=== PATIENT | female | born 1950 | race Caucasian/White ===

== ENCOUNTER 2017-03-17 14:04 | Observation (INO) ==
[2017-03-17] MEDS ORDERED: PANTOPRAZOLE 40 MG VIAL IV ONE (14:55)
[2017-03-17] MEDS ORDERED: 0.9 % SODIUM CHLORIDE 250 ML IV SCH ×2 (15:00→18:30)
[2017-03-17 15:02] LABS: Basophils # (Auto) 0 K/mcL (0.0-0.3); Basophils % (Auto) 0.5 % (0.0-2.0); Eosinophils # (Auto) 0.2 K/mcL (0.0-0.7); Eosinophils % (Auto) 5.3 % (0.0-7.0); Granulocytes % (Auto) 63.9 % (38.0-78.0); Lymphocytes # (Auto) 0.9 K/mcL (1.5-4.8); Lymphocytes % (Auto) 20.8 % (15.5-49.0); Mean Cell Volume 97.6 fL (80.0-100.0); Mean Corpuscular HGB Conc 34.5 g/dL (31.0-36.0); Mean Corpuscular Hemoglobin 33.7 pg (26.0-34.0); Monocytes # (Auto) 0.4 K/mcL (0.1-0.9); Monocytes % (Auto) 9.5 % (1.0-12.0); Platelet Count 154 K/mcL (140-440); RBC 2.48 M/mcL (4.00-5.20); Red Cell Distribution Width 17.9 % (11.5-14.5)
[2017-03-17] MEDS: 0.9 % SODIUM CHLORIDE 1,000 ML IV SCH ×3 (15:04→22:32)
--- NOTE | 2017-03-17 15:15 | Emergency Department Note ---
GI Bleed HPI - General Chief complaint: Rectal Bleed Stated complaint: Rectal bleeding Time Seen by Provider: 03/17/17 14:23 Source: patient Mode of arrival: wheelchair Limitations: no limitations - History of Present Illness HPI Narrative: 36-year-old female who was seen 2 days ago for blood transfusion was given 3 units of blood has been evaluated by the GI doctor Dr. Ruiz also has had an EGD by Dr. Amor in the past 6 months ago had a EGD in which she was diagnosed with peptic ulcer disease at that time. 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 Requiring transfusions she states she noted 2 large bowel movements this morning with blood in it. She is feeling more tired and weak. Her hematocrit is 23 and she was given 3 units of packed RBCs after his hemoglobin was 6.5 on 03/15/17 she is having some midepigastric pain at this time. n stools are guaic positive - Related Data Home Medications Medication Instructions Recorded Confirmed spironolactone 25 mg tablet 25 mg PO QAM 05/19/16 03/17/17 Blood Sugar Diagnostic [Contour] 0 order .ROUTE .MEDSUPPLY 05/31/16 03/17/17 amlodipine 5 mg tablet 5 mg PO QDAY 07/26/16 03/17/17 losartan 50 mg tablet 25 mg PO DAILY tab 10/05/16 03/17/17 zinc 50 mg tablet 50 mg PO QDAY 10/05/16 03/17/17 ferrous sulfate ER 325 mg (65 mg 325 mg PO BID cap 10/19/16 03/17/17 iron) capsule,extended release torsemide 20 mg tablet 20 mg PO QAM tab 10/19/16 03/17/17 cholecalciferol (vitamin D3) 10,000 unit PO QDAY cap 01/28/17 03/17/17 10,000 unit capsule hydrocodone 10 mg-acetaminophen See Label Instructions .ROUTE 02/16/17 03/17/17 325 mg tablet .COMPLEX PRN tab Previous Rx's Medication Instructions Recorded atorvastatin 20 mg tablet 20 mg PO QDAY #60 tab 08/31/16 glipizide ER 5 mg tablet, extended 5 mg PO BID #180 tab 09/17/16 release 24 hr lactulose 10 gram/15 mL oral 20 g PO BID #946 ml 12/03/16 solution escitalopram 20 mg tablet 20 mg PO QDAY #90 tab 12/13/16 allopurinol 100 mg tablet 100 mg PO QDAY #60 tab 02/02/17 pantoprazole 40 mg tablet,delayed 40 mg PO BID #120 tab 02/28/17 release Allergies Allergy/AdvReac Type Severity Reaction Status Date / Time adhesive Allergy Intermediate edwards Verified 02/23/17 16:32 latex Allergy Mild Itching Verified 03/17/17 21:10 Sulfa (Sulfonamide Allergy Unknown Unknown Verified 02/23/17 16:32 Antibiotics) Oxycodone [From Percocet] AdvReac Mild Confusion Verified 02/23/17 16:32 squash AdvReac Mild Nausea Verified 02/23/17 16:32 MRI (metal implant/ right AdvReac Severe Other Uncoded 02/23/17 16:32 ankle) Review of Systems All systems ED: reviewed and negative except as stated. Gastrointestinal: Reports: as per HPI, abdominal pain, nausea, constipation, other (bight red blood). 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 Absent: wheezes Cardiovascular: Present: regular rate, normal rhythm. Absent: bradycardia, tachycardia, irregular rhythm Abdominal: Present: soft, tenderness, normal bowel sounds. Absent: distention, guarding, rebound, rigidity Abdominal tenderness: Present: epigastrium Rectal: Present: normal inspection, heme (+) stool, bloody stool. Absent: black stool Extremities: Present: normal inspection, full ROM. Absent: tenderness Back: Present: normal inspection, full ROM. Absent: tenderness Neurological: Present: alert, oriented X3, CN II-XII intact Psychiatric: Present: normal affect, normal mood. Absent: depressed, agitated Skin: Present: warm, dry, intact, normal color Course Vital Signs Temperature 98.0 F 03/17/17 14:06 Pulse Rate 90 03/17/17 14:06 Respiratory Rate 18 03/17/17 14:06 Blood Pressure 131/73 03/17/17 14:06 Pulse Oximetry (%) 96 03/17/17 14:06 Temperature 98 F 03/18/17 00:00 Pulse Rate 82 03/18/17 00:00 Respiratory Rate 18 03/18/17 00:00 Blood Pressure 134/75 03/18/17 00:00 Pulse Oximetry (%) 94 03/18/17 00:00 GI Bleed - Lab Data Result diagrams: 03/17/17 14:25 03/17/17 14:25 Lab Results 03/17/17 03/17/17 03/17/17 Range/Units 14:25 14:25 14:25 WBC 4.1 L (4.5-11.0) K/mcL RBC 2.48 L (4.00-5.20) M/mcL Hgb 8.4 L (12.0-15.0) g/dL Hct 24.2 L (36.0-48.0) % POC Hct 23.0 L (36.0-48.0) % MCV 97.6 (80.0-100.0) fL MCH 33.7 (26.0-34.0) pg MCHC 34.5 (31.0-36.0) g/dL RDW 17.9 H (11.5-14.5) % Plt Count 154 (140-440) K/mcL MPV 7.6 (7.4-10.4) fL Gran % 63.9 (38.0-78.0) % Lymph % (Auto) 20.8 (15.5-49.0) % Rosebud % (Auto) 9.5 (1.0-12.0) % Eos % (Auto) 5.3 (0.0-7.0) % Baso % (Auto) 0.5 (0.0-2.0) % Gran # 2.6 (1.8-8.0) K/mcL Lymph # (Auto) 0.9 L (1.5-4.8) K/mcL Rosebud # (Auto) 0.4 (0.1-0.9) K/mcL Eos # (Auto) 0.2 (0.0-0.7) K/mcL Baso # (Auto) 0 (0.0-0.3) K/mcL POC Sodium 139 (133-145) mmol/L Sodium 137 (133-145) mmol/L POC Potassium 4.5 (3.3-5.1) mmol/L Potassium 4.5 (3.3-5.1) mmol/L POC Chloride 101 (96-108) mmol/L Chloride 101 (96-108) mmol/L Carbon Dioxide 27 (22-30) mmol/L POC Total CO2 27 (22-30) mmol/L Anion Gap 9.0 (8-16) POC BUN 11 (8-23) mg/dl BUN 11 (8-23) mg/dl Creatinine 0.8 (0.6-1.1) mg/dl POC Creatinine 0.8 (0.6-1.1) mg/dl GFR Calculation 76 Glucose 316 H (70-105) mg/dL POC Glucose 317 H (70-105) mg/dL Hemoglobin A1c 6.8 H (4.0-6.0) % HGB Estim Average Glucose 148 mg/dL Calcium 8.5 L (8.6-10.4) mg/dl POC WB Ioniz Calcium 1.22 (1.16-1.32) mmol/L Total Bilirubin 0.8 (0.0-1.0) mg/dL AST 31 (0-37) U/l ALT 15 (0-40) U/l Alkaline Phosphatase 139 H (39-117) U/L Total Protein 6.4 (5.9-8.4) gm/dL Albumin 2.7 L (3.2-5.2) gm/dL Globulin 3.7 (2.2-3.7) gm/dL Albumin/Globulin Ratio 0.7 L (1.0-2.3) Lipase 51 (7-60) U/L Disposition Pt seen by CHROMIUM PLATER/PA only: No Clinical Impression: GI Bleed Disposition: Xfer As Inpt ([facility])
[2017-03-17 15:17] LABS: ALT/SGPT 15 U/l (0-40); Albumin 2.7 gm/dL (3.2-5.2); Albumin/Globulin Ratio 0.7 (1.0-2.3); Alkaline Phosphatase 139 U/L (39-117); Blood Urea Nitrogen 11 mg/dl (8-23); Lipase 51 U/L (7-60)
[2017-03-17] MEDS: PANTOPRAZOLE 80 MG in 0.9 % SODIUM CHLORIDE 100 ML IV SCH (15:35)
[2017-03-17] MEDS ORDERED: ONDANSETRON 4 MG/2 ML VIAL IV PRN (15:50)
[2017-03-17] MEDS ORDERED: 0.9 % SODIUM CHLORIDE 1,000 ML IV SCH (16:00)
--- NOTE | 2017-03-17 16:38 | XRay Report ---
CLINICAL INFORMATION: Rectal bleeding COMPARISON: None. FINDINGS: The stool gas pattern is unremarkable. There is no free air, soft tissue mass, organomegaly or pathologic calcification. IMPRESSION: Normal abdomen Interpreted and Authenticated by: Reynaldo Mukherjee 03/17/17
[2017-03-17] MEDS ORDERED: HYDROmorphone 2 MG/ML SYRINGE IV PRN (16:59)
[2017-03-17] MEDS ORDERED: PANTOPRAZOLE 40 MG VIAL IV SCH (17:00)
[2017-03-17] MEDS: INSULIN LISPRO 1 UNIT/0.01 ML UNIT SQ SCH (17:37)
--- NOTE | 2017-03-17 18:12 | General Surg History&Physical ---
History of Present Illness Patient information: Note initiated : 03/17/17 at 6:05 pm Service Date, if different from initiated Date: [] Patient: Francia Souza a 66 y/o F admitted on 03/17/17 for Rectal bleeding. Chief Complaint: [Rectal bleeding and anemia] HPI: Ms. Souza is a 66 year old F with known history of recurrent rectal bleeding. The patient also has pancytopenia with monoclonal gammopathy, iron deficiency anemia, Shepherd with portal hypertension and chronic peptic ulcer disease. She has documented cirrhotic liver disease and endoscopic evidence of early esophageal varices. She has been on iron infusions and has required multiple red blood cell transfusions because of severe anemia she had an EGD in May 2016 which showed severe gastritis. She has been on Protonix twice daily and Carafate 4 times daily. She has also received iron transfusions because of chronic iron deficiency the patient was transfused on 15 March 2017. She received 3 units of blood at that time. On the she had a hard bowel movement and had 2 very large bloody stools. She took a laxative and had very large soft bloody bowel movement. Her last bowel movement was 1300 hrs. today. She has not had a recent colonoscopy the last documented colonoscopy was February 2015 which showed hemorrhoids and 2 small tubular adenomas. patient's present hemoglobin is 8.4 with hematocrit of 24.2. She is admitted for observation, bowel prep, colonoscopy to rule out other sources of colonic bleeding. Review of Systems - Constitutional fatigue, malaise, weakness, weight gain - EENT Nose, mouth and throat: no dysphagia, no epistaxis - Cardiovascular dyspnea on exertion, leg edema, palpatations, rapid heart rate, no chest pain at rest - Respiratory dyspnea on exertion, no cough, no wheezing, no chest congestion - Gastrointestinal abdominal pain, change in bowel habits, constipation, hematochezia - Genitourinary Genitourinary: no dysuria, no urinary hesitancy - Musculoskeletal abnormal gait, back pain, joint swelling, radiating pain into limb, stiffness - Integumentary new lesions (Small blisters right lower extremity near the ankle), no changing lesions, no non-healing lesions - Neurological abnormal gait, vertigo, weakness, no confusion, no convulsions, no memory loss, no syncope - Psychiatric depression, no anxiety - Endocrine fatigue, no polydipsia, no polyphagia - Hematologic/Lymphatic no easy bleeding, no easy bruising, no lymphadenopathy - Allergic/Immunologic no tongue swelling, no throat swelling, no uticaria, no wheezing, no lip swelling Past History Past medical history: Diabetes mellitus type 2 Carotid artery disease Nonalcoholic steatohepatitis with cirrhosis and portal hypertension Depression Essential hypertension Iron deficiency anemia Pancytopenia Monoclonal gammopathy Morbid obesity Pulmonary hypertension Morbid obesity Obstructive sleep apnea Osteoarthritis Past surgical history: Heller myotomy Hysterectomy with oophorectomy Left total knee replacement Right total knee replacement Rodding with fixation left femoral fracture Past family history: Hypertension Diabetes mellitus Lung cancer Liver cancer Kidney cancer Pancreatic cancer Multiple sclerosis Oropharyngeal cancer Past social history: Former smoker Occasional alcohol use Denies drug use Medications and Allergies Home Medications Medication Instructions Recorded Confirmed Type spironolactone 25 mg tablet 25 mg PO QAM 05/19/16 02/23/17 History Blood Sugar Diagnostic [Contour] 0 order .ROUTE .MEDSUPPLY 05/31/16 02/23/17 History amlodipine 5 mg tablet 5 mg PO QDAY 07/26/16 02/23/17 History atorvastatin 20 mg tablet 20 mg PO QDAY #60 tab 08/31/16 02/23/17 Rx glipizide ER 5 mg tablet, extended 5 mg PO BID #180 tab 09/17/16 02/23/17 Rx release 24 hr losartan 50 mg tablet 25 mg PO BID tab 10/05/16 02/23/17 History zinc 50 mg tablet 50 mg PO QDAY 10/05/16 02/23/17 History ferrous sulfate ER 325 mg (65 mg 325 mg PO BID cap 10/19/16 02/23/17 History iron) capsule,extended release torsemide 20 mg tablet 20 mg PO QAM tab 10/19/16 02/23/17 History lactulose 10 gram/15 mL oral 20 g PO BID #946 ml 12/03/16 02/23/17 Rx solution escitalopram 20 mg tablet 20 mg PO QDAY #90 tab 12/13/16 02/23/17 Rx cholecalciferol (vitamin D3) 10,000 unit PO QDAY cap 01/28/17 02/23/17 History 10,000 unit capsule allopurinol 100 mg tablet 100 mg PO QDAY #60 tab 02/02/17 02/23/17 Rx hydrocodone 10 mg-acetaminophen See Label Instructions .ROUTE 02/16/17 02/23/17 History 325 mg tablet .COMPLEX PRN tab pantoprazole 40 mg tablet,delayed 40 mg PO BID #120 tab 02/28/17 Rx release Allergies Allergy/AdvReac Type Severity Reaction Status Date / Time adhesive Allergy Intermediate edwards Verified 02/23/17 16:32 latex Allergy Intermediate Itching Verified 02/23/17 16:32 Sulfa (Sulfonamide Allergy Unknown Unknown Verified 02/23/17 16:32 Antibiotics) Oxycodone [From Percocet] AdvReac Mild Confusion Verified 02/23/17 16:32 squash AdvReac Mild Nausea Verified 02/23/17 16:32 MRI (metal implant/ right AdvReac Severe Other Uncoded 02/23/17 16:32 ankle) Exam Temp Pulse Resp BP Pulse Ox 98.0 F 82 16 130/91 95 03/17/17 17:10 03/17/17 17:10 03/17/17 17:10 03/17/17 17:10 03/17/17 17:10 - General physical appearance well developed, well nourished, no distress, moderate pain, obese - Eyes PERRL, normal ocular movement. negative: icteric - ENT normal pinna, normal nares, normal mucosa, no hearing loss, no congestion, dentures - Head Head exam IM: Present: atraumatic, normal inspection, normocephalic - Neck no masses, no bruits, trachea midline, no lymphadectomy, no venous distension - Cardiovascular Cardiovascular exam IM: Present: normal rate and rhythm, RRR, +S1, +S2, systolic murmur. Absent: gallop, JVD Intensity IM: 2/6 - Respiratory normal expansion, normal respiratory effort, clear to percussion, clear to auscultation - Abdomen Abdomen: Present: soft, tender (Epigastric tenderness), bowel sounds, distended (Obese) Hernia: Present: none - Genitourinary Present: normal external genitalia - Rectum Rectum: Present: normal sphincter tone, no bleeding Hemorrhoids: Present: moderate - Integumentary Present: no rash, no growths, other (Spider angiomata of the chest) - Neurologic Present: normal coordination, normal sensation - Musculoskeletal Present: normal gait, normal posture - Psychiatric Present: oriented to time, oriented to person, oriented to place, speech is normal, memory intact Assessment and Plan (1) Rectal bleeding Bowel prep will be carried out tonight with colonoscopy to be performed in the morning Status: Acute (2) Acute blood loss anemia Patient will be transfused 2 units of packed red cells tonight Serial hemoglobin every 8 hours Status: Acute (3) Erosive gastritis with hemorrhage Continue on pantoprazole IV Status: Acute (4) Polyclonal gammopathy Status: Chronic (5) Acquired pancytopenia Status: Acute (6) DMII (diabetes mellitus, type 2) Q's every 6 hours Accu-Chek Sliding scale insulin coverage Status: Chronic Comment: 1989 Qualifiers: Diabetes mellitus complication status: with unspecified complications Diabetes mellitus alf insulin use: without alf use Qualified Code( s): E11.8 - Type 2 diabetes mellitus with unspecified complications (7) Hypertension, essential Status: Chronic Comment: 2000
[2017-03-17] MEDS ORDERED: PEG 3350/NA SULF,BICARB,CL/KCL 4,000 ML ORAL.SOL PO ONE (18:26)
[2017-03-17 18:52] LABS: Hemoglobin A1C 6.8 % HGB (4.0-6.0)
[2017-03-17] MEDS ORDERED: PEG 3350/NA SULF,BICARB,CL/KCL 4,000 ML ORAL.SOL ONE (19:45)
[2017-03-17] MEDS: LOSARTAN 50 MG TABLET PO SCH (22:32)
[2017-03-18] MEDS: PANTOPRAZOLE 80 MG in 0.9 % SODIUM CHLORIDE 100 ML IV SCH (00:23)
[2017-03-18] MEDS: INSULIN LISPRO 1 UNIT/0.01 ML UNIT SQ SCH ×5 (00:29→21:05)
[2017-03-18] MEDS: 0.9 % SODIUM CHLORIDE 1,000 ML IV SCH (02:27)
[2017-03-18 06:01] LABS: Basophils # (Auto) 0 K/mcL (0.0-0.3); Basophils % (Auto) 0.8 % (0.0-2.0); Eosinophils # (Auto) 0.3 K/mcL (0.0-0.7); Granulocytes % (Auto) 55.4 % (38.0-78.0); Lymphocytes # (Auto) 1.2 K/mcL (1.5-4.8); Mean Cell Volume 91.7 fL (80.0-100.0); Mean Corpuscular HGB Conc 34.4 g/dL (31.0-36.0); Mean Corpuscular Hemoglobin 31.5 pg (26.0-34.0); Monocytes # (Auto) 0.6 K/mcL (0.1-0.9); Monocytes % (Auto) 12.8 % (1.0-12.0); Platelet Count 126 K/mcL (140-440); RBC 3.09 M/mcL (4.00-5.20); Red Cell Distribution Width 16.6 % (11.5-14.5)
[2017-03-18] MEDS ORDERED: PROPOFOL 200 MG/20 ML VIAL IV ONE (08:50)
[2017-03-18] MEDS ORDERED: ONDANSETRON 4 MG/2 ML VIAL IV ONE (08:50)
[2017-03-18] MEDS ORDERED: MIDAZOLAM 5 MG/5 ML VIAL IV ONE (08:50)
[2017-03-18] MEDS ORDERED: amLODIPine 5 MG TABLET PO SCH (09:00)
[2017-03-18] MEDS ORDERED: LACTATED RINGERS 250 ML IV PRN ×2 (09:00→09:53)
[2017-03-18] MEDS ORDERED: TORSEMIDE 10 MG TABLET PO SCH (09:00)
[2017-03-18] MEDS ORDERED: SPIRONOLACTONE 25 MG TABLET PO SCH (09:00)
[2017-03-18] MEDS ORDERED: ESCITALOPRAM 10 MG TABLET PO SCH (09:00)
[2017-03-18] MEDS ORDERED: ONDANSETRON 4 MG/2 ML VIAL IV PRN ×2 (09:00→09:53)
[2017-03-18] MEDS ORDERED: IPRATROPIUM/ALBUTEROL 3 ML AMPUL.NEB NEB PRN (09:00)
[2017-03-18] MEDS ORDERED: PROMETHAZINE 25 MG/ML VIAL IV PRN (09:00)
[2017-03-18] MEDS ORDERED: FLUMAZENIL 0.1 MG/ML ML IV PRN (09:00)
[2017-03-18] MEDS ORDERED: LACTATED RINGERS 1,000 ML IV SCH (09:00)
[2017-03-18] MEDS: LOSARTAN 50 MG TABLET PO SCH (09:29)
--- NOTE | 2017-03-18 09:36 | Brief Operative Note ---
Date of procedure: 03/18/17 Pre-op diagnosis: rectal bleeding Post-op diagnosis: other (sigmoid colon polyps; hemorrhoid,internal and external ) Procedure: colonoscopy with polypectomy Grafts/Implants: No Anesthesia: MAC Findings: large internal and external hemorrhoids, multiple colon polyps Complications: none Surgeon: Asif Thompson Specimens Removed/Pathology: other (colon polyps) Condition: stable Disposition: floor
[2017-03-18] MEDS ORDERED: 0.9 % SODIUM CHLORIDE 1,000 ML IV SCH (09:53)
[2017-03-18] MEDS: HYDROmorphone 2 MG/ML SYRINGE IV PRN ×2 (13:44→18:02)
--- NOTE | 2017-03-18 13:56 | Operative Note ---
DATE OF OPERATION: 03/18/2017 PREOPERATIVE DIAGNOSIS: Rectal bleeding. POSTOPERATIVE DIAGNOSIS: Sigmoid colon polyp and internal and external hemorrhoids. PROCEDURE: Colonoscopy with polypectomy. FINDINGS: Large internal and external hemorrhoids, without active bleeding. Multiple colon polyps and multiple distal rectal mucosal excresences Formation. DESCRIPTION OF PROCEDURE: Under general anesthesia, the patient was turned to the left lateral decubitus position. A timeout procedure was carried out as per protocol. Digital evaluation revealed internal and external hemorrhoids, and a healing tear of one of the lateral hemorrhoidal complex. There was no active bleeding. There was no blood in the rectal vault. The scope was introduced to the cecum. Cecum was identified by the opening of the ileocecal valve and appendi . Cecum was unremarkable. There was some staining from liquid stool but this was irrigated and cleared . Descending colon was unremarkable. Transverse colon showed no abnormality. Is. The descending colon was unremarkable except around 70 cm was a flat based polyp noted. It was removed with multiple cold biopsies. At about 50 cm, there was another polyp that was snared but the snare caused liquefaction of the polyp and there was no tissue for diagnosis. There were two other polyps in the distal sigmoi. The patient tolerated well. There were no diverticular openings noted. There were no vascular lesions noted. Retroflexed view confirmed moderate sized internal hemorrhoids. The procedure was terminated. The patient tolerated the procedure well. IMPRESSION: The patient has large hemorrhoids which are associated with portal hypertension. Treatment is going to be liberal use of stool softeners to prevent constipation and irritation. Topical treatment is not going to be effective . Hemorrhoidectomy should not be performed in these patient unless mandated by uncontrolled bleeding.. LCS:enrico Job ID: [id number] Doc ID: [id number] Asif RENNER
[2017-03-18] MEDS: glipiZIDE 5 MG TAB.XL.24H PO SCH (17:46)
[2017-03-18] MEDS: PANTOPRAZOLE 40 MG TABLET PO SCH (17:46)
[2017-03-18] MEDS: LACTULOSE 20 GM/30 ML ORAL.SOL PO SCH (20:20)
[2017-03-18] MEDS: LOSARTAN 25 MG TABLET PO SCH (20:23)
[2017-03-19] MEDS: INSULIN LISPRO 1 UNIT/0.01 ML UNIT SQ SCH ×2 (07:21→12:19)
[2017-03-19] MEDS: PANTOPRAZOLE 40 MG TABLET PO SCH (07:22)
[2017-03-19] MEDS: glipiZIDE 5 MG TAB.XL.24H PO SCH (07:22)
[2017-03-19] MEDS: HYDROmorphone 2 MG/ML SYRINGE IV PRN (07:22)
[2017-03-19] MEDS: LOSARTAN 25 MG TABLET PO SCH (08:10)
[2017-03-19] MEDS: LACTULOSE 20 GM/30 ML ORAL.SOL PO SCH (08:11)
[2017-03-19] MEDS ORDERED: ESCITALOPRAM 10 MG TABLET PO SCH ×2 (09:00→21:00)
[2017-03-19] MEDS ORDERED: TORSEMIDE 10 MG TABLET PO SCH (09:00)
[2017-03-19] MEDS ORDERED: amLODIPine 5 MG TABLET PO SCH (09:00)
[2017-03-19] MEDS ORDERED: SPIRONOLACTONE 25 MG TABLET PO SCH (09:00)
--- NOTE | 2017-03-19 12:48 | Discharge Summary ---
Providers - Providers Patient information: Note initiated : 03/19/17 at 12:45 pm Service Date, if different from initiated Date: [] Patient: Francia Souza 66 y/o F admitted on 03/17/17 for Rectal bleeding. Chief Complaint: [] Date of admission: 03/17/17 Discharge date: 03/19/17 Attending physician: Asif Thompson Hospitalization Hospital course: 66-year-old female who was admitted with recurrent rectal bleeding. The patient has pancytopenia with monoclonal gammopathy, iron deficiency anemia, mesh with portal hypertension and chronic peptic ulcer disease. She also has documented cirrhotic liver disease with endoscopic evidence of esophageal varices. She had been treated by multiple physicians as an outpatient over the past few years and has chronic anemia. She had an EGD in May 2016 which showed severe gastritis and she has been on Protonix and Carafate. The patient has a 1 day history of large bloody bowel movements. Her hemoglobin which was above 10 with down to 8.4. She was admitted and had a bowel prep. She had colonoscopy which showed few small polyps and large internal and external hemorrhoids but no evidence of bleeding. Patient has not had bleeding since her colonoscopy and her hemoglobin is stable. She is discharged home in stable condition and can have follow-up with her primary care physician. Discharge diagnosis: Acute rectal bleeding Secondary discharge diagnosis: Internal and external hemorrhoids Mass with portal hypertension Pancytopenia Monoclonal gammopathy Iron deficiency anemia Colon polyps Reason for admission: Rectal bleeding Procedures: Colonoscopy with polypectomy Complications: None Exam Temp Pulse Resp BP Pulse Ox 98.9 F 94 H 16 119/82 95 03/19/17 12:00 03/19/17 08:23 03/19/17 12:00 03/19/17 12:00 03/19/17 12:00 - General physical appearance well developed, well nourished, no distress - Eyes PERRL, normal ocular movement - ENT normal pinna, normal nares, normal mucosa, no hearing loss, no congestion - Head Head exam IM: Present: atraumatic, normocephalic - Neck no masses, no bruits, trachea midline, no lymphadectomy, no venous distension - Cardiovascular Cardiovascular exam IM: Present: normal rate and rhythm, RRR, +S1, +S2, systolic murmur, tachycardia. Absent: JVD Intensity IM: 2/6 - Respiratory normal expansion, normal respiratory effort, clear to percussion, clear to auscultation - Abdomen Abdomen: Present: soft, non tender (Abdomen is soft and nondistended she does not have any tenderness; she has good active bowel sounds), bowel sounds Hernia: Present: none - Genitourinary Present: normal external genitalia - Integumentary Present: no rash, no growths, no abnormal pigmentation - Neurologic Present: normal coordination, normal sensation - Musculoskeletal Present: normal gait, normal posture - Psychiatric Present: oriented to time, oriented to person, oriented to place, speech is normal, memory intact Discharge Plan - Patient/Caregiver Discharge Instructions Activity: increase activity as tolerated Diet: Consistent Carbohydrate Additional Instructions: MiraLAX once or twice daily to achieve soft bowel movements Follow-up with primary care physician on an as-needed basis - Follow up Plan Follow up with: Andres Sanchez MD [Primary Care Provider] - (Keep your April appointment , if you have any problems call and scheduled to be seen before then.) Disposition: Home, Self-Care Prognosis: Good Rehab Potential: Good I certify that the patient requires SNF services.: No Overall status at discharge: patient is back to baseline Pending Studies Resuscitation Status Full Code Diet Consistent Carbohydrate Diet Start TueMar 18 1014 Amlodipine Besylate (Norvasc) 5 mg PO QDAY [facility] Last Admin: 03/19/17 08:10 Dose: 5 mg Diagnostic Test (Pha) (Accu-Chek) 1 each FS [facility] Last Admin: 03/19/17 12:18 Dose: 1 each Admin: 03/19/17 07:21 Dose: 1 each Admin: 03/18/17 20:12 Dose: 1 each Glipizide (Glucotrol Xl) 5 mg PO BIDAC [facility] Last Admin: 03/19/17 07:22 Dose: 5 mg Admin: 03/18/17 17:46 Dose: 5 mg Hydromorphone HCl (Dilaudid) 1 mg IV Q4HP PRN PRN Reason: PAIN LEVEL > 6 Last Admin: 03/19/17 07:22 Dose: 1 mg Admin: 03/18/17 18:02 Dose: 0.5 mg Admin: 03/18/17 13:44 Dose: 0.5 mg Insulin Human Lispro (Humalog) 0 unit SQ [facility] PRN Reason: Protocol Last Admin: 03/19/17 12:19 Dose: 8 unit Admin: 03/19/17 07:21 Dose: 4 unit Admin: 03/18/17 21:05 Dose: 6 unit Lactulose (Cephulac) 20 gm PO BID [facility] Last Admin: 03/19/17 08:11 Dose: 20 gm Admin: 03/18/17 20:20 Dose: 20 gm Losartan Potassium (Cozaar) 25 mg PO BID [facility] Last Admin: 03/19/17 08:10 Dose: 25 mg Admin: 03/18/17 20:23 Dose: Not Given Pantoprazole Sodium (Protonix) 40 mg PO BIDAC [facility] Last Admin: 03/19/17 07:22 Dose: 40 mg Admin: 03/18/17 17:46 Dose: 40 mg Spironolactone (Aldactone) 25 mg PO QAM [facility] Last Admin: 03/19/17 08:09 Dose: 25 mg Torsemide (Demadex) 20 mg PO DAILY [facility] Last Admin: 03/19/17 08:10 Dose: Not Given Shift Summary 03/19/17 04:31 Shift Summary by Acosta Sinclair on RA. Ambulates w/FWW to BS. Complained of headache intermittently throughout shift, did not receive any pain meds. Complained of nausea x1 this am after ambulating to BS. Nausea quickly subsided w/no emesis after returning to bed and opening a window. No BM this shift. Pt takes Lexapro @ night and requested to take it last night to resume her normal medication schedule. Med still ordered for am and should be held. Possible d/c today. Initialized on 03/19/17 04:31 - END OF NOTE
--- NOTE | 2017-03-22 16:36 | Surgical Pathology Report ---
HISTOLOGY SPECIMEN MICROSCOPIC DIAGNOSIS SPECIMEN A - COLON, SIGMOID 30 cm, POLYPECTOMY: -- HYPERPLASTIC POLYP. SPECIMEN B - COLON, 50 cm, POLYPECTOMY: -- HYPERPLASTIC POLYPS. SPECIMEN C - COLON, CECUM, POLYPECTOMY: -- POLYPOID PORTION OF COLONIC MUCOSA WITH BLAND STROMAL PROLIFERATION, FAVOR MYXOMA, SEE COMMENT. -- NO DYSPLASIA OR MALIGNANCY IDENTIFIED. SPECIMEN D - COLON, 25 cm, POLYPECTOMIES: -- HYPERPLASTIC POLYPS. (RLF:djf) COMMENT: The cecum polyp (specimen C) shows a polypoid colonic mucosal fragment with mucinous hypocellular stroma. The stromal cells are bland and cytologic atypia is not identified. Immunohistochemistry is negative for neural, smooth muscle and epithelial differentiation within these stromal cells. 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 No dysplasia or malignancy are identified. Clinical and endoscopic correlation are recommended. MICROSCOPIC DESCRIPTION Immunohistochemistry is performed (block C). Cells of interest: Stroma. SM-MHC: Negative. CD34, CD117: Negative. Pancytokeratin plus: Negative. S100: Negative. Interpretation: No leiomyoma, GIST, carcinoma or neural differentiation identified. Some of the tests reported here may not have been cleared or approved by the U.S. Food and Drug Administration (FDA). However, the FDA has determined that such clearance or approval is not necessary. Pursuant to the requirements of CLIA, this laboratory has established and verified the accuracy and precision of all tests, and additional information about these tests is available upon request. All technical controls are adequate. CLINICAL HISTORY Rectal bleeding. PROCEDURAL IMPRESSION Polyps. GROSS DESCRIPTION Specimen A: Received in formalin labeled 30 cm sigmoid polyp, are four fragments of pink-carranza tissue ranging in size from 0.1 to 0.3 cm. Totally submitted - one cassette. Specimen B: Received in formalin labeled 50 cm polyp, is a 0.2 cm fragment of carranza tissue. Totally submitted - one cassette. Specimen C: Received in formalin labeled cecum polyp, is a 0.7 cm fragment of carranza tissue. Totally submitted - one cassette. Specimen D: Received in formalin labeled 25 cm polyps, are four fragments of pink-carranza tissue ranging in size from 0.2 to 0.3 cm. Totally submitted - one cassette. (KGW:john) Electronically Signed by: Shy Duran M.D.
== END 2017-03-19 13:40 | disposition home or self-care (01) ==
LOC: ED 14:04 → MEDSUR 16:31 → INTOOBSV 16:31 → MEDSUR 17:10
PROVIDERS: ADMIT Family Medicine Adult Medicine; ATTEND Family Medicine Adult Medicine

== ENCOUNTER 2019-06-16 19:50 | Inpatient (IN) ==
--- NOTE | 2019-06-16 20:20 | Emergency Department Note ---
Recheck HPI - General Chief Complaint: Recheck/Abnormal Lab/Rx Stated Complaint: weakness Time Seen by Provider: 06/16/19 19:54 Source: EMS Mode of arrival: EMS Limitations: physical limitation - History of Present Illness HPI Narrative: Patient is a 68-year-old female that returns to the emergency department by ambulance today after she was notified by the emergency department to return once her blood cultures had resulted with gram-negative bacilli. Patient was seen yesterday here in the emergency department by Dr. day. Patient has cellulitis to the right lower leg. This is a result of her falling out of her wheelchair a few days ago and had injured the right leg. She has redness on the right leg, swelling, and pain. She has had fevers for the last 2 days. She reports that her fever today was 101.0. She denies any cough, shortness of breath, abdominal pains. She denies any pain or burning with urination. Patient's labs from yesterday evening show normal white count with a lactic acid of 2.3. She did have a temperature yesterday of 102.7 while she was here in the emergency department. She was given a dose of vancomycin and discharged on clindamycin. Patient reports that since she has been home she has felt weaker, and continues to have fevers. - Related Data Home Medications Medication Instructions Recorded Confirmed acetaminophen 500 mg capsule 1,000 mg PO Q4H PRN cap 05/19/18 05/10/19 Lidocaine with 8.4% Sod Bicarb 10 ml PO PRN PRN 03/27/19 05/10/19 [Buffered Lidocaine 1% Syringe] OneTouch Prime blood sugar test 0 dose .ROUTE .MEDSUPPLY 04/05/19 05/10/19 strips Pen Needle, Diabetic [Unifine See Dose Instructions dose .ROUTE 04/05/19 05/10/19 Pentips Plus] .MEDSUPPLY Previous Rx's Medication Instructions Recorded lactulose 10 gram/15 mL oral 20 g PO BID #946 ml 09/02/17 solution bisacodyl 5 mg tablet,delayed 5 mg PO QHS PRN #30 tab 02/22/18 release ondansetron 8 mg disintegrating 8 mg PO BID PRN #30 tab 03/17/18 tablet benzonatate 100 mg capsule 100 mg PO TID PRN #20 cap 07/10/18 insulin glargine 100 unit/mL (3 30 unit SUB-Q BID #15 ml 11/06/18 mL) subcutaneous pen losartan 25 mg tablet 25 mg PO BID #180 tab 12/06/18 famotidine 20 mg tablet 20 mg PO QDAY #90 tab 12/12/18 lancets See Rx Instructions .ROUTE 02/06/19 .MEDSUPPLY #100 each liraglutide 0.6 mg/0.1 mL (18 mg/3 1.8 mg SUB-Q QDAY #6 ml 02/07/19 mL) subcutaneous pen injector hydrocodone 7.5 mg-acetaminophen 1 tab PO Q6-8HP PRN #30 tab 04/10/19 325 mg tablet furosemide 40 mg tablet 40 mg PO DAILY #30 tab 04/23/19 Soumya Lift Chair [phone] ea 04/30/19 incontience pads and supplies #1 ea 04/30/19 fluoxetine 20 mg capsule 20 mg PO QDAY #30 cap 05/01/19 mirabegron 25 mg tablet,extended 25 mg PO Q24H #30 tab 05/22/19 release 24 hr pantoprazole 40 mg tablet,delayed 40 mg PO BID #180 tab 05/22/19 release Power wheel chair #1 ea 06/08/19 Clindamycin HCl [Cleocin] 300 mg PO TID #30 cap 06/16/19 Allergies Allergy/AdvReac Type Severity Reaction Status Date / Time adhesive Allergy Intermediate edwards Verified 05/10/19 10:33 latex Allergy Mild Itching Verified 05/10/19 10:33 Sulfa (Sulfonamide Allergy Unknown Unknown Verified 05/10/19 10:33 Antibiotics) Fish Containing Products AdvReac Intermediate Other Verified 05/10/19 10:33 oxycodone [From Percocet] AdvReac Mild Confusion Verified 05/10/19 10:33 squash AdvReac Mild Nausea Verified 05/10/19 10:33 MRI (metal implant/ right AdvReac Severe Other Uncoded 05/10/19 10:33 ankle) Review of Systems Constitutional: Reports: fever, weakness. Denies: chills Eyes: Denies: vision change ENT ED: Denies: ear pain, throat pain Cardiovascular: Reports: edema. Denies: chest pain, palpitations Respiratory: Denies: cough, shortness of breath Gastrointestinal: Denies: abdominal pain, nausea, vomiting, diarrhea, constipation Genitourinary: Denies: dysuria, frequency Musculoskeletal: Denies: back pain, joint swelling Integumentary: Reports: as per HPI (cellulitis right lower extremity) Neurological: Reports: weakness. 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 Absent: conjunctival injection ENT: Present: normal oropharynx, mucous membranes moist Neck: Present: normal inspection, full ROM. Absent: tenderness, lymphadenopathy Chest: Present: symmetric chest wall rise Respiratory: Present: normal lung sounds bilaterally. Absent: respiratory distress, wheezes, stridor, accessory muscle use, prolonged expiratory phase Cardiovascular: Present: regular rate, normal rhythm. Absent: systolic murmur, diastolic murmur Abdominal: Present: soft. Absent: distention, tenderness, guarding, rebound, rigidity, organomegaly, mass Extremities: Present: full ROM, normal capillary refill, other (3+ edema bilateral lower extremities. 20 cm x 20 cm erythematous area of skin on the ante rior side of right lower leg. This area is warm been tender to touch. There is very scant amount of light yellow discharge. Negative Homans sign. No palpable cord.) Back: Present: normal inspection Neurological: Present: alert, oriented X3 Psychiatric: Present: normal affect, normal mood Skin: Present: other (20 cm x 20 cm erythematous and tender area on the anterior side of right lower leg. Scant amount of yellow discharge.) Course Course Narrative: 2100 - Currently awaiting patient's labs to be resulted. With patient's elevated lactic acid yesterday, and the gram-negative bacilli on the blood cultures, and patient is still having a fever. Ordered patient a dose of Zosyn. Based on her GFR had ordered 2.25 g IV to be given in the emergency department. Ordered 1 L normal saline. Patient also has been given 650 mg of oral acetami nophen for her fever. Patient is currently resting comfortably in no distress in the exam room. 2200 - labs currently pending at this time. Dr. Freeman will assume care at 2200 due to shift change. Vital Signs Temperature 101.4 F H 06/16/19 19:51 Pulse Rate 83 06/16/19 19:51 Respiratory Rate 20 06/16/19 19:51 Blood Pressure 163/62 06/16/19 19:51 Pulse Oximetry (%) 95 06/16/19 19:51 Temperature 101 F H 06/16/19 20:41 Pulse Rate 81 06/16/19 21:32 Respiratory Rate 20 06/16/19 21:55 Blood Pressure 176/70 06/16/19 21:55 Pulse Oximetry (%) 95 06/16/19 21:32 Recheck/Abnormal Lab/Rx - Lab Data Result diagrams: 06/16/19 20:30 06/16/19 20:30 Lab Results 06/16/19 06/16/19 06/16/19 Range/Units 20:30 20:30 21:14 WBC TNP RBC TNP Hgb TNP Hct TNP MCV TNP MCH TNP MCHC TNP RDW TNP Plt Count TNP MPV TNP Band Neutrophils % Not Reportable Sodium 134 (133-145) mmol/L Potassium 3.7 (3.3-5.1) mmol/L Chloride 97 (96-108) mmol/L Carbon Dioxide 26 (22-30) mmol/L Anion Gap 11.0 (8-16) BUN 25 H (8-23) mg/dl Creatinine 1.2 H (0.6-1.1) mg/dl GFR Calculation 46 Glucose 89 (70-105) mg/dL Calcium 8.6 (8.6-10.4) mg/dl Total Bilirubin 2.5 H (0.0-1.0) mg/dL AST 28 (0-37) U/l ALT 10 (0-40) U/l Alkaline Phosphatase 98 (39-117) U/L C-Reactive Protein 21.5 H (0.0-0.8) mg/dl Total Protein 7.0 (5.9-8.4) gm/dL Albumin 2.6 L (3.2-5.2) gm/dL Globulin 4.4 H (2.2-3.7) gm/dL Albumin/Globulin Ratio 0.6 L (1.0-2.3) Disposition Pt seen by C[facility]ROWER/PA only: No (Dr. Freeman) Disposition: Still a Patient Condition: Undetermined Referrals: Serge Jeffries MD, FAAFP [Primary Care Provider] -
[2019-06-16] MEDS ORDERED: 0.9 % SODIUM CHLORIDE 1,000 ML IV ONE (20:24)
[2019-06-16] MEDS ORDERED: ACETAMINOPHEN 325 MG TABLET PO ONE (20:24)
[2019-06-16] MEDS ORDERED: PIPERACILLIN SODIUM/TAZOBACTAM 2.25 GM in DEXTROSE 5% IN WATER 50 ML IV ONE (20:28)
[2019-06-16 21:35] LABS: ALT/SGPT 10 U/l (0-40); AST/SGOT 28 U/l (0-37); Albumin 2.6 gm/dL (3.2-5.2); Albumin/Globulin Ratio 0.6 (1.0-2.3); Alkaline Phosphatase 98 U/L (39-117); Bilirubin,Total 2.5 mg/dL (0.0-1.0); Blood Urea Nitrogen 25 mg/dl (8-23); C-Reactive Protein 21.5 mg/dl (0.0-0.8); Calcium 8.6 mg/dl (8.6-10.4); Carbon Dioxide 26 mmol/L (22-30); Chloride 97 mmol/L (96-108); Globulin 4.4 gm/dL (2.2-3.7); Glomerular Filtration Rate 46; Glucose 89 mg/dL (70-105)
[2019-06-16 22:18] LABS: Hematocrit 28.9 % (34.1-44.9); Hemoglobin 9.4 g/dL (11.2-15.7); Mean Cell Volume 102.1 fL (80.0-100.0); Mean Corpuscular HGB Conc 32.5 g/dL (31.0-36.0); Mean Platelet Volume 11.4 fL (7.4-10.4); Platelet Count 67 K/mcL (140-440); RBC 2.83 M/mcL (3.59-5.38); Red Cell Distribution Width 17.7 % (11.5-14.5); WBC 3.5 K/mcL (4.50-11.00)
[2019-06-16 23:09] LABS: Anisocytosis 1+ (NONE SEEN); Band Neutrophils % 8 % (0-10); Eosinophils % (Manual) 3 % (0-7); Lymphocytes % 11 % (15-49); Macrocytosis 1+ (NONE SEEN); Monocytes % (Manual) 7 % (1-12); Platelet Estimate DECREASED (NORMAL); Polychromasia 1+ (NONE SEEN); RBC Morphology ABNORM (NORMAL); Segmented Neutrophils % 71 % (38-78)
--- NOTE | 2019-06-16 23:10 | Emergency Department Note ---
General Adult HPI - General Chief complaint: Recheck/Abnormal Lab/Rx Stated complaint: weakness Time Seen by Provider: 06/16/19 19:54 Source: EMS Mode of arrival: EMS Limitations: physical limitation (obesity and weakness) - History of Present Illness HPI Narrative: 68-year-old female checked out to me at shift change by MIREYA Hansen. I reviewed his note and assume full care of this patient. It is noted the patient was seen yesterday by Dr. day was sent home with clindamycin for a right lower leg cellulitis. Her blood culture came back today is positive for gram negative bacilli. So we gave her a dose of Zosyn and reordered lab. She is febrile today but is not complaining of shortness of breath or chest pain - Related Data Home Medications Medication Instructions Recorded Confirmed acetaminophen 500 mg capsule 1,000 mg PO Q4H PRN cap 05/19/18 05/10/19 Lidocaine with 8.4% Sod Bicarb 10 ml PO PRN PRN 03/27/19 05/10/19 [Buffered Lidocaine 1% Syringe] OneTouch Prime blood sugar test 0 dose .ROUTE .MEDSUPPLY 04/05/19 05/10/19 strips Pen Needle, Diabetic [Unifine See Dose Instructions dose .ROUTE 04/05/19 05/10/19 Pentips Plus] .MEDSUPPLY Previous Rx's Medication Instructions Recorded lactulose 10 gram/15 mL oral 20 g PO BID #946 ml 09/02/17 solution bisacodyl 5 mg tablet,delayed 5 mg PO QHS PRN #30 tab 02/22/18 release ondansetron 8 mg disintegrating 8 mg PO BID PRN #30 tab 03/17/18 tablet benzonatate 100 mg capsule 100 mg PO TID PRN #20 cap 07/10/18 insulin glargine 100 unit/mL (3 30 unit SUB-Q BID #15 ml 11/06/18 mL) subcutaneous pen losartan 25 mg tablet 25 mg PO BID #180 tab 12/06/18 famotidine 20 mg tablet 20 mg PO QDAY #90 tab 12/12/18 lancets See Rx Instructions .ROUTE 02/06/19 .MEDSUPPLY #100 each liraglutide 0.6 mg/0.1 mL (18 mg/3 1.8 mg SUB-Q QDAY #6 ml 02/07/19 mL) subcutaneous pen injector hydrocodone 7.5 mg-acetaminophen 1 tab PO Q6-8HP PRN #30 tab 04/10/19 325 mg tablet furosemide 40 mg tablet 40 mg PO DAILY #30 tab 04/23/19 Soumya Lift Chair [phone] ea 04/30/19 incontience pads and supplies #1 ea 04/30/19 fluoxetine 20 mg capsule 20 mg PO QDAY #30 cap 05/01/19 mirabegron 25 mg tablet,extended 25 mg PO Q24H #30 tab 05/22/19 release 24 hr pantoprazole 40 mg tablet,delayed 40 mg PO BID #180 tab 05/22/19 release Power wheel chair #1 ea 06/08/19 Clindamycin HCl [Cleocin] 300 mg PO TID #30 cap 06/16/19 Allergies Allergy/AdvReac Type Severity Reaction Status Date / Time adhesive Allergy Intermediate edwards Verified 05/10/19 10:33 latex Allergy Mild Itching Verified 05/10/19 10:33 Sulfa (Sulfonamide Allergy Unknown Unknown Verified 05/10/19 10:33 Antibiotics) Fish Containing Products AdvReac Intermediate Other Verified 05/10/19 10:33 oxycodone [From Percocet] AdvReac Mild Confusion Verified 05/10/19 10:33 squash AdvReac Mild Nausea Verified 05/10/19 10:33 MRI (metal implant/ right AdvReac Severe Other Uncoded 05/10/19 10:33 ankle) Review of Systems Constitutional: Reports: fever, weakness. Denies: chills Eyes: Denies: vision change ENT ED: Denies: ear pain, throat pain Cardiovascular: Reports: edema. Denies: chest pain, palpitations Respiratory: Denies: cough, shortness of breath Gastrointestinal: Denies: abdominal pain, nausea, vomiting, diarrhea, constipation Genitourinary: Denies: dysuria, frequency Musculoskeletal: Denies: back pain, joint swelling Integumentary: Reports: as per HPI (cellulitis right lower extremity) Neurological: Reports: weakness. Denies: headache, numbness, paresthesias, co nfusion Psychiatric: Denies: anxiety, depression Endocrine: Denies: fatigue, heat or cold intolerance Hematological/Lymphatic: Denies: easy bleeding, easy bruising, lymphadenopathy Past Medical History - Past Medical History PMFSH Narrative: Family History (Last Reviewed 05/21/19 @ 15:28 by Serge Jeffries MD, FAA) Mother Arthritis Squamous cell carcinoma Diabetes mellitus Essential hypertension Brother Arthritis Malignant neoplasm of kidney Malignant neoplasm of liver Malignant neoplasm of pharynx Malignant neoplasm of pancreas Sister Arthritis Diabetes mellitus Essential hypertension Father Malignant neoplasm of lung Grandmother-paternal Diabetes mellitus Medical History (Last Updated 05/21/19 @ 15:37 by Serge Jeffries MD, FAAFP) Diabetes type 2, uncontrolled (Chronic) Hyperglycemia due to type 2 diabetes mellitus (Chronic) NSTEMI (non-ST elevated myocardial infarction) (Resolved) Closed avulsion fracture of trochanter of right femur (Acute) DENAE (obstructive sleep apnea) (Chronic) 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) Nonalcoholic steatohepatitis ([place]UN[place]AM) (Chronic) Esophageal varices (Chronic) Morbid obesity (Chronic) Abdominal pain (Chronic) Elevated alkaline phosphatase level (Chronic) History of transfusion of packed red blood cells (Chronic) Hypertension, essential (Chronic) Gastric antral vascular ectasia (Chronic) History of esophageal stricture (Chronic) Dependent edema (Chronic) Lumbosacral pain, chronic (Chronic) Knee pain (Chronic) Copper deficiency (Chronic) Sinusitis, chronic (Chronic) Hypovitaminosis D (Chronic) Zinc deficiency (Chronic) Elevated blood uric acid level (Chronic) Left carotid artery stenosis (Chronic) Chronic pain (Chronic) Erosive gastritis with hemorrhage (Chronic) Esophagitis determined by endoscopy (Chronic) Polyclonal gammopathy (Chronic) Lumbar radiculopathy (Chronic) Arthralgia of multiple joints (Chronic) Back Pain (Chronic) Liver fibrosis (Chronic) Hypercholesterolemia (Chronic) Esophagitis (Chronic) Elevated erythrocyte sedimentation rate (Chronic) Arthralgia (Chronic) Osteopenia (Chronic) Anxiety (Chronic) Kidney stones (Chronic) Gallbladder problem (Chronic) Depression (Chronic) Gout (Chronic) Osteoarthritis (Chronic) Hx of adenomatous colonic polyps (Chronic) Abscess of breast, right (Resolved) Acquired pancytopenia (Resolved) Acute blood loss anemia (Resolved) Adverse reaction to antidiabetic drug (Resolved) Anemia (Resolved) Anemia (Resolved) Anemia (Resolved) Anemia (Resolved) Anemia (Resolved) Anemia (Resolved) Anemia (Resolved) Bloating (Resolved) Bronchitis (Resolved) Cirrhosis (Resolved) Congestive heart failure (Resolved) Contusion of right leg (Resolved) Cough (Resolved) DDD (degenerative disc disease), lumbar (Resolved) DMII (diabetes mellitus, type 2) (Resolved) Elevated serum creatinine (Resolved) Fall (on) (from) other stairs and steps, initial encounter (Resolved) Gastritis (Resolved) Non-healing wound (Resolved) Nondisplaced fracture of surgical neck of left humerus (Resolved) Pancytopenia (Resolved) Portal hypertension (Resolved) Rectal bleeding (Resolved) Upper gastrointestinal bleeding (Resolved) Past Surgical History (Last Reviewed 05/21/19 @ 15:28 by Serge Jeffries MD, FAAFP) History of hysterectomy (Acute) History of oophorectomy (Acute) History of surgery (Acute) History of tonsillectomy (Acute) History of total left knee replacement (Resolved) History of total right knee replacement (Resolved) S/P ORIF (open reduction internal fixation) fracture (Resolved) Source: old records reviewed Medical history: Reports: arthritis, COPD, DM, fibromyalgia, GERD, hyperlipide brina, hypertension, kidney stones, osteoporosis, peripheral artery disease, other Psychiatric history: Reports: no psych history 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 Right lower leg shows area of erythema on her anterior gudino. She is also got some erythema on her posterior right thigh Limitations: physical limitation (obesity and weakness) General appearance: alert, in no apparent distress, obese Course Vital Signs Temperature 101.4 F H 06/16/19 19:51 Pulse Rate 83 06/16/19 19:51 Respiratory Rate 20 06/16/19 19:51 Blood Pressure 163/62 06/16/19 19:51 Pulse Oximetry (%) 95 06/16/19 19:51 Temperature 101 F H 06/16/19 20:41 Pulse Rate 79 06/16/19 22:17 Respiratory Rate 18 06/16/19 22:17 Blood Pressure 150/61 06/16/19 22:17 Pulse Oximetry (%) 94 06/16/19 22:17 Medical Decision Making - Lab Data Lab results reviewed: Yes I reviewed the patient's lab results. Result diagrams: 06/16/19 21:14 06/16/19 20:30 Lab Results 06/16/19 06/16/19 06/16/19 Range/Units 20:30 20:30 21:14 WBC TNP RBC TNP Hgb TNP Hct TNP MCV TNP MCH TNP MCHC TNP RDW TNP Plt Count TNP MPV TNP Total Counted Seg Neutrophils % (38-78) % Band Neutrophils % (0-10) % Lymphocytes % (15-49) % Monocytes % (Manual) (1-12) % Eosinophils % (Manual) (0-7) % Platelet Estimate (NORMAL) RBC Morphology (NORMAL) Polychromasia (NONE SEEN) Anisocytosis (NONE SEEN) Macrocytosis (NONE SEEN) VBG Lactic Acid 1.3 (0.5-2.0) mmol/L Sodium 134 (133-145) mmol/L Potassium 3.7 (3.3-5.1) mmol/L Chloride 97 (96-108) mmol/L Carbon Dioxide 26 (22-30) mmol/L Anion Gap 11.0 (8-16) BUN 25 H (8-23) mg/dl Creatinine 1.2 H (0.6-1.1) mg/dl GFR Calculation 46 Glucose 89 (70-105) mg/dL Calcium 8.6 (8.6-10.4) mg/dl Total Bilirubin 2.5 H (0.0-1.0) mg/dL AST 28 (0-37) U/l ALT 10 (0-40) U/l Alkaline Phosphatase 98 (39-117) U/L C-Reactive Protein 21.5 H (0.0-0.8) mg/dl Total Protein 7.0 (5.9-8.4) gm/dL Albumin 2.6 L (3.2-5.2) gm/dL Globulin 4.4 H (2.2-3.7) gm/dL Albumin/Globulin Ratio 0.6 L (1.0-2.3) 06/16/19 Range/Units 21:14 WBC 3.5 L RBC 2.83 L Hgb 9.4 L Hct 28.9 L MCV 102.1 H MCH 33.2 MCHC 32.5 RDW 17.7 H Plt Count 67 L MPV 11.4 H Total Counted 100 Seg Neutrophils % 71 (38-78) % Band Neutrophils % 8 (0-10) % Lymphocytes % 11 L (15-49) % Monocytes % (Manual) 7 (1-12) % Eosinophils % (Manual) 3 (0-7) % Platelet Estimate Decreased (NORMAL) RBC Morphology Abnorm A (NORMAL) Polychromasia 1+ A (NONE SEEN) Anisocytosis 1+ A (NONE SEEN) Macrocytosis 1+ A (NONE SEEN) VBG Lactic Acid (0.5-2.0) mmol/L Sodium (133-145) mmol/L Potassium (3.3-5.1) mmol/L Chloride (96-108) mmol/L Carbon Dioxide (22-30) mmol/L Anion Gap (8-16) BUN (8-23) mg/dl Creatinine (0.6-1.1) mg/dl GFR Calculation Glucose (70-105) mg/dL Calcium (8.6-10.4) mg/dl Total Bilirubin (0.0-1.0) mg/dL AST (0-37) U/l ALT (0-40) U/l Alkaline Phosphatase (39-117) U/L C-Reactive Protein (0.0-0.8) mg/dl Total Protein (5.9-8.4) gm/dL Albumin (3.2-5.2) gm/dL Globulin (2.2-3.7) gm/dL Albumin/Globulin Ratio (1.0-2.3) Reviewed microbiology from yesterday blood culture which showed gram negative bacillae Disposition Pt seen by CARDIOLOGIST/PA only: No Clinical Impression: SIRS (systemic inflammatory response syndrome), Bacteremia Cellulitis Qualifiers: Site of cellulitis: extremity Site of cellulitis of extremity: lower extremity Laterality: right Qualified Code(s): L03.115 - Cellulitis of right lower limb Summary: Will require IV antibiotics for Sirs with bacteremia secondary to cellulitis. Her other vital parameters are near normal and her mental status is at baseline so do not suspect sepsis at this point. Discussed findings with hospitalist Dr. noble. He agreed to accept the patient. He requested we get an EKG Disposition: Xfer As Inpt ([facility]) Condition: Serious Referrals: Serge Jeffries MD, FAAFP [Primary Care Provider] -
[2019-06-17] MEDS ORDERED: DEXTROSE 50% 50 ML VIAL IV PRN ×2 (00:43→02:07)
[2019-06-17] MEDS ORDERED: PROCHLORPERAZINE 10 MG/2 ML VIAL IV PRN ×2 (00:43→02:07)
[2019-06-17] MEDS ORDERED: DEXTROSE 31 GM ORAL.SUSP PO PRN ×2 (00:43→02:07)
[2019-06-17] MEDS ORDERED: HEPARIN 5,000 UNIT/ML VIAL SQ SCH (00:45)
[2019-06-17] MEDS ORDERED: cefTRIAXone 2 GM in DEXTROSE 5% IN WATER 50 ML IV SCH (00:45)
--- NOTE | 2019-06-17 01:09 | Internal Med History&Physical ---
Medical - H&P: [facility] Patient information: Note initiated : 06/17/19 at 12:58 am Service Date, if different from initiated Date: [] Patient: Francia Souza 68 y/o F admitted on for weakness. Chief Complaint: [Cellulitis] History of present illness: Ms. Souza is a 68 year old F with history of diabetes, CHF, morbid obesity, chronic abdominal pain, high blood pressure, and DUNHAM who was brought to the ER due to cellulitis. Patient states that her right leg has been red and painful over the past 4 days. She is thinking this could be due to falling out of her wheelchair a few days ago and an injury to the right leg. She has had fevers for the last 2 days. Yesterday she went to the ER and was diagnosed with cellulitis. She was discharged home with clindamycin. Blood culture which was drawn yesterday came back with positive for gram-negative bacilli. In the ER, she was given 1 dose of Zosyn. When I saw this patient in the ER, other than symptoms mentioned above, she also complained of mild headache, fever, and chills. She also complain of abdominal pain which is mainly located in the epigastric area. She added the pain is chronic. Otherwise she denied dizziness, chest pain, dysuria, nausea or vomiting. Review of systems: Positive for the symptoms mentioned in HP all other systems were reviewed and are negative. Medical - H&P: PMH Problems Reviewed: Yes Medical history: diabetes, CHF, morbid obesity, chronic abdominal pain, high blood pressure, and DUNHAM Pertinent family history: Mother had stomach cancer; Father had a brain cancer; Sister has diabetes Smoking status: Never smoker Drug use: none Alcohol use: none Medical - H&P: Meds Home Medications Medication Instructions Recorded Confirmed Type lactulose 10 gram/15 mL oral 20 g PO BID #946 ml 09/02/17 05/10/19 Rx solution bisacodyl 5 mg tablet,delayed 5 mg PO QHS PRN #30 tab 02/22/18 05/10/19 Rx release ondansetron 8 mg disintegrating 8 mg PO BID PRN #30 tab 03/17/18 05/10/19 Rx tablet acetaminophen 500 mg capsule 1,000 mg PO Q4H PRN cap 05/19/18 05/10/19 History benzonatate 100 mg capsule 100 mg PO TID PRN #20 cap 07/10/18 05/10/19 Rx insulin glargine 100 unit/mL (3 30 unit SUB-Q BID #15 ml 11/06/18 05/10/19 Rx mL) subcutaneous pen losartan 25 mg tablet 25 mg PO BID #180 tab 12/06/18 05/10/19 Rx famotidine 20 mg tablet 20 mg PO QDAY #90 tab 12/12/18 05/10/19 Rx lancets See Rx Instructions .ROUTE 02/06/19 05/10/19 Rx .MEDSUPPLY #100 each liraglutide 0.6 mg/0.1 mL (18 mg/3 1.8 mg SUB-Q QDAY #6 ml 02/07/19 05/10/19 Rx mL) subcutaneous pen injector Lidocaine with 8.4% Sod Bicarb 10 ml PO PRN PRN 03/27/19 05/10/19 History [Buffered Lidocaine 1% Syringe] OneTouch Prime blood sugar test 0 dose .ROUTE .MEDSUPPLY 04/05/19 05/10/19 History strips Pen Needle, Diabetic [Unifine See Dose Instructions dose .ROUTE 04/05/19 05/10/19 History Pentips Plus] .MEDSUPPLY hydrocodone 7.5 mg-acetaminophen 1 tab PO Q6-8HP PRN #30 tab 04/10/19 05/10/19 Rx 325 mg tablet furosemide 40 mg tablet 40 mg PO DAILY #30 tab 04/23/19 05/10/19 Rx Soumya Lift Chair [phone] ea 04/30/19 05/10/19 Rx incontience pads and supplies #1 ea 04/30/19 05/10/19 Rx fluoxetine 20 mg capsule 20 mg PO QDAY #30 cap 05/01/19 05/10/19 Rx mirabegron 25 mg tablet,extended 25 mg PO Q24H #30 tab 05/22/19 Rx release 24 hr pantoprazole 40 mg tablet,delayed 40 mg PO BID #180 tab 05/22/19 Rx release Power wheel chair #1 ea 06/08/19 Rx Clindamycin HCl [Cleocin] 300 mg PO TID #30 cap 06/16/19 Rx Allergies Allergy/AdvReac Type Severity Reaction Status Date / Time adhesive Allergy Intermediate edwards Verified 05/10/19 10:33 latex Allergy Mild Itching Verified 05/10/19 10:33 Sulfa (Sulfonamide Allergy Unknown Unknown Verified 05/10/19 10:33 Antibiotics) Fish Containing Products AdvReac Intermediate Other Verified 05/10/19 10:33 oxycodone [From Percocet] AdvReac Mild Confusion Verified 05/10/19 10:33 squash AdvReac Mild Nausea Verified 05/10/19 10:33 MRI (metal implant/ right AdvReac Severe Other Uncoded 05/10/19 10:33 ankle) Medical - H&P: Exam - Constitutional Vitals: Temp Pulse Resp BP Pulse Ox 101 F H 80 19 150/61 93 06/16/19 20:41 06/17/19 00:12 06/17/19 00:12 06/16/19 22:17 06/17/19 00:12 - Other Additional findings: General - No acute distress, obesity Eyes - PERRLA, EOM intact ENT no rhinorrhea, no noticeable or palpable swelling, no redness or rash around throat or on face Neck supple, no JVD, no thyromegaly Respiratory: Lungs -clear, no wheezing or crackles. Cardiovascular - RRR no m/r/g, GI - Normal bowel sounds, no distended, soft, mildly diffuse tenderness. Extremeties -Inner aspect of right leg redness until upper thigh and tenderness Hemo/lymphatic/immune no lymphadenopathy Neurological Alert and oriented x 3, no focal neurological deficits. Psychiatry flat affect Medical - H&P: Reslt - Labs CBC & Chem 7: 06/16/19 21:14 06/16/19 20:30 Labs: Short CBC 06/16/19 06/16/19 Range/Units 20:30 21:14 WBC TNP 3.5 L Hgb TNP 9.4 L Hct TNP 28.9 L Plt Count TNP 67 L BMP 06/16/19 20:30 Sodium 134 Potassium 3.7 Chloride 97 Carbon Dioxide 26 BUN 25 H Creatinine 1.2 H Glucose 89 Calcium 8.6 Liver Function 06/16/19 Range/Units 20:30 Total Bilirubin 2.5 H (0.0-1.0) mg/dL AST 28 (0-37) U/l ALT 10 (0-40) U/l Alkaline Phosphatase 98 (39-117) U/L Albumin 2.6 L (3.2-5.2) gm/dL Medical - H&P: A/P - Narrative A/P Narrative: Assessment: 1. Bacteremia, GNB 2. Acute cellulitis, right leg 3. CHF 4. DM type 2 5. Morbid obesity 6. Chronic abdominal pain 7. HTN 8. Nonalcoholic steatohepatitis 9. MARAH, creatinine 0.9 on 05/10/2019 Plan: 1. Blood culture on 03/16 positive for gram-negative bacilli Repeat blood culture today 1 dose of Zosyn was given in the ER Ceftriaxone 2 g IV every 24 hours 2. History of CHF No type BNP Home medications including Lasix 40 mg daily which is on hold intake and output Echocardiogram 3. Diabetic diet Continue Lantus 30 units twice daily Continue victoza Insulin sliding scale Adjust insulin based on glucose levels 4. As per patient he has been having chronic abdominal pain. Pantoprazole troponin EKG no ST elevation Aspirin and Lipitor 5. Continue home medication for blood pressure Hydralazine as needed 6. In the ER, 1 L normal saline was given Repeat renal function in the morning 7. DVT prophylaxis: Heparin 8. CODE STATUS: DNR/DNI
[2019-06-17] MEDS ORDERED: hydrALAZINE 20 MG/ML VIAL IV PRN ×2 (01:29→02:07)
[2019-06-17] MEDS ORDERED: cefTRIAXone 1 GM VIAL ONE (01:33)
[2019-06-17 02:03] LABS: Estimated Average Glucose(eAG) 94 mg/dL; Hemoglobin A1C 4.9 % HGB (4.0-6.0)
[2019-06-17] MEDS ORDERED: BENZONATATE 100 MG CAPSULE PO PRN (02:07)
[2019-06-17] MEDS ORDERED: MIRABEGRON 25 MG PO SCH (02:07)
[2019-06-17] MEDS: 0.9 % SODIUM CHLORIDE 10 ML SYRINGE IV SCH ×4 (02:27→21:45)
[2019-06-17] MEDS ORDERED: ACETAMINOPHEN 325 MG TABLET PO ONE ×3 (03:17→20:56)
[2019-06-17] MEDS ORDERED: 0.9 % SODIUM CHLORIDE 10 ML SYRINGE IV SCH (06:00)
[2019-06-17] MEDS ORDERED: PANTOPRAZOLE 40 MG TABLET PO SCH (07:30)
[2019-06-17] MEDS ORDERED: INSULIN LISPRO 1 UNIT/0.01 ML UNIT SQ SCH (07:30)
[2019-06-17] MEDS: INSULIN LISPRO 1 UNIT/0.01 ML UNIT SQ SCH ×4 (08:07→20:46)
[2019-06-17] MEDS ORDERED: ATORVASTATIN 40 MG TABLET PO SCH (09:00)
[2019-06-17] MEDS ORDERED: DOCUSATE SODIUM 100 MG CAPSULE PO SCH (09:00)
[2019-06-17] MEDS ORDERED: ASPIRIN 325 MG TABLET.DR PO SCH (09:00)
--- NOTE | 2019-06-17 09:27 | Cat Scan Report ---
INDICATION: headache COMPARISON: Previous examination dated 08/18/2018 TECHNIQUE: Axial noncontrast-enhanced images through the brain. Sagittally and coronally reformatted images. FINDINGS: Cerebral hemispheres:No acute intra-axial hemorrhage. There is white matter abnormality and both a periventricular and subcortical distribution. Appearance is unchanged. This is consistent with small vessel ischemic change in this 68-year-old patient, although it is somewhat advanced for age. Clinical correlation for diabetes or hypertension recommended. Brainstem and cerebellum:No intra-axial abnormality Extra-axial:No acute hemorrhage. No subdural or epidural hematoma. No subarachnoid hemorrhage. Basilar cisterns are normal Calvarial:No calvarial fracture. No lytic lesion Temporal bones are negative. No destructive lesions Soft tissue:Orbits and visualized facial soft tissues are grossly normal. IMPRESSION: 1. No acute intracranial abnormality. No interval change since 08/18/2018 2. Prominent white matter abnormality most consistent with small vessel ischemic change The exam was performed using radiation dose optimization techniques including, but not limited to, automated exposure control, adjustment of the mA and/or kV according to patient size and use of iterative reconstruction technique. Interpreted and Authenticated by: Reynaldo Franz 06/17/19
[2019-06-17] MEDS: ASPIRIN 81 MG TAB.CHEW PO SCH (09:36)
[2019-06-17] MEDS: PANTOPRAZOLE 40 MG TABLET PO SCH (09:36)
[2019-06-17] MEDS: FLUoxetine HCL 20 MG CAPSULE PO SCH (09:36)
[2019-06-17] MEDS: DOCUSATE SODIUM 100 MG CAPSULE PO SCH ×2 (09:36→20:33)
[2019-06-17] MEDS: LOSARTAN 25 MG TABLET PO SCH ×2 (09:36→20:33)
[2019-06-17] MEDS: LIRAGLUTIDE 1.8 MG SUB-Q SCH (09:37)
[2019-06-17] MEDS: ATORVASTATIN 40 MG TABLET PO SCH (09:37)
[2019-06-17] MEDS: INSULIN GLARGINE, HUMAN 1 UNIT/0.01 ML SQ SCH ×2 (12:01→20:47)
[2019-06-17] MEDS: HEPARIN 5,000 UNIT/ML VIAL SQ SCH ×3 (12:51→23:53)
[2019-06-17] MEDS: cefTRIAXone 2 GM in DEXTROSE 5% IN WATER 50 ML IV SCH (17:54)
[2019-06-17] MEDS ORDERED: HYDROcodone/APAP 5/325MG TABLET PO PRN (18:11)
[2019-06-17] MEDS ORDERED: ACETAMINOPHEN 325 MG SUPP.RECT PR PRN (18:28)
[2019-06-17] MEDS: SENNOSIDES 1 TABLET PO SCH (20:33)
[2019-06-17] MEDS ORDERED: SENNOSIDES 1 TABLET PO SCH (21:00)
[2019-06-18] MEDS: 0.9 % SODIUM CHLORIDE 10 ML SYRINGE IV SCH ×3 (04:03→20:17)
[2019-06-18 06:24] LABS: Basophils # (Auto) 0.01 K/mcL (0.00-0.30); Basophils % (Auto) 0.3 % (0.0-2.0); Eosinophils % (Auto) 3.1 % (0.0-7.0); Granulocytes % (Auto) 54.8 % (38.0-78.0); Hematocrit 27.6 % (34.1-44.9); Hemoglobin 8.8 g/dL (11.2-15.7); Lymphocytes # (Auto) 0.59 K/mcL (1.50-4.80); Lymphocytes % (Auto) 18.4 % (15.5-49.0); Mean Cell Volume 99.6 fL (80.0-100.0); Mean Corpuscular HGB Conc 31.9 g/dL (31.0-36.0); Mean Platelet Volume 10.8 fL (7.4-10.4); Monocytes # (Auto) 0.75 K/mcL (0.10-0.90); Monocytes % (Auto) 23.4 % (1.0-12.0); Platelet Count 72 K/mcL (140-440); RBC 2.77 M/mcL (3.59-5.38); Red Cell Distribution Width 17.8 % (11.5-14.5); WBC 3.2 K/mcL (4.50-11.00)
[2019-06-18 06:40] LABS: Retic Absolute 3.17 M/mcL (0.02-0.10)
[2019-06-18 06:44] LABS: ALT/SGPT 11 U/l (0-40); AST/SGOT 36 U/l (0-37); Albumin 2.2 gm/dL (3.2-5.2); Albumin/Globulin Ratio 0.6 (1.0-2.3); Alkaline Phosphatase 111 U/L (39-117); Bilirubin,Total 1.4 mg/dL (0.0-1.0); Calcium 7.8 mg/dl (8.6-10.4); Carbon Dioxide 26 mmol/L (22-30); Chloride 104 mmol/L (96-108); Globulin 3.8 gm/dL (2.2-3.7); Glucose 101 mg/dL (70-105)
[2019-06-18 06:47] LABS: Blood Urea Nitrogen 22 mg/dl (8-23); Glomerular Filtration Rate 57
[2019-06-18] MEDS: INSULIN LISPRO 1 UNIT/0.01 ML UNIT SQ SCH ×4 (07:12→20:34)
[2019-06-18] MEDS: PANTOPRAZOLE 40 MG TABLET PO SCH ×2 (07:12→17:19)
[2019-06-18] MEDS ORDERED: POLYETHYLENE GLYCOL 3350 17 GM PACKET PO PRN (08:55)
--- NOTE | 2019-06-18 09:11 | Internal Med Progress Note ---
Medical - PN: Subj Patient information: Note initiated : 06/18/19 at 9:07 am Service Date, if different from initiated Date: [] Patient: Francia Souza 68 y/o F admitted on 06/17/19 for weakness. Chief Complaint: [] Interval history: Ms. Souza is a 68 year old F with history of diabetes, CHF, morbid obesity, chronic abdominal pain, high blood pressure, and DUNHAM who was brought to the ER due to cellulitis. Patient states that her right leg has been red and painful over the past 4 days. She is thinking this could be due to falling out of her wheelchair a few days ago and an injury to the right leg. She has had fevers for the last 2 days. Yesterday she went to the ER and was diagnosed with celluli tis. She was discharged home with clindamycin. Blood culture which was drawn yesterday came back with positive for gram-negative bacilli. In the ER, she was given 1 dose of Zosyn. When I saw this patient in the ER, other than symptoms mentioned above, she also complained of mild headache, fever, and chills. She also complain of abdominal pain which is mainly located in the epigastric area. She added the pain is chronic. Otherwise she denied dizziness, chest pain, dysuria, nausea or vomiting. 06/17-patient admitted with gram-negative bacteremia/cellulitis right leg. Clinically improved over the last 24 hours on antibiotic coverage. Complains of lymphedema and increased ecchymosis on the inside of right thigh. However swelling pain improved. No overnight fever chills. Feels a lot better. Able to ambulate with assistance. Stable hemodynamics and vitals. Pancytopenia with leukopenia/anemia/thrombocytopenia. Change to fondaparinux for DVT prophylaxis. Complains of constipation. Bilirubin down to 1.4 - Constitutional Vitals: Vital Signs Temp Pulse Resp BP Pulse Ox 97.5 F 60 18 125/56 96 06/18/19 06:55 06/18/19 07:15 06/18/19 07:15 06/18/19 06:55 06/18/19 07:15 Period Temp Pulse Resp BP Sys/Anaya Pulse Ox Last 24 Hr 97.5 F-100.7 F 60-80 16-22 113-147/53-62 91-96 Intake and Output 06/17/19 06/18/19 06/18/19 21:59 05:59 13:59 Intake Total 410 350 Output Total 400 Balance 410 350 -400 Weight 345 lb 3.2 oz Intake & Output: Intake & Output 06/17/19 06/18/19 06/18/19 21:59 05:59 13:59 Intake Total 410 350 Output Total 400 Balance 410 350 -400 Weight 345 lb 3.2 oz Intake: Nourishment/Supplement quantity 360 (ml) IV 50 Rocephin 2 gm In Dextrose 5% in 50 Water 50 ml @ 100 mls/hr IV Q24H [facility] Rx#:[id number] Oral 350 Output: Void Amount 400 Other: Meal Dinner Percent of Meal Consumed 75% Urine Appearance Clear Clear Urine Color Dark Yellow Dark Trisha Tea Colored Urine Odor Strong General appearance: morbidly obese Exam: Alert oriented Ecchymosis medial aspect of right thigh Lymphedema noted No anxiety Nonlabored breathing Medical - PN: Obj Da - Labs CBC & Chem 7: 06/18/19 05:36 06/18/19 05:36 Labs: Abnormal Lab Results 06/18/19 06/18/19 06/18/19 05:36 05:36 05:36 WBC RBC Hgb Hct MCV RDW Plt Count MPV [place] % (Auto) Gran # Lymph # (Auto) Lymphocytes % RBC Morphology Polychromasia Anisocytosis Macrocytosis ESR 80 H Absolute Retic 3.17 H Percent Retic 0.09 L BUN Creatinine Calcium 7.8 L Total Bilirubin 1.4 H C-Reactive Protein C-React Prot High Sens 165.6 H NT-Pro-B Natriuret Pep Albumin 2.2 L Globulin 3.8 H Albumin/Globulin Ratio 0.6 L 06/18/19 06/17/19 06/16/19 05:36 01:17 21:14 WBC 3.2 L 3.5 L RBC 2.77 L 2.83 L Hgb 8.8 L 9.4 L Hct 27.6 L 28.9 L MCV 102.1 H RDW 17.8 H 17.7 H Plt Count 72 L 67 L MPV 10.8 H 11.4 H [place] % (Auto) 23.4 H Gran # 1.76 L Lymph # (Auto) 0.59 L Lymphocytes % 11 L RBC Morphology Abnorm A Polychromasia 1+ A Anisocytosis 1+ A Macrocytosis 1+ A ESR Absolute Retic Percent Retic BUN Creatinine Calcium Total Bilirubin C-Reactive Protein C-React Prot High Sens NT-Pro-B Natriuret Pep 1332.0 H Albumin Globulin Albumin/Globulin Ratio 06/16/19 20:30 WBC RBC Hgb Hct MCV RDW Plt Count MPV [place] % (Auto) Gran # Lymph # (Auto) Lymphocytes % RBC Morphology Polychromasia Anisocytosis Macrocytosis ESR Absolute Retic Percent Retic BUN 25 H Creatinine 1.2 H Calcium Total Bilirubin 2.5 H C-Reactive Protein 21.5 H C-React Prot High Sens NT-Pro-B Natriuret Pep Albumin 2.6 L Globulin 4.4 H Albumin/Globulin Ratio 0.6 L Meds: Medications Acetaminophen (Tylenol) 325 - 650 mg VA Q6HP PRN; Protocol PRN Reason: Per Pain Protocol/Fever > 101 Hydrocodone Bitart/Acetaminophen ([place] 5/325mg) 1 - 2 tab PO Q4HP PRN; Protocol PRN Reason: Per Pain Protocol Aspirin (Aspirin) 81 mg PO DAILY [facility] Last Admin: 06/17/19 09:36 Dose: 81 mg Documented by: Atorvastatin Calcium (Lipitor) 40 mg PO DAILY [facility] Last Admin: 06/17/19 09:37 Dose: 40 mg Documented by: Benzonatate (Tessalon) 100 mg PO TID PRN PRN Reason: Cough Dextrose (Dextrose 50%) 0 ml IV UD PRN PRN Reason: Hypoglycemia Diagnostic Test (Pha) (Accu-Chek) 1 each FS ACHS [facility] Last Admin: 06/18/19 07:12 Dose: 1 each Documented by: Docusate Sodium (Colace) 100 mg PO BID [facility] Last Admin: 06/17/19 20:33 Dose: 100 mg Documented by: Fluoxetine HCl (Prozac) 20 mg PO QDAY [facility] Last Admin: 06/17/19 09:36 Dose: 20 mg Documented by: Fondaparinux (Arixtra) 2.5 mg SQ DAILY [facility] Furosemide (Lasix) 20 mg IV Q12 [facility] Glucose (Insta-Glucose) 15 gm PO PRN PRN PRN Reason: Hypoglycemia Hydralazine HCl (Apresoline) 10 mg IV Q4HP PRN PRN Reason: Hypertension Ceftriaxone Sodium 2 gm/ (Dextrose) 50 mls @ 100 mls/hr IV Q24H [facility] Last Infusion: 06/17/19 18:25 Dose: Infused Documented by: Insulin Glargine (Lantus) 30 unit SQ BID [facility] Last Admin: 06/17/19 20:47 Dose: 30 units Documented by: Insulin Human Lispro (Humalog) 0 unit SQ ACHS [facility]; Protocol Last Admin: 06/18/19 07:12 Dose: Not Given Documented by: Losartan Potassium (Cozaar) 25 mg PO BID [facility] Last Admin: 06/17/19 20:33 Dose: 25 mg Documented by: Morphine Sulfate (Morphine) 2 mg IV Q4HP PRN; Protocol PRN Reason: Per Pain Protocol Last Admin: 06/17/19 17:29 Dose: 2 mg Documented by: Pantoprazole Sodium (Protonix) 40 mg PO QAMAC [facility] Last Admin: 06/18/19 07:12 Dose: 40 mg Documented by: Liraglutide [Victoza 2-Cj] 1.8 Mg Injection 1 dose SUB-Q QDAY [facility] Last Admin: 06/17/19 09:37 Dose: Not Given Documented by: Mirabegron [ (Myrbetriq] 25 Mg Tab) 1 dose PO DAILY [facility] Last Admin: 06/17/19 09:37 Dose: Not Given Documented by: Polyethylene Glycol (Miralax) 17 gm PO DAILYP PRN PRN Reason: Constipation Potassium Chloride (Kdur) 20 meq PO BIDCC [facility] Stop: 06/19/19 17:31 Prochlorperazine (Compazine) 5 mg IV Q4HP PRN PRN Reason: Nausea And Vomiting Senna (Senokot) 2 tab PO HS [facility] Last Admin: 06/17/19 20:33 Dose: 2 tab Documented by: Sodium Chloride (Saline Flush) 10 ml IV Q8 [facility] Last Admin: 06/18/19 04:03 Dose: 10 ml Documented by: Medical - PN: A/P - Time Spent With Patient Total time spent is greater than 50% in coordination of care (as documented) at patient's floor/unit and/or counseling patient: 25 - 35 minutes - Narrative A/P Narrative: * Right lower extremity cellulitis-on antibiotic coverage. * Gram-negative bacteremia-identification/sensitivities pending. On Rocephin. * Severe sepsis secondary above. Management per guidelines * Pancytopenia-monitor * Hypokalemia start replacement * DM type II continue basal panel insulin/Victoza/CC diet * Elevated bilirubin secondary to sepsis improving. * History of CHF continue diuretics. Await echocardiogram. * DVT prophylaxis fondaparinux Plan * Antibiotic coverage * Await echocardiogram * Diuretics * Pre-existing mental condition management as above * PT OT/nutrition support * Discharge planning Medical - PN: Qual - VTE Deep Vein Thrombosis/Pulmonary Embolism Present on Admission: No
[2019-06-18] MEDS: ATORVASTATIN 40 MG TABLET PO SCH (09:18)
[2019-06-18] MEDS: POTASSIUM CHLORIDE 20 MEQ TABLET PO SCH ×2 (09:18→17:19)
[2019-06-18] MEDS: FLUoxetine HCL 20 MG CAPSULE PO SCH (09:18)
[2019-06-18] MEDS: DOCUSATE SODIUM 100 MG CAPSULE PO SCH ×2 (09:18→20:16)
[2019-06-18] MEDS: ASPIRIN 81 MG TAB.CHEW PO SCH (09:18)
[2019-06-18] MEDS: LIRAGLUTIDE 1.8 MG SUB-Q SCH (09:18)
[2019-06-18] MEDS: LOSARTAN 25 MG TABLET PO SCH ×2 (09:18→20:16)
[2019-06-18] MEDS: INSULIN GLARGINE, HUMAN 1 UNIT/0.01 ML SQ SCH ×2 (09:19→20:34)
[2019-06-18] MEDS: FONDAPARINUX SODIUM 2.5 MG/0.5 ML SYRINGE SQ SCH (09:19)
[2019-06-18] MEDS ORDERED: HYDROCODONE/APAP 7.5/325MG TABLET PO PRN (09:20)
[2019-06-18] MEDS ORDERED: NON FORMULARY MEDICATION 1 DOSE MISCELL (Acetaminophen 1,000 MG) PO PRN (09:20)
[2019-06-18] MEDS ORDERED: BISACODYL 5 MG TABLET PO PRN (09:20)
[2019-06-18] MEDS: cefTRIAXone 2 GM in DEXTROSE 5% IN WATER 50 ML IV SCH (09:21)
[2019-06-18] MEDS: ACETAMINOPHEN 500 MG TABLET PO PRN ×2 (09:34→17:25)
[2019-06-18] MEDS: FUROSEMIDE 20 MG/2 ML VIAL IV SCH ×2 (09:34→20:16)
[2019-06-18] MEDS: HEPARIN 5,000 UNIT/ML VIAL SQ SCH (10:04)
[2019-06-18 11:44] LABS: Appearance,Urine CLEAR; Bilirubin,Urine NEG (NEG); Color,Urine YELLOW; Glucose,Urine (UA) NEGATIVE (NEG); Ketones,Urine NEG (NEG); Leukocyte Esterase,Urine 25 /uL (NEG); Nitrate,Urine NEG (NEG); Protein,Urine NEG (NEG); Specific Gravity,Urine 1.013 (1.000-1.035); Urine Blood 0.03 mg/dL (<0.03)
[2019-06-18 12:08] LABS: Bacteria,Urine RARE /hpf (0); Culture Indicated,Urine NO; Urine RBC 0 /hpf (0-1); Urine Squamous Epithelial Cell 17 /hpf (0-4); Urine WBC 10 /hpf (0-4)
[2019-06-18] MEDS ORDERED: POTASSIUM CHLORIDE 20 MEQ TABLET PO SCH (17:30)
[2019-06-18] MEDS: LACTULOSE 20 GM/30 ML ORAL.SOL PO SCH (20:15)
[2019-06-18] MEDS: SENNOSIDES 1 TABLET PO SCH (20:16)
[2019-06-19] MEDS: ACETAMINOPHEN 500 MG TABLET PO PRN ×2 (01:29→18:33)
[2019-06-19] MEDS: 0.9 % SODIUM CHLORIDE 10 ML SYRINGE IV SCH ×3 (05:17→21:58)
[2019-06-19 06:29] LABS: Basophils # (Auto) 0.01 K/mcL (0.00-0.30); Basophils % (Auto) 0.3 % (0.0-2.0); Eosinophils # (Auto) 0.19 K/mcL (0.00-0.70); Eosinophils % (Auto) 5.5 % (0.0-7.0); Granulocytes % (Auto) 52.7 % (38.0-78.0); Hematocrit 24.1 % (34.1-44.9); Hemoglobin 8.2 g/dL (11.2-15.7); Lymphocytes # (Auto) 0.74 K/mcL (1.50-4.80); Lymphocytes % (Auto) 21.3 % (15.5-49.0); Mean Cell Volume 100.4 fL (80.0-100.0); Mean Platelet Volume 10.9 fL (7.4-10.4); Monocytes % (Auto) 20.2 % (1.0-12.0); Platelet Count 79 K/mcL (140-440); Red Cell Distribution Width 17.8 % (11.5-14.5); WBC 3.5 K/mcL (4.50-11.00)
[2019-06-19 06:54] LABS: ALT/SGPT 14 U/l (0-40); AST/SGOT 45 U/l (0-37); Alkaline Phosphatase 150 U/L (39-117); Bilirubin,Total 1.2 mg/dL (0.0-1.0); Blood Urea Nitrogen 21 mg/dl (8-23); Carbon Dioxide 26 mmol/L (22-30); Chloride 101 mmol/L (96-108); Glomerular Filtration Rate 57; Glucose 80 mg/dL (70-105)
[2019-06-19 06:55] LABS: Albumin 1.9 gm/dL (3.2-5.2); Albumin/Globulin Ratio 0.5 (1.0-2.3); Globulin 3.9 gm/dL (2.2-3.7)
[2019-06-19] MEDS: INSULIN LISPRO 1 UNIT/0.01 ML UNIT SQ SCH ×4 (07:54→21:58)
[2019-06-19] MEDS: PANTOPRAZOLE 40 MG TABLET PO SCH ×2 (07:57→16:33)
[2019-06-19] MEDS: POTASSIUM CHLORIDE 20 MEQ TABLET PO SCH ×2 (07:57→16:35)
--- NOTE | 2019-06-19 09:40 | Internal Med Progress Note ---
Medical - PN: Subj Patient information: Note initiated : 06/19/19 at 9:38 am Service Date, if different from initiated Date: [] Patient: Francia Souza a 68 y/o F admitted on 06/17/19 for weakness. Chief Complaint: [] Interval history: Ms. Souza is a 68 year old F with history of diabetes, CHF, morbid obesity, chronic abdominal pain, high blood pressure, and DUNHAM who was brought to the ER due to cellulitis. Patient states that her right leg has been red and painful over the past 4 days. She is thinking this could be due to falling out of her wheelchair a few days ago and an injury to the right leg. She has had fevers for the last 2 days. Yesterday she went to the ER and was diagnosed with celluli tis. She was discharged home with clindamycin. Blood culture which was drawn yesterday came back with positive for gram-negative bacilli. In the ER, she was given 1 dose of Zosyn. When I saw this patient in the ER, other than symptoms mentioned above, she also complained of mild headache, fever, and chills. She also complain of abdominal pain which is mainly located in the epigastric area. She added the pain is chronic. Otherwise she denied dizziness, chest pain, dysuria, nausea or vomiting. 06/17-patient admitted with gram-negative bacteremia/cellulitis right leg. Clinically improved over the last 24 hours on antibiotic coverage. Complains of lymphedema and increased ecchymosis on the inside of right thigh. However swelling pain improved. No overnight fever chills. Feels a lot better. Able to ambulate with assistance. Stable hemodynamics and vitals. Pancytopenia with leukopenia/anemia/thrombocytopenia. Change to fondaparinux for DVT prophylaxis. Complains of constipation. Bilirubin down to 1.4 06/18-patient doing well. Hemoglobin 8.4. Potassium 3.4. Gram-negative bereket on cultures final sensitivities pending. Complains of headache across forehead but states application of ice help with the pain. Patient will need outpatient GI follow-up in light of dropping hemoglobin and prior episode of colonic bleed. No evidence of major bleed at this time. De-escalate antibiotics based on sensitivities. Possible discharge 24 to 48 hours. Continue diuresis. - Constitutional Vitals: Vital Signs Temp Pulse Resp BP Pulse Ox 98.3 F 77 12 137/64 96 06/19/19 04:12 06/19/19 04:12 06/19/19 04:12 06/19/19 04:12 06/19/19 04:12 Period Temp Pulse Resp BP Sys/Anaya Pulse Ox Last 24 Hr 98.2 F-98.9 F 66-77 12-18 108-137/48-64 94-96 Intake and Output 06/18/19 06/19/19 06/19/19 21:59 05:59 13:59 Intake Total 1000 750 360 Output Total 425 200 450 Balance 575 550 -90 Weight 351 lb Intake & Output: Intake & Output 06/18/19 06/19/19 06/19/19 21:59 05:59 13:59 Intake Total 1000 750 360 Output Total 425 200 450 Balance 575 550 -90 Weight 351 lb Intake: Oral 1000 750 360 Output: Void Amount 350 200 450 Urine/Stool Mix 75 Other: Meal Dinner Breakfast Percent of Meal Consumed 50% 75% Feeding Ability Independent Independent Urine Appearance Clear Urine Color Dark Yellow Light Trisha Urine Odor Strong Stool Size Small Small Stool Color Brown Brown Stool Consistency Soft Soft Liquid # Bowel Movements 1 General appearance: morbidly obese, no acute distress Exam: Alert oriented Nonlabored breathing Minimal anxiety Morbidly obese extensive pannus Lower extremity lymphedema/swelling much improved, erythema right lower extremity much improved Medical - PN: Obj Da - Labs CBC & Chem 7: 06/19/19 05:35 06/19/19 05:35 Labs: Abnormal Lab Results 06/19/19 06/19/19 06/18/19 05:35 05:35 10:53 WBC 3.5 L RBC 2.40 L Hgb 8.2 L Hct 24.1 L MCV 100.4 H MCH 34.2 H RDW 17.8 H Plt Count 79 L MPV 10.9 H [place] % (Auto) 20.2 H Gran # Lymph # (Auto) 0.74 L Lymphocytes % RBC Morphology Polychromasia Anisocytosis Macrocytosis ESR Absolute Retic Percent Retic BUN Creatinine Calcium 8.0 L Total Bilirubin 1.2 H AST 45 H Alkaline Phosphatase 150 H C-Reactive Protein C-React Prot High Sens NT-Pro-B Natriuret Pep Total Protein 5.8 L Albumin 1.9 L Globulin 3.9 H Albumin/Globulin Ratio 0.5 L Urine Occult Blood 0.03 A Urine Urobilinogen 2.0 A Ur Leukocyte Esterase 25 A Urine WBC 10 H Ur Squamous Epith Cells 17 H Urine Bacteria Rare A 06/18/19 06/18/19 06/18/19 05:36 05:36 05:36 WBC RBC Hgb Hct MCV MCH RDW Plt Count MPV [place] % (Auto) Gran # Lymph # (Auto) Lymphocytes % RBC Morphology Polychromasia Anisocytosis Macrocytosis ESR 80 H Absolute Retic 3.17 H Percent Retic 0.09 L BUN Creatinine Calcium 7.8 L Total Bilirubin 1.4 H AST Alkaline Phosphatase C-Reactive Protein C-React Prot High Sens 165.6 H NT-Pro-B Natriuret Pep Total Protein Albumin 2.2 L Globulin 3.8 H Albumin/Globulin Ratio 0.6 L Urine Occult Blood Urine Urobilinogen Ur Leukocyte Esterase Urine WBC Ur Squamous Epith Cells Urine Bacteria 06/18/19 06/17/19 06/16/19 05:36 01:17 21:14 WBC 3.2 L 3.5 L RBC 2.77 L 2.83 L Hgb 8.8 L 9.4 L Hct 27.6 L 28.9 L MCV 102.1 H MCH RDW 17.8 H 17.7 H Plt Count 72 L 67 L MPV 10.8 H 11.4 H [place] % (Auto) 23.4 H Gran # 1.76 L Lymph # (Auto) 0.59 L Lymphocytes % 11 L RBC Morphology Abnorm A Polychromasia 1+ A Anisocytosis 1+ A Macrocytosis 1+ A ESR Absolute Retic Percent Retic BUN Creatinine Calcium Total Bilirubin AST Alkaline Phosphatase C-Reactive Protein C-React Prot High Sens NT-Pro-B Natriuret Pep 1332.0 H Total Protein Albumin Globulin Albumin/Globulin Ratio Urine Occult Blood Urine Urobilinogen Ur Leukocyte Esterase Urine WBC Ur Squamous Epith Cells Urine Bacteria 06/16/19 20:30 WBC RBC Hgb Hct MCV MCH RDW Plt Count MPV [place] % (Auto) Gran # Lymph # (Auto) Lymphocytes % RBC Morphology Polychromasia Anisocytosis Macrocytosis ESR Absolute Retic Percent Retic BUN 25 H Creatinine 1.2 H Calcium Total Bilirubin 2.5 H AST Alkaline Phosphatase C-Reactive Protein 21.5 H C-React Prot High Sens NT-Pro-B Natriuret Pep Total Protein Albumin 2.6 L Globulin 4.4 H Albumin/Globulin Ratio 0.6 L Urine Occult Blood Urine Urobilinogen Ur Leukocyte Esterase Urine WBC Ur Squamous Epith Cells Urine Bacteria Meds: Medications Acetaminophen (Tylenol) 325 - 650 mg FL Q6HP PRN; Protocol PRN Reason: Per Pain Protocol/Fever > 101 Acetaminophen (Tylenol) 1,000 mg PO Q6HP PRN PRN Reason: PAIN/FEVER > 101 Last Admin: 06/19/19 01:29 Dose: 1,000 mg Documented by: Hydrocodone Bitart/Acetaminophen ([place] 5/325mg) 1 - 2 tab PO Q4HP PRN; Protocol PRN Reason: Per Pain Protocol Last Admin: 06/18/19 22:49 Dose: 1 tab Documented by: Aspirin (Aspirin) 81 mg PO DAILY [facility] Last Admin: 06/18/19 09:18 Dose: 81 mg Documented by: Atorvastatin Calcium (Lipitor) 40 mg PO DAILY [facility] Last Admin: 06/18/19 09:18 Dose: 40 mg Documented by: Benzonatate (Tessalon) 100 mg PO TID PRN PRN Reason: Cough Bisacodyl (Dulcolax) 5 mg PO QHS PRN PRN Reason: constipation Dextrose (Dextrose 50%) 0 ml IV UD PRN PRN Reason: Hypoglycemia Diagnostic Test (Pha) (Accu-Chek) 1 each FS ACHS [facility] Last Admin: 06/19/19 07:52 Dose: 1 each Documented by: Docusate Sodium (Colace) 100 mg PO BID [facility] Last Admin: 06/18/19 20:16 Dose: Not Given Documented by: Famotidine (Pepcid) 20 mg PO QDAY [facility] Fluoxetine HCl (Prozac) 20 mg PO QDAY [facility] Last Admin: 06/18/19 09:18 Dose: 20 mg Documented by: Fondaparinux (Arixtra) 2.5 mg SQ DAILY [facility] Last Admin: 06/18/19 09:19 Dose: 2.5 mg Documented by: Glucose (Insta-Glucose) 15 gm PO PRN PRN PRN Reason: Hypoglycemia Hydralazine HCl (Apresoline) 10 mg IV Q4HP PRN PRN Reason: Hypertension Ceftriaxone Sodium 2 gm/ (Dextrose) 50 mls @ 100 mls/hr IV Q24H [facility] Last Infusion: 06/18/19 09:51 Dose: Infused Documented by: Insulin Glargine (Lantus) 30 unit SQ BID [facility] Last Admin: 06/18/19 20:34 Dose: 30 units Documented by: Insulin Human Lispro (Humalog) 0 unit SQ [facility]; Protocol Last Admin: 06/19/19 07:54 Dose: Not Given Documented by: Lactulose (Cephulac) 20 gm PO BID [facility] Last Admin: 06/18/19 20:15 Dose: Not Given Documented by: Losartan Potassium (Cozaar) 25 mg PO BID [facility] Last Admin: 06/18/19 20:16 Dose: 25 mg Documented by: Morphine Sulfate (Morphine) 2 mg IV Q4HP PRN; Protocol PRN Reason: Per Pain Protocol Last Admin: 06/17/19 17:29 Dose: 2 mg Documented by: Pantoprazole Sodium (Protonix) 40 mg PO BIDAC [facility] Last Admin: 06/19/19 07:57 Dose: 40 mg Documented by: Liraglutide [Victoza 2-Cj] 1.8 Mg Injection 1 dose SUB-Q QDAY [facility] Last Admin: 06/18/19 09:18 Dose: Not Given Documented by: Mirabegron [ (Myrbetriq] 25 Mg Tab) 1 dose PO DAILY [facility] Last Admin: 06/18/19 09:19 Dose: Not Given Documented by: Polyethylene Glycol (Miralax) 17 gm PO DAILYP PRN PRN Reason: Constipation Last Admin: 06/18/19 09:17 Dose: 17 gm Documented by: Potassium Chloride (Kdur) 20 meq PO BIDCC [facility] Stop: 06/19/19 17:31 Last Admin: 06/19/19 07:57 Dose: 20 meq Documented by: Prochlorperazine (Compazine) 5 mg IV Q4HP PRN PRN Reason: Nausea And Vomiting Senna (Senokot) 2 tab PO HS [facility] Last Admin: 06/18/19 20:16 Dose: Not Given Documented by: Sodium Chloride (Saline Flush) 10 ml IV Q8 [facility] Last Admin: 06/19/19 05:17 Dose: 10 ml Documented by: Medical - PN: A/P - Time Spent With Patient Total time spent is greater than 50% in coordination of care (as documented) at patient's floor/unit and/or counseling patient: 25 - 35 minutes - Narrative A/P Narrative: * Right lower extremity cellulitis-clinically improving on antibiotic coverage. De-escalate based on sensitivities * Gram-negative [id number] antibiotics based on sensitivities. Surveillance cultures negative. White count 3.5 * Severe sepsis secondary above. Management per guidelines * Pancytopenia-stable * Hypokalemia continue replacement * DM type II continue basal panel insulin/Victoza/CC diet * Elevated bilirubin secondary to sepsis improving. * History of CHF -continue diuresis. * DVT prophylaxis fondaparinux Plan * De-escalate antibiotics based on sensitivities * Continue diuretics * Pre-existing mental condition management as above * PT OT/nutrition support * Discharge planning likely in 24 to 48 hours Medical - PN: Qual - VTE Deep Vein Thrombosis/Pulmonary Embolism Present on Admission: No
[2019-06-19] MEDS: ASPIRIN 81 MG TAB.CHEW PO SCH (10:19)
[2019-06-19] MEDS: ATORVASTATIN 40 MG TABLET PO SCH (10:19)
[2019-06-19] MEDS: LOSARTAN 25 MG TABLET PO SCH ×2 (10:19→21:58)
[2019-06-19] MEDS: DOCUSATE SODIUM 100 MG CAPSULE PO SCH ×2 (10:19→21:58)
[2019-06-19] MEDS: FLUoxetine HCL 20 MG CAPSULE PO SCH (10:19)
[2019-06-19] MEDS: FAMOTIDINE 20 MG TABLET PO SCH (10:19)
[2019-06-19] MEDS: FONDAPARINUX SODIUM 2.5 MG/0.5 ML SYRINGE SQ SCH (10:21)
[2019-06-19] MEDS: LACTULOSE 20 GM/30 ML ORAL.SOL PO SCH ×2 (10:22→21:51)
[2019-06-19] MEDS: FUROSEMIDE 20 MG/2 ML VIAL IV SCH ×4 (10:35→22:12)
[2019-06-19] MEDS: cefTRIAXone 2 GM in DEXTROSE 5% IN WATER 50 ML IV SCH (10:49)
[2019-06-19] MEDS: INSULIN GLARGINE, HUMAN 1 UNIT/0.01 ML SQ SCH (12:00)
[2019-06-19] MEDS: LIRAGLUTIDE 1.8 MG SUB-Q SCH (12:01)
[2019-06-19] MEDS ORDERED: MELATONIN 3 MG TABLET PO PRN (19:22)
[2019-06-19] MEDS: SENNOSIDES 1 TABLET PO SCH (21:51)
[2019-06-20] MEDS: FUROSEMIDE 20 MG/2 ML VIAL IV SCH ×2 (05:11→12:13)
[2019-06-20] MEDS: 0.9 % SODIUM CHLORIDE 10 ML SYRINGE IV SCH ×2 (05:11→15:46)
[2019-06-20 06:36] LABS: Basophils # (Auto) 0.03 K/mcL (0.00-0.30); Basophils % (Auto) 0.8 % (0.0-2.0); Eosinophils # (Auto) 0.18 K/mcL (0.00-0.70); Eosinophils % (Auto) 4.8 % (0.0-7.0); Granulocytes % (Auto) 49.5 % (38.0-78.0); Hematocrit 25.6 % (34.1-44.9); Hemoglobin 8.7 g/dL (11.2-15.7); Lymphocytes # (Auto) 1.16 K/mcL (1.50-4.80); Lymphocytes % (Auto) 31.2 % (15.5-49.0); Mean Cell Volume 101.2 fL (80.0-100.0); Mean Platelet Volume 10.1 fL (7.4-10.4); Monocytes # (Auto) 0.51 K/mcL (0.10-0.90); Monocytes % (Auto) 13.7 % (1.0-12.0); Platelet Count 99 K/mcL (140-440); RBC 2.53 M/mcL (3.59-5.38); Red Cell Distribution Width 17.8 % (11.5-14.5); WBC 3.7 K/mcL (4.50-11.00)
[2019-06-20 06:46] LABS: ALT/SGPT 14 U/l (0-40); AST/SGOT 46 U/l (0-37); Albumin 2.1 gm/dL (3.2-5.2); Albumin/Globulin Ratio 0.5 (1.0-2.3); Alkaline Phosphatase 179 U/L (39-117); Bilirubin,Total 1.1 mg/dL (0.0-1.0); Blood Urea Nitrogen 22 mg/dl (8-23); Calcium 7.8 mg/dl (8.6-10.4); Carbon Dioxide 26 mmol/L (22-30); Chloride 104 mmol/L (96-108); Glomerular Filtration Rate 57; Glucose 79 mg/dL (70-105)
[2019-06-20] MEDS: INSULIN LISPRO 1 UNIT/0.01 ML UNIT SQ SCH ×2 (08:00→13:11)
[2019-06-20] MEDS: PANTOPRAZOLE 40 MG TABLET PO SCH (08:01)
[2019-06-20] MEDS ORDERED: INSULIN GLARGINE, HUMAN 1 UNIT/0.01 ML SQ SCH (09:00)
[2019-06-20] MEDS: FAMOTIDINE 20 MG TABLET PO SCH (10:00)
--- NOTE | 2019-06-20 11:22 | Discharge Summary ---
Medical - DS: Prov Patient information: Note initiated : 06/20/19 at 11:20 am Service Date, if different from initiated Date: [] Patient: Francia Souza 68 y/o F admitted on 06/17/19 for weakness. Chief Complaint: [] Date of admission: 06/17/19 01:39 Discharge date: 06/20/19 Primary care physician: Serge Jeffries M.D., F.A.A.F.P. Consults: 06/16/19 Consult to Physician [CONS] Stat Comment: Consulting Provider: Homero Rosas Reason For Exam: Physician to Consult Medical - DS: Meds - Discharge Medications Prescriptions: Cefdinir 300 mg PO BID #14 cap Transmission Status: Pending to [facility] Active and Home Medications: Home Medications lactulose 10 gram/15 mL oral solution 20 g PO BID #946 ml 09/02/17 [Rx Confirmed 06/17/19 Last Taken 03/04/19] bisacodyl 5 mg tablet,delayed release 5 mg PO QHS PRN #30 tab 02/22/18 [Rx Confirmed 06/17/19 Last Taken 06/11/19] ondansetron 8 mg disintegrating tablet 8 mg PO BID PRN #30 tab 03/17/18 [Rx Confirmed 06/17/19 Last Taken 03/04/19] acetaminophen 500 mg capsule 1,000 mg PO Q4H PRN cap 05/19/18 [History Confirmed 06/17/19 Last Taken 06/16/19 12:00] benzonatate 100 mg capsule 100 mg PO TID PRN #20 cap 07/10/18 [Rx Confirmed 06/17/19 Last Taken 03/04/19] losartan 25 mg tablet 25 mg PO BID #180 tab 12/06/18 [Rx Confirmed 06/17/19 Last Taken 06/16/19 08:00] famotidine 20 mg tablet 20 mg PO QDAY #90 tab 12/12/18 [Rx Confirmed 06/17/19 Last Taken 06/16/19 08:00] lancets See Rx Instructions .ROUTE .MEDSUPPLY #100 each 02/06/19 [Rx Confirmed 06/19/19 Last Taken 03/04/19] liraglutide 0.6 mg/0.1 mL (18 mg/3 mL) subcutaneous pen injector 1.8 mg SUB-Q QDAY #6 ml 02/07/19 [Rx Confirmed 06/17/19 Last Taken 06/16/19 08:00] Lidocaine with 8.4% Sod Bicarb [Buffered Lidocaine 1% Syringe] 10 ml PO PRN PRN 03/27/19 [History Confirmed 06/17/19 Last Taken 06/11/19] OneTouch Prime blood sugar test strips 0 dose .ROUTE .MEDSUPPLY 04/05/19 [History Confirmed 06/19/19 Last Taken Unknown] hydrocodone 7.5 mg-acetaminophen 325 mg tablet 1 tab PO Q6-8HP PRN #30 tab 04/10/19 [Rx Confirmed 06/17/19 Last Taken Unknown] furosemide 40 mg tablet 40 mg PO DAILY #30 tab 04/23/19 [Rx Confirmed 06/17/19 Last Taken 06/16/19 08:00] fluoxetine 20 mg capsule 20 mg PO QDAY #30 cap 05/01/19 [Rx Confirmed 06/17/19 Last Taken 06/16/19 08:00] mirabegron 25 mg tablet,extended release 24 hr 25 mg PO Q24H #30 tab 05/22/19 [Rx Confirmed 06/17/19 Last Taken 06/16/19 08:00] pantoprazole 40 mg tablet,delayed release 40 mg PO BID #180 tab 05/22/19 [Rx Confirmed 06/17/19 Last Taken 06/16/19 08:00] Clindamycin HCl [Cleocin] 300 mg PO TID #30 cap 06/16/19 [Rx Confirmed 06/17/19 Last Taken Unknown] Insulin Glargine,Hum.rec.anlog [Basaglar Kwikpen U-100] 15 unit SQ DAILY 06/17/19 [History Confirmed 06/18/19 Last Taken 06/16/19 08:00] Cefdinir 300 mg PO BID #14 cap 06/20/19 [Rx Last Taken Unknown] Medical - DS: Hosp Hospital Course: Discharge diagnosis * Right lower extremity cellulitis-clinically improving on antibiotic coverage. De-escalate antibiotics to oral cefdinir * E. coli bacteremia-continue oral antibiotic for additional 7 days * Severe sepsis secondary to above. Clinically resolved. * Pancytopenia-stable * Hypokalemia continue replacement * DM type II continue basal prandial insulin/Victoza/CC diet * Elevated bilirubin secondary to sepsis improving. * History of CHF -stable. Brief hospital course Ms. Souza is a 68 year old F with history of diabetes, CHF, morbid obesity, chronic abdominal pain, high blood pressure, and DUNHAM who was brought to the ER due to cellulitis. Patient states that her right leg has been red and painful over the past 4 days. She is thinking this could be due to falling out of her wheelchair a few days ago and an injury to the right leg. She has had fevers for the last 2 days. Yesterday she went to the ER and was diagnosed with cellulitis. She was discharged home with clindamycin. Blood culture which was drawn yesterday came back with positive for gram-negative bacilli. In the ER, she was given 1 dose of Zosyn. When I saw this patient in the ER, other than symptoms mentioned above, she also complained of mild headache, fever, and chills. She also complain of abdominal pain which is mainly located in the epigastric area. She added the pain is chronic. Otherwise she denied dizziness, chest pain, dysuria, nausea or vomiting. 06/17-patient admitted with gram-negative bacteremia/cellulitis right leg. Clinically improved over the last 24 hours on antibiotic coverage. Complains of lymphedema and increased ecchymosis on the inside of right thigh. However swelling pain improved. No overnight fever chills. Feels a lot better. Able to ambulate with assistance. Stable hemodynamics and vitals. Pancytopenia with leukopenia/anemia/thrombocytopenia. Change to fondaparinux for DVT prophylaxis. Complains of constipation. Bilirubin down to 1.4 06/18-patient doing well. Hemoglobin 8.4. Potassium 3.4. Gram-negative bereket on cultures final sensitivities pending. Complains of headache across forehead but states application of ice help with the pain. Patient will need outpatient GI follow-up in light of dropping hemoglobin and prior episode of colonic bleed. No evidence of major bleed at this time. De-escalate antibiotics based on sensitivities. Possible discharge 24 to 48 hours. Continue diuresis. 06/19- Patient doing well. No new events. No concerns per staff. No fever chills nausea vomiting. Feels a lot better. Requesting discharge. Discharging home with additional 7 days oral cefdinir for E. coli bacteremia. Discharge instructions as below Discharge diagnosis: . - Time Spent with Patient Total time spent providing and/or coordinating discharge services: Greater than 30 minutes Medical - DS: Exam - Constitutional Vitals: Vital Signs Temp Pulse Resp BP Pulse Ox 06/20/19 08:00 97.2 F 68 16 128/60 97 06/20/19 04:55 98.6 F 70 12 109/52 98 06/19/19 22:30 99.4 F H 72 12 110/43 97 06/19/19 19:04 99.2 F H 75 12 116/54 96 06/19/19 18:41 12 06/19/19 16:00 98.4 F 77 12 111/51 95 06/19/19 12:00 98.5 F 70 12 124/54 95 Intake and Output 06/19/19 06/20/19 06/20/19 21:59 05:59 13:59 Intake Total 240 400 Output Total 450 700 Balance -210 -300 Intake: Oral 240 400 Output: Void Amount 450 700 Other: Meal Dinner Percent of Meal Consumed 100% Urine Appearance Clear Urine Color Dark Yellow Stool Size Moderate Small Stool Color Brown Brown Stool Consistency Soft Formed # Voids 1 # Bowel Movements 1 1 Weight 351 lb 8 oz Medical - DS: Data Labs on day of discharge: Labs from last 24 hours 06/20/19 06/20/19 05:30 05:30 WBC 3.7 L RBC 2.53 L Hgb 8.7 L Hct 25.6 L MCV 101.2 H MCH 34.4 H MCHC 34.0 RDW 17.8 H Plt Count 99 L MPV 10.1 Gran % 49.5 Lymph % (Auto) 31.2 [place] % (Auto) 13.7 H Eos % (Auto) 4.8 Baso % (Auto) 0.8 Gran # 1.84 Lymph # (Auto) 1.16 L [place] # (Auto) 0.51 Eos # (Auto) 0.18 Baso # (Auto) 0.03 Sodium 140 Potassium 4.0 Chloride 104 Carbon Dioxide 26 Anion Gap 10.0 BUN 22 Creatinine 1.0 GFR Calculation 57 Glucose 79 Calcium 7.8 L Total Bilirubin 1.1 H AST 46 H ALT 14 Alkaline Phosphatase 179 H Total Protein 6.1 Albumin 2.1 L Globulin 4.0 H Albumin/Globulin Ratio 0.5 L Preliminary micro results at discharge 06/17/19 01:17 Blood Culture - Preliminary Blood 06/17/19 01:12 Blood Culture - Preliminary Blood Medical - DS: A/P - Patient/Caregiver Discharge Instructions Activity: increase activity as tolerated Diet: Consistent Carbohydrate Additional Instructions: Follow-up PCP in 5 day I recommend PCP to check CBC BMP UA as a posthospital follow-up in 1 week. Antibiotics for additional 7 days Continue aggressive bowel regimen to prevent constipation Continue fall precautions Daily weights measurements and take additional 40 mg Lasix for 3 days if weight gain over 4 pounds over baseline or worsening SOB and call primary care physician if inadequate response to Lasix High protein calorie supplements All meals on chair sitting upright at 90 degrees to prevent aspiration Return to ER if worsening fever chills shortness of breath, diarrhea, bleeding Review risk and side effect profile of medications including antibiotics. Side effect may include mild to severe reaction including rash, diarrhea, cdiff and even which can be prevented by close follow-up with PCP and monitoring for side effects Continue diet and activity as advised Discussed importance of medication adherence Please review medication list with patient prior to discharge Please schedule follow-up with PCP/Providers prior to discharge and provide printouts Prescriptions: Cefdinir 300 mg PO BID #14 cap Transmission Status: Pending to [facility] - Follow up Plan Follow up with: Serge Jeffries MD, FAAFP [Primary Care Provider] - Disposition: Home Health Service Prognosis: Serious Rehab Potential: Fair I certify that the patient requires SNF services: No Overall status at discharge: patient is progressing back to baseline Medical - DS: Qual - VTE Deep Vein Thrombosis/Pulmonary Embolism Present on Admission: No
[2019-06-20] MEDS: cefTRIAXone 2 GM in DEXTROSE 5% IN WATER 50 ML IV SCH (12:12)
[2019-06-20] MEDS: FONDAPARINUX SODIUM 2.5 MG/0.5 ML SYRINGE SQ SCH (12:13)
[2019-06-20] MEDS: FLUoxetine HCL 20 MG CAPSULE PO SCH (12:13)
[2019-06-20] MEDS: LOSARTAN 25 MG TABLET PO SCH (12:14)
[2019-06-20] MEDS: ASPIRIN 81 MG TAB.CHEW PO SCH (12:14)
[2019-06-20] MEDS: DOCUSATE SODIUM 100 MG CAPSULE PO SCH (12:14)
[2019-06-20] MEDS: ATORVASTATIN 40 MG TABLET PO SCH (12:14)
[2019-06-20] MEDS: LACTULOSE 20 GM/30 ML ORAL.SOL PO SCH (12:15)
[2019-06-20] MEDS: LIRAGLUTIDE 1.8 MG SUB-Q SCH (12:15)
[2019-06-20] MEDS ORDERED: HEPARIN SODIUM,PORCINE/PF 500 UNIT/5 ML SYRINGE IV ONE ×2 (15:08→15:15)
== END 2019-06-20 16:35 | disposition home health service (06) | DRG 872 ==
LOC: ED 19:50 → MEDSUR 06-17 01:39
PROVIDERS: ADMIT Internal Medicine; ATTEND Internal Medicine

== ENCOUNTER 2019-08-03 09:42 | Inpatient (IN) ==
[2019-08-03] MEDS ORDERED: 0.9 % SODIUM CHLORIDE 500 ML IV ONE ×2 (10:02→11:06)
[2019-08-03] MEDS ORDERED: ONDANSETRON 4 MG/2 ML VIAL IV ONE (10:16)
[2019-08-03] MEDS ORDERED: ONDANSETRON 4 MG/2 ML VIAL ONE (10:20)
[2019-08-03] MEDS ORDERED: PIPERACILLIN SODIUM/TAZOBACTAM 3.375 GM in DEXTROSE 5% IN WATER 50 ML IV ONE (10:27)
[2019-08-03] MEDS ORDERED: VANCOMYCIN 1,000 MG in 0.9 % SODIUM CHLORIDE 250 ML IV ONE (10:28)
[2019-08-03] MEDS ORDERED: ACETAMINOPHEN 325 MG TABLET PO ONE (10:46)
--- NOTE | 2019-08-03 10:52 | Emergency Department Note ---
Lower Extremity Injury HPI - General Chief Complaint: Extremity Injury, Lower Stated Complaint: Redness to left lower ext Time Seen by Provider: 08/03/19 10:00 Source: EMS Mode of arrival: EMS - History of Present Illness HPI Narrative: This 68-year-old female lives at home with her and awoke this morning with market increase/onset of redness and swelling of her right lower extremity associated with chills and pain bad enough she could not ambulate. Ambulance was summoned by her and she was transported here where she was found to have a temperature 101.9 and tachycardia in the 110-120s. She reports that her last antibiotic ended at the end of April. She had similar previous presentation and problems. She denies history of MRSA. She does not use oxygen at home. She did not get her medications that she normally takes today. - Related Data Home Medications Medication Instructions Recorded Confirmed acetaminophen 500 mg capsule 1,000 mg PO Q4H PRN cap 05/19/18 07/09/19 Lidocaine with 8.4% Sod Bicarb 10 ml PO PRN PRN 03/27/19 07/09/19 [Buffered Lidocaine 1% Syringe] OneTouch Prime blood sugar test 0 dose .ROUTE .MEDSUPPLY 04/05/19 07/09/19 strips Previous Rx's Medication Instructions Recorded lactulose 10 gram/15 mL oral 20 g PO BID #946 ml 09/02/17 solution bisacodyl 5 mg tablet,delayed 5 mg PO QHS PRN #30 tab 02/22/18 release ondansetron 8 mg disintegrating 8 mg PO BID PRN #30 tab 03/17/18 tablet benzonatate 100 mg capsule 100 mg PO TID PRN #20 cap 07/10/18 losartan 25 mg tablet 25 mg PO BID #180 tab 12/06/18 famotidine 20 mg tablet 20 mg PO QDAY #90 tab 12/12/18 lancets See Rx Instructions .ROUTE 02/06/19 .MEDSUPPLY #100 each hydrocodone 7.5 mg-acetaminophen 1 tab PO Q6-8HP PRN #30 tab 04/10/19 325 mg tablet furosemide 40 mg tablet 40 mg PO DAILY #30 tab 04/23/19 fluoxetine 20 mg capsule 20 mg PO QDAY #30 cap 05/01/19 mirabegron 25 mg tablet,extended 25 mg PO Q24H #30 tab 05/22/19 release 24 hr pantoprazole 40 mg tablet,delayed 40 mg PO BID #180 tab 05/22/19 release fluconazole 150 mg tablet 150 mg PO Q3D 0 Days #7 tab 06/26/19 insulin glargine 100 unit/mL (3 15 unit SUB-Q DAILY #15 ml MDD 30 06/26/19 mL) subcutaneous pen units cephalexin 500 mg capsule 500 mg PO QID #40 cap 06/28/19 doxycycline hyclate 100 mg tablet 100 mg PO BID #20 tab 06/28/19 Power wheel chair 0 .ROUTE .MEDSUPPLY #1 ea 07/12/19 liraglutide 0.6 mg/0.1 mL (18 mg/3 1.8 mg SUB-Q QDAY #6 ml 07/19/19 mL) subcutaneous pen injector pen needle, diabetic 32 gauge x See Rx Instructions .ROUTE 07/19/19" .MEDSUPPLY #100 each Allergies Allergy/AdvReac Type Severity Reaction Status Date / Time codeine Allergy Severe Confusion Verified 08/03/19 10:12 Sulfa (Sulfonamide Allergy Unknown Unknown Verified 08/03/19 10:12 Antibiotics) adhesive AdvReac Intermediate edwards Verified 08/03/19 10:12 Fish Containing Products AdvReac Intermediate Other Verified 08/03/19 10:12 latex AdvReac Mild Itching Verified 08/03/19 10:12 oxycodone [From Percocet] AdvReac Mild Confusion Verified 08/03/19 10:12 squash AdvReac Mild Nausea Verified 08/03/19 10:12 MRI (implant/left ankle) AdvReac Severe Pain Uncoded 07/09/19 14:44 Review of Systems Review of Systems: Has some sore throat and cough she attributes to a lidocaine spray that she puts on her right shoulder for shoulder pain. No runny nose. No chest pain No shortness of breath. She does not use oxygen at home but believes that she does have sleep apnea. She does not currently use a machine but previously did discontinuing it due to not feeling it was that helpful No abdominal pain, nausea vomiting diarrhea constipation hematochezia No dysuria frequency. No knowledge that she has of specific renal disease or proteinuria. No headache. Has generalized weakness today as well as some lightheadedness/dizziness today. She does have peripheral neuropathy. Has some chronic anxiety and depression. She has had suicidal thoughts but denies a plan. She is seeing a counselor but has not found a lot of help with this. 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) Nonalcoholic steatohepatitis ([place]) (Chronic) Esophageal varices (Chronic) History of transfusion of packed red blood cells (Chronic) Hypertension, essential (Chronic) Abdominal pain (Chronic) History of esophageal stricture (Chronic) Elevated alkaline phosphatase level (Chronic) Dependent edema (Chronic) Lumbosacral pain, chronic (Chronic) Knee pain (Chronic) Sinusitis, chronic (Chronic) Hypovitaminosis D (Chronic) Zinc deficiency (Chronic) Left carotid artery stenosis (Chronic) Chronic pain (Chronic) Erosive gastritis with hemorrhage (Chronic) Esophagitis determined by endoscopy (Chronic) Polyclonal gammopathy (Chronic) Back Pain (Chronic) Liver fibrosis (Chronic) Hypercholesterolemia (Chronic) Esophagitis (Chronic) Arthralgia (Chronic) Osteopenia (Chronic) Anxiety (Chronic) Gallbladder problem (Chronic) Depression (Chronic) Kidney stones (Chronic) Lumbar radiculopathy (Chronic) Arthralgia of multiple joints (Chronic) Osteoarthritis (Chronic) Gout (Chronic) Hx of adenomatous colonic polyps (Chronic) Copper deficiency (Chronic) Elevated blood uric acid level (Chronic) Abscess of breast, right (Resolved) Acquired pancytopenia (Resolved) Acute blood loss anemia (Resolved) Adverse reaction to antidiabetic drug (Resolved) Anemia (Resolved) Anemia (Resolved) Anemia (Resolved) Anemia (Resolved) Anemia (Resolved) Anemia (Resolved) Anemia (Resolved) Bacteremia (Resolved) Bloating (Resolved) Bronchitis (Resolved) Cellulitis (Resolved) Cirrhosis (Resolved) Closed avulsion fracture of trochanter of right femur (Resolved) Congestive heart failure (Resolved) Contusion of right leg (Resolved) Cough (Resolved) DDD (degenerative disc disease), lumbar (Resolved) DMII (diabetes mellitus, type 2) (Resolved) Elevated serum creatinine (Resolved) Fall (on) (from) other stairs and steps, initial encounter (Resolved) Gastritis (Resolved) Non-healing wound (Resolved) Nondisplaced fracture of surgical neck of left humerus (Resolved) Pancytopenia (Resolved) Portal hypertension (Resolved) Rectal bleeding (Resolved) SIRS (systemic inflammatory response syndrome) (Resolved) Upper gastrointestinal bleeding (Resolved) Past Surgical History (Last Reviewed 07/10/19 @ 10:41 by Luca Tarango MD) History of hysterectomy (Acute) History of oophorectomy (Acute) History of surgery (Acute) History of tonsillectomy (Acute) History of total left knee replacement (Resolved) History of total right knee replacement (Resolved) S/P ORIF (open reduction internal fixation) fracture (Resolved) Family History (Last Updated 07/10/19 @ 11:15 by Luca Tarango MD) Mother Arthritis Squamous cell carcinoma Diabetes mellitus Essential hypertension Brother Arthritis Malignant neoplasm of kidney Malignant neoplasm of liver Malignant neoplasm of pharynx Malignant neoplasm of pancreas Sister Arthritis Diabetes mellitus Essential hypertension Depression Father Malignant neoplasm of lung Grandmother-paternal Diabetes mellitus Medical history: Reports: arthritis, COPD, DM, fibromyalgia, GERD, hyperlipidemia, hypertension, kidney stones, osteoporosis, peripheral artery disease, other Psychiatric history: Reports: no psych history RED LEADER history: Reports: non-contributory Surgical history ED: Reports: non-contributory, orthopedic, other - Social History smoking status: Former smoker Alcohol use: Reports: None Drug use: Reports: none Physical Exam Limitations: physical limitation General appearance: alert, in no apparent distress, nontoxic, obese, sleepy, other (Mostly lays resting with her eyes closed but responds when talked to.) Head: atraumatic, normocephalic Course Vital Signs Temperature 101.9 F H 08/03/19 09:44 Pulse Rate 122 H 08/03/19 09:44 Respiratory Rate 16 08/03/19 09:44 Pulse Oximetry (%) 91 08/03/19 09:44 Temperature 101.0 F H 08/03/19 13:27 Pulse Rate 98 H 08/03/19 13:27 Respiratory Rate 20 08/03/19 13:27 Blood Pressure 150/60 08/03/19 13:16 Pulse Oximetry (%) 96 08/03/19 13:27 Extremity Injury, Lower - MDM Narrative Medical decision making narrative: 10:22 AM - interviewed and examined. Chills fever and tachycardia. Will do septic work-up. Appears to have a markedly swollen/red/painful right lower extremity. She has a history of cellulitis and SIRS. No signs of septic shock at this point in fact is hypertensive but has missed her medications today. Patient admits to suicidal ideation but no plans. Is seeing a counselor. 12:42 PM - lab review includes a white count of 3.1. She has some chronic and this range so this is not different. Hemoglobin is 9.6 but this is better than most of her past numbers over these past 12 months. Does have significant macrocytosis. This is worse than it previously has been. The elevation of her bilirubin to 1.8 is similar to how it has been in these past 2 months but previously did not have this. Alkaline phosphatase is similar to her recent previous elevations as well. Her previous lactic acid 2.9 on her ABG which did not so acidosis with a pH of 7.39, PCO2 of 44, PO2 of 65. 1:20 PM approximately - fever was previously treated with acetaminophen 975 mg with a decrease in temperatures that went as high as 103 down now to 101.7. 1:36 PM - spoke with Dr. Flowers, hospitalist who is accepting this patient. Care reviewed given here. - Lab Data Result diagrams: 08/03/19 10:12 08/03/19 10:12 Lab Results 08/03/19 08/03/19 Range/Units 10:12 10:12 WBC 3.1 L (4.50-11.00) K/mcL RBC 2.72 L (3.59-5.38) M/mcL Hgb 9.6 L (11.2-15.7) g/dL Hct 28.8 L (34.1-44.9) % MCV 105.9 H (80.0-100.0) fL MCH 35.3 H (26.0-34.0) pg MCHC 33.3 (31.0-36.0) g/dL RDW 16.1 H (11.5-14.5) % Plt Count 94 L (140-440) K/mcL MPV 9.8 (7.4-10.4) fL Total Counted 100 Seg Neutrophils % 67 (38-78) % Band Neutrophils % 15 H (0-10) % Lymphocytes % 10 L (15-49) % Monocytes % (Manual) 2 (1-12) % Eosinophils % (Manual) 6 (0-7) % Platelet Estimate Decreased (NORMAL) RBC Morphology Abnorm A (NORMAL) Anisocytosis 1+ A (NONE SEEN) Macrocytosis 1+ A (NONE SEEN) Sodium 141 (133-145) mmol/L Potassium 3.7 (3.3-5.1) mmol/L Chloride 104 (96-108) mmol/L Carbon Dioxide 24 (22-30) mmol/L Anion Gap 13.0 (8-16) BUN 9 (8-23) mg/dl Creatinine 0.8 (0.6-1.1) mg/dl GFR Calculation 75 Glucose 96 (70-105) mg/dL Calcium 8.1 L (8.6-10.4) mg/dl Total Bilirubin 1.8 H (0.0-1.0) mg/dL AST 40 H (0-37) U/l ALT 11 (0-40) U/l Alkaline Phosphatase 164 H (39-117) U/L Total Protein 7.2 (5.9-8.4) gm/dL Albumin 2.8 L (3.2-5.2) gm/dL Globulin 4.4 H (2.2-3.7) gm/dL Albumin/Globulin Ratio 0.6 L (1.0-2.3) Disposition Pt seen by CHAIR SPRING ASSEMBLER/PA only: No Clinical Impression: Tachycardia, Suicidal ideation Cellulitis Qualifiers: Site of cellulitis: extremity Site of cellulitis of extremity: lower extremity Laterality: right Qualified Code(s): L03.115 - Cellulitis of right lower limb Fever Qualifiers: Fever type: due to other condition Qualified Code(s): R50.81 - Fever presenting with conditions classified elsewhere Sepsis Qualifiers: Sepsis type: sepsis due to unspecified organism Sepsis acute organ dysfunction status: without acute organ dysfunction Qualified Code(s): A41.9 - Sepsis, unspecified organism Disposition: Xfer As Inpt ([facility]) Condition: Fair Referrals: Serge Jeffries MD, FAAFP [Primary Care Provider] -
[2019-08-03 10:59] LABS: Hematocrit 28.8 % (34.1-44.9); Hemoglobin 9.6 g/dL (11.2-15.7); Mean Cell Volume 105.9 fL (80.0-100.0); Mean Corpuscular HGB Conc 33.3 g/dL (31.0-36.0); Mean Platelet Volume 9.8 fL (7.4-10.4); Platelet Count 94 K/mcL (140-440); RBC 2.72 M/mcL (3.59-5.38); Red Cell Distribution Width 16.1 % (11.5-14.5); WBC 3.1 K/mcL (4.50-11.00)
[2019-08-03] MEDS ORDERED: 0.9 % SODIUM CHLORIDE 1,000 ML IV SCH (11:15)
[2019-08-03 11:21] LABS: ALT/SGPT 11 U/l (0-40); AST/SGOT 40 U/l (0-37); Albumin 2.8 gm/dL (3.2-5.2); Albumin/Globulin Ratio 0.6 (1.0-2.3); Alkaline Phosphatase 164 U/L (39-117); Bilirubin,Total 1.8 mg/dL (0.0-1.0); Blood Urea Nitrogen 9 mg/dl (8-23); Calcium 8.1 mg/dl (8.6-10.4); Carbon Dioxide 24 mmol/L (22-30); Chloride 104 mmol/L (96-108); Globulin 4.4 gm/dL (2.2-3.7); Glomerular Filtration Rate 75; Glucose 96 mg/dL (70-105)
[2019-08-03 11:34] LABS: Anisocytosis 1+ (NONE SEEN); Band Neutrophils % 15 % (0-10); Eosinophils % (Manual) 6 % (0-7); Lymphocytes % 10 % (15-49); Macrocytosis 1+ (NONE SEEN); Monocytes % (Manual) 2 % (1-12); Platelet Estimate DECREASED (NORMAL); RBC Morphology ABNORM (NORMAL); Segmented Neutrophils % 67 % (38-78)
[2019-08-03] MEDS ORDERED: 0.9 % SODIUM CHLORIDE 1,000 ML IV ONE (11:39)
--- NOTE | 2019-08-03 11:39 | XRay Report ---
INDICATION: Congestive heart failure TECHNIQUE: AP portable semiupright chest x-ray COMPARISON: Previous examination dated 06/16/2019 FINDINGS: Lungs:No parenchymal consolidation. No evidence for pneumonia. No focal mass. Heart, vascular:Mild cardiomegaly, unchanged. Vascularity is increased and there is peribronchial thickening consistent with interstitial edema. Appearance is essentially unchanged Mediastinum, iliana:Small caliber central venous catheter with its tip in the right atrium. There is a chemotherapy infusion port Pleura:No pleural fluid. No pleural-based mass or calcification Skeletal:Negative. IMPRESSION: 1. Cardiomegaly and probable interstitial pulmonary edema. Appearance is unchanged since 06/16/2019 2. No focal parenchymal infiltrate Interpreted and Authenticated by: Reynaldo Franz 08/03/19
--- NOTE | 2019-08-03 13:49 | Internal Med History&Physical ---
Medical - H&P: HPI Patient information: Note initiated : 08/03/19 at 1:45 pm Service Date, if different from initiated Date: [] Patient: Francia Souza 68 y/o F admitted on for Redness to left lower ext. Chief Complaint: [] Chief complaint: Right lower extremity rapidly developing swelling redness and pain History of present illness: Ms. Souza is a 68 year old F morbidly obese with BMI 70 and history of DM type II/recent lower extremity cellulitis resulting in hospitalization, CHF, HTN , and SHEPHERD who presents to the ER with worsening right lower extremity redness, weakness, fatigue and complaining of dark stools over the last few days. Patient was in her baseline state of health until recently however she woke up this morning with severe pain swelling and redness involving inside of her right leg. The pain and swelling started extending rapidly up to the back of mid right thigh. She started experiencing shaking chills and fever. She was recently hospitalized with similar symptoms and was diagnosed with right lower extremity lymphangitis/cellulitis and was treated on IV antibiotics followed by outpatient suppressive oral antibiotics that she completed end of June. She denies recent trauma, diarrhea, dysuria, headache, photophobia, chest pain or shortness of breath. He endorses to applying aloe vera lotion over the last few days on right lower extremity. Significant presenting symptoms she was also noted to have GI bleed and underwent endoscopies by Dr. Sears and was diagnosed as watermelon stomach/G AVE. a presenting hemoglobin is 9.5. Initial work-up was consistent with fever at 102 along with tachycardia, tachypnea, leukopenia. Patient received blood cultures and subsequently hospitalist service was consulted after antibiotics were administered. At the time examination patient is alert and oriented. She was able to endorse history as above. She lives with her . She was in her baseline state of health until yesterday. Her right leg appears exquisitely tender and hot. She also complains of intermittent yeast infections being on long-term antibiotics. 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 Copper deficiency (Chronic) Sinusitis, chronic (Chronic) Hypovitaminosis D (Chronic) Zinc deficiency (Chronic) Elevated blood uric acid level (Chronic) Left carotid artery stenosis (Chronic) Chronic pain (Chronic) Erosive gastritis with hemorrhage (Chronic) Esophagitis determined by endoscopy (Chronic) Polyclonal gammopathy (Chronic) Lumbar radiculopathy (Chronic) Arthralgia of multiple joints (Chronic) Back Pain (Chronic) Liver fibrosis (Chronic) Moderate liver fibrosis with early esophageal varices Hypercholesterolemia (Chronic) Esophagitis (Chronic) With esophageal stricture Elevated erythrocyte sedimentation rate (Chronic) Arthralgia (Chronic) Chronic Osteopenia (Chronic) Anxiety (Chronic) 1973 Kidney stones (Chronic) 1999 Gallbladder problem (Chronic) Depression (Chronic) Gout (Chronic) 1999 Osteoarthritis (Chronic) 1999 Hx of adenomatous colonic polyps (Chronic) Abscess of breast, right (Resolved) Acquired pancytopenia (Resolved) Acute blood loss anemia (Resolved) Adverse reaction to antidiabetic drug (Resolved) Anemia (Resolved) Anemia (Resolved) Anemia (Resolved) Anemia (Resolved) Anemia (Resolved) Anemia (Resolved) Anemia (Resolved) Bloating (Resolved) Bronchitis (Resolved) Cirrhosis (Resolved) Congestive heart failure (Resolved) Contusion of right leg (Resolved) Cough (Resolved) DDD (degenerative disc disease), lumbar (Resolved) DMII (diabetes mellitus, type 2) (Resolved) 1989 Elevated serum creatinine (Resolved) Fall (on) (from) other stairs and steps, initial encounter (Resolved) Gastritis (Resolved) Non-healing wound (Resolved) Nondisplaced fracture of surgical neck of left humerus (Resolved) Pancytopenia (Resolved) 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, 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 Portal hypertension (Resolved) Rectal bleeding (Resolved) Upper gastrointestinal bleeding (Resolved) Surgical History History of hysterectomy (Acute) History of oophorectomy (Acute) History of surgery (Acute) 01/06/[id number] placement History of tonsillectomy (Acute) History of total left knee replacement (Resolved) 2012 History of total right knee replacement (Resolved) 2012 S/P ORIF (open reduction internal fixation) fracture (Resolved) 2014 Left femur with steel plate and screws Family History Mother Arthritis Squamous cell carcinoma Diabetes mellitus Essential hypertension Brother Arthritis Malignant neoplasm of kidney Malignant neoplasm of liver Malignant neoplasm of pharynx Malignant neoplasm of pancreas Sister Arthritis Diabetes mellitus Essential hypertension Father Malignant neoplasm of lung Grandmother-paternal Diabetes mellitus Social History marital status: other: Children-2 smoking status: Former smoker quit date: 04/24/95 pack-years: 45 alcohol intake frequency: does not drink substance use type: does not use Medical - H&P: Meds Home Medications Medication Instructions Recorded Confirmed Type bisacodyl 5 mg tablet,delayed 5 mg PO QHS PRN #30 tab 02/22/18 08/03/19 Rx release acetaminophen 500 mg capsule 1,000 mg PO Q4H PRN cap 05/19/18 08/03/19 History benzonatate 100 mg capsule 100 mg PO TID PRN #20 cap 07/10/18 08/03/19 Rx losartan 25 mg tablet 25 mg PO BID #180 tab 12/06/18 08/03/19 Rx famotidine 20 mg tablet 20 mg PO QDAY #90 tab 12/12/18 08/03/19 Rx lancets See Rx Instructions .ROUTE 02/06/19 08/03/19 Rx .MEDSUPPLY #100 each OneTouch Prime blood sugar test 0 dose .ROUTE .MEDSUPPLY 04/05/19 08/03/19 History strips furosemide 40 mg tablet 40 mg PO DAILY #30 tab 04/23/19 08/03/19 Rx fluoxetine 20 mg capsule 20 mg PO QDAY #30 cap 05/01/19 08/03/19 Rx mirabegron 25 mg tablet,extended 25 mg PO Q24H #30 tab 05/22/19 08/03/19 Rx release 24 hr fluconazole 150 mg tablet 150 mg PO Q3D 0 Days #7 tab 06/26/19 08/03/19 Rx Power wheel chair 0 .ROUTE .MEDSUPPLY #1 ea 07/12/19 Rx liraglutide 0.6 mg/0.1 mL (18 mg/3 1.8 mg SUB-Q QDAY #6 ml 07/19/19 08/03/19 Rx mL) subcutaneous pen injector pen needle, diabetic 32 gauge x See Rx Instructions .ROUTE 07/19/19 08/03/19 Rx 32" .MEDSUPPLY #100 each Allergies Allergy/AdvReac Type Severity Reaction Status Date / Time codeine Allergy Severe Confusion Verified 08/03/19 10:12 Sulfa (Sulfonamide Allergy Unknown Unknown Verified 08/03/19 10:12 Antibiotics) adhesive AdvReac Intermediate edwards Verified 08/03/19 10:12 Fish Containing Products AdvReac Intermediate Other Verified 08/03/19 10:12 latex AdvReac Mild Itching Verified 08/03/19 10:12 oxycodone [From Percocet] AdvReac Mild Confusion Verified 08/03/19 10:12 squash AdvReac Mild Nausea Verified 08/03/19 10:12 MRI (implant/left ankle) AdvReac Severe Pain Uncoded 07/09/19 14:44 Medical - H&P: Exam - Constitutional Vitals: Temp Pulse Resp BP Pulse Ox 101.0 F H 98 H 20 150/60 96 08/03/19 13:27 08/03/19 13:27 08/03/19 13:27 08/03/19 13:16 08/03/19 13:27 General appearance: morbidly obese Exam: Alert oriented Head normocephalic Oral cavity moist Eye movement symmetrical, slight pallor noted No ear nose discharge Neck no lymphadenopathy S1-S2 occasionally irregular Nonlabored breathing Abdomen pendulous but nontender Right lower extremity significant redness extending from the ankle to upper one third of leg along with swelling and induration extending at the popliteal fossa/back of thigh midway up to the hip. Significant tenderness to palpation Left lower extremity no acute changes Skin no suspicious lesion psych alert cooperative Neuro nonfocal Medical - H&P: Reslt - Labs CBC & Chem 7: 08/04/19 05:00 08/04/19 05:00 Labs: Short CBC 08/03/19 Range/Units 10:12 WBC 3.1 L (4.50-11.00) K/mcL Hgb 9.6 L (11.2-15.7) g/dL Hct 28.8 L (34.1-44.9) % Plt Count 94 L (140-440) K/mcL BMP 08/03/19 10:12 Sodium 141 Potassium 3.7 Chloride 104 Carbon Dioxide 24 BUN 9 Creatinine 0.8 Glucose 96 Calcium 8.1 L Liver Function 08/03/19 Range/Units 10:12 Total Bilirubin 1.8 H (0.0-1.0) mg/dL AST 40 H (0-37) U/l ALT 11 (0-40) U/l Alkaline Phosphatase 164 H (39-117) U/L Albumin 2.8 L (3.2-5.2) gm/dL Medical - H&P: A/P (1) Cellulitis Current visit: Yes Status: Acute * Cellulitis with lymphangitis right lower extremity.-Broad antibiotic coverage include Rocephin/vancomycin. Continue limb elevation * Severe sepsis with endorgan dysfunction. Continue antibiotic coverage/management guidelines. Pancultures. Trend lactate * Anemia, history of GI bleed in the presence of dark stool , continue hemoglobin checks/PPI. Transfuse and GI consult if indicated. * Elevated bilirubin -likely sepsis endorgan dysfunction. Consider abdominal imaging if worsening to rule out obstructive biliary process * History of CHF-continue diuresis/currently compensated * DM type II continue basal insulin * Degenerative disease continue home dose hydrocodone * Thrombocytopenia-stable * Morbid obesity with BMI over 70 continue directed therapies. Senior International Tax Manager consult. Frequent offloading * History of hypertension Hold home medications including losartan * GERD continue PPI * Shepherd-at baseline * Prophylaxis SCDs * Full code Plan * Broad antibiotic coverage * Inpatient monitored unit admission * ID consult * Blood transfusion/GI consult if evidence of worsening anemia or GI bleed * Pre-existing medical condition management on home meds * Lower extremity imaging if clinically worsening noted * PT OT nutrition support * SCDs
[2019-08-03] MEDS ORDERED: ACETAMINOPHEN 650 MG/65 ML BOTTLE IV PRN (14:53)
[2019-08-03] MEDS ORDERED: ACETAMINOPHEN 325 MG TABLET PO PRN (14:53)
[2019-08-03] MEDS ORDERED: VANCOMYCIN PER PHARMACY IV SCH (14:53)
[2019-08-03] MEDS ORDERED: MAGNESIUM SULFATE 2 GM/50 ML BAG IV PRN (14:53)
[2019-08-03] MEDS ORDERED: ONDANSETRON 4 MG/2 ML VIAL IV PRN (14:53)
[2019-08-03] MEDS ORDERED: DEXTROSE 31 GM ORAL.SUSP PO PRN (14:53)
[2019-08-03] MEDS ORDERED: ONDANSETRON 4 MG ODT TABLET SL PRN (14:53)
[2019-08-03] MEDS ORDERED: POTASSIUM CHLORIDE 20 MEQ PACKET PO PRN (14:53)
[2019-08-03] MEDS ORDERED: POLYETHYLENE GLYCOL 3350 17 GM PACKET PO PRN (14:53)
[2019-08-03] MEDS ORDERED: DEXTROSE 50% 50 ML VIAL IV PRN (14:53)
[2019-08-03] MEDS ORDERED: BISACODYL 10 MG SUPP.RECT PR PRN (14:53)
[2019-08-03] MEDS ORDERED: guaiFENesin/CODEINE 10 ML UDC PO PRN (14:53)
[2019-08-03] MEDS: 0.9 % SODIUM CHLORIDE 1,000 ML IV SCH (15:16)
[2019-08-03] MEDS ORDERED: VANCOMYCIN 500 MG in 0.9 % SODIUM CHLORIDE 100 ML IV ONE (16:00)
[2019-08-03] MEDS: INSULIN LISPRO 1 UNIT/0.01 ML UNIT SQ SCH ×2 (16:56→20:33)
[2019-08-03] MEDS: 0.9 % SODIUM CHLORIDE 10 ML SYRINGE IV SCH ×2 (16:56→22:06)
[2019-08-03] MEDS: PIPERACILLIN SODIUM/TAZOBACTAM 3.375 GM in DEXTROSE 5% IN WATER 50 ML IV SCH (18:20)
[2019-08-03] MEDS: HYDROcodone/APAP 5/325MG TABLET PO PRN (19:17)
[2019-08-03] MEDS: DOCUSATE SODIUM 100 MG CAPSULE PO SCH (20:30)
[2019-08-03] MEDS ORDERED: SENNOSIDES/DOCUSATE SODIUM 1 TAB TABLET PO SCH (21:00)
[2019-08-03] MEDS ORDERED: MELATONIN 3 MG TABLET PO PRN (21:00)
[2019-08-03 22:56] LABS: Appearance,Urine HAZY; Bacteria,Urine 0 /hpf (0); Bilirubin,Urine NEG (NEG); Color,Urine YELLOW; Culture Indicated,Urine NO; Glucose,Urine (UA) NEGATIVE (NEG); Ketones,Urine NEG (NEG); Leukocyte Esterase,Urine 25 /uL (NEG); Nitrate,Urine NEG (NEG); Protein,Urine 100 mg/dL (NEG); Specific Gravity,Urine 1.031 (1.000-1.035); Urine Blood NEG mg/dL (<0.03); Urine Hyaline Cast 2 /lpf (0-2); Urine RBC 4 /hpf (0-1); Urine Squamous Epithelial Cell 14 /hpf (0-4); Urine Transitional Epi Cells < 1 /hpf (0-2); Urine WBC 14 /hpf (0-4)
[2019-08-04] MEDS: PIPERACILLIN SODIUM/TAZOBACTAM 3.375 GM in DEXTROSE 5% IN WATER 50 ML IV SCH ×2 (01:00→06:04)
[2019-08-04] MEDS ORDERED: VANCOMYCIN 1,500 MG in 0.9 % SODIUM CHLORIDE 500 ML IV SCH (01:00)
[2019-08-04] MEDS: HYDROcodone/APAP 5/325MG TABLET PO PRN ×2 (01:23→07:58)
[2019-08-04] MEDS: 0.9 % SODIUM CHLORIDE 10 ML SYRINGE IV SCH (06:05)
[2019-08-04 07:15] LABS: Hematocrit 23.3 % (34.1-44.9); Hemoglobin 7.6 g/dL (11.2-15.7); Mean Cell Volume 108.4 fL (80.0-100.0); Mean Corpuscular HGB Conc 32.6 g/dL (31.0-36.0); Mean Platelet Volume 10.8 fL (7.4-10.4); Platelet Count 76 K/mcL (140-440); RBC 2.15 M/mcL (3.59-5.38); Red Cell Distribution Width 16.2 % (11.5-14.5); WBC 6.6 K/mcL (4.50-11.00)
[2019-08-04 07:34] LABS: ALT/SGPT 9 U/l (0-40); AST/SGOT 32 U/l (0-37); Albumin 2.1 gm/dL (3.2-5.2); Albumin/Globulin Ratio 0.6 (1.0-2.3); Alkaline Phosphatase 96 U/L (39-117); Bilirubin,Total 1.7 mg/dL (0.0-1.0); Blood Urea Nitrogen 14 mg/dl (8-23); Calcium 7.3 mg/dl (8.6-10.4); Carbon Dioxide 24 mmol/L (22-30); Chloride 107 mmol/L (96-108); Globulin 3.5 gm/dL (2.2-3.7); Glomerular Filtration Rate 46; Glucose 93 mg/dL (70-105); Lactate Dehydrogenase 252 U/L (94-250); Phosphorous 3.2 mg/dL (2.7-4.5); Triglycerides 77 mg/dl (<150); Uric Acid 5.2 mg/dL (2.5-8.0)
[2019-08-04] MEDS: INSULIN LISPRO 1 UNIT/0.01 ML UNIT SQ SCH (07:55)
[2019-08-04] MEDS ORDERED: 0.9 % SODIUM CHLORIDE 250 ML IV SCH ×2 (09:00)
[2019-08-04] MEDS ORDERED: sitaGLIPtin 100 MG TABLET PO SCH (09:00)
[2019-08-04] MEDS ORDERED: FONDAPARINUX SODIUM 2.5 MG/0.5 ML SYRINGE SQ SCH (09:00)
[2019-08-04] MEDS ORDERED: MULTIVIT,THER IRON,CA,FA & MIN 1 TABLET PO SCH (09:00)
[2019-08-04] MEDS ORDERED: CEFEPIME 2 GM VIAL IV SCH (09:00)
[2019-08-04] MEDS ORDERED: NOREPINEPHRINE BITARTRATE 16 MG in 0.9 % SODIUM CHLORIDE 234 ML IV SCH (09:00)
[2019-08-04] MEDS ORDERED: PANTOPRAZOLE 40 MG VIAL IV SCH (09:18)
[2019-08-04 09:26] LABS: Anisocytosis 1+ (NONE SEEN); Band Neutrophils % 28 % (0-10); Hypochromasia FEW (NONE SEEN); Lymphocytes % 7 % (15-49); Monocytes % (Manual) 12 % (1-12); Platelet Estimate DECREASED (NORMAL); RBC Morphology ABNORM (NORMAL); Segmented Neutrophils % 53 % (38-78)
--- NOTE | 2019-08-04 09:27 | Transfer Summary ---
Transfer Discharge Sum: Prov Patient information: Note initiated : 08/04/19 at 9:23 am Service Date, if different from initiated Date: [] Patient: Francia Souza 68 y/o F admitted on 08/03/19 for Redness to left lower ext. Chief Complaint: [] Date of admission: 08/03/19 14:28 Discharge Date: 08/04/19 Primary care physician: Serge Jeffries M.D., F.A.A.F.P. Consults: 08/03/19 Consult to Physician [CONS] Stat Comment: Consulting Provider: Ramin Donald Reason For Exam: Physician to Consult 08/04/19 08:36 Consult to Physician [CONS] Urgent Comment: Consulting Provider: Lance Dean Reason For Exam: Physician to Consult Receiving physician/facility: Dr Delgado pulmonary training and development specialist Transfer Discharge Sum: Diag - Discharge Diagnosis (1) Cellulitis Status: Acute Transfer Discharge Sum: Med - Medications Active and Home Medications: Home Medications bisacodyl 5 mg tablet,delayed release 5 mg PO QHS PRN #30 tab 02/22/18 [Rx Confirmed 08/03/19] acetaminophen 500 mg capsule 1,000 mg PO Q4H PRN cap 05/19/18 [History Confir med 08/03/19] benzonatate 100 mg capsule 100 mg PO TID PRN #20 cap 07/10/18 [Rx Confirmed 08/03/19] losartan 25 mg tablet 25 mg PO BID #180 tab 12/06/18 [Rx Confirmed 08/03/19] famotidine 20 mg tablet 20 mg PO QDAY #90 tab 12/12/18 [Rx Confirmed 08/03/19] lancets See Rx Instructions .ROUTE .MEDSUPPLY #100 each 02/06/19 [Rx Confirmed 08/03/19] OneTouch Prime blood sugar test strips 0 dose .ROUTE .MEDSUPPLY 04/05/19 [History Confirmed 08/03/19] furosemide 40 mg tablet 40 mg PO DAILY #30 tab 04/23/19 [Rx Confirmed 08/03/19] fluoxetine 20 mg capsule 20 mg PO QDAY #30 cap 05/01/19 [Rx Confirmed 08/03/19] mirabegron 25 mg tablet,extended release 24 hr 25 mg PO Q24H #30 tab 05/22/19 [Rx Confirmed 08/03/19] fluconazole 150 mg tablet 150 mg PO Q3D 0 Days #7 tab 06/26/19 [Rx Confirmed 08/03/19] Power wheel chair 0 .ROUTE .MEDSUPPLY #1 ea 07/12/19 [Rx] liraglutide 0.6 mg/0.1 mL (18 mg/3 mL) subcutaneous pen injector 1.8 mg SUB-Q QDAY #6 ml 07/19/19 [Rx Confirmed 08/03/19] pen needle, diabetic 32 gauge x " See Rx Instructions .ROUTE .MEDSUPPLY #100 each 07/19/19 [Rx Confirmed 08/03/19] Active Medications Acetaminophen (Tylenol) 650 mg PO Q4-6HP PRN; Protocol PRN Reason: Per Pain Protocol/Fever > 101 Hydrocodone Bitart/Acetaminophen ([place] 5/325mg) 1 tab PO Q6HP PRN; Protocol PRN Reason: Per Pain Protocol Last Admin: 08/04/19 07:58 Dose: 1 tab Documented by: Bisacodyl (Dulcolax) 10 mg ND Q2-3DAYS PRN PRN Reason: Constipation Cefepime HCl (Maxipime) 2 gm IV Q12H [facility]; Protocol Dextrose (Dextrose 50%) 0 ml IV UD PRN PRN Reason: Hypoglycemia Diagnostic Test (Pha) (Accu-Chek) 1 each FS ACHS [facility] Last Admin: 08/04/19 07:54 Dose: 1 each Documented by: Docusate Sodium (Colace) 100 mg PO BID [facility] Last Admin: 08/03/19 20:30 Dose: 100 mg Documented by: Glucose (Insta-Glucose) 15 gm PO PRN PRN PRN Reason: Hypoglycemia Guaifenesin/Codeine Phosphate (Robitussin Ac) 10 ml PO Q4HP PRN PRN Reason: Cough Sodium Chloride (Sodium Chloride 0.9%) 1,000 mls @ 50 mls/hr IV .Q20H [facility] Stop: 08/06/19 02:52 Last Admin: 08/03/19 15:16 Dose: 50 mls/hr Documented by: Acetaminophen (Ofirmev) 650 mg in 65 mls @ 130 mls/hr IV Q6HP PRN; Protocol PRN Reason: Per Pain Protocol/Fever > 101 Magnesium Sulfate (Magnesium Sulfate) 2 gm in 50 mls @ 50 mls/hr IV UD PRN PRN Reason: MG = or < 1.7 Norepinephrine Bitartrate 16 (mg/ Sodium Chloride) 250 mls @ 9.375 mls/hr IV Q24H [facility]; Protocol Sodium Chloride (Sodium Chloride 0.9%) 250 mls @ 20 mls/hr IV .[id number] [facility] Sodium Chloride (Sodium Chloride 0.9%) 250 mls @ 20 mls/hr IV .[id number] [facility] Stop: 08/04/19 21:29 Insulin Human Lispro (Humalog) 0 unit SQ ACHS [facility]; Protocol Last Admin: 08/04/19 07:55 Dose: Not Given Documented by: Iron Carb/Multivit/[place]/Folic Acid (Multivitamin W/Minerals) 1 tab PO DAILY [facility] Melatonin (Melatonin 3mg Tablet) 3 mg PO HSP PRN PRN Reason: Insomnia Ondansetron HCl (Zofran Odt) 4 mg SL Q4-6HP PRN; Protocol PRN Reason: Nausea And Vomiting Last Admin: 08/03/19 21:11 Dose: 4 mg Documented by: Ondansetron HCl (Zofran) 4 mg IV Q4-6HP PRN; Protocol PRN Reason: Nausea And Vomiting Pantoprazole Sodium (Protonix) 40 mg IV BIDAC [facility] Polyethylene Glycol (Miralax) 17 gm PO DAILYP PRN PRN Reason: Constipation Potassium Chloride (Klor-Con) 40 meq PO DAILYP PRN PRN Reason: K+ < 3.5 Senna/Docusate Sodium (Senna Plus Tablet) 1 tab PO HS [facility] Last Admin: 08/03/19 20:31 Dose: 1 tab Documented by: Sitagliptin Phosphate (Januvia) 100 mg PO DAILY [facility] Sodium Chloride (Saline Flush) 10 ml IV Q8 [facility] Last Admin: 08/04/19 06:05 Dose: Not Given Documented by: Transfer Discharge Sum: Hosp Hospital course: Transfer diagnosis * E. coli bacteremia-likely GI/ source. Abdominal CT ascites but no acute biliary or renal process patient has a port and high probability contamination is surveillance cultures positive. * Cellulitis with lymphangitis right lower extremity.-Broad antibiotic coverage include Rocephin/vancomycin now de-escalate it to cefepime. Continue limb elevation * Shock likely sepsis and a combination of GI bleed with endorgan dysfunction. Start vasopressors. Continue antibiotics as per ID on cefepime. * Blood loss anemia, hemoglobin down from 9.5->7 on 12 hours. History of GI bleed, guaiac positive stool, serial hemoglobin checks/IV PPI. Transferring to tertiary center for GI consult. Stat post 2 units PRBC transfusion . * Acute kidney injury with 50% elevation creatinine secondary to sepsis endorgan dysfunction. Creatinine up from 0.8-1.2 * Elevated bilirubin -likely sepsis endorgan dysfunction. Consider abdominal imaging if worsening to rule out obstructive biliary process * History of CHF-continue diuresis/currently compensated * DM type II continue basal insulin * Degenerative disease continue home dose hydrocodone * Thrombocytopenia-stable * Morbid obesity with BMI over 70 continue directed therapies. 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 Frequent offloading * History of hypertension Hold home medications including losartan * GERD continue PPI * DUNHAM-at baseline * Prophylaxis SCDs Brief hospital course Ms. Souza is a 68 year old F morbidly obese with BMI 70 and history of DM type II/recent lower extremity cellulitis resulting in hospitalization, CHF, HTN , and DUNHAM who presents to the ER with worsening right lower extremity redness, weakness, fatigue and complaining of dark stools over the last few days. Patient was in her baseline state of health until recently however she woke up this morning with severe pain swelling and redness involving inside of her right leg. The pain and swelling started extending rapidly up to the back of mid right thigh. She started experiencing shaking chills and fever. She was recently hospitalized with similar symptoms and was diagnosed with right lower extremity lymphangitis/cellulitis and was treated on IV antibiotics followed by outpatient suppressive oral antibiotics that she completed end of June. She denies recent trauma, diarrhea, dysuria, headache, photophobia, chest pain or shortness of breath. He endorses to applying aloe vera lotion over the last few days on right lower extremity. Significant presenting symptoms she was also noted to have GI bleed and underwent endoscopies by Dr. Sears and was diagnosed as watermelon stomach/G AVE. a presenting hemoglobin is 9.5. Initial work-up was consistent with fever at 102 along with tachycardia, tachypnea, leukopenia. Patient received blood cultures and subsequently hospitalist service was consulted after antibiotics were administered. At the time examination patient is alert and oriented. She was able to endorse history as above. She lives with her . She was in her baseline state of health until yesterday. Her right leg appears exquisitely tender and hot. She also complains of intermittent yeast infections being on long-term antibiotics. She denies diarrhea, sick contacts, recent travel or trauma 08/03-E. coli bacteremia. ID consulted. Antibiotics switched to cefepime. Abdominal CT ordered. Blood pressure dropping systolics around 90. Map less than 60. Started on vasopressors. Doing his blood transfusion.hemoglobin down to 7. Emergent GI consult sought however no GI available in [place]. Case been discussed with tertiary center for transfer for GI intervention in the setting of worsening anemia and history of watermelon stomach/erosive gastritis. Started on PPI. Lower extremity cellulitis appears improved since admission. Plan of care discussed with patient and she is agreeable for transfer to tertiary center. Case discussed with [place] transfer centers and no beds available either in [facility] or [place]. Case subsequently discussed with Dr. Delgado pulmonary training and development specialist and Ronit Chen. Patient accepted for further management including GI consultation for likely GI bleed. Patient will be transferred via air ambulance - Time Spent with Patient Total time spent providing and/or coordinating transfer services: Greater than 30 minutes Transfer Discharge Sum: Exam - Constitutional Vitals: Vital Signs Temp Pulse Pulse Resp BP BP Pulse Ox 08/04/19 08:04 73 99 08/04/19 08:01 98.6 F 77 22 132/48 98 08/04/19 07:31 78 126/58 95 08/04/19 07:01 77 118/53 92 08/04/19 06:31 77 122/57 96 08/04/19 06:02 77 98 08/04/19 06:01 76 126/51 98 08/04/19 05:54 77 119/51 98 08/04/19 05:43 99.8 F H 77 97 08/04/19 05:40 79 100 08/04/19 05:03 79 99 08/04/19 04:14 77 95 08/04/19 04:01 97.8 F 78 121/51 95 08/04/19 03:55 78 96 08/04/19 03:01 73 107/54 93 08/04/19 02:01 83 132/55 95 08/04/19 01:01 81 118/67 95 08/04/19 00:01 97.8 F 82 148/58 96 08/03/19 23:51 91 08/03/19 23:01 83 137/62 95 08/03/19 22:01 84 141/61 94 08/03/19 20:31 82 123/48 93 08/03/19 20:24 81 91 08/03/19 20:16 82 136/54 91 08/03/19 20:01 77 138/56 90 08/03/19 19:46 83 135/58 91 08/03/19 19:31 84 139/54 92 08/03/19 19:16 85 138/53 95 08/03/19 19:01 85 140/55 95 08/03/19 18:46 86 133/55 94 08/03/19 18:31 87 128/49 98 08/03/19 18:16 99.8 F H 117/51 08/03/19 18:00 100.1 F H 20 126/47 99 08/03/19 16:27 100.4 F H 91 H 16 129/69 97 08/03/19 14:53 100.4 F H 28 H 168/86 99 08/03/19 14:39 101.0 F H 93 H 17 139/55 96 08/03/19 14:28 100.4 F H 94 H 28 H 168/86 90 08/03/19 14:22 93 H 17 139/55 96 08/03/19 14:16 95 H 11 L 139/55 97 08/03/19 14:01 95 H 15 118/54 96 08/03/19 13:46 96 H 16 124/49 96 08/03/19 13:31 96 H 25 H 132/55 97 08/03/19 13:27 101.0 F H 98 H 20 96 08/03/19 13:16 98 H 31 H 150/60 96 08/03/19 13:01 96 H 35 H 162/66 96 08/03/19 12:46 99 H 26 H 165/67 96 08/03/19 12:31 102 H 27 H 176/68 95 08/03/19 12:16 103 H 25 H 177/67 96 08/03/19 12:11 103 H 182/72 97 08/03/19 12:01 106 H 182/72 96 08/03/19 11:58 102.7 F H 08/03/19 11:46 108 H 189/53 96 08/03/19 11:41 101 F H 08/03/19 11:31 191/68 08/03/19 11:16 108 H 202/62 98 08/03/19 11:01 115 H 203/67 95 08/03/19 10:56 103 F H 08/03/19 10:42 112 H 183/67 94 08/03/19 10:16 116 H 202/72 95 08/03/19 10:15 116 H 202/72 94 08/03/19 10:02 190/130 08/03/19 09:53 197/69 08/03/19 09:44 101.9 F H 122 H 16 91 Intake and Output 08/03/19 08/04/19 08/04/19 21:59 05:59 13:59 Intake Total 1640 1290 50 Output Total 200 Balance 1640 1090 50 Intake: IV 1400 550 50 Sodium Chloride 0.9% 1,000 ml @ 1000 Wide Open IV BOLUS ONE Rx#: [id number] Zosyn 3.375 gm In Dextrose 5% 50 50 50 in Water 50 ml @ 100 mls/hr IV Q6H [facility] Rx#:[id number] Vancomycin 500 mg In Sodium 100 Chloride 0.9% 100 ml @ 100 mls/ hr IV ONCE ONE Rx#:[id number] Vancomycin 1,000 mg In Sodium 250 Chloride 0.9% 250 ml @ 250 mls/ hr IV ONCE ONE Rx#:[id number] Vancomycin 1,500 mg In Sodium 500 Chloride 0.9% 500 ml @ 333.3 mls/hr IV Q12H [facility] Rx#: [id number] Oral 240 340 GI Tube Flush 400 Output: Void Amount 200 Other: Meal Dinner Percent of Meal Consumed 25% Urine Appearance Clear Urine Color Dark Trisha Urine Odor Normal Weight 397 lb Transfer Discharge Sum: A/P - Problem Maintenance (1) Cellulitis Status: Acute Qualifiers: Site of cellulitis: extremity Site of cellulitis of extremity: lower extremity Laterality: right Qualified Code(s): L03.115 - Cellulitis of right lower limb - Plan Functional capacity at transfer: bed bound Overall status at transfer: patient is not back to baseline Disposition: [facility] Quality Measure Queries - VTE Deep Vein Thrombosis/Pulmonary Embolism Present on Admission: No
--- NOTE | 2019-08-04 10:27 | Cat Scan Report ---
INDICATION: Bacteremia. History of sepsis. COMPARISON: Previous abdominal CT scan dated 12/23/2017. Previous ultrasound dated 12/12/2018 TECHNIQUE: Axial images were obtained through the abdomen and pelvis. Sagittally and coronally reformatted images. Patient did not receive intravenous contrast material as her creatinine has significantly increased over the past 24 hours. Oral contrast material was not administered FINDINGS: Suboptimal evaluation due to patient's very large body habitus. Lung bases:Moderate right pleural effusion. No parenchymal consolidation. No left pleural effusion. There is no pericardial effusion. Patient does have a left chemotherapy infusion catheter with its tip in the right atrium. Liver:Liver is small with an irregular nodular contour consistent with cirrhosis. No detectable mass on this noncontrast enhanced examination. Gallbladder, bilary:No calcified gallstones. No gallbladder wall thickening. No pericholecystic fluid. No dilated bile ducts Spleen:Mild splenomegaly. Spleen measures 13.3 x 12.0 x 5.2 cm Pancreas:No pancreatic mass. No peripancreatic abnormality Adrenal glands:Negative Kidneys, ureters, bladder:2 mm nonobstructing right lower pole calculus. 2 mm nonobstructing left lower pole stone. There is no significant hydronephrosis. No perinephric abnormality. There is no hydroureter. No bladder calculus. Gastrointestinal:No significant diverticulosis or evidence for diverticulitis. No detectable colonic mass No mechanical small bowel obstruction. No small bowel dilatation. Appendix: The appendix is not well visualized. No evidence for appendicitis Vascular:No abdominal aortic aneurysm. There is atherosclerotic calcification Lymphatic:No retroperitoneal adenopathy. No significant mesenteric adenopathy. Mesentery, peritoneum:There is moderate ascitic fluid, predominantly in the perihepatic space. No intra-abdominal abscess. No localized fluid collection. There is no pneumoperitoneum. Reproductive:Uterus is not visualized. No adnexal mass Musculoskeletal:Multilevel degenerative disc disease. L5-S1 spondylolisthesis. No acute compression fractures There is subcutaneous edema consistent with anasarca. No focal abnormality IMPRESSION: 1. Appearance consistent with cirrhosis. There is moderate ascites. 2. Moderate right pleural effusion 3. No intra-abdominal abscess 4. Subcutaneous edema consistent with anasarca The exam was performed using radiation dose optimization techniques including, but not limited to, automated exposure control, adjustment of the mA and/or kV according to patient size and use of iterative reconstruction technique. Interpreted and Authenticated by: Reynaldo Franz 08/04/19
[2019-08-04] MEDS: 0.9 % SODIUM CHLORIDE 1,000 ML IV SCH (10:45)
[2019-08-04] MEDS: DOCUSATE SODIUM 100 MG CAPSULE PO SCH (10:45)
--- NOTE | 2019-08-04 18:26 | Infectious Disease Consult ---
History of Present Illness Patient information: Note initiated : 08/04/19 at 6:20 pm Service Date, if different from initiated Date: [] Patient: Francia Souza 68 y/o F admitted on 08/03/19 for Redness to left lower ext. Chief Complaint: [] Consult date: 08/04/19 Requesting Physician: Ramin Donald Reason for Consult: GNR bacteremia Chief complaint: My right leg is painful and red History of present illness: 68 year old lady with PMHx of: - morbidly obese with BMI 70 - GAVE - DM type II - recent lower extremity cellulitis - CHF - HTN - DUNHAM Pt was admitted with c/o: - worsening right lower extremity redness, and pain since 1 day - fevers - chills Of note pt had received IV Dalbavancin for right LE cellulitis in 06/2019. She currently denies recent trauma. Endorses black colored stools. At admisssi on: - VS: 101.9F, HR 122, RR 16, satting 91% on RA - Labs: WBC 3.1, Plt 94, Cr 0.8, Hb 9.6 Blood cultures sent. Pt started on IV Vanc and IV Zosyn. Blood Cx turned +ve for Ecoli (neg for any ESBL) , 2/2 sets on 08/03/19. At time of ID visit, pt mentioned that she is dizzy and her BP had been running low. Hb dropped from 9.6 to 7.6. Review of Systems All systems PM: reviewed and no additional remarkable complaints except as stated Constitutional: as per HPI Past History Past family history: no sick contacts Past social history: doesnot smoke or drink alcohol Medications and Allergies Home Medications Medication Instructions Recorded Confirmed Type bisacodyl 5 mg tablet,delayed 5 mg PO QHS PRN #30 tab 02/22/18 08/03/19 Rx release acetaminophen 500 mg capsule 1,000 mg PO Q4H PRN cap 05/19/18 08/03/19 History benzonatate 100 mg capsule 100 mg PO TID PRN #20 cap 07/10/18 08/03/19 Rx losartan 25 mg tablet 25 mg PO BID #180 tab 12/06/18 08/03/19 Rx famotidine 20 mg tablet 20 mg PO QDAY #90 tab 12/12/18 08/03/19 Rx lancets See Rx Instructions .ROUTE 02/06/19 08/03/19 Rx .MEDSUPPLY #100 each OneTouch Prime blood sugar test 0 dose .ROUTE .MEDSUPPLY 04/05/19 08/03/19 History strips furosemide 40 mg tablet 40 mg PO DAILY #30 tab 04/23/19 08/03/19 Rx fluoxetine 20 mg capsule 20 mg PO QDAY #30 cap 05/01/19 08/03/19 Rx mirabegron 25 mg tablet,extended 25 mg PO Q24H #30 tab 05/22/19 08/03/19 Rx release 24 hr fluconazole 150 mg tablet 150 mg PO Q3D 0 Days #7 tab 06/26/19 08/03/19 Rx Power wheel chair 0 .ROUTE .MEDSUPPLY #1 ea 07/12/19 Rx liraglutide 0.6 mg/0.1 mL (18 mg/3 1.8 mg SUB-Q QDAY #6 ml 07/19/19 08/03/19 Rx mL) subcutaneous pen injector pen needle, diabetic 32 gauge x See Rx Instructions .ROUTE 07/19/19 08/03/19 Rx 5/32" .MEDSUPPLY #100 each Allergies Allergy/AdvReac Type Severity Reaction Status Date / Time codeine Allergy Severe Confusion Verified 08/03/19 10:12 Sulfa (Sulfonamide Allergy Unknown Unknown Verified 08/03/19 10:12 Antibiotics) adhesive AdvReac Intermediate edwards Verified 08/03/19 10:12 Fish Containing Products AdvReac Intermediate Other Verified 08/03/19 10:12 latex AdvReac Mild Itching Verified 08/03/19 10:12 oxycodone [From Percocet] AdvReac Mild Confusion Verified 08/03/19 10:12 squash AdvReac Mild Nausea Verified 08/03/19 10:12 MRI (implant/left ankle) AdvReac Severe Pain Uncoded 07/09/19 14:44 Physical Examination Vital signs: Temp Pulse Resp BP Pulse Ox 37.0 C 80 18 112/87 100 08/04/19 08:01 08/04/19 11:16 08/04/19 11:16 08/04/19 11:16 08/04/19 11:16 General appearance: no acute distress Eyes pulmonary: nonicteric ENT: oropharynx moist Gastrointestinal: normoactive bowel sounds, non-tender Extremities: other (right leg is red, swollen and tender. The redness extends to lower medial thigh, with tenderness. No open wounds. ) Results - Laboratory Findings CBC and BMP: 08/04/19 05:00 08/04/19 05:00 Abnormal lab findings: Abnormal Labs 08/03/19 08/03/19 08/03/19 10:12 10:12 22:10 WBC 3.1 L RBC 2.72 L Hgb 9.6 L Hct 28.8 L MCV 105.9 H MCH 35.3 H RDW 16.1 H Plt Count 94 L MPV Band Neutrophils % 15 H Lymphocytes % 10 L RBC Morphology Abnorm A Hypochromasia Anisocytosis 1+ A Macrocytosis 1+ A Creatinine Calcium 8.1 L Magnesium Total Bilirubin 1.8 H Direct Bilirubin GGT AST 40 H Alkaline Phosphatase 164 H Lactate Dehydrogenase Total Protein Albumin 2.8 L Globulin 4.4 H Albumin/Globulin Ratio 0.6 L Urine Protein 100 A Urine Urobilinogen 2.0 A Ur Leukocyte Esterase 25 A Urine RBC 4 H Urine WBC 14 H Ur Squamous Epith Cells 14 H Vancomycin Trough 08/04/19 08/04/19 08/04/19 05:00 05:00 07:53 WBC RBC 2.15 L Hgb 7.6 L Hct 23.3 L MCV 108.4 H MCH 35.3 H RDW 16.2 H Plt Count 76 L MPV 10.8 H Band Neutrophils % 28 H Lymphocytes % 7 L RBC Morphology Abnorm A Hypochromasia Few A Anisocytosis 1+ A Macrocytosis Creatinine 1.2 H Calcium 7.3 L Magnesium 1.4 L Total Bilirubin 1.7 H Direct Bilirubin 1.0 H GGT 138 H AST Alkaline Phosphatase Lactate Dehydrogenase 252 H Total Protein 5.6 L Albumin 2.1 L Globulin Albumin/Globulin Ratio 0.6 L Urine Protein Urine Urobilinogen Ur Leukocyte Esterase Urine RBC Urine WBC Ur Squamous Epith Cells Vancomycin Trough 20.1 H* Microbiology: Microbiology 08/03/19 10:15 Blood Blood Culture - Preliminary Escherichia coli 08/03/19 22:10 Urine - Clean Void Mid-Stream Urine Culture - Preliminary 08/03/19 10:05 Blood Blood Culture - Preliminary Gram negative bacillus Assessment and Plan - Narrative A/P Narrative: A: 1. Right leg and thigh non-purulent cellulitis - risk factors of leg edema, obesity, past episodes of cellulitis, diabetes, cirrhosis 2. E coli bacteremia: 2/2 sets - likely source right leg. Pt is cirrhotic and at higher risk for GN cellulitis 3. GI bleed: low Hb, dizziness, hypotension, black colored stools in patient with prior Hx of GAVE Recommendations: - Urgent GI consult - Stop IV vanc and IV Zosyn - Start IV Cefepime 2 gm q8 hrs - leg elevation and apply ice packs to help decrease the swelling and redness Lance Dean MD Infectious Diseases
== END 2019-08-04 11:15 | disposition short-term general hospital (02) | DRG 867 ==
LOC: ED 09:42 → ICU 14:25
PROVIDERS: ADMIT Internal Medicine; ATTEND Internal Medicine

== ENCOUNTER 2019-09-21 13:25 | Inpatient (IN) ==
[2019-09-21] MEDS ORDERED: ONDANSETRON 4 MG/2 ML VIAL IV ONE (14:08)
[2019-09-21] MEDS ORDERED: ACETAMINOPHEN 325 MG TABLET PO ONE (14:08)
[2019-09-21] MEDS ORDERED: VANCOMYCIN 1,000 MG in 0.9 % SODIUM CHLORIDE 250 ML IV ONE (14:10)
[2019-09-21] MEDS ORDERED: PIPERACILLIN SODIUM/TAZOBACTAM 3.375 GM in DEXTROSE 5% IN WATER 50 ML IV ONE (14:10)
[2019-09-21] MEDS ORDERED: BUMETANIDE 0.25 MG/ML VIAL IV ONE (14:23)
--- NOTE | 2019-09-21 14:23 | Emergency Department Note ---
Nausea/Vomiting/Diarrhea HPI General Chief complaint: Nausea/Vomiting/Diarrhea Stated complaint: nausea and cold Time Seen by Provider: 09/21/19 13:41 Source: patient Mode of arrival: ambulatory Limitations: no limitations History of Present Illness HPI Narrative: Narrative: 68-year-old female comes in complaining of nausea and vomiting for the last 2 days. She is feeling bloated and is having some trouble breathing. She notes history of CHF and right lower leg cellulitis which is seen by wound care weekly. She does have a fever today and is feeling cold. She was seen on 09/12 as well as 09/16. Noted recent admission with discharge on 08/22. I reviewed the notes on these. On the she had a CT angiogram of the chest which did not show pulmonary emboli but did show cirrhosis with ascites along with pleural effusion. She has multiple significant comorbidities. Currently complaining of body aches all over. She is able to urinate without difficulty. She did take some Tylenol before coming in. She notes that she did double the dose of her furosemide over the last week or so in an attempt to get some of the fluid off but this has not helped She has been tested 3 times in the recent past for COVID. All of them have been negative Related Data Home Medications Medication Instructions Recorded Confirmed acetaminophen 500 mg capsule 1,000 mg PO Q4H PRN cap 05/19/18 09/21/19 allopurinol [Zyloprim] 100 mg PO QDAY 08/13/19 09/21/19 alum-mag hydroxide-simeth [Maalox 5 ml PO QID PRN 08/13/19 09/21/19 Maximum Strength] famotidine [Pepcid] 20 mg PO BID 08/13/19 09/21/19 fluoxetine [Prozac] 20 mg PO QDAY 08/13/19 09/21/19 pantoprazole [Protonix] 40 mg PO BID 08/13/19 09/21/19 furosemide 40 mg tablet 40 mg PO BID tab 08/30/19 09/21/19 Previous Rx's Medication Instructions Recorded liraglutide 0.6 mg/0.1 mL (18 mg/3 1.8 mg SUB-Q QDAY #6 ml 07/19/19 mL) subcutaneous pen injector mirabegron 25 mg tablet,extended 25 mg PO QDAY #30 tab 08/30/19 release 24 hr clotrimazole 1 % vaginal cream 1 appful VAGINAL QHS #45 g 08/31/19 Allergies Allergy/AdvReac Type Severity Reaction Status Date / Time Sulfa (Sulfonamide Allergy Unknown Unknown Verified 09/17/19 11:16 Antibiotics) adhesive AdvReac Intermediate edwards Verified 09/17/19 11:16 Fish Containing Products AdvReac Intermediate Other Verified 09/17/19 11:16 codeine AdvReac Mild Confusion Verified 09/17/19 11:16 latex AdvReac Mild Itching Verified 09/17/19 11:16 oxycodone [From Percocet] AdvReac Mild Confusion Verified 09/17/19 11:16 squash AdvReac Mild Nausea Verified 09/17/19 11:16 MRI (implant/left ankle) AdvReac Intermediate Pain Uncoded 08/30/19 13:25 Review of Systems ROS ROS Narrative: Narrative: All systems ED: reviewed and negative except as stated. PFSH Narrative Patient History Narrative: Narrative: Medical/Surgical/Family History All Active Problems (Updated 09/21/19 @ 17:52 by Guero Freeman MD) Skin bulla (Acute) Dyspnea (Acute) Depression (Acute) Leg wound, right (Acute) Cirrhosis of liver with ascites (Acute) Acute hypokalemia (Acute) Vaginal candidiasis (Acute) Urge and stress incontinence (Acute) Intertrigo (Acute) OAB (overactive bladder) (Acute) Lymphedema (Acute) Abdominal pain (Acute) Cellulitis (Acute) Fever (Acute) Tachycardia (Acute) Sepsis (Acute) Suicidal ideation (Acute) Morbid obesity (Chronic) Diabetes type 2, uncontrolled (Chronic) Hyperglycemia due to type 2 diabetes mellitus (Chronic) Congestive heart failure (Chronic) DENAE (obstructive sleep apnea) (Chronic) Gastric antral vascular ectasia (Chronic) Nonalcoholic steatohepatitis (DUNHAM) (Chronic) Esophageal varices (Chronic) History of transfusion of packed red blood cells (Chronic) Hypertension, essential (Chronic) Abdominal pain (Chronic) History of esophageal stricture (Chronic) Elevated alkaline phosphatase level (Chronic) Dependent edema (Chronic) Lumbosacral pain, chronic (Chronic) Knee pain (Chronic) Sinusitis, chronic (Chronic) Hypovitaminosis D (Chronic) Zinc deficiency (Chronic) Left carotid artery stenosis (Chronic) Chronic pain (Chronic) Erosive gastritis with hemorrhage (Chronic) Esophagitis determined by endoscopy (Chronic) Polyclonal gammopathy (Chronic) Back Pain (Chronic) Liver fibrosis (Chronic) Hypercholesterolemia (Chronic) Esophagitis (Chronic) Arthralgia (Chronic) Osteopenia (Chronic) Anxiety (Chronic) Gallbladder problem (Chronic) Depression (Chronic) Kidney stones (Chronic) Lumbar radiculopathy (Chronic) Arthralgia of multiple joints (Chronic) Osteoarthritis (Chronic) Gout (Chronic) Hx of adenomatous colonic polyps (Chronic) Copper deficiency (Chronic) Elevated blood uric acid level (Chronic) Medical History Abdominal pain (Chronic) For some reason this comes up as qualifier but there is no diagnosis with this Abdominal pain (Acute) Abscess of breast, right (Resolved) Acquired pancytopenia (Resolved) Acute blood loss anemia (Resolved) Adverse reaction to antidiabetic drug (Resolved) Anemia (Resolved) Anemia (Resolved) Anemia (Resolved) Anemia (Resolved) Anemia (Resolved) Anemia (Resolved) Anemia (Resolved) Anxiety (Chronic) 1973 Arthralgia (Chronic) Chronic Arthralgia of multiple joints (Chronic) Back Pain (Chronic) Bacteremia (Resolved) Bloating (Resolved) Bronchitis (Resolved) Cellulitis (Resolved) Chronic pain (Chronic) Cirrhosis (Resolved) Closed avulsion fracture of trochanter of right femur (Resolved) Congestive heart failure (Resolved) Congestive heart failure (Chronic) Contusion of right leg (Resolved) Copper deficiency (Chronic) Cough (Resolved) DDD (degenerative disc disease), lumbar (Resolved) Dependent edema (Chronic) Depression (Chronic) Diabetes type 2, uncontrolled (Chronic) DMII (diabetes mellitus, type 2) (Resolved) 1989 Elevated alkaline phosphatase level (Chronic) 180-200 chronically Elevated blood uric acid level (Chronic) Elevated serum creatinine (Resolved) Erosive gastritis with hemorrhage (Chronic) Esophageal varices (Chronic) Esophagitis (Chronic) With esophageal stricture Esophagitis determined by endoscopy (Chronic) Fall (on) (from) other stairs and steps, initial encounter (Resolved) Gallbladder problem (Chronic) 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 Polyclonal gammopathy (Chronic) Portal hypertension (Resolved) Rectal bleeding (Resolved) Sinusitis, chronic (Chronic) SIRS (systemic inflammatory response syndrome) (Resolved) Upper gastrointestinal bleeding (Resolved) Zinc deficiency (Chronic) Surgical History History of hysterectomy (Acute) History of oophorectomy (Acute) History of surgery (Acute) 01/06/[id number] placement History of tonsillectomy (Acute) History of total left knee replacement (Resolved) 2012 History of total right knee replacement (Resolved) 2012 S/P ORIF (open reduction internal fixation) fracture (Resolved) 2015 Left femur with steel plate and screws Family History Mother Arthritis Squamous cell carcinoma Diabetes mellitus Essential hypertension Brother Arthritis Malignant neoplasm of kidney Malignant neoplasm of liver Malignant neoplasm of pharynx Malignant neoplasm of pancreas Sister Arthritis Diabetes mellitus Essential hypertension Depression Father Malignant neoplasm of lung Grandmother-paternal Diabetes mellitus Social History Smoking Status: Former smoker Alcohol Intake Frequency: does not drink Substance Use: does not use Exam Narrative Narrative: Narrative: Obese female mildly short of breath. Normocephalic atraumatic. Conjunctive are clear sclerae white nonicteric. No nasal discharge or congestion. Oropharynx pink and moist. Neck is supple without l ymphadenopathy or thyromegaly. Heart is regular rate and rhythm. No murmurs appreciated. Lungs are clear to auscultation bilaterally but she is difficult to auscultate secondary to body habitus. Abdomen is soft nontender nondistended. Fluid wave equivocal. Exam of bilateral lower extremities shows +1-2 pedal edema. Right worse than left. On the right leg we do note 3 cm superficial ulceration as well as a smaller 1 cm ulceration anterior gudino area. I cut off her bandages I can take a good look at this. She is able to move her feet and ankles normally. She does have diffuse redness spreading up from around these wound sites going up her thigh concerning for worsening cellulitis. She has a port in place General Limitations: no limitations Course Vital Signs Vital signs: Vital Signs Temperature 101 F H 09/21/19 13:27 Pulse Rate 96 H 09/21/19 13:27 Respiratory Rate 18 09/21/19 13:27 Blood Pressure 150/92 09/21/19 13:27 Pulse Oximetry (%) 94 09/21/19 13:27 Temperature 100.2 F H 09/21/19 18:16 Pulse Rate 80 09/21/19 18:16 Respiratory Rate 17 09/21/19 18:16 Blood Pressure 132/46 09/21/19 18:16 Pulse Oximetry (%) 99 09/21/19 18:16 [facility] MDM Narrative Medical decision making narrative: Narrative: Concern for cellulitis with sepsis and increasing shortness of breath from CHF/cirrhosis with ascites. multiple chronic comorbidities complicate-additionally she has a port in place. We will go ahead and order laboratory blood cultures and start antibiotics with Zosyn and vancomycin. Order chest x-ray and ultrasound for possible paracentesis. IV bumex ordered as well Urinalysis [id number] dipstick is negative for infection. Wright was placed with temp probe as we started her on IV diuretics Paracentesis is done and they took off 2-1/2 L of fluid. This was sent for culture and Gram stain Laboratory shows hypokalemia consistent with her diuretic use. She does not have leukocytosis or lactic acidosis but pro calcitonin is elevated-based on that recommend continued antibiotics Patient requires admission for cellulitis with Sirs-she is high risk for worsening and requires IV antibiotics. Additionally it does appear that she is got worsening ascites and CHF which required diuretics. Now status post paracentesis. I discussed the situation with Dr. Flowers, our hospitalist. He agreed to accept the patient for further care and evaluation in the hospital Lab Data Lab results reviewed: Yes I reviewed the patient's lab results. Result diagrams: 09/21/19 14:53 09/21/19 14:53 Labs: Lab Results 09/21/19 09/21/19 09/21/19 Range/Units 14:24 14:53 14:53 WBC 5.2 (4.50-11.00) K/mcL RBC 2.52 L (3.59-5.38) M/mcL Hgb 8.4 L (11.2-15.7) g/dL Hct 25.8 L (34.1-44.9) % MCV 102.4 H (80.0-100.0) fL MCH 33.3 (26.0-34.0) pg MCHC 32.6 (31.0-36.0) g/dL RDW 16.6 H (11.5-14.5) % Plt Count 90 L (140-440) K/mcL MPV 10.6 H (7.4-10.4) fL Gran % 91.7 H (38.0-78.0) % Lymph % (Auto) 3.1 L (15.5-49.0) % Gilliam % (Auto) 3.3 (1.0-12.0) % Eos % (Auto) 1.7 (0.0-7.0) % Baso % (Auto) 0.2 (0.0-2.0) % Gran # 4.79 (1.80-8.00) K/mcL Lymph # (Auto) 0.16 L (1.50-4.80) K/mcL Gilliam # (Auto) 0.17 (0.10-0.90) K/mcL Eos # (Auto) 0.09 (0.00-0.70) K/mcL Baso # (Auto) 0.01 (0.00-0.30) K/mcL PT 17.6 H (11.9-14.5) sec INR 1.4 H (0.9-1.1) VBG Lactic Acid (0.5-2.0) mmol/L Sodium (133-145) mmol/L Potassium (3.3-5.1) mmol/L Chloride (96-108) mmol/L Carbon Dioxide (22-30) mmol/L Anion Gap (8-16) BUN (8-23) mg/dl Creatinine (0.6-1.1) mg/dl GFR Calculation Glucose (70-105) mg/dL Calcium (8.6-10.4) mg/dl Magnesium (1.6-2.5) mg/dL Total Bilirubin (0.0-1.0) mg/dL AST (0-37) U/l ALT (0-40) U/l Alkaline Phosphatase (39-117) U/L Troponin T (0-0.03) ng/ml NT-Pro-B Natriuret Pep (0-125) pg/ml Total Protein (5.9-8.4) gm/dL Albumin (3.2-5.2) gm/dL Globulin (2.2-3.7) gm/dL Albumin/Globulin Ratio (1.0-2.3) Procalcitonin (<0.10) ng/mL Urine Color Yellow Urine Appearance Clear Urine pH 6.0 (5.0-9.0) Ur Specific [place] 1.013 (1.000-1.035) Urine Protein Neg (NEG) mg/dL Urine Glucose (UA) Negative (NEG) mg/dL Urine Ketones Neg (NEG) mg/dL Urine Occult Blood 0.2 A (<0.03) mg/dL Urine Nitrate Neg (NEG) Urine Bilirubin Neg (NEG) mg/dL Urine Urobilinogen 2.0 A (NEG) mg/dL Ur Leukocyte Esterase Neg (NEG) /uL Urine RBC 27 H (0-1) /hpf Urine WBC 1 (0-4) /hpf Ur Squamous Epith Cells 2 (0-4) /hpf Urine Bacteria 0 (0) /hpf Hyaline Casts 23 H (0-2) /lpf Urine Mucus Few (0) /hpf Ur Culture Indicated? No 09/21/19 09/21/19 09/21/19 Range/Units 14:53 14:53 14:53 WBC (4.50-11.00) K/mcL RBC (3.59-5.38) M/mcL Hgb (11.2-15.7) g/dL Hct (34.1-44.9) % MCV (80.0-100.0) fL MCH (26.0-34.0) pg MCHC (31.0-36.0) g/dL RDW (11.5-14.5) % Plt Count (140-440) K/mcL MPV (7.4-10.4) fL Gran % (38.0-78.0) % Lymph % (Auto) (15.5-49.0) % Gilliam % (Auto) (1.0-12.0) % Eos % (Auto) (0.0-7.0) % Baso % (Auto) (0.0-2.0) % Gran # (1.80-8.00) K/mcL Lymph # (Auto) (1.50-4.80) K/mcL Gilliam # (Auto) (0.10-0.90) K/mcL Eos # (Auto) (0.00-0.70) K/mcL Baso # (Auto) (0.00-0.30) K/mcL PT (11.9-14.5) sec INR (0.9-1.1) VBG Lactic Acid 2.0 (0.5-2.0) mmol/L Sodium 143 (133-145) mmol/L Potassium 3.0 L (3.3-5.1) mmol/L Chloride 104 (96-108) mmol/L Carbon Dioxide 25 (22-30) mmol/L Anion Gap 14.0 (8-16) BUN 23 (8-23) mg/dl Creatinine 1.1 (0.6-1.1) mg/dl GFR Calculation 51 Glucose 94 (70-105) mg/dL Calcium 8.2 L (8.6-10.4) mg/dl Magnesium 1.8 (1.6-2.5) mg/dL Total Bilirubin 2.1 H (0.0-1.0) mg/dL AST 34 (0-37) U/l ALT 14 (0-40) U/l Alkaline Phosphatase 151 H (39-117) U/L Troponin T 0.02 (0-0.03) ng/ml NT-Pro-B Natriuret Pep 1910.0 H (0-125) pg/ml Total Protein 6.9 (5.9-8.4) gm/dL Albumin 2.6 L (3.2-5.2) gm/dL Globulin 4.3 H (2.2-3.7) gm/dL Albumin/Globulin Ratio 0.6 L (1.0-2.3) Procalcitonin (<0.10) ng/mL Urine Color Urine Appearance Urine pH (5.0-9.0) Ur Specific [place] (1.000-1.035) Urine Protein (NEG) mg/dL Urine Glucose (UA) (NEG) mg/dL Urine Ketones (NEG) mg/dL Urine Occult Blood (<0.03) mg/dL Urine Nitrate (NEG) Urine Bilirubin (NEG) mg/dL Urine Urobilinogen (NEG) mg/dL Ur Leukocyte Esterase (NEG) /uL Urine RBC (0-1) /hpf Urine WBC (0-4) /hpf Ur Squamous Epith Cells (0-4) /hpf Urine Bacteria (0) /hpf Hyaline Casts (0-2) /lpf Urine Mucus (0) /hpf Ur Culture Indicated? 09/21/19 Range/Units 14:53 WBC (4.50-11.00) K/mcL RBC (3.59-5.38) M/mcL Hgb (11.2-15.7) g/dL Hct (34.1-44.9) % MCV (80.0-100.0) fL MCH (26.0-34.0) pg MCHC (31.0-36.0) g/dL RDW (11.5-14.5) % Plt Count (140-440) K/mcL MPV (7.4-10.4) fL Gran % (38.0-78.0) % Lymph % (Auto) (15.5-49.0) % Gilliam % (Auto) (1.0-12.0) % Eos % (Auto) (0.0-7.0) % Baso % (Auto) (0.0-2.0) % Gran # (1.80-8.00) K/mcL Lymph # (Auto) (1.50-4.80) K/mcL Gilliam # (Auto) (0.10-0.90) K/mcL Eos # (Auto) (0.00-0.70) K/mcL Baso # (Auto) (0.00-0.30) K/mcL PT (11.9-14.5) sec INR (0.9-1.1) VBG Lactic Acid (0.5-2.0) mmol/L Sodium (133-145) mmol/L Potassium (3.3-5.1) mmol/L Chloride (96-108) mmol/L Carbon Dioxide (22-30) mmol/L Anion Gap (8-16) BUN (8-23) mg/dl Creatinine (0.6-1.1) mg/dl GFR Calculation Glucose (70-105) mg/dL Calcium (8.6-10.4) mg/dl Magnesium (1.6-2.5) mg/dL Total Bilirubin (0.0-1.0) mg/dL AST (0-37) U/l ALT (0-40) U/l Alkaline Phosphatase (39-117) U/L Troponin T (0-0.03) ng/ml NT-Pro-B Natriuret Pep (0-125) pg/ml Total Protein (5.9-8.4) gm/dL Albumin (3.2-5.2) gm/dL Globulin (2.2-3.7) gm/dL Albumin/Globulin Ratio (1.0-2.3) Procalcitonin 0.39 (<0.10) ng/mL Urine Color Urine Appearance Urine pH (5.0-9.0) Ur Specific [place] (1.000-1.035) Urine Protein (NEG) mg/dL Urine Glucose (UA) (NEG) mg/dL Urine Ketones (NEG) mg/dL Urine Occult Blood (<0.03) mg/dL Urine Nitrate (NEG) Urine Bilirubin (NEG) mg/dL Urine Urobilinogen (NEG) mg/dL Ur Leukocyte Esterase (NEG) /uL Urine RBC (0-1) /hpf Urine WBC (0-4) /hpf Ur Squamous Epith Cells (0-4) /hpf Urine Bacteria (0) /hpf Hyaline Casts (0-2) /lpf Urine Mucus (0) /hpf Ur Culture Indicated? Radiology Data Radiology results reviewed: Yes I reviewed the patient's radiology results. Radiology results narrative: Chest x-ray shows no acute infiltrate Ultrasound of the abdomen shows ascites. Paracentesis done under ultrasound guidance Discharge Plan Patient/Caregiver Discharge Instructions Pt seen by PATIENT SCHEDULING MANAGER/PA only: No Clinical Impression: Acute hypokalemia Cellulitis Qualifiers: Site of cellulitis: extremity Site of cellulitis of extremity: lower extremity Laterality: right Qualified Code(s): L03.115 - Cellulitis of right lower limb Congestive heart failure Qualifiers: Heart failure type: unspecified Heart failure chronicity: acute on chronic Qualified Code(s): I50.9 - Heart failure, unspecified Cirrhosis of liver with ascites Qualifiers: Hepatic cirrhosis type: unspecified hepatic cirrhosis Qualified Code(s): K74.60 - Unspecified cirrhosis of liver Patient Disposition: Xfer As Inpt ([facility]) Condition: Fair Follow up with: Serge Jeffries MD, FAAFP [Primary Care Provider] - Prescriptions: No Action Victoza 2-Cj 0.6 mg/0.1 mL (18 mg/3 mL) pen injector 1.8 mg SUB-Q QDAY Qty: 6 RF: 4 acetaminophen 500 mg capsule 1,000 mg PO Q4H PRN (Reason: pain) RF: 0 allopurinol [Zyloprim] 100 mg Tablet 100 mg PO QDAY RF: 0 famotidine [Pepcid] 20 mg Tablet 20 mg PO BID RF: 0 pantoprazole [Protonix] 40 mg Tablet,Delayed Release (Dr/Ec) 40 mg PO BID RF: 0 fluoxetine [Prozac] 20 mg Capsule 20 mg PO QDAY RF: 0 alum-mag hydroxide-simeth [Maalox Maximum Strength] 400-400-40 mg/5 mL Suspension 5 ml PO QID PRN (Reason: Acid Reflux) RF: 0 furosemide [Lasix] 40 mg tablet 40 mg PO BID RF: 0 Myrbetriq 25 mg tablet extended release 24 hr 25 mg PO QDAY Qty: 30 RF: 2 clotrimazole 1 % cream 1 appful VAGINAL QHS Qty: 45 RF: 2
--- NOTE | 2019-09-21 14:45 | XRay Report ---
CLINICAL INFORMATION: SOB, fever COMPARISON: 09/17/2019 FINDINGS: The heart is mildly enlarged but unchanged. Left subclavian Port-A-Cath is stable satisfactory position. Mediastinum and pulmonary vessels are normal for technique. Minor right basilar atelectasis, but no infiltrate or effusion. IMPRESSION: Mild stable cardiomegaly. Minor right basilar atelectasis Interpreted and Authenticated by: Reynaldo Mukherjee 09/21/19
[2019-09-21 14:46] LABS: Appearance,Urine CLEAR; Bacteria,Urine 0 /hpf (0); Bilirubin,Urine NEG (NEG); Color,Urine YELLOW; Culture Indicated,Urine NO; Glucose,Urine (UA) NEGATIVE (NEG); Ketones,Urine NEG (NEG); Leukocyte Esterase,Urine NEG /uL (NEG); Mucus,Urine FEW /hpf (0); Nitrate,Urine NEG (NEG); Protein,Urine NEG (NEG); Specific Gravity,Urine 1.013 (1.000-1.035); Urine Blood 0.2 mg/dL (<0.03); Urine Hyaline Cast 23 /lpf (0-2); Urine RBC 27 /hpf (0-1); Urine Squamous Epithelial Cell 2 /hpf (0-4); Urine WBC 1 /hpf (0-4)
[2019-09-21 15:45] LABS: Basophils # (Auto) 0.01 K/mcL (0.00-0.30); Basophils % (Auto) 0.2 % (0.0-2.0); Eosinophils # (Auto) 0.09 K/mcL (0.00-0.70); Eosinophils % (Auto) 1.7 % (0.0-7.0); Granulocytes % (Auto) 91.7 % (38.0-78.0); Hematocrit 25.8 % (34.1-44.9); Hemoglobin 8.4 g/dL (11.2-15.7); Lymphocytes # (Auto) 0.16 K/mcL (1.50-4.80); Lymphocytes % (Auto) 3.1 % (15.5-49.0); Mean Cell Volume 102.4 fL (80.0-100.0); Mean Corpuscular HGB Conc 32.6 g/dL (31.0-36.0); Mean Platelet Volume 10.6 fL (7.4-10.4); Monocytes # (Auto) 0.17 K/mcL (0.10-0.90); Monocytes % (Auto) 3.3 % (1.0-12.0); Platelet Count 90 K/mcL (140-440); RBC 2.52 M/mcL (3.59-5.38); Red Cell Distribution Width 16.6 % (11.5-14.5); WBC 5.2 K/mcL (4.50-11.00)
[2019-09-21 15:51] LABS: INR 1.4 (0.9-1.1); Prothrombin Time 17.6 sec (11.9-14.5)
[2019-09-21 16:13] LABS: ALT/SGPT 14 U/l (0-40); AST/SGOT 34 U/l (0-37); Albumin 2.6 gm/dL (3.2-5.2); Albumin/Globulin Ratio 0.6 (1.0-2.3); Alkaline Phosphatase 151 U/L (39-117); Bilirubin,Total 2.1 mg/dL (0.0-1.0); Blood Urea Nitrogen 23 mg/dl (8-23); Calcium 8.2 mg/dl (8.6-10.4); Carbon Dioxide 25 mmol/L (22-30); Chloride 104 mmol/L (96-108); Globulin 4.3 gm/dL (2.2-3.7); Glomerular Filtration Rate 51; Glucose 94 mg/dL (70-105)
[2019-09-21] MEDS ORDERED: POTASSIUM CHLORIDE 20 MEQ TABLET PO ONE (17:53)
--- NOTE | 2019-09-21 18:13 | Pediatric History & Physical ---
HPI History of Present Illness Patient information: Note initiated : 09/21/19 at 6:13 pm Service Date, if different from initiated Date: [] Patient: Francia Souza 68 y/o F admitted on for nausea and cold. Chief Complaint: [] History of present illness: Ms. Souza is a 68 year old F WBC to BMI over 60 and recurrent right lower extremity cellulitis/bacteremia since May 2019 who was recently transferred to [facility] for evaluation of Pseudomonas bacteremia and GI bleed for which he underwent EGD and was managed with antibiotics. Patient was subsequently transferred to [facility] for swing bed admission and rehab was discharged home following 10 days of aggressive antibiotics/rehab. Following discharge she saw her PCP//cardiology on 09/18. She has been noted increasing weight gain since discharge. She also noticed increasing abdominal swelling/leg edema and generalized weakness. For the last couple days she has noticed fever, shaking chills and right lower extremity pain along with associated weakness, nausea vomiting and difficulty breathing. With worsening symptoms she presents to the ER for evaluation. Initial work-up was consistent with right lower extremity cellulitis/ascites requiring paracentesis over 2000 cc. Potassium 3. Ascitic fluid was sent for evaluation. Subsequently hospitalist service was consulted for admission for management of cellulitis/lymphangitis. At the time of evaluation patient is alert and oriented. She denies active distress. He feels a lot better. She endorses history as above. She denies recent trauma. She endorses that cellulitis started after a spider bite while she was at the care facility in March Review of systems 10 point review system was performed and is negative except for ones cussed above [facility] Medical History Abdominal pain (Chronic) For some reason this comes up as qualifier but there is no diagnosis with this Abdominal pain (Acute) Abscess of breast, right (Resolved) Acquired pancytopenia (Resolved) Acute blood loss anemia (Resolved) Adverse reaction to antidiabetic drug (Resolved) Anemia (Resolved) Anemia (Resolved) Anemia (Resolved) Anemia (Resolved) Anemia (Resolved) Anemia (Resolved) Anemia (Resolved) Anxiety (Chronic) 1973 Arthralgia (Chronic) Chronic Arthralgia of multiple joints (Chronic) Back Pain (Chronic) Bacteremia (Resolved) Bloating (Resolved) Bronchitis (Resolved) Cellulitis (Resolved) Chronic pain (Chronic) Cirrhosis (Resolved) Closed avulsion fracture of trochanter of right femur (Resolved) Congestive heart failure (Resolved) Congestive heart failure (Chronic) Contusion of right leg (Resolved) Copper deficiency (Chronic) Cough (Resolved) DDD (degenerative disc disease), lumbar (Resolved) Dependent edema (Chronic) Depression (Chronic) Diabetes type 2, uncontrolled (Chronic) DMII (diabetes mellitus, type 2) (Resolved) 1989 Elevated alkaline phosphatase level (Chronic) 180-200 chronically Elevated blood uric acid level (Chronic) Elevated serum creatinine (Resolved) Erosive gastritis with hemorrhage (Chronic) Esophageal varices (Chronic) Esophagitis (Chronic) With esophageal stricture Esophagitis determined by endoscopy (Chronic) Fall (on) (from) other stairs and steps, initial encounter (Resolved) Gallbladder problem (Chronic) 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 Polyclonal gammopathy (Chronic) Portal hypertension (Resolved) Rectal bleeding (Resolved) Sinusitis, chronic (Chronic) SIRS (systemic inflammatory response syndrome) (Resolved) Upper gastrointestinal bleeding (Resolved) Zinc deficiency (Chronic) Surgical History History of hysterectomy (Acute) History of oophorectomy (Acute) History of surgery (Acute) 01/06/[id number] placement History of tonsillectomy (Acute) History of total left knee replacement (Resolved) 2012 History of total right knee replacement (Resolved) 2012 S/P ORIF (open reduction internal fixation) fracture (Resolved) 2014 Left femur with steel plate and screws Family History Mother Arthritis Squamous cell carcinoma Diabetes mellitus Essential hypertension Brother Arthritis Malignant neoplasm of kidney Malignant neoplasm of liver Malignant neoplasm of pharynx Malignant neoplasm of pancreas Sister Arthritis Diabetes mellitus Essential hypertension Depression Father Malignant neoplasm of lung Grandmother-paternal Diabetes mellitus Social History marital status: other: Children-2 smoking status: Former smoker quit date: 04/24/95 pack-years: 45 alcohol intake frequency: does not drink substance use type: does not use additional history: Ambulates with a walker and lives at home with her . quit smoking 25 years ago MEDS/ALLERGIES Home Medications and Allergies Home Medications Medication Instructions Recorded Confirmed Type acetaminophen 500 mg capsule 1,000 mg PO Q4H PRN cap 05/19/18 09/21/19 History liraglutide 0.6 mg/0.1 mL (18 mg/3 1.8 mg SUB-Q QDAY #6 ml 07/19/19 09/21/19 Rx mL) subcutaneous pen injector allopurinol [Zyloprim] 100 mg PO QDAY 08/13/19 09/21/19 History alum-mag hydroxide-simeth [Maalox 5 ml PO QID PRN 08/13/19 09/21/19 History Maximum Strength] famotidine [Pepcid] 20 mg PO BID 08/13/19 09/21/19 History fluoxetine [Prozac] 20 mg PO QDAY 08/13/19 09/21/19 History pantoprazole [Protonix] 40 mg PO BID 08/13/19 09/21/19 History furosemide 40 mg tablet 40 mg PO BID tab 08/30/19 09/21/19 History mirabegron 25 mg tablet,extended 25 mg PO QDAY #30 tab 08/30/19 09/21/19 Rx release 24 hr clotrimazole 1 % vaginal cream 1 appful VAGINAL QHS #45 g 08/31/19 09/21/19 Rx Allergies Allergy/AdvReac Type Severity Reaction Status Date / Time Sulfa (Sulfonamide Allergy Unknown Unknown Verified 09/17/19 11:16 Antibiotics) adhesive AdvReac Intermediate edwards Verified 09/17/19 11:16 Fish Containing Products AdvReac Intermediate Other Verified 09/17/19 11:16 codeine AdvReac Mild Confusion Verified 09/17/19 11:16 latex AdvReac Mild Itching Verified 09/17/19 11:16 oxycodone [From Percocet] AdvReac Mild Confusion Verified 09/17/19 11:16 squash AdvReac Mild Nausea Verified 09/17/19 11:16 MRI (implant/left ankle) AdvReac Intermediate Pain Uncoded 08/30/19 13:25 Physical Examination Vital Signs Vital Signs: Temp Pulse Resp BP Pulse Ox 100.4 F H 81 17 130/49 99 09/21/19 17:46 09/21/19 17:46 09/21/19 17:46 09/21/19 17:46 09/21/19 17:46 Morbidly obese Head normocephalic Oral cavity moist No ear nose discharge Eye movement symmetrical Neck supple no lymphadenopathy S1-S2 occasionally irregular Nonlabored breathing, diminished breath sounds, port Nondistended nontender abdomen Right lower extremity erythema/induration along with swelling. Left lower extremity no joint swelling Skin no suspicious lesion Psych anxious but alert cooperative Neuro normal higher function Results Laboratory Findings CBC and BMP: 09/21/19 14:53 09/21/19 14:53 Labs: Abnormal lab results 09/21/19 09/21/19 09/21/19 Range/Units 14:24 14:53 14:53 RBC 2.52 L (3.59-5.38) M/mcL Hgb 8.4 L (11.2-15.7) g/dL Hct 25.8 L (34.1-44.9) % MCV 102.4 H (80.0-100.0) fL RDW 16.6 H (11.5-14.5) % Plt Count 90 L (140-440) K/mcL MPV 10.6 H (7.4-10.4) fL Gran % 91.7 H (38.0-78.0) % Lymph % (Auto) 3.1 L (15.5-49.0) % Lymph # (Auto) 0.16 L (1.50-4.80) K/mcL PT 17.6 H (11.9-14.5) sec INR 1.4 H (0.9-1.1) Potassium (3.3-5.1) mmol/L Calcium (8.6-10.4) mg/dl Total Bilirubin (0.0-1.0) mg/dL Alkaline Phosphatase (39-117) U/L NT-Pro-B Natriuret Pep (0-125) pg/ml Albumin (3.2-5.2) gm/dL Globulin (2.2-3.7) gm/dL Albumin/Globulin Ratio (1.0-2.3) Urine Occult Blood 0.2 A (<0.03) mg/dL Urine Urobilinogen 2.0 A (NEG) mg/dL Urine RBC 27 H (0-1) /hpf Hyaline Casts 23 H (0-2) /lpf 09/21/19 Range/Units 14:53 RBC (3.59-5.38) M/mcL Hgb (11.2-15.7) g/dL Hct (34.1-44.9) % MCV (80.0-100.0) fL RDW (11.5-14.5) % Plt Count (140-440) K/mcL MPV (7.4-10.4) fL Gran % (38.0-78.0) % Lymph % (Auto) (15.5-49.0) % Lymph # (Auto) (1.50-4.80) K/mcL PT (11.9-14.5) sec INR (0.9-1.1) Potassium 3.0 L (3.3-5.1) mmol/L Calcium 8.2 L (8.6-10.4) mg/dl Total Bilirubin 2.1 H (0.0-1.0) mg/dL Alkaline Phosphatase 151 H (39-117) U/L NT-Pro-B Natriuret Pep 1910.0 H (0-125) pg/ml Albumin 2.6 L (3.2-5.2) gm/dL Globulin 4.3 H (2.2-3.7) gm/dL Albumin/Globulin Ratio 0.6 L (1.0-2.3) Urine Occult Blood (<0.03) mg/dL Urine Urobilinogen (NEG) mg/dL Urine RBC (0-1) /hpf Hyaline Casts (0-2) /lpf All other labs normal. A/P Narrative A/P Narrative: * Cellulitis with lymphangitis right lower extremity. Recurrent in nature with multiple hospitalizations. Initiate antibiotic coverage with cefepime/vancomycin. Limb elevation/wound care consult/pancultures * Sepsis secondary to above. 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 continue PPI * Cirrhosis/Shepherd ascites with elevated bilirubin-status post paracentesis. Studies pending. * History of CHF-continue diuresis/currently compensated * DM type II on liraglutide * History of gout on allopurinol * Degenerative disease continue home dose hydrocodone * Thrombocytopenia-at baseline, avoid heparins * Anxiety disorder on fluoxetine * Morbid obesity with BMI over 60. Nutrition consult/directed therapies/offloading * GERD continue PPI * Prophylaxis fondaparinux * Full code Plan * Inpatient admission * Initiate broad antibiotic coverage * Wound care/ID consult * Pre-existing medical condition management on home meds * Lower extremity imaging if clinically worsening noted * Initiate PT OT nutrition support * Prophylaxis fondaparinux Time Spent With Patient Time: Total time spent is greater than 50% in coordination of care (as documented) at patient's floor/unit and/or counseling patient:
--- NOTE | 2019-09-21 18:17 | Ultrasound Report ---
Ultrasound-guided paracentesis Technique: The procedure and risks including possibility of bleeding, infection, bowel and parenchymal organ perforation were explained the patient. She understood and wished to proceed. Gauge Machine Operator scanning demonstrated Ascites in the right upper quadrant which was free of bowel. The skin was marked, prepped and locally anesthetized 1% lidocaine to the level of the parietal peritoneum using a 25-gauge needle. A 14-gauge multi-sidehole angiographic catheter was then placed under sonographic guidance into the ascites and 3.5 L of simple appearing ascites was aspirated and sent for requested studies. The needle was removed. Postprocedure scanning shows minimal residual ascites. No apparent complication - patient tolerated procedure well. IMPRESSION: Successful ultrasound-guided paracentesis yielding 3.5 mm of simple appearing transudative ascites. Fluid was sent to the laboratory for requested studies. Postprocedure scanning shows only minimal residual fluid. Patient tolerated procedure well without apparent complication Interpreted and Authenticated by: Reynaldo Mukherjee 09/21/19
[2019-09-21] MEDS ORDERED: HYDROmorphone 0.5 MG/0.5 ML SYRINGE IV PRN (20:13)
[2019-09-21] MEDS ORDERED: METOPROLOL TARTRATE 5 MG/5 ML VIAL IV PRN (20:13)
[2019-09-21] MEDS ORDERED: DEXTROSE 31 GM ORAL.SUSP PO PRN (20:13)
[2019-09-21] MEDS ORDERED: CEFEPIME 2 GM in DEXTROSE 5% IN WATER 50 ML IV SCH (20:13)
[2019-09-21] MEDS ORDERED: VANCOMYCIN PER PHARMACY IV SCH (20:13)
[2019-09-21] MEDS ORDERED: MAGNESIUM SULFATE 2 GM/50 ML BAG IV PRN (20:13)
[2019-09-21] MEDS ORDERED: ONDANSETRON 4 MG ODT TABLET SL PRN (20:13)
[2019-09-21] MEDS ORDERED: NON FORMULARY MEDICATION 1 DOSE MISCELL (Acetaminophen 1,000 MG) PO PRN (20:13)
[2019-09-21] MEDS ORDERED: BISACODYL 10 MG SUPP.RECT PR PRN (20:13)
[2019-09-21] MEDS ORDERED: MELATONIN 3 MG TABLET PO PRN (20:13)
[2019-09-21] MEDS ORDERED: DEXTROSE 50% 50 ML VIAL IV PRN (20:13)
[2019-09-21] MEDS ORDERED: POTASSIUM CHLORIDE 20 MEQ PACKET PO PRN (20:13)
[2019-09-21] MEDS ORDERED: POLYETHYLENE GLYCOL 3350 17 GM PACKET PO PRN (20:13)
[2019-09-21] MEDS ORDERED: ONDANSETRON 4 MG/2 ML VIAL IV PRN (20:13)
[2019-09-21] MEDS ORDERED: MAG HYDROX/AL HYDROX/SIMETH 30 ML ORAL.SUSP PO PRN (20:47)
[2019-09-21] MEDS ORDERED: CLOTRIMAZOLE VAG CRM 1% TUBE 45 GM VAG SCH (21:00)
[2019-09-21] MEDS: PANTOPRAZOLE 40 MG TABLET PO SCH (21:15)
[2019-09-21] MEDS: INSULIN LISPRO 1 UNIT/0.01 ML UNIT SQ SCH (21:17)
[2019-09-21] MEDS ORDERED: FLUCONAZOLE 100 MG TABLET PO ONE (21:26)
[2019-09-21] MEDS: SENNOSIDES/DOCUSATE SODIUM 1 TAB TABLET PO SCH (21:31)
[2019-09-21] MEDS: FAMOTIDINE 20 MG TABLET PO SCH (21:31)
[2019-09-21] MEDS: DOCUSATE SODIUM 100 MG CAPSULE PO SCH (21:31)
[2019-09-21] MEDS: FUROSEMIDE 40 MG TABLET PO SCH (21:31)
[2019-09-21] MEDS: CEFEPIME 2 GM VIAL IV SCH (21:31)
[2019-09-21] MEDS: 0.9 % SODIUM CHLORIDE 10 ML SYRINGE IV SCH (22:12)
[2019-09-22 06:51] LABS: Hematocrit 23.4 % (34.1-44.9); Hemoglobin 7.7 g/dL (11.2-15.7); Mean Corpuscular HGB Conc 32.9 g/dL (31.0-36.0); Mean Platelet Volume 11.4 fL (7.4-10.4); Platelet Count 76 K/mcL (140-440); RBC 2.25 M/mcL (3.59-5.38); Red Cell Distribution Width 16.8 % (11.5-14.5); WBC 8.4 K/mcL (4.50-11.00)
[2019-09-22] MEDS: 0.9 % SODIUM CHLORIDE 10 ML SYRINGE IV SCH ×3 (07:40→22:14)
[2019-09-22] MEDS: INSULIN LISPRO 1 UNIT/0.01 ML UNIT SQ SCH ×4 (07:41→20:53)
[2019-09-22 07:52] LABS: ALT/SGPT 11 U/l (0-40); AST/SGOT 27 U/l (0-37); Albumin 2.2 gm/dL (3.2-5.2); Albumin/Globulin Ratio 0.6 (1.0-2.3); Alkaline Phosphatase 114 U/L (39-117); Bilirubin,Total 1.8 mg/dL (0.0-1.0); Blood Urea Nitrogen 27 mg/dl (8-23); Calcium 7.8 mg/dl (8.6-10.4); Carbon Dioxide 27 mmol/L (22-30); Chloride 105 mmol/L (96-108); Globulin 3.7 gm/dL (2.2-3.7); Glomerular Filtration Rate 46; Glucose 94 mg/dL (70-105); Lactate Dehydrogenase 183 U/L (94-250); Phosphorous 4.1 mg/dL (2.7-4.5); Triglycerides 108 mg/dl (<150); Uric Acid 10.3 mg/dL (2.5-8.0)
[2019-09-22 08:01] LABS: Anisocytosis 1+ (NONE SEEN); Band Neutrophils % 21 % (0-10); Eosinophils % (Manual) 1 % (0-7); Lymphocytes % 2 % (15-49); Macrocytosis 1+ (NONE SEEN); Monocytes % (Manual) 1 % (1-12); Platelet Estimate DECREASED (NORMAL); Polychromasia 1+ (NONE SEEN); RBC Morphology ABNORMAL (NORMAL); Segmented Neutrophils % 75 % (38-78)
[2019-09-22] MEDS: METOLAZONE 2.5 MG TABLET PO SCH ×2 (08:04→17:29)
[2019-09-22] MEDS: PANTOPRAZOLE 40 MG TABLET PO SCH ×2 (08:04→17:30)
[2019-09-22] MEDS: VANCOMYCIN 1,500 MG in 0.9 % SODIUM CHLORIDE 500 ML IV SCH (08:04)
[2019-09-22] MEDS: Mirabegron [Myrbetriq] 25 MG PO SCH (08:11)
[2019-09-22] MEDS: FLUoxetine HCL 20 MG CAPSULE PO SCH (09:18)
[2019-09-22] MEDS: DOCUSATE SODIUM 100 MG CAPSULE PO SCH ×2 (09:18→20:50)
[2019-09-22] MEDS: sitaGLIPtin 100 MG TABLET PO SCH (09:18)
[2019-09-22] MEDS: MULTIVIT,THER IRON,CA,FA & MIN 1 TABLET PO SCH (09:19)
[2019-09-22] MEDS: FUROSEMIDE 40 MG TABLET PO SCH ×2 (09:19→20:47)
[2019-09-22] MEDS: FAMOTIDINE 20 MG TABLET PO SCH ×2 (09:19→20:47)
[2019-09-22] MEDS: FONDAPARINUX SODIUM 2.5 MG/0.5 ML SYRINGE SQ SCH (09:20)
[2019-09-22] MEDS: ALLOPURINOL 100 MG TABLET PO SCH (09:20)
[2019-09-22] MEDS ORDERED: 0.9 % SODIUM CHLORIDE 1,000 ML IV SCH (09:30)
[2019-09-22] MEDS: LIRAGLUTIDE 1.8 MG SUB-Q SCH (09:50)
[2019-09-22] MEDS: CEFEPIME 2 GM VIAL IV SCH ×4 (09:50→22:14)
--- NOTE | 2019-09-22 10:07 | Internal Med Progress Note ---
SUBJECTIVE Subjective Patient information: Note initiated : 09/22/19 at 10:03 am Service Date, if different from initiated Date: [] Patient: Francia Souza 68 y/o F admitted on 09/21/19 for nausea and cold. History of present illness: Ms. Souza is a 68 year old F WBC to BMI over 60 and recurrent right lower extremity cellulitis/bacteremia since May 2019 who was recently transferred to [facility] for evaluation of Pseudomonas bacteremia and GI bleed for which he underwent EGD and was managed with antibiotics. Patient was subsequently transferred to [facility] for swing bed admission and erik ab was discharged home following 10 days of aggressive antibiotics/rehab. Following discharge she saw her PCP//cardiology on 09/18. She has been noted increasing weight gain since discharge. She also noticed increasing abdominal swelling/leg edema and generalized weakness. For the last couple days she has noticed fever, shaking chills and right lower extremity pain along with associated weakness, nausea vomiting and difficulty breathing. With worsening symptoms she presents to the ER for evaluation. Initial work-up was consistent with right lower extremity cellulitis/ascites requiring paracentesis over 2000 cc. Potassium 3. Ascitic fluid was sent for evaluation. Subsequently hospitalist service was consulted for admission for management of cellulitis/lymphangitis. At the time of evaluation patient is alert and oriented. She denies active distress. He feels a lot better. She endorses history as above. She denies recent trauma. She endorses that cellulitis started after a spider bite while she was at the care facility in March 31-patient doing better. However gram-negative bacteremia on cultures. ID consulted. Wound care on board. CT abdomen pelvis/lower extremity imaging to rule out abscess/source of bacteremia. On cefepime/vancomycin. Will de- escalate based on sensitivities. No overnight fever chills. Creatinine 1.2, white count 8.4. Constitutional Vitals: Vital Signs Temp Pulse Resp BP Pulse Ox 98.9 F 79 16 129/100 99 09/22/19 08:01 09/22/19 08:01 09/22/19 08:01 09/22/19 08:01 09/22/19 08:01 Period Temp Pulse Resp BP Sys/Anaya Pulse Ox Last 24 Hr 98.6 F-101.0 F 69-96 14-25 106-208/44-100 91-100 Intake and Output 09/21/19 09/22/19 09/22/19 21:59 05:59 13:59 Intake Total 300 420 740 Output Total 100 250 240 Balance 200 170 500 Weight 154.766 kg 154.766 kg Patient Weight 09/23/19 05:59 Weight 154.766 kg morbidly obese Nonlabored breathing No anxiety Right lower extremity redness swelling extending up to groin with purulent exudate mid leg area Intake & Output: Intake & Output 09/21/19 09/22/19 09/22/19 21:59 05:59 13:59 Intake Total 300 420 740 Output Total 100 250 240 Balance 200 170 500 Weight 154.766 kg 154.766 kg Intake: IV 300 500 Zosyn 3.375 gm In Dextrose 5% 50 in Water 50 ml @ 100 mls/hr IV ONCE ONE Rx#:[id number] Vancomycin 1,000 mg In Sodium 250 Chloride 0.9% 250 ml @ 250 mls/ hr IV ONCE ONE Rx#:[id number] Vancomycin 1,500 mg In Sodium 500 Chloride 0.9% 500 ml @ 333.3 mls/hr IV Q24H [facility] Rx#: [id number] Oral 420 240 Output: Urine Catheter Amount 250 Void Amount 100 240 Uretheral (Wright) 100 Other: Meal Breakfast Percent of Meal Consumed 25% Feeding Ability Independent Urine Appearance Clear Uretheral (Wright) Clear Clear Urine Color Light Trisha Uretheral (Wright) Dark Yellow Dark Trisha OBJ DATA Labs CBC & Chem 7: 09/22/19 04:31 09/22/19 04:31 Labs: Abnormal Lab Results 09/22/19 09/22/19 09/21/19 04:31 04:31 14:53 RBC 2.25 L Hgb 7.7 L Hct 23.4 L MCV 104.0 H MCH 34.2 H RDW 16.8 H Plt Count 76 L MPV 11.4 H Gran % Lymph % (Auto) Lymph # (Auto) Band Neutrophils % 21 H Lymphocytes % 2 L Polychromasia 1+ A Anisocytosis 1+ A Macrocytosis 1+ A PT INR Potassium 3.0 L BUN 27 H Creatinine 1.2 H Uric Acid 10.3 H Calcium 7.8 L 8.2 L Total Bilirubin 1.8 H 2.1 H Direct Bilirubin 1.0 H GGT 180 H Alkaline Phosphatase 151 H NT-Pro-B Natriuret Pep 1910.0 H Albumin 2.2 L 2.6 L Globulin 4.3 H Albumin/Globulin Ratio 0.6 L 0.6 L Urine Occult Blood Urine Urobilinogen Urine RBC Hyaline Casts 09/21/19 09/21/19 09/21/19 14:53 14:53 14:24 RBC 2.52 L Hgb 8.4 L Hct 25.8 L MCV 102.4 H MCH RDW 16.6 H Plt Count 90 L MPV 10.6 H Gran % 91.7 H Lymph % (Auto) 3.1 L Lymph # (Auto) 0.16 L Band Neutrophils % Lymphocytes % Polychromasia Anisocytosis Macrocytosis PT 17.6 H INR 1.4 H Potassium BUN Creatinine Uric Acid Calcium Total Bilirubin Direct Bilirubin GGT Alkaline Phosphatase NT-Pro-B Natriuret Pep Albumin Globulin Albumin/Globulin Ratio Urine Occult Blood 0.2 A Urine Urobilinogen 2.0 A Urine RBC 27 H Hyaline Casts 23 H Meds: Medications Acetaminophen (Tylenol) 650 mg PO Q4-6HP PRN; Protocol PRN Reason: Per Pain Protocol/Fever > 101 Al Hydrox/Mg Hydrox/Simethicone (Maalox) 5 ml PO QIDP PRN PRN Reason: Acid Reflux Allopurinol (Zyloprim) 100 mg PO QDAY [facility] Last Admin: 09/22/19 09:20 Dose: 100 mg Documented by: Bisacodyl (Dulcolax) 10 mg AR Q2-3DAYS PRN PRN Reason: Constipation Cefepime HCl (Maxipime) 2 gm IV Q8H [facility] Last Admin: 09/22/19 09:50 Dose: 2 gm Documented by: Dextrose (Dextrose 50%) 0 ml IV UD PRN PRN Reason: Hypoglycemia Diagnostic Test (Pha) (Accu-Chek) 1 each FS ACHS [facility] Last Admin: 09/22/19 07:40 Dose: 1 each Documented by: Docusate Sodium (Colace) 100 mg PO BID [facility] Last Admin: 09/22/19 09:18 Dose: 100 mg Documented by: Famotidine (Pepcid) 20 mg PO BID [facility] Last Admin: 09/22/19 09:19 Dose: 20 mg Documented by: Fluoxetine HCl (Prozac) 20 mg PO QDAY [facility] Last Admin: 09/22/19 09:18 Dose: 20 mg Documented by: Fondaparinux (Arixtra) 2.5 mg SQ DAILY [facility] Last Admin: 09/22/19 09:20 Dose: 2.5 mg Documented by: Furosemide (Lasix) 40 mg PO BID [facility] Last Admin: 09/22/19 09:19 Dose: 40 mg Documented by: Glucose (Insta-Glucose) 15 gm PO PRN PRN PRN Reason: Hypoglycemia Hydromorphone HCl (Dilaudid) 0 mg IV Q4HP PRN; Protocol PRN Reason: Per Pain Protocol Magnesium Sulfate (Magnesium Sulfate) 2 gm in 50 mls @ 50 mls/hr IV UD PRN PRN Reason: MG = or < 1.7 Vancomycin HCl 1,500 mg/ (Sodium Chloride) 500 mls @ 333.3 mls/hr IV Q24H [facility] Last Infusion: 09/22/19 09:35 Dose: Infused Documented by: Sodium Chloride (Sodium Chloride 0.9%) 1,000 mls @ 0 mls/hr IV BOLUS [facility] Last Admin: 09/22/19 09:49 Dose: 999 mls/hr Documented by: Insulin Human Lispro (Humalog) 0 unit SQ ACHS [facility]; Protocol Last Admin: 09/22/19 07:41 Dose: Not Given Documented by: Iron Carb/Multivit/[place]/Folic Acid (Multivitamin W/Minerals) 1 tab PO DAILY [facility] Last Admin: 09/22/19 09:19 Dose: 1 tab Documented by: Melatonin (Melatonin 3mg Tablet) 3 mg PO HSP PRN PRN Reason: Insomnia Metolazone (Zaroxolyn) 2.5 mg PO BID@0730,1530 [facility] Last Admin: 09/22/19 08:04 Dose: 2.5 mg Documented by: Metoprolol Tartrate (Lopressor) 5 mg IV Q5M PRN PRN Reason: Heart Rate > 140 bpm Ondansetron HCl (Zofran Odt) 4 mg SL Q4-6HP PRN; Protocol PRN Reason: Nausea And Vomiting Ondansetron HCl (Zofran) 4 mg IV Q4-6HP PRN; Protocol PRN Reason: Nausea And Vomiting Pantoprazole Sodium (Protonix) 40 mg PO BIDAC [facility] Last Admin: 09/22/19 08:04 Dose: 40 mg Documented by: Liraglutide [Victoza (2-Cj] 1.8 Mg Sq) 1 dose SUB-Q QDAY [facility] Last Admin: 09/22/19 09:50 Dose: Not Given Documented by: Mirabegron [ (Myrbetriq] 25 Mg) 1 dose PO QDAY [facility] Last Admin: 09/22/19 08:11 Dose: Not Given Documented by: Polyethylene Glycol (Miralax) 17 gm PO DAILYP PRN PRN Reason: Constipation Potassium Chloride (Klor-Con) 40 meq PO DAILYP PRN PRN Reason: K+ < 3.5 Senna/Docusate Sodium (Senna Plus Tablet) 1 tab PO HS [facility] Last Admin: 09/21/19 21:31 Dose: Not Given Documented by: Sitagliptin Phosphate (Januvia) 100 mg PO DAILY [facility] Last Admin: 09/22/19 09:18 Dose: 100 mg Documented by: Sodium Chloride (Saline Flush) 10 ml IV Q8 [facility] Last Admin: 09/22/19 07:40 Dose: 10 ml Documented by: Vancomycin HCl (Vancomycin Per Pharmacy) 1 order IV UD [facility]; Protocol A/P Narrative A/P Narrative: * Cellulitis with lymphangitis right lower extremity rapidly extending up to groin. Recurrent in nature with multiple hospitalizations. Continue broad antibiotic coverage - cefepime/vancomycin. Limb elevation/wound care cons ult/pancultures. CT lower extremity rule out abscess * Gram-negative bacteremia. ID consulted. Source evaluation with CT abdomen pelvis * Sepsis secondary to above. Continue management per guidelines * Hypokalemia-resolved with potassium replacement. 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. continue PPI. Transfuse if hemoglobin less than 7 * Cirrhosis/Shepherd ascites with elevated bilirubin-status post paracentesis. Studies pending. * History of CHF-continue diuresis/currently compensated * DM type II on liraglutide/CCD/sliding scale insulin * History of gout continue allopurinol * Degenerative disease continue home dose hydrocodone * Thrombocytopenia-at baseline, avoid heparins. * Anxiety disorder on fluoxetine * Morbid obesity with BMI over 60. Nutrition consult/directed therapies/offloading * GERD continue PPI * Prophylaxis fondaparinux * Full code Plan * Continue broad antibiotic coverage * Wound care/ID consult * GNR bacteremia source evaluation with CT abdomen pelvis * Transfuse if hemoglobin less than 7 * Pre-existing medical condition management on home meds * Lower extremity imaging * Limb elevation/PT OT nutrition support * Prophylaxis fondaparinux Time Spent With Patient Time: Total time spent is greater than 50% in coordination of care (as documented) at patient's floor/unit and/or counseling patient:
[2019-09-22] MEDS ORDERED: IOPAMIDOL 150 ML BOTTLE IV ONE (12:28)
--- NOTE | 2019-09-22 14:07 | General Surgery Consult Note ---
HPI Data of Consult Consult date: 09/22/19 Requesting physician: Ramin Donlad Primary Care Provider: Serge Jeffries M.D., F.A.A.F.P. Consult Narrative Chief complaint: Cellulitis Right LE leg and thigh: Bliter RIGHT thigh Ruptured Reason for consult: Evaluation anf tretament f/u cc:: CC: Ramin Donald I saw this patient in room 118 along with nurse. Admitted via ER yesterday with cellulitis of RLE. She had a blister of leg, that ruptured prior to her admission. NOT sure if she had an insect bite. Currently she is treated with IV antibiotics and local Mepilex bordered foam at blister site. She has chronic bilateral lower extremity lymphedema and prior surgeries TKR both knees and ORIF Right leg. Patient is a super morbid female with multiple comorbidities and limited mobility. 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, PFSH PFSH Medical History Abdominal pain (Chronic) For some reason this comes up as qualifier but there is no diagnosis with this Abdominal pain (Acute) Abscess of breast, right (Resolved) Acquired pancytopenia (Resolved) Acute blood loss anemia (Resolved) Adverse reaction to antidiabetic drug (Resolved) Anemia (Resolved) Anemia (Resolved) Anemia (Resolved) Anemia (Resolved) Anemia (Resolved) Anemia (Resolved) Anemia (Resolved) Anxiety (Chronic) 1973 Arthralgia (Chronic) Chronic Arthralgia of multiple joints (Chronic) Back Pain (Chronic) Bacteremia (Resolved) Bloating (Resolved) Bronchitis (Resolved) Cellulitis (Resolved) Chronic pain (Chronic) Cirrhosis (Resolved) Closed avulsion fracture of trochanter of right femur (Resolved) Congestive heart failure (Resolved) Congestive heart failure (Chronic) Contusion of right leg (Resolved) Copper deficiency (Chronic) Cough (Resolved) DDD (degenerative disc disease), lumbar (Resolved) Dependent edema (Chronic) Depression (Chronic) Diabetes type 2, uncontrolled (Chronic) DMII (diabetes mellitus, type 2) (Resolved) 1989 Elevated alkaline phosphatase level (Chronic) 180-200 chronically Elevated blood uric acid level (Chronic) Elevated serum creatinine (Resolved) Erosive gastritis with hemorrhage (Chronic) Esophageal varices (Chronic) Esophagitis (Chronic) With esophageal stricture Esophagitis determined by endoscopy (Chronic) Fall (on) (from) other stairs and steps, initial encounter (Resolved) Gallbladder problem (Chronic) 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 Polyclonal gammopathy (Chronic) Portal hypertension (Resolved) Rectal bleeding (Resolved) Sinusitis, chronic (Chronic) SIRS (systemic inflammatory response syndrome) (Resolved) Upper gastrointestinal bleeding (Resolved) Zinc deficiency (Chronic) Surgical History History of hysterectomy (Acute) History of oophorectomy (Acute) History of surgery (Acute) 01/[id number] placement History of tonsillectomy (Acute) History of total left knee replacement (Resolved) 2012 History of total right knee replacement (Resolved) 2012 S/P ORIF (open reduction internal fixation) fracture (Resolved) 2014 Left femur with steel plate and screws Family History Mother Arthritis Squamous cell carcinoma Diabetes mellitus Essential hypertension Brother Arthritis Malignant neoplasm of kidney Malignant neoplasm of liver Malignant neoplasm of pharynx Malignant neoplasm of pancreas Sister Arthritis Diabetes mellitus Essential hypertension Depression Father Malignant neoplasm of lung Grandmother-paternal Diabetes mellitus Social History marital status: other: Children-2 smoking status: Never smoker alcohol intake frequency: does not drink substance use type: does not use additional history: Ambulates with a walker and lives at home with her . quit smoking 25 years ago MEDS/ALLERGIES Home Medications and Allergies Home Medications Medication Instructions Recorded Confirmed Type acetaminophen 500 mg capsule 1,000 mg PO Q4H PRN cap 05/19/18 09/22/19 History liraglutide 0.6 mg/0.1 mL (18 mg/3 1.8 mg SUB-Q QDAY #6 ml 07/19/19 09/22/19 Rx mL) subcutaneous pen injector allopurinol [Zyloprim] 100 mg PO QDAY 08/13/19 09/22/19 History alum-mag hydroxide-simeth [Maalox 5 ml PO QID PRN 08/13/19 09/22/19 History Maximum Strength] famotidine [Pepcid] 20 mg PO BID 08/13/19 09/22/19 History fluoxetine [Prozac] 20 mg PO QDAY 08/13/19 09/22/19 History pantoprazole [Protonix] 40 mg PO BID 08/13/19 09/22/19 History furosemide 40 mg tablet 40 mg PO BID tab 08/30/19 09/22/19 History Allergies Allergy/AdvReac Type Severity Reaction Status Date / Time Sulfa (Sulfonamide Allergy Unknown Unknown Verified 09/17/19 11:16 Antibiotics) adhesive AdvReac Intermediate edwards Verified 09/17/19 11:16 Fish Containing Products AdvReac Intermediate Other Verified 09/17/19 11:16 codeine AdvReac Mild Confusion Verified 09/17/19 11:16 latex AdvReac Mild Itching Verified 09/17/19 11:16 oxycodone [From Percocet] AdvReac Mild Confusion Verified 09/17/19 11:16 squash AdvReac Mild Nausea Verified 09/17/19 11:16 MRI (implant/left ankle) AdvReac Intermediate Pain Uncoded 08/30/19 13:25 Physical Examination Vital Signs Vital signs: Temp Pulse Resp BP Pulse Ox 99.1 F H 79 17 122/46 97 09/22/19 10:00 09/22/19 08:01 09/22/19 10:00 09/22/19 10:00 09/22/19 10:00 General physical appearance General physical exam: no distress, no pain and obese (SUPER MORBID OBESITY BMI >60) Eyes Eye exam: PERRL and normal ocular movement ENT ENT exam: normal pinna, normal nares, normal mucosa, no hearing loss and no congestion Head Head exam IM: Present atraumatic and normocephalic Neck Neck exam: no masses and no venous distension Cardiovascular Cardiovascular exam IM: Present normal rate and rhythm Respiratory Respiratory exam: normal expansion, normal respiratory effort and other (CLEAR speech. No SOB) Abdomen Abdomen: Present soft, non tender, surgical scars and distended (ASCITES. Biliary cirrhosis) Genitourinary Genitourinary (Female): Present normal external genitalia and other (Wright catheter with clear urine in bag) Integumentary Integumentary: Present other (Punctate demratitis / Cellulitis / Lymphangitis of foot / leg and lower thigh. Chronic bilateral lymphedema pf BLE . R >>L. Surgical scars. Rupture Epidermal bleb. NO purulence) Neurologic Neurologic: Present normal coordination and normal sensation Musculoskeletal Musculoskeletal: Present other (Mainly bed confined. Walks from bed to BR.) Psychiatric Psychiatric: Present oriented to time, oriented to person, oriented to place, speech is normal, memory intact and other (Depressed / Anxious about her overall situation and family matters.) Results Labs Result diagrams: 09/22/19 04:31 09/22/19 04:31 Labs: Abnormal lab results 09/21/19 09/21/19 09/21/19 Range/Units 14:24 14:53 14:53 RBC 2.52 L (3.59-5.38) M/mcL Hgb 8.4 L (11.2-15.7) g/dL Hct 25.8 L (34.1-44.9) % MCV 102.4 H (80.0-100.0) fL MCH (26.0-34.0) pg RDW 16.6 H (11.5-14.5) % Plt Count 90 L (140-440) K/mcL MPV 10.6 H (7.4-10.4) fL Gran % 91.7 H (38.0-78.0) % Lymph % (Auto) 3.1 L (15.5-49.0) % Lymph # (Auto) 0.16 L (1.50-4.80) K/mcL Band Neutrophils % (0-10) % Lymphocytes % (15-49) % Polychromasia (NONE SEEN) Anisocytosis (NONE SEEN) Macrocytosis (NONE SEEN) PT 17.6 H (11.9-14.5) sec INR 1.4 H (0.9-1.1) Potassium (3.3-5.1) mmol/L BUN (8-23) mg/dl Creatinine (0.6-1.1) mg/dl Uric Acid (2.5-8.0) mg/dL Calcium (8.6-10.4) mg/dl Total Bilirubin (0.0-1.0) mg/dL Direct Bilirubin (0.0-0.3) mg/dL GGT (5-36) U/L Alkaline Phosphatase (39-117) U/L NT-Pro-B Natriuret Pep (0-125) pg/ml Albumin (3.2-5.2) gm/dL Globulin (2.2-3.7) gm/dL Albumin/Globulin Ratio (1.0-2.3) Urine Occult Blood 0.2 A (<0.03) mg/dL Urine Urobilinogen 2.0 A (NEG) mg/dL Urine RBC 27 H (0-1) /hpf Hyaline Casts 23 H (0-2) /lpf 09/21/19 09/22/19 09/22/19 Range/Units 14:53 04:31 04:31 RBC 2.25 L (3.59-5.38) M/mcL Hgb 7.7 L (11.2-15.7) g/dL Hct 23.4 L (34.1-44.9) % MCV 104.0 H (80.0-100.0) fL MCH 34.2 H (26.0-34.0) pg RDW 16.8 H (11.5-14.5) % Plt Count 76 L (140-440) K/mcL MPV 11.4 H (7.4-10.4) fL Gran % (38.0-78.0) % Lymph % (Auto) (15.5-49.0) % Lymph # (Auto) (1.50-4.80) K/mcL Band Neutrophils % 21 H (0-10) % Lymphocytes % 2 L (15-49) % Polychromasia 1+ A (NONE SEEN) Anisocytosis 1+ A (NONE SEEN) Macrocytosis 1+ A (NONE SEEN) PT (11.9-14.5) sec INR (0.9-1.1) Potassium 3.0 L (3.3-5.1) mmol/L BUN 27 H (8-23) mg/dl Creatinine 1.2 H (0.6-1.1) mg/dl Uric Acid 10.3 H (2.5-8.0) mg/dL Calcium 8.2 L 7.8 L (8.6-10.4) mg/dl Total Bilirubin 2.1 H 1.8 H (0.0-1.0) mg/dL Direct Bilirubin 1.0 H (0.0-0.3) mg/dL GGT 180 H (5-36) U/L Alkaline Phosphatase 151 H (39-117) U/L NT-Pro-B Natriuret Pep 1910.0 H (0-125) pg/ml Albumin 2.6 L 2.2 L (3.2-5.2) gm/dL Globulin 4.3 H (2.2-3.7) gm/dL Albumin/Globulin Ratio 0.6 L 0.6 L (1.0-2.3) Urine Occult Blood (<0.03) mg/dL Urine Urobilinogen (NEG) mg/dL Urine RBC (0-1) /hpf Hyaline Casts (0-2) /lpf Diabetes panel 09/21/19 09/22/19 Range/Units 14:53 04:31 Sodium 143 144 (133-145) mmol/L Potassium 3.0 L 3.5 (3.3-5.1) mmol/L Chloride 104 105 (96-108) mmol/L Carbon Dioxide 25 27 (22-30) mmol/L BUN 23 27 H (8-23) mg/dl Creatinine 1.1 1.2 H (0.6-1.1) mg/dl Glucose 94 94 (70-105) mg/dL Calcium 8.2 L 7.8 L (8.6-10.4) mg/dl AST 34 27 (0-37) U/l ALT 14 11 (0-40) U/l Alkaline Phosphatase 151 H 114 (39-117) U/L Total Protein 6.9 5.9 (5.9-8.4) gm/dL Albumin 2.6 L 2.2 L (3.2-5.2) gm/dL Triglycerides 108 (<150) mg/dl Calcium panel 09/21/19 09/22/19 Range/Units 14:53 04:31 Calcium 8.2 L 7.8 L (8.6-10.4) mg/dl Phosphorus 4.1 (2.7-4.5) mg/dL Albumin 2.6 L 2.2 L (3.2-5.2) gm/dL Pituitary panel 09/21/19 09/22/19 Range/Units 14:53 04:31 Sodium 143 144 (133-145) mmol/L Potassium 3.0 L 3.5 (3.3-5.1) mmol/L Chloride 104 105 (96-108) mmol/L Carbon Dioxide 25 27 (22-30) mmol/L BUN 23 27 H (8-23) mg/dl Creatinine 1.1 1.2 H (0.6-1.1) mg/dl Glucose 94 94 (70-105) mg/dL Calcium 8.2 L 7.8 L (8.6-10.4) mg/dl Adrenal panel 09/21/19 09/22/19 Range/Units 14:53 04:31 Sodium 143 144 (133-145) mmol/L Potassium 3.0 L 3.5 (3.3-5.1) mmol/L Chloride 104 105 (96-108) mmol/L Carbon Dioxide 25 27 (22-30) mmol/L BUN 23 27 H (8-23) mg/dl Creatinine 1.1 1.2 H (0.6-1.1) mg/dl Glucose 94 94 (70-105) mg/dL Calcium 8.2 L 7.8 L (8.6-10.4) mg/dl Total Bilirubin 2.1 H 1.8 H (0.0-1.0) mg/dL AST 34 27 (0-37) U/l ALT 14 11 (0-40) U/l Alkaline Phosphatase 151 H 114 (39-117) U/L Total Protein 6.9 5.9 (5.9-8.4) gm/dL Albumin 2.6 L 2.2 L (3.2-5.2) gm/dL All other labs normal. A/P Narrative A/P Narrative: Assessments: MULTIPLE CHRONIC COMORBID MEDICAL PROBLEMS. Resolving Cellulitis / Dermatitis / Lymphangitis of RLE. Plan: Routine skin care as discussed with nursing staff. Will follow with Hospitalist physician. Time Spent With Patient Time: Total time spent is greater than 50% in coordination of care (as documented) at patient's floor/unit and/or counseling patient: Total time spent with greater than 50% in coordination of care (as documented) at patient's floor/unit and/or counseling patient:: Greater than 35 minutes
--- NOTE | 2019-09-22 15:32 | Cat Scan Report ---
CLINICAL INFORMATION: Sepsis COMPARISON: Abdomen and pelvic CT 08/03/2000. TECHNIQUE: Following enteric contrast, 80 cc of Isovue-[id number] were injected intravenously, and 60 seconds later, 0.625 mm helical slices were obtained from the mid heart through the subtrochanteric regions. Following reconstruction, 2.5 mm sagittal, coronal and axial reformatted images were processed and reviewed at bone, lung and soft tissue windows. Five minutes later, 0.625 mm helical slices were obtained from the mid heart through the kidneys and viewed at soft tissue windows.The exam was performed using radiation dose optimization techniques including, but not limited to, automated exposure control, adjustment of the mA and/or kV according to patient size and use of iterative reconstruction technique. FINDINGS: Small right pleural effusion has decreased from previous exam. Tiny left pleural effusion noted. There is subsegmental atelectasis in both posterior lower lobes. Visualized heart is mildly enlarged and there is heavy mitral and/or calcification. Abdominal images show moderate sclerotic changes featuring a diminutive liver with irregular cortical surface and inhomogeneity in attenuation. No focal hepatic lesion. Gallbladder is mildly distended, but no evidence of wall thickening. The intrahepatic and common bile ducts are normal caliber: CBD is 5 mm. The spleen remains moderately enlarged: 16 x 6 cm. A small amount of ascites is scattered throughout the abdomen and pelvis. Recent paracentesis acknowledged.Portal vein is mildly dilated 16 mm there are mild varices in the perisplenic and gastric region. A 3.6 mm simple cyst is seen in the inferior pole of right kidney. There is a 5 mm nonobstructing stone in an inferior calyx left kidney. Both adrenal glands and pancreas are normal. The abdominal aorta contains plaque is normal diameter. There is no free air or adenopathy. Pelvic images show hysterectomy with oophorectomy changes. Wright catheter is properly positioned in the urinary bladder which is decompressed. No gross bladder abnormality. A very large amount of edema is seen within the subcutaneous fat throughout the abdomen and pelvis Bone windows show chronic bilateral L5-S1 spondylolysis and grade 1 spondylolisthesis with broad disc protrusion resulting in severe IV foraminal narrowing impinging exiting L5 nerve roots. Moderate diffuse osteoporosis noted. Mild chronic T12 compression fracture seen. IMPRESSION: 1. No source for sepsis identified. 2. Cirrhosis with portal hypertension and moderate splenomegaly. Small amount of ascites is seen in the upper abdomen.. A large amount of edema in the subcutaneous fat throughout abdomen and pelvis. 3. 5 mm nonobstructing stone in inferior calyx left kidney. 3.5 mm cyst inferior pole of the right kidney. 4. Small bilateral pleural effusion with subsegmental atelectasis both lower lobes 5. Chronic bilateral L5-S1 spondylolysis with grade 1 spondylolisthesis Interpreted and Authenticated by: Reynaldo Mukherjee 09/22/19
--- NOTE | 2019-09-22 15:36 | Cat Scan Report ---
CLINICAL INFORMATION: cellulitis COMPARISON: None. TECHNIQUE: 0.625 mm helical slices were obtained from the mid pelvis through the entire right lower extremity. 2.5 mm axial sagittal coronal reformatted were processed and reviewed in bone and soft tissue windows. FINDINGS: There is no radiographic evidence of osteomyelitis throughout the right lower extremity. Right total knee prostheses is anatomically aligned without loosening or infection. Lateral plate and screws transfix old fracture distal fibula which is solidly unified in anatomic alignment. There is diffuse atrophy of all muscles. There is moderate subdermal thickening throughout the right lower extremity most prominent in the medial thigh. Findings suggestive of cellulitis. Patchy inflammation scattered throughout the subcutaneous fat. IMPRESSION: Cellulitis throughout the subdermal soft tissues right lower extremity with scattered inflammation in the subcutaneous fat. No discrete abscess is identified. No evidence of osteomyelitis. Interpreted and Authenticated by: Reynaldo Mukherjee 09/22/19
--- NOTE | 2019-09-22 17:38 | Event Note ---
Event Note Event Note: Full note to follow tomorrow. Case d/w Dr Donald. 68 year old lady with recurrent E coli bacteremia. Ecoli isolates from this admission, pending sensitivities. NO ESBL or KPC or other resistance genes detected. Continue IV Cefepime 2 gm q8 hrs (based on CrCl of >100). will deescalate based on sensitivities. Shared with Dr Donald to get CT abd/pelvis and CT of afffected leg to determine any underlying fluid collections, focus of infection.
[2019-09-22] MEDS: SENNOSIDES/DOCUSATE SODIUM 1 TAB TABLET PO SCH (20:50)
[2019-09-22] MEDS: ACETAMINOPHEN 325 MG TABLET PO PRN (20:53)
[2019-09-23] MEDS: 0.9 % SODIUM CHLORIDE 10 ML SYRINGE IV SCH ×3 (05:50→21:30)
[2019-09-23] MEDS: CEFEPIME 2 GM VIAL IV SCH (05:50)
[2019-09-23 06:32] LABS: Hematocrit 21.4 % (34.1-44.9); Hemoglobin 7.4 g/dL (11.2-15.7); Mean Cell Volume 103.9 fL (80.0-100.0); Mean Corpuscular HGB Conc 34.6 g/dL (31.0-36.0); Mean Platelet Volume 11.1 fL (7.4-10.4); Platelet Count 64 K/mcL (140-440); RBC 2.06 M/mcL (3.59-5.38); Red Cell Distribution Width 16.5 % (11.5-14.5); WBC 9.9 K/mcL (4.50-11.00)
[2019-09-23 06:55] LABS: ALT/SGPT 10 U/l (0-40); AST/SGOT 26 U/l (0-37); Albumin 2.3 gm/dL (3.2-5.2); Albumin/Globulin Ratio 0.6 (1.0-2.3); Alkaline Phosphatase 120 U/L (39-117); Bilirubin,Direct 0.7 mg/dL (0.0-0.3); Bilirubin,Total 1.4 mg/dL (0.0-1.0); Blood Urea Nitrogen 35 mg/dl (8-23); Calcium 7.9 mg/dl (8.6-10.4); Carbon Dioxide 27 mmol/L (22-30); Chloride 103 mmol/L (96-108); Globulin 3.7 gm/dL (2.2-3.7); Glomerular Filtration Rate 32; Glucose 120 mg/dL (70-105); Lactate Dehydrogenase 220 U/L (94-250); Phosphorous 3.6 mg/dL (2.7-4.5); Triglycerides 100 mg/dl (<150); Uric Acid 9.8 mg/dL (2.5-8.0)
[2019-09-23] MEDS: ACETAMINOPHEN 325 MG TABLET PO PRN ×3 (06:56→21:17)
[2019-09-23] MEDS: INSULIN LISPRO 1 UNIT/0.01 ML UNIT SQ SCH ×4 (06:56→21:30)
[2019-09-23] MEDS: PANTOPRAZOLE 40 MG TABLET PO SCH ×2 (06:56→16:41)
[2019-09-23] MEDS: METOLAZONE 2.5 MG TABLET PO SCH (06:56)
[2019-09-23 07:14] LABS: Anisocytosis 1+ (NONE SEEN); Eosinophils % (Manual) 2 % (0-7); Lymphocytes % 7 % (15-49); Macrocytosis 1+ (NONE SEEN); Monocytes % (Manual) 2 % (1-12); Platelet Estimate DECREASED (NORMAL); RBC Morphology ABNORMAL (NORMAL); Segmented Neutrophils % 89 % (38-78)
[2019-09-23] MEDS: VANCOMYCIN 1,500 MG in 0.9 % SODIUM CHLORIDE 500 ML IV SCH (08:52)
[2019-09-23] MEDS: LIRAGLUTIDE 1.8 MG SUB-Q SCH (08:52)
[2019-09-23] MEDS: ALLOPURINOL 100 MG TABLET PO SCH (08:53)
[2019-09-23] MEDS: FONDAPARINUX SODIUM 2.5 MG/0.5 ML SYRINGE SQ SCH (08:53)
[2019-09-23] MEDS: FAMOTIDINE 20 MG TABLET PO SCH ×2 (08:53→21:16)
[2019-09-23] MEDS: FUROSEMIDE 40 MG TABLET PO SCH (08:53)
[2019-09-23] MEDS: sitaGLIPtin 100 MG TABLET PO SCH (08:53)
[2019-09-23] MEDS: FLUoxetine HCL 20 MG CAPSULE PO SCH (08:53)
[2019-09-23] MEDS: MULTIVIT,THER IRON,CA,FA & MIN 1 TABLET PO SCH (08:53)
[2019-09-23] MEDS: Mirabegron [Myrbetriq] 25 MG PO SCH (08:57)
[2019-09-23] MEDS: DOCUSATE SODIUM 100 MG CAPSULE PO SCH ×2 (08:57→21:16)
--- NOTE | 2019-09-23 09:19 | Internal Med Progress Note ---
SUBJECTIVE Subjective Patient information: Note initiated : 09/23/19 at 9:14 am Service Date, if different from initiated Date: [] Patient: Francia Souza 68 y/o F admitted on 09/21/19 for nausea and cold. Chief Complaint: [] History of present illness: Ms. Souza is a 68 year old F WBC to BMI over 60 and recurrent right lower extremity cellulitis/bacteremia since May 2019 who was recently transferred to [facility] for evaluation of Pseudomonas bacteremia and GI bleed for which he underwent EGD and was managed with antibiotics. Patient was subsequently transferred to [facility] for swing bed admission and rehab was discharged home following 10 days of aggressive antibiotics/rehab. Following discharge she saw her PCP//cardiology on 09/18. She has been noted increasing weight gain since discharge. She also noticed increasing abdominal swelling/leg edema and generalized weakness. For the last couple days she has noticed fever, shaking chills and right lower extremity pain along with associated weakness, nausea vomiting and difficulty breathing. With worsening symptoms she presents to the ER for evaluation. Initial work-up was consistent with right lower extremity cellulitis/ascites requiring paracentesis over 2000 cc. Potassium 3. Ascitic fluid was sent for evaluation. Subsequently hospitalist service was consulted for admission for management of cellulitis/lymphangitis. At the time of evaluation patient is alert and oriented. She denies active distress. He feels a lot better. She endorses history as above. She denies recent trauma. She endorses that cellulitis started after a spider bite while she was at the care facility in March 31-patient doing better. However gram-negative bacteremia on cultures. ID consulted. Wound care on board. CT abdomen pelvis/lower extremity imaging to rule out abscess/source of bacteremia. On cefepime/vancomycin. Will de- escalate based on sensitivities. No overnight fever chills. Creatinine 1.2, white count 8.4. 8/2-patient seen in room. No overnight events. Creatinine up to 1.6. Hemoglobin down to 7.4. Units PRBC transfusion today. Lower diuretics. Antibiotics de-escalated to Rocephin. Continue PT OT. No CT evidence of abscess or source for bacteremia. E. coli on culture. Stable hemodynamics. Constitutional Vitals: Vital Signs Temp Pulse Resp BP Pulse Ox 98.4 F 71 13 137/58 100 09/23/19 08:01 09/23/19 08:01 09/23/19 08:01 09/23/19 08:01 09/23/19 08:01 Period Temp Pulse Resp BP Sys/Anaya Pulse Ox Last 24 Hr 98.4 F-99.5 F 69-75 13-23 84-137/40-66 93-100 Intake and Output 09/22/19 09/23/19 09/23/19 21:59 05:59 13:59 Intake Total 240 340 50 Output Total 350 300 Balance -110 40 50 Weight 155.582 kg Morbidly obese Nonlabored breathing Persistent erythema/redness Intake & Output: Intake & Output 09/22/19 09/23/19 09/23/19 21:59 05:59 13:59 Intake Total 240 340 50 Output Total 350 300 Balance -110 40 50 Weight 155.582 kg Intake: IV 50 Oral 240 340 Output: Urine Catheter Amount 350 300 Other: Meal Lunch Dinner Percent of Meal Consumed 25% 50% Feeding Ability Assist with Tray Set Up Urine Appearance Clear Clear Clear Uretheral (Wright) Clear Urine Color Dark Trisha Light Trisha Light Trisha Uretheral (Wright) Dark Trisha Urine Odor Normal Normal OBJ DATA Labs CBC & Chem 7: 09/23/19 04:18 09/23/19 04:18 Labs: Abnormal Lab Results 09/23/19 09/23/19 09/22/19 04:18 04:18 04:31 RBC 2.06 L Hgb 7.4 L Hct 21.4 L MCV 103.9 H MCH 35.9 H RDW 16.5 H Plt Count 64 L MPV 11.1 H Gran % Lymph % (Auto) Lymph # (Auto) Seg Neutrophils % 89 H Band Neutrophils % Lymphocytes % 7 L Polychromasia Anisocytosis 1+ A Macrocytosis 1+ A PT INR Potassium BUN 35 H 27 H Creatinine 1.6 H 1.2 H Glucose 120 H Uric Acid 9.8 H 10.3 H Calcium 7.9 L 7.8 L Total Bilirubin 1.4 H 1.8 H Direct Bilirubin 0.7 H 1.0 H GGT 164 H 180 H Alkaline Phosphatase 120 H NT-Pro-B Natriuret Pep Albumin 2.3 L 2.2 L Globulin Albumin/Globulin Ratio 0.6 L 0.6 L Urine Occult Blood Urine Urobilinogen Urine RBC Hyaline Casts 09/22/19 09/21/19 09/21/19 04:31 14:53 14:53 RBC 2.25 L Hgb 7.7 L Hct 23.4 L MCV 104.0 H MCH 34.2 H RDW 16.8 H Plt Count 76 L MPV 11.4 H Gran % Lymph % (Auto) Lymph # (Auto) Seg Neutrophils % Band Neutrophils % 21 H Lymphocytes % 2 L Polychromasia 1+ A Anisocytosis 1+ A Macrocytosis 1+ A PT 17.6 H INR 1.4 H Potassium 3.0 L BUN Creatinine Glucose Uric Acid Calcium 8.2 L Total Bilirubin 2.1 H Direct Bilirubin GGT Alkaline Phosphatase 151 H NT-Pro-B Natriuret Pep 1910.0 H Albumin 2.6 L Globulin 4.3 H Albumin/Globulin Ratio 0.6 L Urine Occult Blood Urine Urobilinogen Urine RBC Hyaline Casts 09/21/19 09/21/19 14:53 14:24 RBC 2.52 L Hgb 8.4 L Hct 25.8 L MCV 102.4 H MCH RDW 16.6 H Plt Count 90 L MPV 10.6 H Gran % 91.7 H Lymph % (Auto) 3.1 L Lymph # (Auto) 0.16 L Seg Neutrophils % Band Neutrophils % Lymphocytes % Polychromasia Anisocytosis Macrocytosis PT INR Potassium BUN Creatinine Glucose Uric Acid Calcium Total Bilirubin Direct Bilirubin GGT Alkaline Phosphatase NT-Pro-B Natriuret Pep Albumin Globulin Albumin/Globulin Ratio Urine Occult Blood 0.2 A Urine Urobilinogen 2.0 A Urine RBC 27 H Hyaline Casts 23 H Meds: Medications Acetaminophen (Tylenol) 650 mg PO Q4-6HP PRN; Protocol PRN Reason: Per Pain Protocol/Fever > 101 Last Admin: 09/23/19 06:56 Dose: 650 mg Documented by: Al Hydrox/Mg Hydrox/Simethicone (Maalox) 5 ml PO QIDP PRN PRN Reason: Acid Reflux Allopurinol (Zyloprim) 100 mg PO QDAY SHERI Last Admin: 09/23/19 08:53 Dose: 100 mg Documented by: Bisacodyl (Dulcolax) 10 mg SD Q2-3DAYS PRN PRN Reason: Constipation Dextrose (Dextrose 50%) 0 ml IV UD PRN PRN Reason: Hypoglycemia Diagnostic Test (Pha) (Accu-Chek) 1 each FS ACHS REPLACED BY [facility] Last Admin: 09/23/19 06:55 Dose: 1 each Documented by: Docusate Sodium (Colace) 100 mg PO BID REPLACED BY [facility] Last Admin: 09/23/19 08:57 Dose: Not Given Documented by: Famotidine (Pepcid) 20 mg PO BID REPLACED BY [facility] Last Admin: 09/23/19 08:53 Dose: 20 mg Documented by: Fluoxetine HCl (Prozac) 20 mg PO QDAY REPLACED BY [facility] Last Admin: 09/23/19 08:53 Dose: 20 mg Documented by: Fondaparinux (Arixtra) 2.5 mg SQ DAILY REPLACED BY [facility] Last Admin: 09/23/19 08:53 Dose: 2.5 mg Documented by: Furosemide (Lasix) 40 mg PO BID REPLACED BY [facility] Last Admin: 09/23/19 08:53 Dose: 40 mg Documented by: Glucose (Insta-Glucose) 15 gm PO PRN PRN PRN Reason: Hypoglycemia Hydromorphone HCl (Dilaudid) 0 mg IV Q4HP PRN; Protocol PRN Reason: Per Pain Protocol Magnesium Sulfate (Magnesium Sulfate) 2 gm in 50 mls @ 50 mls/hr IV UD PRN PRN Reason: MG = or < 1.7 Last Infusion: 09/23/19 06:35 Dose: Infused Documented by: Vancomycin HCl 1,500 mg/ (Sodium Chloride) 500 mls @ 333.3 mls/hr IV Q24H REPLACED BY [facility] Last Admin: 09/23/19 08:52 Dose: 333.3 mls/hr Documented by: Ceftriaxone Sodium 2 gm/ (Dextrose) 50 mls @ 100 mls/hr IV Q24H REPLACED BY [facility]; Protocol Insulin Human Lispro (Humalog) 0 unit SQ [facility] REPLACED BY [facility]; Protocol Last Admin: 09/23/19 06:56 Dose: Not Given Documented by: Iron Carb/Multivit/[place]/Folic Acid (Multivitamin W/Minerals) 1 tab PO DAILY REPLACED BY [facility] Last Admin: 09/23/19 08:53 Dose: 1 tab Documented by: Melatonin (Melatonin 3mg Tablet) 3 mg PO HSP PRN PRN Reason: Insomnia Metolazone (Zaroxolyn) 2.5 mg PO BID@0730,1530 REPLACED BY [facility] Last Admin: 09/23/19 06:56 Dose: 2.5 mg Documented by: Metoprolol Tartrate (Lopressor) 5 mg IV Q5M PRN PRN Reason: Heart Rate > 140 bpm Ondansetron HCl (Zofran Odt) 4 mg SL Q4-6HP PRN; Protocol PRN Reason: Nausea And Vomiting Ondansetron HCl (Zofran) 4 mg IV Q4-6HP PRN; Protocol PRN Reason: Nausea And Vomiting Pantoprazole Sodium (Protonix) 40 mg PO BIDAC REPLACED BY [facility] Last Admin: 09/23/19 06:56 Dose: 40 mg Documented by: Liraglutide [Victoza (2-Cj] 1.8 Mg Sq) 1 dose SUB-Q QDAY REPLACED BY [facility] Last Admin: 09/23/19 08:52 Dose: 1 dose Documented by: Mirabegron [ (Myrbetriq] 25 Mg) 1 dose PO QDAY REPLACED BY [facility] Last Admin: 09/23/19 08:57 Dose: Not Given Documented by: Polyethylene Glycol (Miralax) 17 gm PO DAILYP PRN PRN Reason: Constipation Potassium Chloride (Klor-Con) 40 meq PO DAILYP PRN PRN Reason: K+ < 3.5 Senna/Docusate Sodium (Senna Plus Tablet) 1 tab PO HS REPLACED BY [facility] Last Admin: 09/22/19 20:50 Dose: Not Given Documented by: Sitagliptin Phosphate (Januvia) 100 mg PO DAILY REPLACED BY [facility] Last Admin: 09/23/19 08:53 Dose: 100 mg Documented by: Sodium Chloride (Saline Flush) 10 ml IV Q8 REPLACED BY [facility] Last Admin: 09/23/19 05:50 Dose: 10 ml Documented by: Vancomycin HCl (Vancomycin Per Pharmacy) 1 order IV UD REPLACED BY [facility]; Protocol A/P Narrative A/P Narrative: * Cellulitis with lymphangitis right lower extremity rapidly extending up to groin. Recurrent in nature with multiple hospitalizations. Continue broad antibiotic coverage - cefepime/vancomycin. Limb elevation/wound care consult/pancultures. CT lower extremity no evidence of abscess * E. coli bacteremia. ID consulted. CT abdomen pelvis unremarkable for source * Acute renal failure with creatinine up to 1.6. Continue monitoring. Nephrology consult if worsening * Sepsis secondary to above. 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 continue PPI. Hemoglobin 7.4. 2 units PRBC today * Cirrhosis/Shepherd ascites with elevated bilirubin-status post 2 L paracentesis. Studies pending. * History of CHF-continue diuresis/currently compensated * DM type II on liraglutide/CCD/sliding scale insulin * History of gout continue allopurinol * Degenerative disease continue home dose hydrocodone * Thrombocytopenia-at baseline, avoid heparins. * Anxiety disorder on fluoxetine * Morbid obesity with BMI over 60. Nutrition consult/directed therapies/offloading * GERD continue PPI * Prophylaxis fondaparinux * Full code Plan * Continue wound care per wound physician * Nephrology consult if worsening renal function * 2 units PRBC * replace K * Hold diuretics * De-escalate antibiotics to Rocephin per ID * Pre-existing medical condition management on home meds * Limb elevation/PT OT nutrition support * Prophylaxis fondaparinux Time Spent With Patient Time: Total time spent is greater than 50% in coordination of care (as documented) at patient's floor/unit and/or counseling patient:
[2019-09-23 10:18] LABS: Appearance, Body Fluid SLIGHTLY CLOUDY; Color, Body Fluid YELLOW; Mesothelial,Body Fluid 11 %; Nucleated Cells,Body Fld 139 /cumm; RBC, Body Fluid < 50000 /cumm; Total Cell Count Body Fld 100
[2019-09-23] MEDS: cefTRIAXone 2 GM in DEXTROSE 5% IN WATER 50 ML IV SCH (10:40)
--- NOTE | 2019-09-23 11:01 | General Surgery Progress Note ---
SUBJECTIVE Subjective Patient information: Note initiated : 09/23/19 at 10:54 am Service Date, if different from initiated Date: [] Patient: Francia Souza 68 y/o F admitted on 09/21/19 for nausea and cold. Chief Complaint: [] Additional PMFSH (Level 3 Only): Saw patient with nursing staff. Comfortable. DENIES Right leg pain. Swelling and petichia improving. Constitutional Vitals: Vital Signs Temp Pulse Resp BP Pulse Ox 98.4 F 71 13 137/58 100 09/23/19 08:01 09/23/19 08:01 09/23/19 08:01 09/23/19 08:01 09/23/19 08:01 Period Temp Pulse Resp BP Sys/Anaya Pulse Ox Last 24 Hr 98.4 F-99.5 F 69-75 13-19 84-137/40-66 93-100 Intake and Output 09/22/19 09/23/19 09/23/19 21:59 05:59 13:59 Intake Total 240 340 290 Output Total 350 300 Balance -110 40 290 Weight 343 lb Intake & Output: Intake & Output 09/22/19 09/23/19 09/23/19 21:59 05:59 13:59 Intake Total 240 340 290 Output Total 350 300 Balance -110 40 290 Weight 343 lb Intake: IV 50 Oral 240 340 240 Output: Urine Catheter Amount 350 300 Other: Meal Lunch Dinner Breakfast Percent of Meal Consumed 25% 50% 100% Feeding Ability Assist with Tray Set Up Urine Appearance Clear Clear Clear Uretheral (Wright) Clear Urine Color Dark Trisha Light Trisha Light Trisha Uretheral (Wright) Dark Trisha Urine Odor Normal Normal Exam: AVSS. Comfortable. Lucid and cooperative. Lab results reviewed. LOW platelets, Creatinine 1.6, Blood and Urine c/s E Coli. Imaging studies CT scans negative for loculated collections. A/P Narrative A/P Narrative: Assessment: NO interval developments from wound care point of view. SEPSIS source work up and treatment adjustment is ongoing. Plan: Continue current local skin care RLE. Time Spent With Patient Time: Total time spent is greater than 50% in coordination of care (as documented) at patient's floor/unit and/or counseling patient: Total time spent with greater than 50% in coordination of care (as documented) at patient's floor/unit and/or counseling patient:: 15 - 24 minutes
[2019-09-23] MEDS ORDERED: 0.9 % SODIUM CHLORIDE 250 ML IV SCH (11:30)
--- NOTE | 2019-09-23 13:20 | XRay Report ---
CLINICAL INFORMATION: Interval Change COMPARISON: 09/21/2019 FINDINGS: Moderate cardiomegaly is unchanged. Left subclavian Port-A-Cath is stable satisfactory position. Pulmonary vessels are mildly distended. No definite edema. There is minor right basilar atelectasis. IMPRESSION: Mild recurrent CHF and minor right basilar atelectasis Interpreted and Authenticated by: Reynaldo Mukherjee 09/23/19
[2019-09-23] MEDS: SENNOSIDES/DOCUSATE SODIUM 1 TAB TABLET PO SCH (21:17)
--- NOTE | 2019-09-23 22:00 | Infectious Disease Consult ---
HPI Data of Consult Primary Care Provider: Serge Jeffries M.D., F.A.A.FKateP. Consult Narrative cc:: CC: Ramin Donald 68 year old lady with multiple serious comorbidities (as noted under PMHx such as GAVE with chronic anemia, cirrhosis, with portal HTN, morbid obesity), and well known to me from past hospitalizations is admitted with right leg swelling, redness, fever, shaking chills. The fever and chills have been going on since 1 day. Pt reports that for last few weeks she has been gaining weight, and this has happpened despite doubling dose of Lasix she takes normally. She reports SOB with minimal exertion. In addition she has been having n/v for last 2 days and feeling weak overall. She came to ER at [facility] and was admitted for complicated Rt LE cellulitis in light of her fever (101F), other symptoms, elev procal of 0.39. Blood Cx were also sent which later came +ve for GNR. She also had 2.5 L of abd paracentesis, sent for GS, cell count and Cx. She was started on IV Vanc and IV Cefepime initially. At time of visit, pt confirmed above Hx. Adde that she thinks she could have been bitten by a spider in her leg. She denied any sick contacts. Mentions that in recent few mnths her had pneumonia. Has few caregivers come to her home every day for assistance with ADLs. Also has a port placement in 2018 for help with recurrent blood transfusions. Review of Systems All systems: reviewed and no additional remarkable complaints except as stated [facility] Medical History Abdominal pain (Chronic) For some reason this comes up as qualifier but there is no diagnosis with this Abdominal pain (Acute) Abscess of breast, right (Resolved) Acquired pancytopenia (Resolved) Acute blood loss anemia (Resolved) Adverse reaction to antidiabetic drug (Resolved) Anemia (Resolved) Anemia (Resolved) Anemia (Resolved) Anemia (Resolved) Anemia (Resolved) Anemia (Resolved) Anemia (Resolved) Anxiety (Chronic) 1973 Arthralgia (Chronic) Chronic Arthralgia of multiple joints (Chronic) Back Pain (Chronic) Bacteremia (Resolved) Bloating (Resolved) Bronchitis (Resolved) Cellulitis (Resolved) Chronic pain (Chronic) Cirrhosis (Resolved) Closed avulsion fracture of trochanter of right femur (Resolved) Congestive heart failure (Resolved) Congestive heart failure (Chronic) Contusion of right leg (Resolved) Copper deficiency (Chronic) Cough (Resolved) DDD (degenerative disc disease), lumbar (Resolved) Dependent edema (Chronic) Depression (Chronic) Diabetes type 2, uncontrolled (Chronic) DMII (diabetes mellitus, type 2) (Resolved) 1989 Elevated alkaline phosphatase level (Chronic) 180-200 chronically Elevated blood uric acid level (Chronic) Elevated serum creatinine (Resolved) Erosive gastritis with hemorrhage (Chronic) Esophageal varices (Chronic) Esophagitis (Chronic) With esophageal stricture Esophagitis determined by endoscopy (Chronic) Fall (on) (from) other stairs and steps, initial encounter (Resolved) Gallbladder problem (Chronic) 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, chronic Polyclonal gammopathy (Chronic) Portal hypertension (Resolved) Rectal bleeding (Resolved) Sinusitis, chronic (Chronic) SIRS (systemic inflammatory response syndrome) (Resolved) Upper gastrointestinal bleeding (Resolved) Zinc deficiency (Chronic) Surgical History History of hysterectomy (Acute) History of oophorectomy (Acute) History of surgery (Acute) 01/06/[id number] placement History of tonsillectomy (Acute) History of total left knee replacement (Resolved) 2012 History of total right knee replacement (Resolved) 2012 S/P ORIF (open reduction internal fixation) fracture (Resolved) 2014 Left femur with steel plate and screws Family History Mother Arthritis Squamous cell carcinoma Diabetes mellitus Essential hypertension Brother Arthritis Malignant neoplasm of kidney Malignant neoplasm of liver Malignant neoplasm of pharynx Malignant neoplasm of pancreas Sister Arthritis Diabetes mellitus Essential hypertension Depression Father Malignant neoplasm of lung Grandmother-paternal Diabetes mellitus Social History marital status: other: Children-2 smoking status: Never smoker alcohol intake frequency: does not drink substance use type: does not use additional history: Ambulates with a walker and lives at home with her . quit smoking 25 years ago MEDS/ALLERGIES Home Medications and Allergies Home Medications Medication Instructions Recorded Confirmed Type acetaminophen 500 mg capsule 1,000 mg PO Q4H PRN cap 05/19/18 09/22/19 History liraglutide 0.6 mg/0.1 mL (18 mg/3 1.8 mg SUB-Q QDAY #6 ml 07/19/19 09/22/19 Rx mL) subcutaneous pen injector allopurinol [Zyloprim] 100 mg PO QDAY 08/13/19 09/22/19 History alum-mag hydroxide-simeth [Maalox 5 ml PO QID PRN 08/13/19 09/22/19 History Maximum Strength] famotidine [Pepcid] 20 mg PO BID 08/13/19 09/22/19 History fluoxetine [Prozac] 20 mg PO QDAY 08/13/19 09/22/19 History pantoprazole [Protonix] 40 mg PO BID 08/13/19 09/22/19 History furosemide 40 mg tablet 40 mg PO BID tab 08/30/19 09/22/19 History ceftriaxone 2 gm IV Q24H #1 ea 09/26/19 Rx fondaparinux 2.5 mg SQ DAILY #1 ml 09/26/19 Rx Allergies Allergy/AdvReac Type Severity Reaction Status Date / Time Sulfa (Sulfonamide Allergy Unknown Unknown Verified 09/17/19 11:16 Antibiotics) adhesive AdvReac Intermediate edwards Verified 09/17/19 11:16 Fish Containing Products AdvReac Intermediate Other Verified 09/17/19 11:16 codeine AdvReac Mild Confusion Verified 09/17/19 11:16 latex AdvReac Mild Itching Verified 09/17/19 11:16 oxycodone [From Percocet] AdvReac Mild Confusion Verified 09/17/19 11:16 squash AdvReac Mild Nausea Verified 09/17/19 11:16 MRI (implant/left ankle) AdvReac Intermediate Pain Uncoded 08/30/19 13:25 Physical Examination Vital Signs Vital signs: Temp Pulse Resp BP Pulse Ox 37.0 C 68 15 125/49 99 09/23/19 20:30 09/23/19 20:30 09/23/19 20:30 09/23/19 20:30 09/23/19 20:30 Constitutional General appearance: appears uncomfortable EENT Eyes pulmonary: nonicteric ENT: oropharynx moist and other (no thrush) Respiratory Auscultation: bilateral: diminished breath sounds (at bases) Cardiovascular Cardiovascular: murmur noted (ejection systolic murmur best heard at Rt 2nd ICS) and other (s1 soft, s2 normal) Gastrointestinal Gastrointestinal: normoactive bowel sounds, non-tender and other (distended) Extremities Extremities: other (swollen and red right leg compared to other side. Single superficial ulcer over gudino, no pus. Redness extends to lower inner thigh. no blisters, purpura) Results Laboratory Findings CBC and BMP: 09/26/19 05:15 09/26/19 05:15 ABG, PT/INR, D-dimer: PT/INR, D-dimer PT 17.6 sec (11.9-14.5) H 09/21/19 14:53 INR 1.4 (0.9-1.1) H 09/21/19 14:53 Abnormal lab findings: Abnormal Labs 09/21/19 09/21/19 09/21/19 14:24 14:53 14:53 RBC 2.52 L Hgb 8.4 L Hct 25.8 L MCV 102.4 H MCH RDW 16.6 H Plt Count 90 L MPV 10.6 H Gran % 91.7 H Lymph % (Auto) 3.1 L Lymph # (Auto) 0.16 L Seg Neutrophils % Band Neutrophils % Lymphocytes % Polychromasia Anisocytosis Macrocytosis PT 17.6 H INR 1.4 H Potassium BUN Creatinine Glucose Uric Acid Calcium Total Bilirubin Direct Bilirubin GGT Alkaline Phosphatase NT-Pro-B Natriuret Pep Albumin Globulin Albumin/Globulin Ratio Urine Occult Blood 0.2 A Urine Urobilinogen 2.0 A Urine RBC 27 H Hyaline Casts 23 H 09/21/19 09/22/19 09/22/19 14:53 04:31 04:31 RBC 2.25 L Hgb 7.7 L Hct 23.4 L MCV 104.0 H MCH 34.2 H RDW 16.8 H Plt Count 76 L MPV 11.4 H Gran % Lymph % (Auto) Lymph # (Auto) Seg Neutrophils % Band Neutrophils % 21 H Lymphocytes % 2 L Polychromasia 1+ A Anisocytosis 1+ A Macrocytosis 1+ A PT INR Potassium 3.0 L BUN 27 H Creatinine 1.2 H Glucose Uric Acid 10.3 H Calcium 8.2 L 7.8 L Total Bilirubin 2.1 H 1.8 H Direct Bilirubin 1.0 H GGT 180 H Alkaline Phosphatase 151 H NT-Pro-B Natriuret Pep 1910.0 H Albumin 2.6 L 2.2 L Globulin 4.3 H Albumin/Globulin Ratio 0.6 L 0.6 L Urine Occult Blood Urine Urobilinogen Urine RBC Hyaline Casts 09/23/19 09/23/19 04:18 04:18 RBC 2.06 L Hgb 7.4 L Hct 21.4 L MCV 103.9 H MCH 35.9 H RDW 16.5 H Plt Count 64 L MPV 11.1 H Gran % Lymph % (Auto) Lymph # (Auto) Seg Neutrophils % 89 H Band Neutrophils % Lymphocytes % 7 L Polychromasia Anisocytosis 1+ A Macrocytosis 1+ A PT INR Potassium BUN 35 H Creatinine 1.6 H Glucose 120 H Uric Acid 9.8 H Calcium 7.9 L Total Bilirubin 1.4 H Direct Bilirubin 0.7 H GGT 164 H Alkaline Phosphatase 120 H NT-Pro-B Natriuret Pep Albumin 2.3 L Globulin Albumin/Globulin Ratio 0.6 L Urine Occult Blood Urine Urobilinogen Urine RBC Hyaline Casts Microbiology: Microbiology 09/21/19 17:15 Abdominal Fluid Gram Stain - Final 09/21/19 17:15 Abdominal Fluid Body Fluid Culture - Final 09/21/19 14:55 Blood Blood Culture - Final Escherichia coli 09/21/19 14:44 Blood Blood Culture - Preliminary Gram negative bacillus A/P Assessment and plan (1) MARAH (acute kidney injury): Status: Acute Narrative A/P Narrative: A: 1. E coli bacteremia: non ESBL isolate, sens to all antibiotics except Tetracyclines - no sepsis - likely portal of entry being lower extremity skin in setting of cellulitis, skin breakdown around the perineal area? - risk factors: cirrhosis with portal hypertension, obesity, skin breakdown around the perineal area - Hx of similar episodes in last 4-5 months - [address] imaging of abd/pelvis neg for any focus of infection 2. Rt LE cellulitis: - no concerns for osteomyelitis and nec facsitis on CT imaging 3. 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 4. Ascites: sec to cirrhosis with portal HTN - cell count 139 WBC witth 4% PMNs, so far Cx NGTD Recommendations: - Stop IV Cefepime - Start IV Ceftriaxone 2 gm q24 hrs - consider monthly decolonization for 5 day course with 4% hibiclens soap, to be applied below neck all over body and left for 5 min and rinse with water. will follow Lance Dean MD Infectious diseases Time Spent With Patient Time: Total time spent is greater than 50% in coordination of care (as documen nas) at patient's floor/unit and/or counseling patient:
[2019-09-24] MEDS: 0.9 % SODIUM CHLORIDE 10 ML SYRINGE IV SCH ×3 (05:12→20:44)
[2019-09-24 06:52] LABS: Hematocrit 25.8 % (34.1-44.9); Hemoglobin 9.2 g/dL (11.2-15.7); Mean Cell Volume 100.4 fL (80.0-100.0); Mean Corpuscular HGB Conc 35.7 g/dL (31.0-36.0); Mean Platelet Volume 12.3 fL (7.4-10.4); Platelet Count 65 K/mcL (140-440); RBC 2.57 M/mcL (3.59-5.38); Red Cell Distribution Width 16.3 % (11.5-14.5); WBC 8.8 K/mcL (4.50-11.00)
[2019-09-24] MEDS: PANTOPRAZOLE 40 MG TABLET PO SCH ×2 (06:58→16:09)
[2019-09-24] MEDS: ACETAMINOPHEN 325 MG TABLET PO PRN ×3 (06:58→18:32)
[2019-09-24] MEDS: INSULIN LISPRO 1 UNIT/0.01 ML UNIT SQ SCH ×4 (06:59→20:37)
[2019-09-24 07:20] LABS: ALT/SGPT 11 U/l (0-40); AST/SGOT 29 U/l (0-37); Albumin 2.3 gm/dL (3.2-5.2); Albumin/Globulin Ratio 0.5 (1.0-2.3); Alkaline Phosphatase 155 U/L (39-117); Bilirubin,Direct 0.7 mg/dL (0.0-0.3); Bilirubin,Total 1.4 mg/dL (0.0-1.0); Blood Urea Nitrogen 34 mg/dl (8-23); Carbon Dioxide 26 mmol/L (22-30); Chloride 102 mmol/L (96-108); Globulin 4.2 gm/dL (2.2-3.7); Glomerular Filtration Rate 30; Glucose 112 mg/dL (70-105); Lactate Dehydrogenase 252 U/L (94-250); Phosphorous 3.6 mg/dL (2.7-4.5); Triglycerides 117 mg/dl (<150)
[2019-09-24 08:47] LABS: Anisocytosis 1+ (NONE SEEN); Band Neutrophils % 1 % (0-10); Eosinophils % (Manual) 6 % (0-7); Lymphocytes % 7 % (15-49); Macrocytosis 1+ (NONE SEEN); Monocytes % (Manual) 12 % (1-12); Platelet Estimate DECREASED (NORMAL); Polychromasia 1+ (NONE SEEN); RBC Morphology ABNORM (NORMAL); Segmented Neutrophils % 74 % (38-78)
[2019-09-24] MEDS: FLUoxetine HCL 20 MG CAPSULE PO SCH (09:43)
[2019-09-24] MEDS: FONDAPARINUX SODIUM 2.5 MG/0.5 ML SYRINGE SQ SCH (09:43)
[2019-09-24] MEDS: cefTRIAXone 2 GM in DEXTROSE 5% IN WATER 50 ML IV SCH (09:43)
[2019-09-24] MEDS: FAMOTIDINE 20 MG TABLET PO SCH ×2 (09:43→20:44)
[2019-09-24] MEDS: FUROSEMIDE 40 MG TABLET PO SCH (09:43)
[2019-09-24] MEDS: ALLOPURINOL 100 MG TABLET PO SCH (09:43)
[2019-09-24] MEDS: VANCOMYCIN 1,500 MG in 0.9 % SODIUM CHLORIDE 500 ML IV SCH (09:43)
[2019-09-24] MEDS: LIRAGLUTIDE 1.8 MG SUB-Q SCH (09:43)
[2019-09-24] MEDS: MULTIVIT,THER IRON,CA,FA & MIN 1 TABLET PO SCH (09:44)
[2019-09-24] MEDS: sitaGLIPtin 100 MG TABLET PO SCH (09:44)
[2019-09-24] MEDS: DOCUSATE SODIUM 100 MG CAPSULE PO SCH ×2 (10:15→20:43)
[2019-09-24] MEDS: Mirabegron [Myrbetriq] 25 MG PO SCH (10:15)
--- NOTE | 2019-09-24 10:59 | Internal Med Progress Note ---
SUBJECTIVE Subjective Patient information: Note initiated : 09/24/19 at 10:53 am Service Date, if different from initiated Date: [] Patient: Francia Souza 68 y/o F admitted on 09/21/19 for nausea and cold. Chief Complaint: History of present illness: Ms. Souza is a 68 year old F WBC to BMI over 60 and recurrent right lower extremity cellulitis/bacteremia since May 2019 who was recently transferred to [facility] for evaluation of Pseudomonas bacteremia and GI bleed for which he underwent EGD and was managed with antibiotics. Patient was subsequently transferred to [facility] for swing bed admission and rehab was discharged home following 10 days of aggressive antibiotics/rehab. Following discharge she saw her PCP//cardiology on 09/18. She has been noted increasing weight gain since discharge. She also noticed increasing abdominal swelling/leg edema and generalized weakness. For the last couple days she has noticed fever, shaking chills and right lower extremity pain along with associated weakness, nausea vomiting and difficulty breathing. With worsening symptoms she presents to the ER for evaluation. Initial work-up was consistent with right lower extremity cellulitis/ascites requiring paracentesis over 2000 cc. Potassium 3. Ascitic fluid was sent for evaluation. Subsequently hospitalist service was consulted for admission for management of cellulitis/lymphangitis. At the time of evaluation patient is alert and oriented. She denies active distress. He feels a lot better. She endorses history as above. She denies recent trauma. She endorses that cellulitis started after a spider bite while she was at the care facility in March 31-patient doing better. However gram-negative bacteremia on cultures. ID consulted. Wound care on board. CT abdomen pelvis/lower extremity imaging to rule out abscess/source of bacteremia. On cefepime/vancomycin. Will de- escalate based on sensitivities. No overnight fever chills. Creatinine 1.2, white count 8.4. 8-patient seen in room. No overnight events. Creatinine up to 1.6. Hemoglobin down to 7.4. Units PRBC transfusion today. Lower diuretics. Antibiotics de-escalated to Rocephin. Continue PT OT. No CT evidence of abscess or source for bacteremia. E. coli on culture. Stable hemodynamics. 09/23-doing well. No overnight events. No concerns per nursing staff. Creatinine 1.7. On antibiotic coverage. Case discussed with ID. Will require possibly removal of port due to likely port contamination. Surgery consulted by ID.Hemoglobin 9.2 following 2 PRBC units transfusion. Constitutional Vitals: Vital Signs Temp Pulse Resp BP Pulse Ox 98.2 F 67 15 151/66 95 09/24/19 08:02 09/24/19 04:31 09/24/19 08:02 09/24/19 08:02 09/24/19 08:02 Period Temp Pulse Resp BP Sys/Anaya Pulse Ox Last 24 Hr 97.9 F-98.6 F 65-71 - 88-151/38-81 95-100 Intake and Output 09/23/19 09/24/19 09/24/19 21:59 05:59 13:59 Intake Total 1510 240 Output Total 750 1150 Balance 760 -910 Weight 154.357 kg Alert oriented Much improved redness right lower extremity 4 x 4 cm circular ulcerated lesion right leg Ascites/distended abdomen Intake & Output: Intake & Output 09/23/19 09/24/19 09/24/19 21:59 05:59 13:59 Intake Total 1510 240 Output Total 750 1150 Balance 760 -910 Weight 154.357 kg Intake: IV 500 Vancomycin 1,500 mg In Sodium 500 Chloride 0.9% 500 ml @ 333.3 mls/hr IV Q24H [facility] Rx#: [id number] Oral 360 240 Blood Product 650 Output: Urine Catheter Amount 750 1150 Other: Meal Dinner Breakfast Percent of Meal Consumed 75% 100% Feeding Ability Independent Urine Appearance Clear Clear Clear Urine Color Light Trisha Dark Yellow Dark Yellow Urine Odor Normal Normal OBJ DATA Labs CBC & Chem 7: 09/24/19 04:42 09/24/19 04:42 Labs: Abnormal Lab Results 09/24/19 09/24/19 09/23/19 04:42 04:42 04:18 RBC 2.57 L Hgb 9.2 L Hct 25.8 L MCV 100.4 H MCH 35.8 H RDW 16.3 H Plt Count 65 L MPV 12.3 H Gran % Lymph % (Auto) Lymph # (Auto) Seg Neutrophils % Band Neutrophils % Lymphocytes % 7 L RBC Morphology Abnorm A Polychromasia 1+ A Anisocytosis 1+ A Macrocytosis 1+ A PT INR Potassium BUN 34 H 35 H Creatinine 1.7 H 1.6 H Glucose 112 H 120 H Uric Acid 10.0 H 9.8 H Calcium 8.0 L 7.9 L Total Bilirubin 1.4 H 1.4 H Direct Bilirubin 0.7 H 0.7 H GGT 171 H 164 H Alkaline Phosphatase 155 H 120 H Lactate Dehydrogenase 252 H NT-Pro-B Natriuret Pep Albumin 2.3 L 2.3 L Globulin 4.2 H Albumin/Globulin Ratio 0.5 L 0.6 L Urine Occult Blood Urine Urobilinogen Urine RBC Hyaline Casts 09/23/19 09/22/19 09/22/19 04:18 04:31 04:31 RBC 2.06 L 2.25 L Hgb 7.4 L 7.7 L Hct 21.4 L 23.4 L MCV 103.9 H 104.0 H MCH 35.9 H 34.2 H RDW 16.5 H 16.8 H Plt Count 64 L 76 L MPV 11.1 H 11.4 H Gran % Lymph % (Auto) Lymph # (Auto) Seg Neutrophils % 89 H Band Neutrophils % 21 H Lymphocytes % 7 L 2 L RBC Morphology Polychromasia 1+ A Anisocytosis 1+ A 1+ A Macrocytosis 1+ A 1+ A PT INR Potassium BUN 27 H Creatinine 1.2 H Glucose Uric Acid 10.3 H Calcium 7.8 L Total Bilirubin 1.8 H Direct Bilirubin 1.0 H GGT 180 H Alkaline Phosphatase Lactate Dehydrogenase NT-Pro-B Natriuret Pep Albumin 2.2 L Globulin Albumin/Globulin Ratio 0.6 L Urine Occult Blood Urine Urobilinogen Urine RBC Hyaline Casts 09/21/19 09/21/19 09/21/19 14:53 14:53 14:53 RBC 2.52 L Hgb 8.4 L Hct 25.8 L MCV 102.4 H MCH RDW 16.6 H Plt Count 90 L MPV 10.6 H Gran % 91.7 H Lymph % (Auto) 3.1 L Lymph # (Auto) 0.16 L Seg Neutrophils % Band Neutrophils % Lymphocytes % RBC Morphology Polychromasia Anisocytosis Macrocytosis PT 17.6 H INR 1.4 H Potassium 3.0 L BUN Creatinine Glucose Uric Acid Calcium 8.2 L Total Bilirubin 2.1 H Direct Bilirubin GGT Alkaline Phosphatase 151 H Lactate Dehydrogenase NT-Pro-B Natriuret Pep 1910.0 H Albumin 2.6 L Globulin 4.3 H Albumin/Globulin Ratio 0.6 L Urine Occult Blood Urine Urobilinogen Urine RBC Hyaline Casts 09/21/19 14:24 RBC Hgb Hct MCV MCH RDW Plt Count MPV Gran % Lymph % (Auto) Lymph # (Auto) Seg Neutrophils % Band Neutrophils % Lymphocytes % RBC Morphology Polychromasia Anisocytosis Macrocytosis PT INR Potassium BUN Creatinine Glucose Uric Acid Calcium Total Bilirubin Direct Bilirubin GGT Alkaline Phosphatase Lactate Dehydrogenase NT-Pro-B Natriuret Pep Albumin Globulin Albumin/Globulin Ratio Urine Occult Blood 0.2 A Urine Urobilinogen 2.0 A Urine RBC 27 H Hyaline Casts 23 H Meds: Medications Acetaminophen (Tylenol) 650 mg PO Q4-6HP PRN; Protocol PRN Reason: Per Pain Protocol/Fever > 101 Last Admin: 09/24/19 06:58 Dose: 650 mg Documented by: Al Hydrox/Mg Hydrox/Simethicone (Maalox) 5 ml PO QIDP PRN PRN Reason: Acid Reflux Allopurinol (Zyloprim) 100 mg PO QDAY [facility] Last Admin: 09/24/19 09:43 Dose: 100 mg Documented by: Bisacodyl (Dulcolax) 10 mg [place] Q2-3DAYS PRN PRN Reason: Constipation Dextrose (Dextrose 50%) 0 ml IV UD PRN PRN Reason: Hypoglycemia Diagnostic Test (Pha) (Accu-Chek) 1 each FS ACHS [facility] Last Admin: 09/24/19 06:58 Dose: 1 each Documented by: Docusate Sodium (Colace) 100 mg PO BID [facility] Last Admin: 09/24/19 10:15 Dose: Not Given Documented by: Famotidine (Pepcid) 20 mg PO BID [facility] Last Admin: 09/24/19 09:43 Dose: 20 mg Documented by: Fluoxetine HCl (Prozac) 20 mg PO QDAY [facility] Last Admin: 09/24/19 09:43 Dose: 20 mg Documented by: Fondaparinux (Arixtra) 2.5 mg SQ DAILY [facility] Last Admin: 09/24/19 09:43 Dose: 2.5 mg Documented by: Furosemide (Lasix) 40 mg PO DAILY [facility] Last Admin: 09/24/19 09:43 Dose: 40 mg Documented by: Glucose (Insta-Glucose) 15 gm PO PRN PRN PRN Reason: Hypoglycemia Heparin Sodium (Porcine) (Heparin 10 Units/Ml Flush) 5 ml IV Q12 [facility] Last Admin: 09/24/19 09:44 Dose: 5 ml Documented by: Hydromorphone HCl (Dilaudid) 0 mg IV Q4HP PRN; Protocol PRN Reason: Per Pain Protocol Magnesium Sulfate (Magnesium Sulfate) 2 gm in 50 mls @ 50 mls/hr IV UD PRN PRN Reason: MG = or < 1.7 Last Infusion: 09/23/19 06:35 Dose: Infused Documented by: Vancomycin HCl 1,500 mg/ (Sodium Chloride) 500 mls @ 333.3 mls/hr IV Q24H [facility] Last Admin: 09/24/19 09:43 Dose: 333.3 mls/hr Documented by: Ceftriaxone Sodium 2 gm/ (Dextrose) 50 mls @ 100 mls/hr IV Q24H [facility]; Protocol Last Admin: 09/24/19 09:43 Dose: 100 mls/hr Documented by: Insulin Human Lispro (Humalog) 0 unit SQ ACHS [facility]; Protocol Last Admin: 09/24/19 06:59 Dose: Not Given Documented by: Iron Carb/Multivit/Bathing Suit Maker/Folic Acid (Multivitamin W/Minerals) 1 tab PO DAILY S Last Admin: 09/24/19 09:44 Dose: 1 tab Documented by: Melatonin (Melatonin 3mg Tablet) 3 mg PO HSP PRN PRN Reason: Insomnia Metoprolol Tartrate (Lopressor) 5 mg IV Q5M PRN PRN Reason: Heart Rate > 140 bpm Ondansetron HCl (Zofran Odt) 4 mg SL Q4-6HP PRN; Protocol PRN Reason: Nausea And Vomiting Ondansetron HCl (Zofran) 4 mg IV Q4-6HP PRN; Protocol PRN Reason: Nausea And Vomiting Pantoprazole Sodium (Protonix) 40 mg PO BIDAC [facility] Last Admin: 09/24/19 06:58 Dose: 40 mg Documented by: Liraglutide [Victoza (2-Cj] 1.8 Mg Sq) 1 dose SUB-Q QDAY [facility] Last Admin: 09/24/19 09:43 Dose: 1 dose Documented by: Mirabegron [ (Myrbetriq] 25 Mg) 1 dose PO QDAY [facility] Last Admin: 09/24/19 10:15 Dose: Not Given Documented by: Polyethylene Glycol (Miralax) 17 gm PO DAILYP PRN PRN Reason: Constipation Potassium Chloride (Klor-Con) 40 meq PO DAILYP PRN PRN Reason: K+ < 3.5 Senna/Docusate Sodium (Senna Plus Tablet) 1 tab PO HS [facility] Last Admin: 09/23/19 21:17 Dose: 1 tab Documented by: Sitagliptin Phosphate (Januvia) 100 mg PO DAILY [facility] Last Admin: 09/24/19 09:44 Dose: 100 mg Documented by: Sodium Chloride (Saline Flush) 10 ml IV Q8 [facility] Last Admin: 09/24/19 05:12 Dose: 10 ml Documented by: Vancomycin HCl (Vancomycin Per Pharmacy) 1 order IV UD [facility]; Protocol A/P Narrative A/P Narrative: * Cellulitis with lymphangitis right lower extremity rapidly extending up to groin. Recurrent in nature with multiple hospitalizations. Continue broad antibiotic coverage - cefepime/vancomycin. Limb elevation/wound care consul t/pancultures. CT lower extremity no evidence of abscess * E. coli bacteremia. ID consulted. Surgery consulted for possible port removal/likely contamination. CT abdomen pelvis unremarkable for source * Acute renal failure with creatinine up to 1.7. Continue monitoring. Nephrology consult today for suspected hepatorenal syndrome * Sepsis secondary to above. 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. continue PPI. 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 Diuretics held in light of worsening renal function. Studies pending. * History of CHF-continue diuresis/currently compensated * DM type II on liraglutide/CCD/sliding scale insulin * History of gout continue allopurinol * Degenerative disease continue home dose hydrocodone * Thrombocytopenia-at baseline, avoid heparins. * Anxiety disorder on fluoxetine * Morbid obesity with BMI over 60. Nutrition consult/directed therapies/offloading * GERD continue PPI * Prophylaxis fondaparinux * Full code Plan * Continue wound care per wound physician * Nephrology consult * Echocardiogram * Surgery consult for port removal * Hold diuretics * Continue Rocephin per ID * Pre-existing medical condition management on home meds * Limb elevation/PT OT nutrition support * Prophylaxis fondaparinux Time Spent With Patient Time: Total time spent is greater than 50% in coordination of care (as documented) at patient's floor/unit and/or counseling patient:
--- NOTE | 2019-09-24 11:38 | Internal Med Progress Note ---
SUBJECTIVE Subjective Patient information: Note initiated : 09/24/19 at 11:35 am Service Date, if different from initiated Date: [] Patient: Francia Souza 68 y/o F admitted on 09/21/19 for nausea and cold. Chief Complaint: [] Patient feels better than yesterday. Denies any fever, chills, nausea, vomiting. Endorses constipation. Endorses right leg pain but better than before. Feels that her mood is better today. Endorses discomfort at the left Port-A-Cath site. Mentions that has been going on since July 2019. Constitutional Vitals: Vital Signs Temp Pulse Resp BP Pulse Ox 36.8 C 67 15 151/66 95 09/24/19 08:02 09/24/19 04:31 09/24/19 08:02 09/24/19 08:02 09/24/19 08:02 Period Temp Pulse Resp BP Sys/Anaya Pulse Ox Last 24 Hr 36.6 C-37.0 C 65-71 - 88-151/38-81 95-100 Intake and Output 09/23/19 09/24/19 09/24/19 21:59 05:59 13:59 Intake Total 1510 240 Output Total 750 1150 Balance 760 -910 Weight 154.357 kg Intake & Output: Intake & Output 09/23/19 09/24/19 09/24/19 21:59 05:59 13:59 Intake Total 1510 240 Output Total 750 1150 Balance 760 -910 Weight 154.357 kg Intake: IV 500 Vancomycin 1,500 mg In Sodium 500 Chloride 0.9% 500 ml @ 333.3 mls/hr IV Q24H [facility] Rx#: [id number] Oral 360 240 Blood Product 650 Output: Urine Catheter Amount 750 1150 Other: Meal Dinner Breakfast Percent of Meal Consumed 75% 100% Feeding Ability Independent Urine Appearance Clear Clear Clear Urine Color Light Trisha Dark Yellow Dark Yellow Urine Odor Normal Normal Additional findings Additional findings: ao x 3, in nad Chest is clear to auscultation anteriorly Left Port-A-Cath is tender on deep palpation. No redness, fluctuance, pus dr ainage observed around it s1 soft, s2 normal, has 2/6 systolic murmur best heard at right 2nd ICS bs ++, mild tenderness in left lower quadrant, no guarding right leg: swelling going down. Still few areas of redness over calf and distal thigh. Pitting edema in both lower legs. Has no sensation to light touch over feet. OBJ DATA Labs CBC & Chem 7: 09/24/19 04:42 09/24/19 04:42 Labs: Abnormal Lab Results 09/24/19 09/24/19 09/23/19 04:42 04:42 04:18 RBC 2.57 L Hgb 9.2 L Hct 25.8 L MCV 100.4 H MCH 35.8 H RDW 16.3 H Plt Count 65 L MPV 12.3 H Gran % Lymph % (Auto) Lymph # (Auto) Seg Neutrophils % Band Neutrophils % Lymphocytes % 7 L RBC Morphology Abnorm A Polychromasia 1+ A Anisocytosis 1+ A Macrocytosis 1+ A PT INR Potassium BUN 34 H 35 H Creatinine 1.7 H 1.6 H Glucose 112 H 120 H Uric Acid 10.0 H 9.8 H Calcium 8.0 L 7.9 L Total Bilirubin 1.4 H 1.4 H Direct Bilirubin 0.7 H 0.7 H GGT 171 H 164 H Alkaline Phosphatase 155 H 120 H Lactate Dehydrogenase 252 H NT-Pro-B Natriuret Pep Albumin 2.3 L 2.3 L Globulin 4.2 H Albumin/Globulin Ratio 0.5 L 0.6 L Urine Occult Blood Urine Urobilinogen Urine RBC Hyaline Casts 09/23/19 09/22/19 09/22/19 04:18 04:31 04:31 RBC 2.06 L 2.25 L Hgb 7.4 L 7.7 L Hct 21.4 L 23.4 L MCV 103.9 H 104.0 H MCH 35.9 H 34.2 H RDW 16.5 H 16.8 H Plt Count 64 L 76 L MPV 11.1 H 11.4 H Gran % Lymph % (Auto) Lymph # (Auto) Seg Neutrophils % 89 H Band Neutrophils % 21 H Lymphocytes % 7 L 2 L RBC Morphology Polychromasia 1+ A Anisocytosis 1+ A 1+ A Macrocytosis 1+ A 1+ A PT INR Potassium BUN 27 H Creatinine 1.2 H Glucose Uric Acid 10.3 H Calcium 7.8 L Total Bilirubin 1.8 H Direct Bilirubin 1.0 H GGT 180 H Alkaline Phosphatase Lactate Dehydrogenase NT-Pro-B Natriuret Pep Albumin 2.2 L Globulin Albumin/Globulin Ratio 0.6 L Urine Occult Blood Urine Urobilinogen Urine RBC Hyaline Casts 09/21/19 09/21/19 09/21/19 14:53 14:53 14:53 RBC 2.52 L Hgb 8.4 L Hct 25.8 L MCV 102.4 H MCH RDW 16.6 H Plt Count 90 L MPV 10.6 H Gran % 91.7 H Lymph % (Auto) 3.1 L Lymph # (Auto) 0.16 L Seg Neutrophils % Band Neutrophils % Lymphocytes % RBC Morphology Polychromasia Anisocytosis Macrocytosis PT 17.6 H INR 1.4 H Potassium 3.0 L BUN Creatinine Glucose Uric Acid Calcium 8.2 L Total Bilirubin 2.1 H Direct Bilirubin GGT Alkaline Phosphatase 151 H Lactate Dehydrogenase NT-Pro-B Natriuret Pep 1910.0 H Albumin 2.6 L Globulin 4.3 H Albumin/Globulin Ratio 0.6 L Urine Occult Blood Urine Urobilinogen Urine RBC Hyaline Casts 09/21/19 14:24 RBC Hgb Hct MCV MCH RDW Plt Count MPV Gran % Lymph % (Auto) Lymph # (Auto) Seg Neutrophils % Band Neutrophils % Lymphocytes % RBC Morphology Polychromasia Anisocytosis Macrocytosis PT INR Potassium BUN Creatinine Glucose Uric Acid Calcium Total Bilirubin Direct Bilirubin GGT Alkaline Phosphatase Lactate Dehydrogenase NT-Pro-B Natriuret Pep Albumin Globulin Albumin/Globulin Ratio Urine Occult Blood 0.2 A Urine Urobilinogen 2.0 A Urine RBC 27 H Hyaline Casts 23 H Meds: Medications Acetaminophen (Tylenol) 650 mg PO Q4-6HP PRN; Protocol PRN Reason: Per Pain Protocol/Fever > 101 Last Admin: 09/24/19 06:58 Dose: 650 mg Documented by: Al Hydrox/Mg Hydrox/Simethicone (Maalox) 5 ml PO QIDP PRN PRN Reason: Acid Reflux Allopurinol (Zyloprim) 100 mg PO QDAY [facility] Last Admin: 09/24/19 09:43 Dose: 100 mg Documented by: Bisacodyl (Dulcolax) 10 mg TN Q2-3DAYS PRN PRN Reason: Constipation Dextrose (Dextrose 50%) 0 ml IV UD PRN PRN Reason: Hypoglycemia Diagnostic Test (Pha) (Accu-Chek) 1 each FS ACHS [facility] Last Admin: 09/24/19 11:14 Dose: 1 each Documented by: Docusate Sodium (Colace) 100 mg PO BID [facility] Last Admin: 09/24/19 10:15 Dose: Not Given Documented by: Famotidine (Pepcid) 20 mg PO BID [facility] Last Admin: 09/24/19 09:43 Dose: 20 mg Documented by: Fluoxetine HCl (Prozac) 20 mg PO QDAY [facility] Last Admin: 09/24/19 09:43 Dose: 20 mg Documented by: Fondaparinux (Arixtra) 2.5 mg SQ DAILY [facility] Last Admin: 09/24/19 09:43 Dose: 2.5 mg Documented by: Furosemide (Lasix) 40 mg PO DAILY [facility] Last Admin: 09/24/19 09:43 Dose: 40 mg Documented by: Glucose (Insta-Glucose) 15 gm PO PRN PRN PRN Reason: Hypoglycemia Heparin Sodium (Porcine) (Heparin 10 Units/Ml Flush) 5 ml IV Q12 [facility] Last Admin: 09/24/19 09:44 Dose: 5 ml Documented by: Hydromorphone HCl (Dilaudid) 0 mg IV Q4HP PRN; Protocol PRN Reason: Per Pain Protocol Magnesium Sulfate (Magnesium Sulfate) 2 gm in 50 mls @ 50 mls/hr IV UD PRN PRN Reason: MG = or < 1.7 Last Infusion: 09/23/19 06:35 Dose: Infused Documented by: Vancomycin HCl 1,500 mg/ (Sodium Chloride) 500 mls @ 333.3 mls/hr IV Q24H [facility] Last Admin: 09/24/19 09:43 Dose: 333.3 mls/hr Documented by: Ceftriaxone Sodium 2 gm/ (Dextrose) 50 mls @ 100 mls/hr IV Q24H [facility]; Protocol Last Admin: 09/24/19 09:43 Dose: 100 mls/hr Documented by: Insulin Human Lispro (Humalog) 0 unit SQ ACHS [facility]; Protocol Last Admin: 09/24/19 11:14 Dose: Not Given Documented by: Iron Carb/Multivit/Kittitas/Folic Acid (Multivitamin W/Minerals) 1 tab PO DAILY [facility] Last Admin: 09/24/19 09:44 Dose: 1 tab Documented by: Melatonin (Melatonin 3mg Tablet) 3 mg PO HSP PRN PRN Reason: Insomnia Metoprolol Tartrate (Lopressor) 5 mg IV Q5M PRN PRN Reason: Heart Rate > 140 bpm Ondansetron HCl (Zofran Odt) 4 mg SL Q4-6HP PRN; Protocol PRN Reason: Nausea And Vomiting Ondansetron HCl (Zofran) 4 mg IV Q4-6HP PRN; Protocol PRN Reason: Nausea And Vomiting Pantoprazole Sodium (Protonix) 40 mg PO BIDAC [facility] Last Admin: 09/24/19 06:58 Dose: 40 mg Documented by: Liraglutide [Victoza (2-Cj] 1.8 Mg Sq) 1 dose SUB-Q QDAY [facility] Last Admin: 09/24/19 09:43 Dose: 1 dose Documented by: Mirabegron [ (Myrbetriq] 25 Mg) 1 dose PO QDAY [facility] Last Admin: 09/24/19 10:15 Dose: Not Given Documented by: Polyethylene Glycol (Miralax) 17 gm PO DAILYP PRN PRN Reason: Constipation Potassium Chloride (Klor-Con) 40 meq PO DAILYP PRN PRN Reason: K+ < 3.5 Senna/Docusate Sodium (Senna Plus Tablet) 1 tab PO HS [facility] Last Admin: 09/23/19 21:17 Dose: 1 tab Documented by: Sitagliptin Phosphate (Januvia) 100 mg PO DAILY [facility] Last Admin: 09/24/19 09:44 Dose: 100 mg Documented by: Sodium Chloride (Saline Flush) 10 ml IV Q8 [facility] Last Admin: 09/24/19 05:12 Dose: 10 ml Documented by: Vancomycin HCl (Vancomycin Per Pharmacy) 1 order IV UD [facility]; Protocol A/P Narrative A/P Narrative: A: 1. E coli bacteremia: Blood cultures from 09/20 growing non ESBL isolate, sens to all antibiotics except Tetracyclines - no sepsis - risk factors: cirrhosis with portal hypertension, obesity, DM2 with neuropathy, skin breakdown, previously placed portacath in left side of chest which might be seeded during previous episodes of bacteremia - Hx of similar episodes in last 4 months (in 05/2019, 07/2019 and now) - CT imaging of abd/pelvis neg for any focus of infection 2. Rt LE cellulitis: improving - no concerns for osteomyelitis and nec facsitis on CT imaging 3. 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 4. DM2 with neuropathy Recommendations: - Continue IV Ceftriaxone 2 gm q24 hrs - TTE to r/o any endocarditis - Spoke with Dr Thompson about removal of the portacath. Send portacath tip for C/S along with 1 set of peripheral blood Cx. If peripheral blood Cx neg for 48 hrs, a midline could be placed -anticipate 2 weeks of antibiotics from day of negative blood Cx (obtained at time of portacath removal) - consider monthly decolonization for 5 day course with 4% hibiclens soap, to be applied below neck all over body and left for 5 min and rinse with water. - right leg elevation, wound care will follow Lance Dean MD Infectious diseases Time Spent With Patient Time: Total time spent is greater than 50% in coordination of care (as documented) at patient's floor/unit and/or counseling patient:
--- NOTE | 2019-09-24 16:43 | Nephrology Consult Note ---
HPI Data of Consult Primary Care Provider: Serge Jeffries M.D., F.A.A.F.P. Consult Narrative Reason for consult: MARAH History of present illness: 68-year-old with cirrhosis complicated by portal hypertension, erosive gastritis with hemorrhage, esophagitis, gastritis, T2DM, morbid obesity (BMI 62.4), gout, admitted 09/21/20192014 abdominal swelling, edema generalized weakness. She was diagnosed with right lower extremity cellulitis, ascites requiring paracentesis. She has had recurrent right lower extremity cellulitis/bacteremia since May 2019. She also had recent GI bleed for issue and underwent EGD. Serum creatinine started to increase to a peak of 1.7 on 09/23/2024 Review of systems 12 point review of systems negative except for what is stated above and recent fever, chills, abdominal distention, lower extremity edema (now improved), discomfort caused by Wright catheter cc:: CC: Ramin Donald [facility] Medical History Abdominal pain (Chronic) For some reason this comes up as qualifier but there is no diagnosis with this Abdominal pain (Acute) Abscess of breast, right (Resolved) Acquired pancytopenia (Resolved) Acute blood loss anemia (Resolved) Adverse reaction to antidiabetic drug (Resolved) Anemia (Resolved) Anemia (Resolved) Anemia (Resolved) Anemia (Resolved) Anemia (Resolved) Anemia (Resolved) Anemia (Resolved) Anxiety (Chronic) 1973 Arthralgia (Chronic) Chronic Arthralgia of multiple joints (Chronic) Back Pain (Chronic) Bacteremia (Resolved) Bloating (Resolved) Bronchitis (Resolved) Cellulitis (Resolved) Chronic pain (Chronic) Cirrhosis (Resolved) Closed avulsion fracture of trochanter of right femur (Resolved) Congestive heart failure (Resolved) Congestive heart failure (Chronic) Contusion of right leg (Resolved) Copper deficiency (Chronic) Cough (Resolved) DDD (degenerative disc disease), lumbar (Resolved) Dependent edema (Chronic) Depression (Chronic) Diabetes type 2, uncontrolled (Chronic) DMII (diabetes mellitus, type 2) (Resolved) 1989 Elevated alkaline phosphatase level (Chronic) 180-200 chronically Elevated blood uric acid level (Chronic) Elevated serum creatinine (Resolved) Erosive gastritis with hemorrhage (Chronic) Esophageal varices (Chronic) Esophagitis (Chronic) With esophageal stricture Esophagitis determined by endoscopy (Chronic) Fall (on) (from) other stairs and steps, initial encounter (Resolved) Gallbladder problem (Chronic) 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 Polyclonal gammopathy (Chronic) Portal hypertension (Resolved) Rectal bleeding (Resolved) Sinusitis, chronic (Chronic) SIRS (systemic inflammatory response syndrome) (Resolved) Upper gastrointestinal bleeding (Resolved) Zinc deficiency (Chronic) Surgical History History of hysterectomy (Acute) History of oophorectomy (Acute) History of surgery (Acute) 01/06/[id number] placement History of tonsillectomy (Acute) History of total left knee replacement (Resolved) 2012 History of total right knee replacement (Resolved) 2012 S/P ORIF (open reduction internal fixation) fracture (Resolved) 2014 Left femur with steel plate and screws Family History Mother Arthritis Squamous cell carcinoma Diabetes mellitus Essential hypertension Brother Arthritis Malignant neoplasm of kidney Malignant neoplasm of liver Malignant neoplasm of pharynx Malignant neoplasm of pancreas Sister Arthritis Diabetes mellitus Essential hypertension Depression Father Malignant neoplasm of lung Grandmother-paternal Diabetes mellitus Social History marital status: other: Children-2 smoking status: Never smoker alcohol intake frequency: does not drink substance use type: does not use additional history: Ambulates with a walker and lives at home with her . quit smoking 25 years ago MEDS/ALLERGIES Home Medications and Allergies Home Medications Medication Instructions Recorded Confirmed Type acetaminophen 500 mg capsule 1,000 mg PO Q4H PRN cap 05/19/18 09/22/19 History liraglutide 0.6 mg/0.1 mL (18 mg/3 1.8 mg SUB-Q QDAY #6 ml 07/19/19 09/22/19 Rx mL) subcutaneous pen injector allopurinol [Zyloprim] 100 mg PO QDAY 08/13/19 09/22/19 History alum-mag hydroxide-simeth [Maalox 5 ml PO QID PRN 08/13/19 09/22/19 History Maximum Strength] famotidine [Pepcid] 20 mg PO BID 08/13/19 09/22/19 History fluoxetine [Prozac] 20 mg PO QDAY 08/13/19 09/22/19 History pantoprazole [Protonix] 40 mg PO BID 08/13/19 09/22/19 History furosemide 40 mg tablet 40 mg PO BID tab 08/30/19 09/22/19 History Allergies Allergy/AdvReac Type Severity Reaction Status Date / Time Sulfa (Sulfonamide Allergy Unknown Unknown Verified 09/17/19 11:16 Antibiotics) adhesive AdvReac Intermediate edwards Verified 09/17/19 11:16 Fish Containing Products AdvReac Intermediate Other Verified 09/17/19 11:16 codeine AdvReac Mild Confusion Verified 09/17/19 11:16 latex AdvReac Mild Itching Verified 09/17/19 11:16 oxycodone [From Percocet] AdvReac Mild Confusion Verified 09/17/19 11:16 squash AdvReac Mild Nausea Verified 09/17/19 11:16 MRI (implant/left ankle) AdvReac Intermediate Pain Uncoded 08/30/19 13:25 Physical Examination Vital Signs Vital signs: Temp Pulse Resp BP Pulse Ox 36.9 C 67 16 157/62 99 09/24/19 16:00 09/24/19 04:31 09/24/19 16:00 09/24/19 16:00 09/24/19 16:00 General Appearance General appearance: obese (BMI 60.3) Exam Narrative: NAD EENT EENT: ATNC and mucous membranes moist Cardiovascular Cardiology: regular rate Additional Exam Additional exam: HEENT head is normocephalic, atraumatic. Eyes nonicteric sclerae Respiratory nonlabored respirations, on room air, clear to auscultation bilaterally, decreased breath sounds secondary to body habitus Cardiovascular regular rate and rhythm, no breath, present bilateral radial pulses Abdomen soft, large pannus, skin tender to palpation over left abdominal area Neuro alert, oriented, moves all extremities, clear speech + Wright Extremities bilateral lower extremity edema Results Lab Results Result Diagrams: 09/25/19 05:30 09/25/19 05:30 Lab results: Most recent lab results Calcium 8.0 mg/dl (8.6-10.4) L 09/24/19 04:42 Phosphorus 3.6 mg/dL (2.7-4.5) 09/24/19 04:42 Magnesium 2.1 mg/dL (1.6-2.5) 09/24/19 04:42 A/P Assessment and plan (1) MARAH (acute kidney injury): Status: Acute Narrative A/P Narrative: Scr. 1.1 09/17/2019 --> 1.7 09/23/3029, so far peak. rate of rise has started to decrease. Non oliguric. urine clear ddx broad includes ATN (hemodynamic, toxic), possible AIN (antibiotics), less likely infectious GN 09/21/2019 ua neg protein, 27RBC, 23 hyaline casts. 09/17/2019 ua unremarkable. 09/22/2019 CT a/p 5mm non obstructing stone in left kidney. 3.5 mm simple cyst right kidney. cirrhosis, portal HTN, moderate splenomegaly *avoid nephrotoxins, avoid Mg/ Al containing drugs, including stool softeners *strict I/O; noted she has Wright *low Na diet *if Scr does not improve in am, check c3, C4. regardless, rx for infectious GN is treatment of underlying infection. *SBP 130-140 ok for renal recovery findings and plan reviewed with the patient. voiced understanding hemodynamics and volume BP fluctuated significantly during this hospitalization - hypotensive to hypertensive acid-base Bicarbonate 26 bone-mineral metabolism corrected calcium 9.4 BUN/ K 34/3.6 hematologic hemoglobin 9.2, anemia; also thrombocytopenia. management per primary team Time Spent With Patient Time: Total time spent is greater than 50% in coordination of care (as documented) at patient's floor/unit and/or counseling patient Total time spent with greater than 50% in coordination of care (as documented) at patient's floor/unit and/or counseling patient:: 25 - 35 minutes
--- NOTE | 2019-09-24 18:08 | General Surgery Progress Note ---
SUBJECTIVE Subjective Patient information: Note initiated : 09/24/19 at 6:02 pm Service Date, if different from initiated Date: [] Patient: Francia Souza 68 y/o F admitted on 09/21/19 for nausea and cold. Chief Complaint: [] Additional PMFSH (Level 3 Only): Saw patient on rounds with Geovanna LENNON [facility] wound care nurse and Carmen LENNON. Reviewed input from Roni Dean. Constitutional Vitals: Vital Signs Temp Pulse Resp BP Pulse Ox 98.4 F 67 16 157/62 99 09/24/19 16:00 09/24/19 04:31 09/24/19 16:00 09/24/19 16:00 09/24/19 16:00 Period Temp Pulse Resp BP Sys/Anaya Pulse Ox Last 24 Hr 97.9 F-98.6 F 65-71 - 103-157/47-72 92-100 Intake and Output 09/24/19 09/24/19 09/24/19 05:59 13:59 21:59 Intake Total 240 360 420 Output Total 1150 625 Balance -910 360 -205 Intake & Output: Intake & Output 09/24/19 09/24/19 09/24/19 05:59 13:59 21:59 Intake Total 240 360 420 Output Total 1150 625 Balance -910 360 -205 Intake: Oral 240 360 420 Output: Urine Catheter Amount 1150 Void Amount 625 Other: Meal Lunch Percent of Meal Consumed 75% Feeding Ability Independent Urine Appearance Clear Clear Clear Urine Color Dark Yellow Dark Yellow Bright Yellow Urine Odor Normal Normal Exam: AVSS, Feels better. NOT in distress. No changes in RICA. RIGHT leg inflammatory changes are improving. Chronic post phlebitic changes, lymphedema VLU site blister with lymphatic leakage. NO cellulitis of lymphangitis. On IV Antibiotics. Awaits explantation of infusion post and blood c/s. A/P Narrative A/P Narrative: Assessment: Satisfactory progress from wound care point of view. Plan: Continue current wound care. / Dressing changes. Time Spent With Patient Time: Total time spent is greater than 50% in coordination of care (as documented) at patient's floor/unit and/or counseling patient: Total time spent with greater than 50% in coordination of care (as documented) at patient's floor/unit and/or counseling patient:: less than 15 minutes
[2019-09-24] MEDS: SENNOSIDES/DOCUSATE SODIUM 1 TAB TABLET PO SCH (20:44)
[2019-09-25] MEDS: 0.9 % SODIUM CHLORIDE 10 ML SYRINGE IV SCH ×3 (05:57→21:50)
[2019-09-25 06:24] LABS: Hematocrit 24.7 % (34.1-44.9); Hemoglobin 9.1 g/dL (11.2-15.7); Mean Cell Volume 99.6 fL (80.0-100.0); Mean Corpuscular HGB Conc 36.8 g/dL (31.0-36.0); Mean Platelet Volume 11.7 fL (7.4-10.4); Platelet Count 71 K/mcL (140-440); RBC 2.48 M/mcL (3.59-5.38); WBC 5.4 K/mcL (4.50-11.00)
--- NOTE | 2019-09-25 06:28 | Nephrology Progress Note ---
SUBJECTIVE Subjective Patient information: Note initiated : 09/25/19 at 6:27 am Service Date, if different from initiated Date: [] Patient: Francia Souza 68 y/o F admitted on 09/21/19 for nausea and cold. Chief Complaint: brisk UOP Constitutional Vitals: Vital Signs Temp Pulse Resp BP Pulse Ox 36.8 C 70 14 155/67 98 09/25/19 04:01 09/25/19 04:01 09/25/19 04:01 09/25/19 04:01 09/25/19 04:01 Period Temp Pulse Resp BP Sys/Anaya Pulse Ox Last 24 Hr 36.6 C-36.9 C 68-70 14-16 121-169/53-151 92-100 Intake and Output 09/24/19 09/25/19 09/25/19 21:59 05:59 13:59 Intake Total 420 Output Total 1325 2275 Balance -905 -2275 Weight 159.891 kg Intake & Output: Intake & Output 09/24/19 09/25/19 09/25/19 21:59 05:59 13:59 Intake Total 420 Output Total 1325 2275 Balance -905 -2275 Weight 159.891 kg Intake: Oral 420 Output: Urine Catheter Amount 700 2275 Void Amount 625 Other: Urine Appearance Clear Clear Urine Color Bright Yellow Pale Urine Odor Normal A/P Assessment and plan (1) MARAH (acute kidney injury): Status: Acute Time Spent With Patient Time: Total time spent is greater than 50% in coordination of care (as documented) at patient's floor/unit and/or counseling patient:
[2019-09-25 06:44] LABS: ALT/SGPT 13 U/l (0-40); AST/SGOT 34 U/l (0-37); Albumin 2.4 gm/dL (3.2-5.2); Albumin/Globulin Ratio 0.6 (1.0-2.3); Alkaline Phosphatase 155 U/L (39-117); Bilirubin,Direct 0.5 mg/dL (0.0-0.3); Blood Urea Nitrogen 34 mg/dl (8-23); Carbon Dioxide 28 mmol/L (22-30); Chloride 101 mmol/L (96-108); Glomerular Filtration Rate 38; Glucose 111 mg/dL (70-105); Lactate Dehydrogenase 190 U/L (94-250); Phosphorous 2.9 mg/dL (2.7-4.5); Triglycerides 114 mg/dl (<150)
[2019-09-25] MEDS: PANTOPRAZOLE 40 MG TABLET PO SCH ×2 (07:18→17:37)
[2019-09-25] MEDS: ACETAMINOPHEN 325 MG TABLET PO PRN ×2 (07:18→21:04)
[2019-09-25 07:35] LABS: Anisocytosis 1+ (NONE SEEN); Band Neutrophils % 9 % (0-10); Eosinophils % (Manual) 3 % (0-7); Lymphocytes % 9 % (15-49); Macrocytosis 1+ (NONE SEEN); Monocytes % (Manual) 10 % (1-12); Platelet Estimate DECREASED (NORMAL); RBC Morphology ABNORM (NORMAL); Segmented Neutrophils % 69 % (38-78)
[2019-09-25] MEDS: INSULIN LISPRO 1 UNIT/0.01 ML UNIT SQ SCH ×4 (07:39→21:04)
[2019-09-25] MEDS: FLUoxetine HCL 20 MG CAPSULE PO SCH (08:10)
[2019-09-25] MEDS: LIRAGLUTIDE 1.8 MG SUB-Q SCH (08:10)
[2019-09-25] MEDS: FONDAPARINUX SODIUM 2.5 MG/0.5 ML SYRINGE SQ SCH (08:10)
[2019-09-25] MEDS: FAMOTIDINE 20 MG TABLET PO SCH ×2 (08:10→21:04)
[2019-09-25] MEDS: FUROSEMIDE 40 MG TABLET PO SCH (08:10)
[2019-09-25] MEDS: sitaGLIPtin 100 MG TABLET PO SCH (08:10)
[2019-09-25] MEDS: MULTIVIT,THER IRON,CA,FA & MIN 1 TABLET PO SCH (08:10)
[2019-09-25] MEDS: ALLOPURINOL 100 MG TABLET PO SCH (08:10)
[2019-09-25] MEDS: DOCUSATE SODIUM 100 MG CAPSULE PO SCH ×2 (08:10→21:04)
[2019-09-25] MEDS: Mirabegron [Myrbetriq] 25 MG PO SCH (08:11)
[2019-09-25] MEDS: VANCOMYCIN 1,500 MG in 0.9 % SODIUM CHLORIDE 500 ML IV SCH (08:11)
[2019-09-25] MEDS: cefTRIAXone 2 GM in DEXTROSE 5% IN WATER 50 ML IV SCH (08:11)
--- NOTE | 2019-09-25 15:58 | Internal Med Progress Note ---
SUBJECTIVE Subjective Patient information: Note initiated : 09/25/19 at 3:54 pm Service Date, if different from initiated Date: [] Patient: Francia Souza 68 y/o F admitted on 09/21/19 for nausea and cold. Chief Complaint: [] Pt feels better in terms of her symptoms and mood. Has been enjoying music. Denied any efevr, chills, n/v. Had a big BM, and feels that her belly pain is gone. Constitutional Vitals: Vital Signs Temp Pulse Resp BP Pulse Ox 36.9 C 69 15 161/70 97 09/25/19 08:11 09/25/19 14:00 09/25/19 08:11 09/25/19 12:52 09/25/19 14:00 Period Temp Pulse Resp BP Sys/Anaya Pulse Ox Last 24 Hr 36.7 C-36.9 C 68-76 14-16 105-169/53-151 93-100 Intake and Output 09/25/19 09/25/19 09/25/19 05:59 13:59 21:59 Intake Total 550 100 Output Total 2275 1974 550 Balance -2275 -1425 -450 Intake & Output: Intake & Output 09/25/19 09/25/19 09/25/19 05:59 13:59 21:59 Intake Total 550 100 Output Total 2275 1975 550 Balance -2275 -1425 -450 Intake: IV 550 Vancomycin 1,500 mg In Sodium 500 Chloride 0.9% 500 ml @ 333.3 mls/hr IV Q24H [facility] Rx#: [id number] Rocephin 2 gm In Dextrose 5% in 50 Water 50 ml @ 100 mls/hr IV Q24H [facility]ER[facility] Rx#:[id number] Oral 100 Output: Urine Catheter Amount 2275 550 Void Amount 1425 550 Other: Meal Breakfast Percent of Meal Consumed 100% Urine Appearance Clear Clear Clear Uretheral (Wright) Sediment Urine Color Pale Bright Yellow Pale Bright Yellow Uretheral (Wright) Straw Urine Odor Normal Normal Stool Size Small Stool Color Brown Stool Consistency Dry and Hard Emily # Bowel Movements 1 # of times incontinent of 0 Bowels Additional findings Additional findings: ao x 3, in nad chest cta anteriorly s1 soft s2 normal, 2/6 systolic murmur best heard at rt 2nd ICS abd distended, non tender right leg: less swollen and minimally red. Superficial ulcer over right leg gudino with no purulence. OBJ DATA Labs CBC & Chem 7: 09/25/19 05:30 09/25/19 05:30 Labs: Abnormal Lab Results 09/25/19 09/25/19 09/24/19 05:30 05:30 04:42 RBC 2.48 L Hgb 9.1 L Hct 24.7 L MCV MCH 36.7 H MCHC 36.8 H RDW 16.0 H Plt Count 71 L MPV 11.7 H Seg Neutrophils % Lymphocytes % 9 L RBC Morphology Abnorm A Polychromasia Anisocytosis 1+ A Macrocytosis 1+ A BUN 34 H 34 H Creatinine 1.4 H 1.7 H Glucose 111 H 112 H Uric Acid 10.0 H 10.0 H Calcium 8.0 L 8.0 L Total Bilirubin 1.4 H Direct Bilirubin 0.5 H 0.7 H GGT 189 H 171 H Alkaline Phosphatase 155 H 155 H Lactate Dehydrogenase 252 H Albumin 2.4 L 2.3 L Globulin 4.0 H 4.2 H Albumin/Globulin Ratio 0.6 L 0.5 L 09/24/19 09/23/19 09/23/19 04:42 04:18 04:18 RBC 2.57 L 2.06 L Hgb 9.2 L 7.4 L Hct 25.8 L 21.4 L MCV 100.4 H 103.9 H MCH 35.8 H 35.9 H MCHC RDW 16.3 H 16.5 H Plt Count 65 L 64 L MPV 12.3 H 11.1 H Seg Neutrophils % 89 H Lymphocytes % 7 L 7 L RBC Morphology Abnorm A Polychromasia 1+ A Anisocytosis 1+ A 1+ A Macrocytosis 1+ A 1+ A BUN 35 H Creatinine 1.6 H Glucose 120 H Uric Acid 9.8 H Calcium 7.9 L Total Bilirubin 1.4 H Direct Bilirubin 0.7 H GGT 164 H Alkaline Phosphatase 120 H Lactate Dehydrogenase Albumin 2.3 L Globulin Albumin/Globulin Ratio 0.6 L Meds: Medications Acetaminophen (Tylenol) 650 mg PO Q4-6HP PRN; Protocol PRN Reason: Per Pain Protocol/Fever > 101 Last Admin: 09/25/19 07:18 Dose: 650 mg Documented by: Al Hydrox/Mg Hydrox/Simethicone (Maalox) 5 ml PO QIDP PRN PRN Reason: Acid Reflux Allopurinol (Zyloprim) 100 mg PO QDAY [facility] Last Admin: 09/25/19 08:10 Dose: 100 mg Documented by: Bisacodyl (Dulcolax) 10 mg AR Q2-3DAYS PRN PRN Reason: Constipation Dextrose (Dextrose 50%) 0 ml IV UD PRN PRN Reason: Hypoglycemia Diagnostic Test (Pha) (Accu-Chek) 1 each FS ACHS [facility] Last Admin: 09/25/19 11:36 Dose: 1 each Documented by: Docusate Sodium (Colace) 100 mg PO BID [facility] Last Admin: 09/25/19 08:10 Dose: 100 mg Documented by: Famotidine (Pepcid) 20 mg PO BID [facility] Last Admin: 09/25/19 08:10 Dose: 20 mg Documented by: Fluoxetine HCl (Prozac) 20 mg PO QDAY [facility] Last Admin: 09/25/19 08:10 Dose: 20 mg Documented by: Fondaparinux (Arixtra) 2.5 mg SQ DAILY [facility] Last Admin: 09/25/19 08:10 Dose: 2.5 mg Documented by: Furosemide (Lasix) 40 mg PO DAILY [facility] Last Admin: 09/25/19 08:10 Dose: 40 mg Documented by: Glucose (Insta-Glucose) 15 gm PO PRN PRN PRN Reason: Hypoglycemia Heparin Sodium (Porcine) (Heparin 10 Units/Ml Flush) 5 ml IV Q12 [facility] Last Admin: 09/25/19 08:11 Dose: 5 ml Documented by: Hydromorphone HCl (Dilaudid) 0 mg IV Q4HP PRN; Protocol PRN Reason: Per Pain Protocol Magnesium Sulfate (Magnesium Sulfate) 2 gm in 50 mls @ 50 mls/hr IV UD PRN PRN Reason: MG = or < 1.7 Last Infusion: 09/23/19 06:35 Dose: Infused Documented by: Ceftriaxone Sodium 2 gm/ (Dextrose) 50 mls @ 100 mls/hr IV Q24H [facility]; Protocol Last Infusion: 09/25/19 10:10 Dose: Infused Documented by: Insulin Human Lispro (Humalog) 0 unit SQ [facility]; Protocol Last Admin: 09/25/19 11:36 Dose: Not Given Documented by: Iron Carb/Multivit/[place]/Folic Acid (Multivitamin W/Minerals) 1 tab PO DAILY [facility] Last Admin: 09/25/19 08:10 Dose: 1 tab Documented by: Melatonin (Melatonin 3mg Tablet) 3 mg PO HSP PRN PRN Reason: Insomnia Metoprolol Tartrate (Lopressor) 5 mg IV Q5M PRN PRN Reason: Heart Rate > 140 bpm Ondansetron HCl (Zofran Odt) 4 mg SL Q4-6HP PRN; Protocol PRN Reason: Nausea And Vomiting Ondansetron HCl (Zofran) 4 mg IV Q4-6HP PRN; Protocol PRN Reason: Nausea And Vomiting Pantoprazole Sodium (Protonix) 40 mg PO BIDAC [facility] Last Admin: 09/25/19 07:18 Dose: 40 mg Documented by: Liraglutide [Victoza (2-Cj] 1.8 Mg Sq) 1 dose SUB-Q QDAY [facility] Last Admin: 09/25/19 08:10 Dose: 1 dose Documented by: Mirabegron [ (Myrbetriq] 25 Mg) 1 dose PO QDAY [facility] Last Admin: 09/25/19 08:11 Dose: Not Given Documented by: Polyethylene Glycol (Miralax) 17 gm PO DAILYP PRN PRN Reason: Constipation Potassium Chloride (Klor-Con) 40 meq PO DAILYP PRN PRN Reason: K+ < 3.5 Senna/Docusate Sodium (Senna Plus Tablet) 1 tab PO HS [facility] Last Admin: 09/24/19 20:44 Dose: 1 tab Documented by: Sitagliptin Phosphate (Januvia) 100 mg PO DAILY [facility] Last Admin: 09/25/19 08:10 Dose: 100 mg Documented by: Sodium Chloride (Saline Flush) 10 ml IV Q8 [facility] Last Admin: 09/25/19 05:57 Dose: 10 ml Documented by: A/P Narrative A/P Narrative: A: 1. E coli bacteremia: Blood cultures from 09/20 growing non ESBL isolate, sens to all antibiotics except Tetracyclines - no sepsis - risk factors: cirrhosis with portal hypertension, obesity, DM2 with neur opathy, skin breakdown, previously placed portacath in left side of chest which might be seeded during previous episodes of bacteremia - Hx of similar episodes in last 4 months (in 05/2019, 07/2019 and now) - CT imaging of abd/pelvis neg for any focus of infection 2. Rt LE cellulitis: much improved - no concerns for osteomyelitis and nec facsitis on CT imaging 3. 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 4. DM2 with neuropathy Recommendations: - Continue IV Ceftriaxone 2 gm q24 hrs - Scheduled for removal of the portacath tomorrow am. Send portacath tip for C/S along with 1 set of peripheral blood Cx. If peripheral blood Cx neg for 48 hrs, a midline could be placed -anticipate 2 weeks of antibiotics from day of negative blood Cx (obtained at time of portacath removal) - consider monthly decolonization for 5 day course with 4% hibiclens soap, to be applied below neck all over body and left for 5 min and rinse with water. - right leg elevation, wound care will follow Lance Dean MD Infectious diseases Time Spent With Patient Time: Total time spent is greater than 50% in coordination of care (as documented) at patient's floor/unit and/or counseling patient:
[2019-09-25] MEDS: SENNOSIDES/DOCUSATE SODIUM 1 TAB TABLET PO SCH (21:04)
[2019-09-26] MEDS: 0.9 % SODIUM CHLORIDE 10 ML SYRINGE IV SCH (05:31)
[2019-09-26 06:13] LABS: Hematocrit 24.9 % (34.1-44.9); Mean Cell Volume 101.2 fL (80.0-100.0); Mean Corpuscular HGB Conc 36.1 g/dL (31.0-36.0); Mean Platelet Volume 11.4 fL (7.4-10.4); Platelet Count 70 K/mcL (140-440); RBC 2.46 M/mcL (3.59-5.38); Red Cell Distribution Width 15.8 % (11.5-14.5); WBC 4.3 K/mcL (4.50-11.00)
[2019-09-26 06:29] LABS: ALT/SGPT 15 U/l (0-40); AST/SGOT 35 U/l (0-37); Albumin 2.3 gm/dL (3.2-5.2); Albumin/Globulin Ratio 0.6 (1.0-2.3); Alkaline Phosphatase 165 U/L (39-117); Bilirubin,Direct 0.5 mg/dL (0.0-0.3); Blood Urea Nitrogen 28 mg/dl (8-23); Calcium 7.9 mg/dl (8.6-10.4); Carbon Dioxide 28 mmol/L (22-30); Chloride 104 mmol/L (96-108); Globulin 3.8 gm/dL (2.2-3.7); Glomerular Filtration Rate 51; Glucose 109 mg/dL (70-105); Lactate Dehydrogenase 180 U/L (94-250); Phosphorous 2.5 mg/dL (2.7-4.5); Triglycerides 103 mg/dl (<150); Uric Acid 9.4 mg/dL (2.5-8.0)
[2019-09-26] MEDS: PANTOPRAZOLE 40 MG TABLET PO SCH (07:10)
[2019-09-26] MEDS: INSULIN LISPRO 1 UNIT/0.01 ML UNIT SQ SCH (07:12)
[2019-09-26 07:27] LABS: Anisocytosis 1+ (NONE SEEN); Band Neutrophils % 7 % (0-10); Eosinophils % (Manual) 5 % (0-7); Lymphocytes % 11 % (15-49); Macrocytosis 1+ (NONE SEEN); Monocytes % (Manual) 10 % (1-12); Platelet Estimate DECREASED (NORMAL); RBC Morphology ABNORM (NORMAL); Segmented Neutrophils % 67 % (38-78)
[2019-09-26] MEDS: FONDAPARINUX SODIUM 2.5 MG/0.5 ML SYRINGE SQ SCH (09:01)
[2019-09-26] MEDS: LIRAGLUTIDE 1.8 MG SUB-Q SCH (09:07)
[2019-09-26] MEDS: DOCUSATE SODIUM 100 MG CAPSULE PO SCH (09:08)
[2019-09-26] MEDS: sitaGLIPtin 100 MG TABLET PO SCH (09:08)
[2019-09-26] MEDS: FUROSEMIDE 40 MG TABLET PO SCH (09:08)
[2019-09-26] MEDS: ALLOPURINOL 100 MG TABLET PO SCH (09:08)
[2019-09-26] MEDS: MULTIVIT,THER IRON,CA,FA & MIN 1 TABLET PO SCH (09:08)
[2019-09-26] MEDS: FLUoxetine HCL 20 MG CAPSULE PO SCH (09:08)
[2019-09-26] MEDS: FAMOTIDINE 20 MG TABLET PO SCH (09:08)
[2019-09-26] MEDS: cefTRIAXone 2 GM in DEXTROSE 5% IN WATER 50 ML IV SCH (09:09)
[2019-09-26] MEDS: Mirabegron [Myrbetriq] 25 MG PO SCH (09:09)
--- NOTE | 2019-09-26 10:28 | Internal Med Progress Note ---
SUBJECTIVE Subjective Patient information: Note initiated : 09/25/19 at 9:20 am Service Date, if different from initiated Date: [] Patient: Francia Souza 68 y/o F admitted on 09/21/19 for nausea and cold. Chief Complaint: [] History of present illness: Ms. Souza is a 68 year old F WBC to BMI over 60 and recurrent right lower extremity cellulitis/bacteremia since May 2019 who was recently transferred to [facility] for evaluation of Pseudomonas bacteremia and GI bleed for which he underwent EGD and was managed with antibiotics. Patient was subsequently transferred to [facility] for swing bed admission and rehab was discharged home following 10 days of aggressive antibiotics/rehab. Following discharge she saw her PCP//cardiology on 09/18. She has been noted increasing weight gain since discharge. She also noticed increasing abdominal swelling/leg edema and generalized weakness. For the last couple days she has noticed fever, shaking chills and right lower extremity pain along with associated weakness, nausea vomiting and difficulty breathing. With worsening symptoms she presents to the ER for evaluation. Initial work-up was consistent with right lower extremity cellulitis/ascites requiring paracentesis over 2000 cc. Potassium 3. Ascitic fluid was sent for evaluation. Subsequently hospitalist service was consulted for admission for management of cellulitis/lymphangitis. At the time of evaluation patient is alert and oriented. She denies active distress. He feels a lot better. She endorses history as above. She denies recent trauma. She endorses that cellulitis started after a spider bite while she was at the care facility in March 31-patient doing better. However gram-negative bacteremia on cultures. ID consulted. Wound care on board. CT abdomen pelvis/lower extremity imaging to rule out abscess/source of bacteremia. On cefepime/vancomycin. Will de- escalate based on sensitivities. No overnight fever chills. Creatinine 1.2, white count 8.4. 8-patient seen in room. No overnight events. Creatinine up to 1.6. Hemoglobin down to 7.4. Units PRBC transfusion today. Lower diuretics. Antibiotics de-escalated to Rocephin. Continue PT OT. No CT evidence of abscess or source for bacteremia. E. coli on culture. Stable hemodynamics. 09/23-doing well. No overnight events. No concerns per nursing staff. Creatinine 1.7. On antibiotic coverage. Case discussed with ID. Will require possibly removal of port due to likely port contamination. Surgery consulted by ID.Hemoglobin 9.2 following 2 PRBC units transfusion. 09/24-patient clinically improved feels a lot better. Creatinine now downtrending. 1.4 today. On Rocephin. Will likely undergo Port-A-Cath removal in 24 hours. N.p.o. after midnight as per surgery. No fever chills. Patient scheduled to discharge advance health care [facility] likely on Tuesday. Stable hemoglobin improved lower extremity redness swelling. Endorses tenderness around the Port-A-Cath site Constitutional Vitals: Vital Signs Temp Pulse Resp BP Pulse Ox 98.8 F 71 20 140/56 93 09/26/19 08:01 09/26/19 08:01 09/26/19 08:01 09/26/19 08:01 09/26/19 08:01 Period Temp Pulse Resp BP Sys/Anaya Pulse Ox Last 24 Hr 98.2 F-98.9 F 69-77 20 105-161/49-70 88-100 Intake and Output 09/25/19 09/26/19 09/26/19 21:59 05:59 13:59 Intake Total 400 320 30 Output Total 1400 1050 Balance -1000 -730 30 Weight 158.394 kg Morbidly obese Improved lymphedema/erythema ecchymosis right lower extremity No anxiety Nonlabored breathing Tender Port-A-Cath site Intake & Output: Intake & Output 09/25/19 09/26/19 09/26/19 21:59 05:59 13:59 Intake Total 400 320 30 Output Total 1400 1050 Balance -1000 -730 30 Weight 158.394 kg Intake: Oral 400 320 30 Output: Void Amount 1400 1050 Other: Meal Dinner Percent of Meal Consumed 50% Feeding Ability Assist with Tray Set Up Urine Appearance Clear Clear Urine Color Light Trisha Light Trisha Urine Odor Strong Strong OBJ DATA Labs CBC & Chem 7: 09/26/19 05:15 09/26/19 05:15 Labs: Abnormal Lab Results 09/26/19 09/26/19 09/25/19 05:15 05:15 05:30 WBC 4.3 L RBC 2.46 L Hgb 9.0 L Hct 24.9 L MCV 101.2 H MCH 36.6 H MCHC 36.1 H RDW 15.8 H Plt Count 70 L MPV 11.4 H Lymphocytes % 11 L RBC Morphology Abnorm A Polychromasia Anisocytosis 1+ A Macrocytosis 1+ A BUN 28 H 34 H Creatinine 1.4 H Glucose 109 H 111 H Uric Acid 9.4 H 10.0 H Calcium 7.9 L 8.0 L Phosphorus 2.5 L Total Bilirubin Direct Bilirubin 0.5 H 0.5 H GGT 193 H 189 H Alkaline Phosphatase 165 H 155 H Lactate Dehydrogenase Albumin 2.3 L 2.4 L Globulin 3.8 H 4.0 H Albumin/Globulin Ratio 0.6 L 0.6 L 09/25/19 09/24/19 09/24/19 05:30 04:42 04:42 WBC RBC 2.48 L 2.57 L Hgb 9.1 L 9.2 L Hct 24.7 L 25.8 L MCV 100.4 H MCH 36.7 H 35.8 H MCHC 36.8 H RDW 16.0 H 16.3 H Plt Count 71 L 65 L MPV 11.7 H 12.3 H Lymphocytes % 9 L 7 L RBC Morphology Abnorm A Abnorm A Polychromasia 1+ A Anisocytosis 1+ A 1+ A Macrocytosis 1+ A 1+ A BUN 34 H Creatinine 1.7 H Glucose 112 H Uric Acid 10.0 H Calcium 8.0 L Phosphorus Total Bilirubin 1.4 H Direct Bilirubin 0.7 H GGT 171 H Alkaline Phosphatase 155 H Lactate Dehydrogenase 252 H Albumin 2.3 L Globulin 4.2 H Albumin/Globulin Ratio 0.5 L Meds: Medications Acetaminophen (Tylenol) 650 mg PO Q4-6HP PRN; Protocol PRN Reason: Per Pain Protocol/Fever > 101 Last Admin: 09/25/19 21:04 Dose: 650 mg Documented by: Al Hydrox/Mg Hydrox/Simethicone (Maalox) 5 ml PO QIDP PRN PRN Reason: Acid Reflux Allopurinol (Zyloprim) 100 mg PO QDAY [facility] Last Admin: 09/26/19 09:08 Dose: 100 mg Documented by: Bisacodyl (Dulcolax) 10 mg [place] Q2-3DAYS PRN PRN Reason: Constipation Dextrose (Dextrose 50%) 0 ml IV UD PRN PRN Reason: Hypoglycemia Diagnostic Test (Pha) (Accu-Chek) 1 each FS ACHS [facility] Last Admin: 09/26/19 07:12 Dose: 1 each Documented by: Docusate Sodium (Colace) 100 mg PO BID [facility] Last Admin: 09/26/19 09:08 Dose: 100 mg Documented by: Famotidine (Pepcid) 20 mg PO BID [facility] Last Admin: 09/26/19 09:08 Dose: 20 mg Documented by: Fluoxetine HCl (Prozac) 20 mg PO QDAY [facility] Last Admin: 09/26/19 09:08 Dose: 20 mg Documented by: Fondaparinux (Arixtra) 2.5 mg SQ DAILY [facility] Last Admin: 09/26/19 09:01 Dose: Not Given Documented by: Furosemide (Lasix) 40 mg PO DAILY [facility] Last Admin: 09/26/19 09:08 Dose: 40 mg Documented by: Glucose (Insta-Glucose) 15 gm PO PRN PRN PRN Reason: Hypoglycemia Heparin Sodium (Porcine) (Heparin 10 Units/Ml Flush) 5 ml IV Q12 [facility] Last Admin: 09/26/19 09:09 Dose: 5 ml Documented by: Hydromorphone HCl (Dilaudid) 0 mg IV Q4HP PRN; Protocol PRN Reason: Per Pain Protocol Magnesium Sulfate (Magnesium Sulfate) 2 gm in 50 mls @ 50 mls/hr IV UD PRN PRN Reason: MG = or < 1.7 Last Infusion: 09/23/19 06:35 Dose: Infused Documented by: Ceftriaxone Sodium 2 gm/ (Dextrose) 50 mls @ 100 mls/hr IV Q24H [facility]; Protocol Last Admin: 09/26/19 09:09 Dose: 100 mls/hr Documented by: Insulin Human Lispro (Humalog) 0 unit SQ ACHS [facility]; Protocol Last Admin: 09/26/19 07:12 Dose: Not Given Documented by: Iron Carb/Multivit/Mobile/Folic Acid (Multivitamin W/Minerals) 1 tab PO DAILY [facility] Last Admin: 09/26/19 09:08 Dose: 1 tab Documented by: Melatonin (Melatonin 3mg Tablet) 3 mg PO HSP PRN PRN Reason: Insomnia Metoprolol Tartrate (Lopressor) 5 mg IV Q5M PRN PRN Reason: Heart Rate > 140 bpm Ondansetron HCl (Zofran Odt) 4 mg SL Q4-6HP PRN; Protocol PRN Reason: Nausea And Vomiting Ondansetron HCl (Zofran) 4 mg IV Q4-6HP PRN; Protocol PRN Reason: Nausea And Vomiting Pantoprazole Sodium (Protonix) 40 mg PO BIDAC [facility] Last Admin: 09/26/19 07:10 Dose: 40 mg Documented by: Liraglutide [Victoza (2-Cj] 1.8 Mg Sq) 1 dose SUB-Q QDAY [facility] Last Admin: 09/26/19 09:07 Dose: 1 dose Documented by: Mirabegron [ (Myrbetriq] 25 Mg) 1 dose PO QDAY [facility] Last Admin: 09/26/19 09:09 Dose: Not Given Documented by: Polyethylene Glycol (Miralax) 17 gm PO DAILYP PRN PRN Reason: Constipation Potassium Chloride (Klor-Con) 40 meq PO DAILYP PRN PRN Reason: K+ < 3.5 Senna/Docusate Sodium (Senna Plus Tablet) 1 tab PO HS [facility] Last Admin: 09/25/19 21:04 Dose: 1 tab Documented by: Sitagliptin Phosphate (Januvia) 100 mg PO DAILY [facility] Last Admin: 09/26/19 09:08 Dose: 100 mg Documented by: Sodium Chloride (Saline Flush) 10 ml IV Q8 [facility] Last Admin: 09/26/19 05:31 Dose: 10 ml Documented by: A/P Narrative A/P Narrative: * Cellulitis with lymphangitis right lower extremity rapidly extending up to groin. Recurrent in nature with multiple hospitalizations. Continue broad antibiotic coverage - ceftriaxone/vancomycin. Limb elevation/wound care. Consult/pancultures. CT lower extremity no evidence of abscess. * E. coli bacteremia. Sensitive to Rocephin. ID recommends discontinuation of Port-A-Cath. Echocardiogram no evidence of vegetations. Negative CT abdomen * Acute renal failure , creatinine improved from 1.7-> 1.4. Nephrology on board. * Sepsis secondary to above. 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 continue PPI. 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 Diuretics held in light of worsening renal function. Restart diuretics gradually. * History of CHF-continue diuresis/currently compensated * DM type II on liraglutide/CCD/sliding scale insulin * History of gout continue allopurinol * Degenerative disease continue home dose hydrocodone * Thrombocytopenia-at baseline, avoid heparins. * Anxiety disorder on fluoxetine * Morbid obesity with BMI over 60. Nutrition consult/directed therapies/offloading * GERD continue PPI * Prophylaxis fondaparinux * Full code Plan * Continue wound care per wound physician * Monitor renal function * Await Port-A-Cath removal * Gradually restart diuretics * Continue Rocephin per ID * Pre-existing medical condition management on home meds * Limb elevation/PT OT nutrition support * Prophylaxis fondaparinux Time Spent With Patient Time: Total time spent is greater than 50% in coordination of care (as documented) at patient's floor/unit and/or counseling patient:
--- NOTE | 2019-09-26 10:35 | Transfer Summary ---
Discharge Provider Provider Patient information: Note initiated : 09/26/19 at 10:28 am Service Date, if different from initiated Date: [] Patient: Francia Souza 68 y/o F admitted on 09/21/19 for nausea and cold. Transfer diagnosis * Cellulitis with lymphangitis right lower extremity. Recurrent/multiple h. On Rocephin per ID. Continue limb elevation/local wound care. CT lower extremity no evidence of abscess. * E. coli bacteremia. Sensitive to Rocephin. ID recommends discontinuation of Port-A-Cath as a likely source of recurrent bacteremia. Echocardiogram no evidence of vegetations. Negative CT abdomen * Acute renal failure secondary to sepsis, creatinine improved from 1.7-> 1.4- <1.1. Nephrology on board. * Sepsis secondary to above. Clinically resolved. 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. continue oral PPI. Hemoglobin 9.2 following 2 units PRBC transfusion 09/22 * Cirrhosis/Hsepherd ascites with elevated bilirubin-status post 2 L paracentesis. Recurrent. Diuretics held in light of worsening renal function. Restart diuretics gradually. * History of CHF-continue diuresis/currently compensated * DM type II on liraglutide/CCD/sliding scale insulin * History of gout continue allopurinol * Degenerative disease continue home dose hydrocodone * Thrombocytopenia-at baseline, avoid heparins. * Anxiety disorder on fluoxetine * Morbid obesity with BMI over 60. Nutrition consult/directed therapies/offloading * GERD continue PPI * Prophylaxis fondaparinux Brief hospital course History of present illness: Ms. Souza is a 68 year old F WBC to BMI over 60 and recurrent right lower extremity cellulitis/bacteremia since May 2019 who was recently transferred to [facility] for evaluation of Pseudomonas bacteremia and GI bleed for which he underwent EGD and was managed with antibiotics. Patient was subsequently transferred to [facility] for swing bed admission and rehab was discharged home following 10 days of aggressive antibiotics/rehab. Following discharge she saw her PCP//cardiology on 09/18. She has been noted increasing weight gain since discharge. She also noticed increasing abdominal swelling/leg edema and generalized weakness. For the last couple days she has noticed fever, shaking chills and right lower extremity pain along with associated weakness, nausea vomiting and difficulty breathing. With worsening symptoms she presents to the ER for evaluation. Initial work-up was consistent with right lower extremity cellulitis/ascites requiring paracentesis over 2000 cc. Potassium 3. Ascitic fluid was sent for evaluation. Subsequently hospitalist service was consulted for admission for management of cellulitis/lymphangitis. At the time of evaluation patient is alert and oriented. She denies active distress. He feels a lot better. She endorses history as above. She denies recent trauma. She endorses that cellulitis started after a spider bite while she was at the care facility in March 31-patient doing better. However gram-negative bacteremia on cultures. ID consulted. Wound care on board. CT abdomen pelvis/lower extremity imaging to rule out abscess/source of bacteremia. On cefepime/vancomycin. Will de- escalate based on sensitivities. No overnight fever chills. Creatinine 1.2, white count 8.4. 09/22-patient seen in room. No overnight events. Creatinine up to 1.6. Hemoglobin down to 7.4. Units PRBC transfusion today. Lower diuretics. Antibiotics de-escalated to Rocephin. Continue PT OT. No CT evidence of abscess or source for bacteremia. E. coli on culture. Stable hemodynamics. 09/23-doing well. No overnight events. No concerns per nursing staff. Creatinine 1.7. On antibiotic coverage. Case discussed with ID. Will require possibly removal of port due to likely port contamination. Surgery consulted by ID.Hemoglobin 9.2 following 2 PRBC units transfusion. 09/24-patient clinically improved feels a lot better. Creatinine now downtrending. 1.4 today. On Rocephin. Will likely undergo Port-A-Cath removal in 24 hours. N.p.o. after midnight as per surgery. No fever chills. [facility]. Stable hemogl obin improved lower extremity redness swelling. Endorses tenderness around the Port-A-Cath site 09/25-hospital unable to provide surgical service at this time hence patient will be transferred to [facility] for Port-A-Cath removal and was accepted under hospitalist service by Dr. Robin. Patient will continue Rocephin and will transition to [facility] as coordinated by boone garcia. ID recommendations as below Recommendations: - Continue IV Ceftriaxone 2 gm q24 hrs - Scheduled for removal of the portacath tomorrow am. Send portacath tip for C/S along with 1 set of peripheral blood Cx. If peripheral blood Cx neg for 48 hrs, a midline could be placed -anticipate 2 weeks of antibiotics from day of negative blood Cx (obtained at time of portacath removal) - consider monthly decolonization for 5 day course with 4% hibiclens soap, to be applied below neck all over body and left for 5 min and rinse with water. - right leg elevation, wound care Date of admission: 09/21/19 19:58 Discharge date: 09/26/19 Primary care physician: Serge Jeffries M.D., F.A.A.F.P. Consults: 09/21/19 Consult to Physician [CONS] Stat Comment: Consulting Provider: Ramin Donald Reason For Exam: Physician to Consult 09/21/19 20:13 Consult to Physician [CONS] Stat Comment: Consulting Provider: Faustino Holcomb Reason For Exam: Physician to Consult 09/22/19 09:10 Consult to Physician [CONS] Routine Comment: Consulting Provider: Lance Dean Reason For Exam: Physician to Consult 09/24/19 11:46 Consult to Physician [CONS] Routine Comment: Consulting Provider: Nelsy Haro Reason For Exam: Physician to Consult 09/25/19 10:25 Consult to Physician [CONS] Routine Comment: Port removal Consulting Provider: Asif Thompson Reason For Exam: Physician to Consult 09/25/19 14:21 Consult to Physician [CONS] Routine Comment: Consulting Provider: Reynaldo Denise Reason For Exam: Physician to Consult Discharge Meds Discharge Medications Home Medications acetaminophen 500 mg capsule 1,000 mg PO Q4H PRN cap 05/19/18 [History Confirmed 09/22/19 Last Taken 09/21/19 10:30 2 tabs] liraglutide 0.6 mg/0.1 mL (18 mg/3 mL) subcutaneous pen injector 1.8 mg SUB-Q QDAY #6 ml 07/19/19 [Rx Confirmed 09/22/19 Last Taken 09/20/19] allopurinol [Zyloprim] 100 mg PO QDAY 08/13/19 [History Confirmed 09/22/19 Last Taken 09/21/19 10:30] alum-mag hydroxide-simeth [Maalox Maximum Strength] 5 ml PO QID PRN 08/13/19 [History Confirmed 09/22/19 Last Taken 09/15/19] famotidine [Pepcid] 20 mg PO BID 08/13/19 [History Confirmed 09/22/19 Last Taken 09/21/19 10:10] fluoxetine [Prozac] 20 mg PO QDAY 08/13/19 [History Confirmed 09/22/19 Last Taken 09/21/19 10:30] pantoprazole [Protonix] 40 mg PO BID 08/13/19 [History Confirmed 09/22/19 Last Taken 09/21/19 10:30] furosemide 40 mg tablet 40 mg PO BID tab 08/30/19 [History Confirmed 09/22/19 Last Taken 09/21/19 10:30] ceftriaxone 2 gm IV Q24H #1 ea 09/26/19 [Rx Last Taken Unknown] fondaparinux 2.5 mg SQ DAILY #1 ml 09/26/19 [Rx Last Taken Unknown] COURSE Hospital Course Hospital course: . Discharge diagnosis: . Time Spent with Patient Time attestation: Total time spent providing and/or coordinating discharge services: EXAM Constitutional Vitals: Temp Pulse Resp BP Pulse Ox 98.8 F 71 20 140/56 93 09/26/19 08:01 09/26/19 08:01 09/26/19 08:01 09/26/19 08:01 09/26/19 08:01 Discharge Data Data Completed and Pending Labs on day of discharge: Labs from last 24 hours 09/26/19 09/26/19 05:15 05:15 WBC 4.3 L RBC 2.46 L Hgb 9.0 L Hct 24.9 L MCV 101.2 H MCH 36.6 H MCHC 36.1 H RDW 15.8 H Plt Count 70 L MPV 11.4 H Total Counted 100 Seg Neutrophils % 67 Band Neutrophils % 7 Lymphocytes % 11 L Monocytes % (Manual) 10 Eosinophils % (Manual) 5 Platelet Estimate Decreased RBC Morphology Abnorm A Anisocytosis 1+ A Macrocytosis 1+ A Sodium 140 Potassium 3.6 Chloride 104 Carbon Dioxide 28 Anion Gap 8.0 BUN 28 H Creatinine 1.1 GFR Calculation 51 Glucose 109 H Uric Acid 9.4 H Calcium 7.9 L Phosphorus 2.5 L Magnesium 1.8 Total Bilirubin 1.0 Direct Bilirubin 0.5 H GGT 193 H AST 35 ALT 15 Alkaline Phosphatase 165 H Lactate Dehydrogenase 180 Total Protein 6.1 Albumin 2.3 L Globulin 3.8 H Albumin/Globulin Ratio 0.6 L Triglycerides 103 Preliminary micro results at discharge 09/24/19 12:08 Blood Culture - Preliminary Blood 09/24/19 12:13 Blood Culture - Preliminary Blood 09/21/19 14:44 Blood Culture - Preliminary Blood Gram negative bacillus Discharge Plan Patient/Caregiver Discharge Instructions Activity: increase activity as tolerated Diet: Renal/Consistent Carbs Prescriptions: New fondaparinux 2.5 mg/0.5 mL Syringe 2.5 mg SQ DAILY Qty: 1 RF: 0 ceftriaxone 2 gram Recon Soln 2 gm IV Q24H Qty: 1 RF: 0 Continued Victoza 2-Cj 0.6 mg/0.1 mL (18 mg/3 mL) pen injector 1.8 mg SUB-Q QDAY Qty: 6 RF: 4 acetaminophen 500 mg capsule 1,000 mg PO Q4H PRN (Reason: pain) RF: 0 allopurinol [Zyloprim] 100 mg Tablet 100 mg PO QDAY RF: 0 famotidine [Pepcid] 20 mg Tablet 20 mg PO BID RF: 0 pantoprazole [Protonix] 40 mg Tablet,Delayed Release (Dr/Ec) 40 mg PO BID RF: 0 fluoxetine [Prozac] 20 mg Capsule 20 mg PO QDAY RF: 0 alum-mag hydroxide-simeth [Maalox Maximum Strength] 400-400-40 mg/5 mL Suspension 5 ml PO QID PRN (Reason: Acid Reflux) RF: 0 furosemide [Lasix] 40 mg tablet 40 mg PO BID RF: 0 Follow Up Plan Follow up with: Serge Jeffries MD, FAAFP [Primary Care Provider] - Patient Disposition: [facility] Prognosis: Fair Rehab Potential: Fair Overall status at discharge: patient is progressing back to baseline Discharge Orders: Discharge Order (Routine); Ordered 09/26/19 Ordered By: Ramin Donald
== END 2019-09-26 11:40 | disposition short-term general hospital (02) | DRG 872 ==
LOC: ED 13:25 → ICU 19:58
PROVIDERS: ADMIT Internal Medicine; ATTEND Internal Medicine

== ENCOUNTER 2020-04-29 01:22 | Inpatient (IN) ==
[2020-04-29] MEDS ORDERED: ACETAMINOPHEN 325 MG TABLET PO ONE (01:52)
[2020-04-29] MEDS ORDERED: ONDANSETRON 4 MG/2 ML VIAL IV ONE (01:52)
[2020-04-29] MEDS ORDERED: ONDANSETRON 4 MG ODT TABLET SL ONE (01:57)
[2020-04-29] MEDS ORDERED: LEVOFLOXACIN 750 MG/150 ML BAG IV ONE (02:17)
--- NOTE | 2020-04-29 02:19 | XRay Report ---
CLINICAL INFORMATION: SOB COMPARISON: 04/22/2020 FINDINGS: Moderate cardiomegaly show slight increase. Right subclavian Port-A-Cath in stable satisfactory position. Mediastinum is normal. Pulmonary vessels are moderately distended. There is moderate edema throughout both lungs predominantly in the perihilar regions. Moderate right pleural effusion has developed. IMPRESSION: Moderate CHF. Moderate right pleural effusion Interpreted and Authenticated by: Reynaldo Mukherjee 04/29/20
--- NOTE | 2020-04-29 03:01 | Emergency Department Note ---
HPI General Chief complaint: Cold/Flu Symptoms Stated complaint: chills and bilat shoulder pain Time Seen by Provider: 04/29/20 01:41 Source: patient Mode of arrival: ambulatory Limitations: no limitations History of Present Illness HPI Narrative: Narrative: 69-year-old female presents to the emergency department because of cold and flu symptoms. She states she received a Covid vaccine 7 days ago in her left shou lder. She now has chills and cold symptoms today. She rates her discomfort as an 8 on a 0-to-10 scale and states it is constant. She has pain in her right shoulder pain in her toes pain in her left upper extremity pain in her back. She complains of being short of breath chronically. States she is status post thoracentesis. She has had a fever of 100.6 at home. She has been nauseous though has not been throwing up. Nothing makes her symptoms better or worse. There is no radiation of her symptoms. Related Data Home Medications Medication Instructions Recorded Confirmed acetaminophen 500 mg capsule 1,000 mg PO Q4H PRN cap 05/19/18 04/25/20 alum-mag hydroxide-simeth [Maalox 5 ml PO QID PRN 08/13/19 04/25/20 Maximum Strength] ondansetron 8 mg disintegrating 8 mg PO QDAY PRN tab 12/19/19 04/25/20 tablet escitalopram oxalate 20 mg tablet 20 mg PO QDAY 04/25/20 04/25/20 Previous Rx's Medication Instructions Recorded furosemide 40 mg tablet 40 mg PO ONCE #30 tab 01/15/20 pantoprazole 40 mg tablet,delayed 40 mg PO BID #90 tab 02/06/20 release famotidine 20 mg tablet 20 mg PO BID #90 tab 02/28/20 allopurinol 100 mg tablet 100 mg PO QDAY #90 tab 04/02/20 albuterol sulfate 90 mcg/actuation 2 puff INHALATION Q6H PRN #18 g 04/03/20 aerosol inhaler spironolactone 100 mg tablet 100 mg PO QAM #30 tab 04/03/20 sucralfate 1 gram tablet 1 g PO BID #30 tab 04/22/20 Allergies Allergy/AdvReac Type Severity Reaction Status Date / Time adhesive tape Allergy Unknown Skin Verified 04/25/20 10:21 Reaction Sulfa (Sulfonamide Allergy Unknown Unknown Verified 04/25/20 10:21 Antibiotics) adhesive AdvReac Intermediate edwards Verified 04/25/20 10:21 Fish Containing Products AdvReac Intermediate Other Verified 04/25/20 10:21 codeine AdvReac Mild Confusion Verified 04/25/20 10:21 latex AdvReac Mild Itching Verified 04/25/20 10:21 oxycodone [From Percocet] AdvReac Mild Confusion Verified 04/25/20 10:21 squash AdvReac Mild Nausea Verified 04/25/20 10:21 MRI (implant/left ankle) AdvReac Intermediate Pain Uncoded 04/25/20 10:21 Review of Systems ROS ROS Narrative: Narrative: Constitutional: Reports fever, chills and weakness Eyes: Denies eye pain ENT ED: Reports rhinorrhea; Denies throat pain and congestion Cardiovascular: Denies chest pain Respiratory: Reports shortness of breath (Acutely and chronically.) Gastrointestinal: Reports nausea; Denies vomiting and diarrhea Genitourinary: Denies dysuria Musculoskeletal: Reports back pain and other (Positive neck pain) Integumentary: Denies rash Neurological: Denies headache Psychiatric: Reports depression; Denies anxiety Hematological/Lymphatic: Denies easy bleeding PFSH Narrative Patient History Narrative: Narrative: Medical/Surgical/Family History All Active Problems (Updated 04/29/20 @ 07:49 by Bruce Ngo MD) Pleural effusion associated with hepatic disorder (Acute) Anemia (Acute) Vomiting (Acute) Impingement syndrome of both shoulders (Acute) Gastritis (Acute) GERD (gastroesophageal reflux disease) (Acute) Change of dressing (Acute) Allergy to adhesive tape (Acute) Immunization deficiency (Acute) Encounter for insertion of venous access port (Acute) Community acquired pneumonia (Acute) Cirrhosis (Acute) Pleural effusion (Acute) Liver mass (Acute) Acute hypokalemia (Acute) Acute hypokalemia (Acute) Shortness of breath (Acute) Symptomatic anemia (Acute) History of gout (Chronic) Hip pain, right (Acute) MARAH (acute kidney injury) (Acute) Skin bulla (Acute) Dyspnea (Acute) Depression (Acute) Leg wound, right (Acute) Cirrhosis of liver with ascites (Acute) Acute hypokalemia (Acute) Vaginal candidiasis (Acute) Urge and stress incontinence (Acute) Intertrigo (Acute) OAB (overactive bladder) (Acute) Lymphedema (Acute) Abdominal pain (Acute) Cellulitis (Acute) Fever (Acute) Tachycardia (Acute) Sepsis (Acute) Suicidal ideation (Acute) Morbid obesity (Chronic) Diabetes type 2, uncontrolled (Chronic) Congestive heart failure (Chronic) DENAE (obstructive sleep apnea) (Chronic) Gastric antral vascular ectasia (Chronic) Nonalcoholic steatohepatitis (DUNHAM) (Chronic) Esophageal varices (Chronic) History of transfusion of packed red blood cells (Chronic) Hypertension, essential (Chronic) History of esophageal stricture (Chronic) Elevated alkaline phosphatase level (Chronic) Dependent edema (Chronic) Lumbosacral pain, chronic (Chronic) Knee pain (Chronic) Sinusitis, chronic (Chronic) Hypovitaminosis D (Chronic) Zinc deficiency (Chronic) Left carotid artery stenosis (Chronic) Chronic pain (Chronic) Esophagitis determined by endoscopy (Chronic) Polyclonal gammopathy (Chronic) Back Pain (Chronic) Liver fibrosis (Chronic) Hypercholesterolemia (Chronic) Esophagitis (Chronic) Arthralgia (Chronic) Osteopenia (Chronic) Anxiety (Chronic) Gallbladder problem (Chronic) Depression (Chronic) Kidney stones (Chronic) Lumbar radiculopathy (Chronic) Arthralgia of multiple joints (Chronic) Gout (Chronic) Hx of adenomatous colonic polyps (Chronic) Copper deficiency (Chronic) Medical History (Updated 04/29/20 @ 07:49 by Bruce Ngo MD) Abdominal pain Abscess of breast, right Acquired pancytopenia Acute blood loss anemia Adverse reaction to antidiabetic drug Allergy to adhesive tape Anemia Anemia Anemia Anemia Anemia Anemia Anemia Anxiety 1973 Arthralgia Chronic Arthralgia of multiple joints Back Pain Bacteremia Bloating Bronchitis Cellulitis Change of dressing Chronic pain Cirrhosis Cirrhosis Closed avulsion fracture of trochanter of right femur Congestive heart failure Congestive heart failure Contusion of right leg Copper deficiency Cough DDD (degenerative disc disease), lumbar Dependent edema Depression Diabetes type 2, uncontrolled DMII (diabetes mellitus, type 2) 1989 Elevated alkaline phosphatase level 180-200 chronically Elevated serum creatinine Esophageal varices Esophagitis With esophageal stricture Esophagitis determined by endoscopy Fall (on) (from) other stairs and steps, initial encounter Gallbladder problem Gastric antral vascular ectasia Gastritis GERD (gastroesophageal reflux disease) Gout 1999 History of esophageal stricture History of gout Chronically suppressed with allopurinol 100 mg daily (10/23/2019) History of transfusion of packed red blood cells multiple; 62 as of 03/06/18 Hx of adenomatous colonic polyps Hypercholesterolemia Hypertension, essential 2000 Hypovitaminosis D Immunization deficiency Impingement syndrome of both shoulders Kidney stones 1999 Knee pain s/p R and L TKR, no MRI due to endplates. Left carotid artery stenosis Liver fibrosis Moderate liver fibrosis with early esophageal varices Lumbar radiculopathy Lumbosacral pain, chronic Morbid obesity Non-healing wound Nonalcoholic steatohepatitis (DUNHAM) Nondisplaced fracture of surgical neck of left humerus NSTEMI (non-ST elevated myocardial infarction) DENAE (obstructive sleep apnea) Osteopenia Pancytopenia custodial, chronic Polyclonal gammopathy Portal hypertension Rectal bleeding Sinusitis, chronic SIRS (systemic inflammatory response syndrome) Upper gastrointestinal bleeding Vomiting Zinc deficiency Surgical History History of hysterectomy History of oophorectomy History of surgery 01/06/[id number] placement History of surgery 12/12/2019-right subclavian port-a-cath placement History of tonsillectomy History of total left knee replacement 2012 History of total right knee replacement 2012 S/P ORIF (open reduction internal fixation) fracture 2015 Left femur with steel plate and screws Family History Mother Arthritis Squamous cell carcinoma Diabetes mellitus Essential hypertension Brother Arthritis Malignant neoplasm of kidney Malignant neoplasm of liver Malignant neoplasm of pharynx Malignant neoplasm of pancreas Sister Arthritis Diabetes mellitus Essential hypertension Depression Father Malignant neoplasm of lung Grandmother-paternal Diabetes mellitus Social History Smoking Status: Former smoker Alcohol Intake Frequency: does not drink Substance Use: does not use Exam Narrative Narrative: Narrative: General Limitations: no limitations General appearance: Present alert and in distress Head Head: Present atraumatic and normocephalic Eye Eye: Present PERRL and EOMI; Absent scleral icterus ENT ENT: Present normal oropharynx and mucous membranes moist Neck Neck: Present normal inspection, trachea midline and tenderness Chest Chest: Present normal inspection Respiratory Respiratory: Present respiratory distress (pulse ox 88% on RA during my evaluation. SOB. decreased Br. Sounds Rt. ) and rales/crackles Cardiovascular Cardiovascular: Present tachycardia Adbominal Abdominal: Present soft; Absent tenderness Rectal Rectal: Present deferred Extremities Extremities: Present normal inspection, full ROM and pedal edema Back Back: Present normal inspection; Absent tenderness Neurological Neurological: Present alert and oriented X3 Psychiatric Psychiatric: Present normal affect and normal mood Skin Skin: Present warm (WNL) and dry Course Reevaluation(s) Reevaluation #1: Patient feeling better on oxygen. Time: 02:40 Reevaluation #2: Patient feeling a bit better. White count came back slightly low at 4.2. Hemoglobin came back low at 8.1.the patient states she frequently gets blood transfusions when he gets to 7 and that 8.1 is around where her last level was. Urinalysis is still pending. Chemistry panel abnormals BUN 27 glucose 133 total bili 1.4 BNP 1252. Patient was administered 20 mg of Lasix. She will be observed here in the ER to see whether she needs to be admitted. Patient placed on observation at approximately 2:40 and will be assessed for the likely need to be admitted for congestive heart failure, right pleural effusion, anemia admitted. Time: 04:00 Vital Signs Vital signs: Vital Signs Temperature 99.7 F H 04/29/20 01:24 Pulse Rate 108 H 04/29/20 01:24 Respiratory Rate 20 04/29/20 01:24 Blood Pressure 120/94 04/29/20 01:24 Pulse Oximetry (%) 94 04/29/20 01:24 Temperature 99.7 F H 04/29/20 05:47 Pulse Rate 99 H 04/29/20 07:01 Respiratory Rate 19 04/29/20 07:01 Blood Pressure 118/51 04/29/20 07:01 Pulse Oximetry (%) 96 04/29/20 07:01 [facility] Narrative Medical decision making narrative: Narrative: Elderly female presents to the emergency department complaining of feeling sick with cold or flu symptoms along with shortness of breath fever nausea. Differential diagnosis included pneumonia Covid infection congestive heart failure viral infection gastrointestinal infection IV was established and patient was bolused a liter of normal saline. She was placed on oxygen for to treat her hypoxia. Chest x-ray was reviewed by the radiologist who interpreted as showing 1 cardiomegaly 2 congestive heart failure moderate 3 right pleural effusion. I ordered 20 mg of Lasix IV to address her CHF. Her white count came back at 4 with a hemoglobin of 8. She has a long history of anemia and has received over 75 units of transfusions over her lifetime. 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 Covid test and influenza test both came back negative. Case was discussed with the hospitalist who accepted patient for admission. Lab Data Result diagrams: 04/29/20 01:52 04/29/20 02:23 Labs: Lab Results 04/29/20 04/29/20 04/29/20 Range/Units 01:52 02:23 02:24 WBC 4.2 L (4.5-11.0) K/mcL RBC 2.61 L (4.00-5.20) M/mcL Hgb 8.1 L (12.0-15.0) g/dL Hct 25.5 L (36.0-48.0) % MCV 97.7 (80.0-100.0) fL MCH 31.0 (26.0-34.0) pg MCHC 31.8 (31.0-36.0) g/dL RDW 16.9 H (11.5-14.5) % Plt Count 101 L (140-440) K/mcL MPV 11.7 H (7.4-10.4) fL Neut % (Auto) 74.5 (38.0-78.0) % Lymph % (Auto) 8.8 L (15.0-49.0) % [place] % (Auto) 14.3 H (1.0-12.0) % Eos % (Auto) 1.9 (0.0-7.0) % Baso % (Auto) 0.5 (0.0-2.0) % Lymph # (Auto) 0.37 L (1.50-4.80) K/mcL [place] # (Auto) 0.60 (0.10-0.90) K/mcL Eos # (Auto) 0.08 (0.00-0.70) K/mcL Baso # (Auto) 0.02 (0.00-0.20) K/mcL Absolute Neutrophils 3.13 (1.80-8.00) K/mcL VBG Lactic Acid 1.3 (0.5-2.0) mmol/L Sodium 137 (133-145) mmol/L Potassium 3.7 (3.3-5.1) mmol/L Chloride 102 (96-108) mmol/L Carbon Dioxide 27 (22-30) mmol/L Anion Gap 8.0 (8.0-16.0) BUN 27 H (8-23) mg/dL Creatinine 1.1 (0.6-1.1) mg/dL GFR Calculation 50 Glucose 133 H (70-105) mg/dL Calcium 8.8 (8.6-10.4) mg/dL Total Bilirubin 1.4 H (0.1-1.0) mg/dL AST 40 H (<32) U/L ALT 13 (<40) U/L Alkaline Phosphatase 171 H (39-117) U/L NT-Pro-B Natriuret Pep 1252.0 H (<125.0) pg/mL Total Protein 7.5 (5.9-8.4) gm/dL Albumin 2.8 L (3.2-5.2) gm/dL Globulin 4.7 H (2.2-3.7) gm/dL Albumin/Globulin Ratio 0.6 L (1.0-2.3) Urine Color Urine Appearance (Clear) Urine pH (5.0-9.0) Ur Specific [place] (1.000-1.035) Urine Protein (Negative) mg/dL Urine Glucose (UA) (Negative) mg/dL Urine Ketones (Negative) mg/dL Urine Occult Blood (Negative) mg/dL Urine Nitrate (Negative) Urine Bilirubin (Negative) mg/dL Urine Urobilinogen mg/dL Ur Leukocyte Esterase (Negative) /ug Ur Culture Indicated? 04/29/20 Range/Units 04:36 WBC (4.5-11.0) K/mcL RBC (4.00-5.20) M/mcL Hgb (12.0-15.0) g/dL Hct (36.0-48.0) % MCV (80.0-100.0) fL MCH (26.0-34.0) pg MCHC (31.0-36.0) g/dL RDW (11.5-14.5) % Plt Count (140-440) K/mcL MPV (7.4-10.4) fL Neut % (Auto) (38.0-78.0) % Lymph % (Auto) (15.0-49.0) % [place] % (Auto) (1.0-12.0) % Eos % (Auto) (0.0-7.0) % Baso % (Auto) (0.0-2.0) % Lymph # (Auto) (1.50-4.80) K/mcL [place] # (Auto) (0.10-0.90) K/mcL Eos # (Auto) (0.00-0.70) K/mcL Baso # (Auto) (0.00-0.20) K/mcL Absolute Neutrophils (1.80-8.00) K/mcL VBG Lactic Acid (0.5-2.0) mmol/L Sodium (133-145) mmol/L Potassium (3.3-5.1) mmol/L Chloride (96-108) mmol/L Carbon Dioxide (22-30) mmol/L Anion Gap (8.0-16.0) BUN (8-23) mg/dL Creatinine (0.6-1.1) mg/dL GFR Calculation Glucose (70-105) mg/dL Calcium (8.6-10.4) mg/dL Total Bilirubin (0.1-1.0) mg/dL AST (<32) U/L ALT (<40) U/L Alkaline Phosphatase (39-117) U/L NT-Pro-B Natriuret Pep (<125.0) pg/mL Total Protein (5.9-8.4) gm/dL Albumin (3.2-5.2) gm/dL Globulin (2.2-3.7) gm/dL Albumin/Globulin Ratio (1.0-2.3) Urine Color Yellow Urine Appearance Hazy A (Clear) Urine pH 5.0 (5.0-9.0) Ur Specific [place] 1.017 (1.000-1.035) Urine Protein Negative (Negative) mg/dL Urine Glucose (UA) Negative (Negative) mg/dL Urine Ketones Negative (Negative) mg/dL Urine Occult Blood Negative (Negative) mg/dL Urine Nitrate Negative (Negative) Urine Bilirubin Negative (Negative) mg/dL Urine Urobilinogen 2.0 A mg/dL Ur Leukocyte Esterase Negative (Negative) /ug Ur Culture Indicated? No ED POC Tests ED POC Tests: ISA - Influenza A Negative ISA - Influenza B Negative ISA - SARS Antigen Negative EKG Data EKG #1: EKG attestation: Yes I reviewed and interpreted this EKG. Rate: tachycardia Rhythm: A.Fib [place]/QRS: normal Heart block present: RBBB ST segment elevation in: None ST segment depression in: None When compared to previous EKG there are: no significant changes Discharge Plan Patient/Caregiver Discharge Instructions Pt seen by QUALITY COORDINATOR/PA only: No Clinical Impression: Shortness of breath Patient Disposition: Xfer As Inpt ([facility]) Condition: Fair Follow up with: Serge Jeffries MD, FAAFP [Primary Care Provider] - Prescriptions: No Action pantoprazole [Protonix] 40 mg tablet,delayed release (DR/EC) 40 mg PO BID Qty: 90 RF: 3 famotidine [Pepcid] 20 mg tablet 20 mg PO BID Qty: 90 RF: 3 allopurinol [Zyloprim] 100 mg tablet 100 mg PO QDAY Qty: 90 RF: 1 sucralfate [Carafate] 1 gram tablet 1 g PO BID Qty: 30 RF: 0 acetaminophen 500 mg capsule 1,000 mg PO Q4H PRN (Reason: pain) RF: 0 furosemide 40 mg tablet 40 mg PO ONCE Qty: 30 RF: 6 spironolactone 100 mg tablet 100 mg PO QAM Qty: 30 RF: 8 albuterol sulfate 90 mcg/actuation HFA aerosol inhaler 2 puff INHALATION Q6H PRN (Reason: shortness of breath or wheezing) Qty: 18 RF: 7 escitalopram oxalate 20 mg tablet 20 mg PO QDAY RF: 0 ondansetron 8 mg tablet,disintegrating 8 mg PO QDAY PRN (Reason: nausea and vomiting) RF: 0 alum-mag hydroxide-simeth [Maalox Maximum Strength] 400-400-40 mg/5 mL Suspension 5 ml PO QID PRN (Reason: Acid Reflux) RF: 0
[2020-04-29 03:06] LABS: Basophils # (Auto) 0.02 K/mcL (0.00-0.20); Basophils % (Auto) 0.5 % (0.0-2.0); Eosinophils # (Auto) 0.08 K/mcL (0.00-0.70); Eosinophils % (Auto) 1.9 % (0.0-7.0); Hematocrit 25.5 % (36.0-48.0); Hemoglobin 8.1 g/dL (12.0-15.0); Lymphocytes # (Auto) 0.37 K/mcL (1.50-4.80); Lymphocytes % (Auto) 8.8 % (15.0-49.0); Mean Cell Volume 97.7 fL (80.0-100.0); Mean Corpuscular HGB Conc 31.8 g/dL (31.0-36.0); Mean Platelet Volume 11.7 fL (7.4-10.4); Monocytes % (Auto) 14.3 % (1.0-12.0); Neutrophils % (Auto) 74.5 % (38.0-78.0); Platelet Count 101 K/mcL (140-440); RBC 2.61 M/mcL (4.00-5.20); Red Cell Distribution Width 16.9 % (11.5-14.5); WBC 4.2 K/mcL (4.5-11.0)
[2020-04-29] MEDS ORDERED: FUROSEMIDE 20 MG/2 ML VIAL IV ONE (03:21)
[2020-04-29 03:34] LABS: ALT/SGPT 13 U/L (<40); AST/SGOT 40 U/L (<32); Albumin 2.8 gm/dL (3.2-5.2); Albumin/Globulin Ratio 0.6 (1.0-2.3); Alkaline Phosphatase 171 U/L (39-117); Bilirubin,Total 1.4 mg/dL (0.1-1.0); Blood Urea Nitrogen 27 mg/dL (8-23); Calcium 8.8 mg/dL (8.6-10.4); Carbon Dioxide 27 mmol/L (22-30); Chloride 102 mmol/L (96-108); Globulin 4.7 gm/dL (2.2-3.7); Glomerular Filtration Rate 50; Glucose 133 mg/dL (70-105)
[2020-04-29 05:23] LABS: Appearance,Urine HAZY (Clear); Bilirubin,Urine Negative (Negative); Color,Urine YELLOW; Culture Indicated,Urine No; Glucose,Urine (UA) Negative (Negative); Ketones,Urine Negative (Negative); Leukocyte Esterase,Urine Negative /ug (Negative); Nitrate,Urine Negative (Negative); Protein,Urine Negative (Negative); Specific Gravity,Urine 1.017 (1.000-1.035); Urine Blood Negative (Negative)
[2020-04-29] MEDS ORDERED: HYDROcodone/APAP 5/325MG TABLET PO ONE (05:54)
--- NOTE | 2020-04-29 09:08 | Internal Med History&Physical ---
HPI History of Present Illness Patient information: Note initiated : 04/29/20 at 9:08 am Service Date, if different from initiated Date: [] Patient: Francia Souza a 69 y/o F admitted on for Chills, Bilateral Shoulder Pain. Chief Complaint: [] History of present illness: Ms. 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 Patient received her first Covid vaccine on 04/21. Subsequent to that she is developed bilateral shoulder pain, though really does not have pain in the left deltoid where she received the vaccine. She has had pain in her shoulders and down into her arms. 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 However in the last week these pains have persisted and have worsened. Because of her arms being painful she presents to the ED. She also has other symptoms, including feeling chilled 2 days in a row. She feels her chest hurts all across the front of her chest, which she feels is a bit of a tightness and worse with inspiration. Her albuterol does seem to help. She has had dyspnea with exertion which has worsened recently. She has chronic lower extremity edema which is about stable. She is also had some chronic intermittent nausea which is unchanged. She presents to the ED, found to have oxygen saturations 88% on room air. She had a temp of 99.7. Evaluation includes chest x-ray which shows recurrent right-sided effusion as well as vascular congestion consistent with congestive heart failure. She does have a history of significant volume overload, has been on spironolactone and furosemide, as is felt to be secondary to her cirrhosis. She has been admitted for treatment of pulmonary edema and recurrent effusion. Patient has felt chilled, has had low-grade temp here. She had a headache few days ago which is resolved. No vision changes. She had a mild sore throat a few days ago which is resolved. Pulmonary symptoms as above. Chest tightness as noted above, she has some orthopnea as well. Edema is stable. No current na usea or vomiting, no abdominal pain. No dysuria. She does have right knee pain which is chronic. She does complain of bruising easily, does have a port for access. Review of Systems All systems: reviewed and no additional remarkable complaints except as stated PFSH PFS All Active Problems (Updated 04/29/20 @ 07:49 by Bruce Ngo MD) Pleural effusion associated with hepatic disorder (Acute) Anemia (Acute) Vomiting (Acute) Impingement syndrome of both shoulders (Acute) Gastritis (Acute) GERD (gastroesophageal reflux disease) (Acute) Change of dressing (Acute) Allergy to adhesive tape (Acute) Immunization deficiency (Acute) Encounter for insertion of venous access port (Acute) Community acquired pneumonia (Acute) Cirrhosis (Acute) Pleural effusion (Acute) Liver mass (Acute) Acute hypokalemia (Acute) Acute hypokalemia (Acute) Shortness of breath (Acute) Symptomatic anemia (Acute) History of gout (Chronic) Hip pain, right (Acute) MARAH (acute kidney injury) (Acute) Skin bulla (Acute) Dyspnea (Acute) Depression (Acute) Leg wound, right (Acute) Cirrhosis of liver with ascites (Acute) Acute hypokalemia (Acute) Vaginal candidiasis (Acute) Urge and stress incontinence (Acute) Intertrigo (Acute) OAB (overactive bladder) (Acute) Lymphedema (Acute) Abdominal pain (Acute) Cellulitis (Acute) Fever (Acute) Tachycardia (Acute) Sepsis (Acute) Suicidal ideation (Acute) Morbid obesity (Chronic) Diabetes type 2, uncontrolled (Chronic) Congestive heart failure (Chronic) DENAE (obstructive sleep apnea) (Chronic) Gastric antral vascular ectasia (Chronic) Nonalcoholic steatohepatitis (SHEPHERD) (Chronic) Esophageal varices (Chronic) History of transfusion of packed red blood cells (Chronic) Hypertension, essential (Chronic) History of esophageal stricture (Chronic) Elevated alkaline phosphatase level (Chronic) Dependent edema (Chronic) Lumbosacral pain, chronic (Chronic) Knee pain (Chronic) Sinusitis, chronic (Chronic) Hypovitaminosis D (Chronic) Zinc deficiency (Chronic) Left carotid artery stenosis (Chronic) Chronic pain (Chronic) Esophagitis determined by endoscopy (Chronic) Polyclonal gammopathy (Chronic) Back Pain (Chronic) Liver fibrosis (Chronic) Hypercholesterolemia (Chronic) Esophagitis (Chronic) Arthralgia (Chronic) Osteopenia (Chronic) Anxiety (Chronic) Gallbladder problem (Chronic) Depression (Chronic) Kidney stones (Chronic) Lumbar radiculopathy (Chronic) Arthralgia of multiple joints (Chronic) Gout (Chronic) Hx of adenomatous colonic polyps (Chronic) Copper deficiency (Chronic) Medical History (Updated 04/29/20 @ 07:49 by Bruce Ngo MD) Abdominal pain Abscess of breast, right Acquired pancytopenia Acute blood loss anemia Adverse reaction to antidiabetic drug Allergy to adhesive tape Anemia Anemia Anemia Anemia Anemia Anemia Anemia Anxiety 1973 Arthralgia Chronic Arthralgia of multiple joints Back Pain Bacteremia Bloating Bronchitis Cellulitis Change of dressing Chronic pain Cirrhosis Cirrhosis Closed avulsion fracture of trochanter of right femur Congestive heart failure Congestive heart failure Contusion of right leg Copper deficiency Cough DDD (degenerative disc disease), lumbar Dependent edema Depression Diabetes type 2, uncontrolled DMII (diabetes mellitus, type 2) 1989 Elevated alkaline phosphatase level 180-200 chronically Elevated serum creatinine Esophageal varices Esophagitis With esophageal stricture Esophagitis determined by endoscopy Fall (on) (from) other stairs and steps, initial encounter Gallbladder problem Gastric antral vascular ectasia Gastritis GERD (gastroesophageal reflux disease) Gout 1999 History of esophageal stricture History of gout Chronically suppressed with allopurinol 100 mg daily (10/23/2019) History of transfusion of packed red blood cells multiple; 62 as of 03/06/18 Hx of adenomatous colonic polyps Hypercholesterolemia Hypertension, essential 2000 Hypovitaminosis D Immunization deficiency Impingement syndrome of both shoulders Kidney stones 2000 Knee pain s/p R and L TKR, no MRI due to endplates. 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 Polyclonal gammopathy Portal hypertension Rectal bleeding Sinusitis, chronic SIRS (systemic inflammatory response syndrome) Upper gastrointestinal bleeding Vomiting Zinc deficiency Surgical History History of hysterectomy History of oophorectomy History of surgery 01/06/[id number] placement History of surgery 12/12/2019-right subclavian port-a-cath placement History of tonsillectomy History of total left knee replacement 2012 History of total right knee replacement 2012 S/P ORIF (open reduction internal fixation) fracture 2015 Left femur with steel plate and screws Family History Mother Arthritis Squamous cell carcinoma Diabetes mellitus Essential hypertension Brother Arthritis Malignant neoplasm of kidney Malignant neoplasm of liver Malignant neoplasm of pharynx Malignant neoplasm of pancreas Sister Arthritis Diabetes mellitus Essential hypertension Depression Father Malignant neoplasm of lung Grandmother-paternal Diabetes mellitus Social History household members: spouse housing: apartment marital status: other: Children-2 physical activity: none smoking status: Former smoker quit date: 04/24/95 pack-years: 45 alcohol intake frequency: does not drink substance use type: does not use additional history: Ambulates with a walker and lives at home with her . quit smoking 25 years ago MEDS/ALLERGIES Home Medications and Allergies Home Medications Medication Instructions Recorded Confirmed Type acetaminophen 500 mg capsule 1,000 mg PO TID cap 05/19/18 04/29/20 History alum-mag hydroxide-simeth [Maalox 5 ml PO QID PRN 08/13/19 04/29/20 History Maximum Strength] pantoprazole 40 mg tablet,delayed 40 mg PO BID #90 tab 02/06/20 04/29/20 Rx release famotidine 20 mg tablet 20 mg PO BID #90 tab 02/28/20 04/29/20 Rx allopurinol 100 mg tablet 100 mg PO QDAY #90 tab 04/02/20 04/29/20 Rx spironolactone 100 mg tablet 100 mg PO QAM #30 tab 04/03/20 04/29/20 Rx sucralfate 1 gram tablet 1 g PO BID #30 tab 04/22/20 04/29/20 Rx escitalopram oxalate 20 mg tablet 40 mg PO QDAY 04/25/20 04/29/20 History albuterol sulfate 2 puff INHALATION Q6HP PRN 04/29/20 04/29/20 History furosemide 40 mg PO DAILY 04/29/20 04/29/20 History ondansetron [Zofran ODT] 4 mg PO Q6H PRN 04/29/20 04/29/20 History Allergies Allergy/AdvReac Type Severity Reaction Status Date / Time Sulfa (Sulfonamide Allergy Unknown Unknown Verified 04/25/20 10:21 Antibiotics) adhesive AdvReac Intermediate edwards Verified 04/25/20 10:21 Fish Containing Products AdvReac Intermediate Other Verified 04/25/20 10:21 adhesive tape AdvReac Mild Skin Verified 04/29/20 10:48 Reaction codeine AdvReac Mild Confusion Verified 04/25/20 10:21 latex AdvReac Mild Itching Verified 04/25/20 10:21 oxycodone [From Percocet] AdvReac Mild Confusion Verified 04/25/20 10:21 squash AdvReac Mild Nausea Verified 04/25/20 10:21 MRI (implant/left ankle) AdvReac Intermediate Pain Uncoded 04/25/20 10:21 EXAM Constitutional Vitals: Temp Pulse Resp BP Pulse Ox 99.7 F H 103 H 18 133/71 96 04/29/20 05:47 04/29/20 09:00 04/29/20 09:00 04/29/20 09:00 04/29/20 09:00 GENERAL: Alert, oriented, cooperative, appears uncomfortable. HEENT: Atraumatic. PERRL at 4 mm, conjunctiva clear, no scleral icterus. Hearing grossly intact. Oropharynx with moist mucous membranes, no lip or gum lesions, no pharyngeal erythema or exudate. Tongue midline, palate rises symmetrically. NECK: Supple without meningismus, no thyromegaly RESPIRATORY: Breath sounds diminished in the right lower lung angel, rare crackles above, left is clear. Respiratory effort is unlabored. CARDIOVASCULAR: Irregular, no murmur appreciated. 1+ peripheral edema. Carotid pulses 2+ GI: Abdomen obese, soft, nontender, no guarding or rebound. Bowel sounds are present. MUSCULOSKELETAL: No joint erythema or swelling. Pain with passive and active range of motion at the bilateral shoulders. Nontender to palpation at rest. SKIN: Warm, dry. Skin turgor normal. Port-A-Cath in central chest without surrounding erythema. NEUROLOGIC: Cranial nerves II through XII grossly intact. Muscle mass mildly diminished. Strength 5-/5 in the upper and lower extremities with generalized weakness. Sensation intact to light touch bilaterally. PSYCHIATRIC: Alert, oriented x3, normal mood and affect, normal insight. DATA Data Completed and Pending Labs: Labs from last 24 hours 04/29/20 04/29/20 04/29/20 04:36 02:24 02:23 WBC RBC Hgb Hct MCV MCH MCHC RDW Plt Count MPV Neut % (Auto) Lymph % (Auto) [place] % (Auto) Eos % (Auto) Baso % (Auto) Lymph # (Auto) [place] # (Auto) Eos # (Auto) Baso # (Auto) Absolute Neutrophils VBG Lactic Acid 1.3 Sodium 137 Potassium 3.7 Chloride 102 Carbon Dioxide 27 Anion Gap 8.0 BUN 27 H Creatinine 1.1 GFR Calculation 50 Glucose 133 H Calcium 8.8 Total Bilirubin 1.4 H AST 40 H ALT 13 Alkaline Phosphatase 171 H NT-Pro-B Natriuret Pep 1252.0 H Total Protein 7.5 Albumin 2.8 L Globulin 4.7 H Albumin/Globulin Ratio 0.6 L Urine Color Yellow Urine Appearance Hazy A Urine pH 5.0 Ur Specific [place] 1.017 Urine Protein Negative Urine Glucose (UA) Negative Urine Ketones Negative Urine Occult Blood Negative Urine Nitrate Negative Urine Bilirubin Negative Urine Urobilinogen 2.0 A Ur Leukocyte Esterase Negative Ur Culture Indicated? No 04/29/20 01:52 WBC 4.2 L RBC 2.61 L Hgb 8.1 L Hct 25.5 L MCV 97.7 MCH 31.0 MCHC 31.8 RDW 16.9 H Plt Count 101 L MPV 11.7 H Neut % (Auto) 74.5 Lymph % (Auto) 8.8 L [place] % (Auto) 14.3 H Eos % (Auto) 1.9 Baso % (Auto) 0.5 Lymph # (Auto) 0.37 L [place] # (Auto) 0.60 Eos # (Auto) 0.08 Baso # (Auto) 0.02 Absolute Neutrophils 3.13 VBG Lactic Acid Sodium Potassium Chloride Carbon Dioxide Anion Gap BUN Creatinine GFR Calculation Glucose Calcium Total Bilirubin AST ALT Alkaline Phosphatase NT-Pro-B Natriuret Pep Total Protein Albumin Globulin Albumin/Globulin Ratio Urine Color Urine Appearance Urine pH Ur Specific [place] Urine Protein Urine Glucose (UA) Urine Ketones Urine Occult Blood Urine Nitrate Urine Bilirubin Urine Urobilinogen Ur Leukocyte Esterase Ur Culture Indicated? A/P Narrative A/P Narrative: #Dyspnea, pulmonary edema, recurrent right pleural effusion -Presents with pulmonary edema, presumptive heart failure. -Old echo results are not able to be opened in chart -Recurrent right pleural effusion also contributing, history of several recent thoracenteses #Atrial fibrillation -Fairly new rhythm -Was noted to be in atrial fibrillation on 04/22 when she had a thoracentesis and on a EKG from 04/02/20 -In the interim was noted to be in a regular rhythm with ectopy at her PCPs -As far she knows she has not been diagnosed with atrial fibrillation before -Use of anticoagulants for stroke prophylaxis will be of increased risk with her known GAVE -Currently rate controlled #Chills, low grade temperature -No pneumonia on chest x-ray, no other focal source -May be secondary to recent COVID-19 vaccination #Bilateral arm pain -Unclear etiology, though does have underlying musculoskeletal disease in each shoulder -Experiencing muscle spasm #Cirrhosis secondary to SHEPHERD -On spironolactone 100 mg daily/furosemide 40 mg daily -Has had paracenteses and thoracenteses for ascites and effusions associated with cirrhosis #Anemia with known GAVE -Has received multiple transfusions in the past -As above, may be at risk for systemic anticoagulation for atrial fibrillation #CKD #Type 2 diabetes: Noted in chart, not on medication. Plan: * Inpatient admission * IV furosemide twice daily for diuresis * Ultrasound-guided thoracentesis * Begin metoprolol if needed for rate control * Pain medications and muscle relaxers for shoulder pain and spasm * PT evaluation * Recheck echocardiogram
[2020-04-29] MEDS ORDERED: DEXTROSE 50% 50 ML VIAL IV PRN (10:45)
[2020-04-29] MEDS ORDERED: LACTULOSE 20 GM/30 ML ORAL.SOL PO PRN (10:45)
[2020-04-29] MEDS ORDERED: DEXTROSE 31 GM ORAL.SUSP PO PRN (10:45)
[2020-04-29] MEDS ORDERED: ALBUTEROL SULFATE 2.5 MG/3 ML NEBULIZER NEB PRN (10:45)
[2020-04-29] MEDS ORDERED: SENNOSIDES 1 TABLET PO PRN (10:45)
[2020-04-29] MEDS ORDERED: ONDANSETRON 4 MG/2 ML VIAL IV PRN (10:45)
[2020-04-29] MEDS: ACETAMINOPHEN 325 MG TABLET PO PRN ×2 (10:52→23:26)
[2020-04-29] MEDS: 0.9 % SODIUM CHLORIDE 10 ML SYRINGE IV SCH ×2 (12:07→21:17)
[2020-04-29] MEDS: INSULIN LISPRO 1 UNIT/0.01 ML UNIT SQ SCH ×3 (12:19→21:17)
[2020-04-29] MEDS: HYDROcodone/APAP 5/325MG TABLET PO PRN (13:37)
[2020-04-29] MEDS: CYCLOBENZAPRINE 10 MG TABLET PO PRN (14:31)
--- NOTE | 2020-04-29 15:55 | XRay Report ---
CLINICAL INFORMATION: post thoracentesis COMPARISON: 04/29/2020 0157 hours FINDINGS: Moderate cardiomegaly is unchanged. Port-A-Cath is in stable satisfactory position. Mediastinum is normal. Pulmonary vessels are normal in caliber. Interstitial edema has largely subsided with minimal perihilar residual. Following right thoracentesis, only a small residual right pleural effusion persists. No pneumothorax or other complication. Right basilar atelectasis has nearly resolved IMPRESSION: Following right thoracentesis only a small residual right pleural effusion. No pneumothorax or other complication Continued improvement in CHF - now mild Interpreted and Authenticated by: Reynaldo Mukherjee 04/29/20
--- NOTE | 2020-04-29 15:59 | Ultrasound Report ---
Ultrasound-guided thoracentesis CLINICAL INFORMATION: TECHNIQUE: Procedure and risks including possibility of bleeding, infection, and pneumothorax were explained to the patient. They understood and wished to proceed. With the patient in upright position, the fluid was first sonographically localized over the posterior right 10th intercostal space at posterior axillary line. The skin overlying this region was marked, prepped and locally anesthetized with 1% lidocaine using a 25-gauge needle to the level the parietal pleura. An 18-gauge ROKTeh needle was then advanced under sonographic guidance into the pleural fluid and approximately 1.7 L simple appearing transudative fluid was aspirated. Post procedure scanning shows only minimal residual fluid. Patient tolerated procedure well without apparent complication. Follow-up chest x-ray to be obtained IMPRESSION: Successful thoracentesis yielding 1.7 L of transudative appearing simple pleural fluid. No apparent complication Interpreted and Authenticated by: Reynaldo Mukherjee 04/29/20
--- NOTE | 2020-04-29 16:52 | XRay Report ---
CLINICAL INFORMATION: pain COMPARISON: None. FINDINGS: Moderate degeneration of both glenohumeral joints appreciated. There is only mild degeneration of both acromioclavicular joints. The left acromion shows inferior vena cava which may predispose to strengthen rotator cuff impingement. Minor bilateral calcific tendinitis appreciated. Soft tissues are normal. IMPRESSION: Bilateral degeneration. Calcific tendinitis the distal rotator cuff Interpreted and Authenticated by: Reynaldo Mukherjee 04/29/20
--- NOTE | 2020-04-29 16:53 | XRay Report ---
CLINICAL INFORMATION: pain COMPARISON: None. FINDINGS: Severe degeneration in both STT and first CMC joints appreciated. There is also moderate degeneration in the radiocarpal joints. Left scapholunate dissociation appreciated. Old ununited fracture of left ulnar styloid process appreciated, but no acute fracture. The soft tissues are unremarkable IMPRESSION: Bilateral degeneration. Old ununited fracture left ulnar styloid process Interpreted and Authenticated by: Reynaldo Mukherjee 04/29/20
[2020-04-29] MEDS: PANTOPRAZOLE 40 MG TABLET PO SCH (17:43)
[2020-04-29] MEDS: FUROSEMIDE 20 MG/2 ML VIAL IV SCH (17:43)
[2020-04-29] MEDS: DOCUSATE SODIUM 100 MG CAPSULE PO SCH (21:16)
[2020-04-29] MEDS: FAMOTIDINE 20 MG TABLET PO SCH (21:16)
[2020-04-29] MEDS: SUCRALFATE 1 GM TABLET PO SCH (21:16)
--- NOTE | 2020-04-30 04:26 | XRay Report ---
CLINICAL INFORMATION: pain COMPARISON: None. FINDINGS: Old avulsion fracture of the left ulnar styloid process base is nondisplaced. Remote, minimally displaced avulsion fracture off the radial aspect of the right trapezium also appreciated. Left scapholunate dissociation with moderate rotary subluxation of the scaphoid appreciated. Severe bilateral first CMC and STT degeneration appreciated. Moderate degeneration of the right second DIP right fourth PIP joint right fifth DIP and the left third and fourth PIP and the left third DIP appreciated. The remaining interphalangeal joints show mild degenerative change. There is mild diffuse soft tissue swelling. IMPRESSION: Multilevel degeneration. Nondisplaced old ununited fracture through the left ulnar styloid process. Remote avulsion fracture of the right trapezium - minimal displacement. Left scapholunate dissociation with associated rotary subluxation of the scaphoid Interpreted and Authenticated by: Reynaldo Mukherjee 04/30/20
[2020-04-30] MEDS: 0.9 % SODIUM CHLORIDE 10 ML SYRINGE IV SCH ×3 (06:06→20:21)
[2020-04-30] MEDS: CYCLOBENZAPRINE 10 MG TABLET PO PRN (06:12)
[2020-04-30 07:11] LABS: Basophils # (Auto) 0.02 K/mcL (0.00-0.20); Basophils % (Auto) 0.3 % (0.0-2.0); Eosinophils # (Auto) 0.09 K/mcL (0.00-0.70); Eosinophils % (Auto) 1.5 % (0.0-7.0); Hematocrit 23.4 % (36.0-48.0); Hemoglobin 7.4 g/dL (12.0-15.0); Lymphocytes # (Auto) 0.57 K/mcL (1.50-4.80); Lymphocytes % (Auto) 9.7 % (15.0-49.0); Mean Cell Volume 97.5 fL (80.0-100.0); Mean Corpuscular HGB Conc 31.6 g/dL (31.0-36.0); Mean Platelet Volume 10.5 fL (7.4-10.4); Monocytes % (Auto) 11.9 % (1.0-12.0); Neutrophils % (Auto) 76.6 % (38.0-78.0); Platelet Count 89 K/mcL (140-440); Red Cell Distribution Width 16.9 % (11.5-14.5); WBC 5.9 K/mcL (4.5-11.0)
[2020-04-30 07:40] LABS: Blood Urea Nitrogen 29 mg/dL (8-23); Calcium 8.3 mg/dL (8.6-10.4); Carbon Dioxide 27 mmol/L (22-30); Chloride 102 mmol/L (96-108); Glomerular Filtration Rate 50; Glucose 87 mg/dL (70-105)
[2020-04-30] MEDS: FUROSEMIDE 20 MG/2 ML VIAL IV SCH ×2 (07:59→15:14)
[2020-04-30] MEDS: PANTOPRAZOLE 40 MG TABLET PO SCH ×2 (08:00→17:32)
[2020-04-30] MEDS: INSULIN LISPRO 1 UNIT/0.01 ML UNIT SQ SCH (08:05)
[2020-04-30] MEDS: ENOXAPARIN 40 MG/0.4 ML SYRINGE SQ SCH (08:35)
[2020-04-30] MEDS: SUCRALFATE 1 GM TABLET PO SCH ×2 (08:35→20:21)
[2020-04-30] MEDS: DOCUSATE SODIUM 100 MG CAPSULE PO SCH ×2 (08:35→20:21)
[2020-04-30] MEDS: ALLOPURINOL 100 MG TABLET PO SCH (08:35)
[2020-04-30] MEDS: HYDROcodone/APAP 5/325MG TABLET PO PRN ×2 (08:35→19:12)
[2020-04-30] MEDS: SPIRONOLACTONE 25 MG TABLET PO SCH (08:36)
[2020-04-30] MEDS: ESCITALOPRAM 20 MG TABLET PO SCH (08:41)
[2020-04-30] MEDS: FAMOTIDINE 20 MG TABLET PO SCH ×2 (08:41→20:20)
--- NOTE | 2020-04-30 10:49 | Internal Med Progress Note ---
SUBJECTIVE Subjective Patient information: Note initiated : 04/30/20 at 10:47 am Service Date, if different from initiated Date: [] Patient: Francia Souza a 69 y/o F admitted on 04/29/20 for Chills, Bilateral Shoulder Pain. Chief Complaint: [] Interval history: History of present illness: Ms. 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 Patient received her first Covid vaccine on 04/21. Subsequent to that she is developed bilateral shoulder pain, though really does not have pain in the left deltoid where she received the vaccine. She has had pain in her shoulders and down into her arms. 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 However in the last week these pains have persisted and have worsened. Because of her arms being painful she presents to the ED. She also has other symptoms, including feeling chilled 2 days in a row. She feels her chest hurts all across the front of her chest, which she feels is a bit of a tightness and worse with inspiration. Her albuterol does seem to help. She has had dyspnea with exertion which has worsened recently. She has chronic lower extremity edema which is about stable. She is also had some chronic intermittent nausea which is unchanged. She presents to the ED, found to have oxygen saturations 88% on room air. She had a temp of 99.7. Evaluation includes chest x-ray which shows recurrent right-sided effusion as well as vascular congestion consistent with congestive heart failure. She does have a history of significant volume overload, has been on spironolactone and furosemide, as is felt to be secondary to her cirrhosis. She has been admitted for treatment of pulmonary edema and recurrent effusion. Patient has felt chilled, has had low-grade temp here. She had a headache few days ago which is resolved. No vision changes. She had a mild sore throat a few days ago which is resolved. Pulmonary symptoms as above. Chest tightness as noted above, she has some orthopnea as well. Edema is stable. No current nausea or vomiting, no abdominal pain. No dysuria. She does have right knee pain which is chronic. She does complain of bruising easily, does have a port for access. 04/30-patient doing a lot better. No overnight events. Multiple degenerative changes on upper extremity imaging. However rate controlled and no overnight episodes of hypotension. Anticoagulation contraindicated at this time due to history of GI bleed and blood loss anemia. Continue rate control measures. An ticipate discharge 24 hours. Patient refusing SNF transfer. Would benefit from home health physical therapy. Constitutional Vitals: Vital Signs Temp Pulse Resp BP Pulse Ox 97.5 F 105 H 20 131/67 94 04/30/20 08:01 04/29/20 10:00 04/30/20 08:10 04/30/20 08:01 04/30/20 08:10 Period Temp Pulse Resp BP Sys/Anaya Pulse Ox Last 24 Hr 97.5 F-101.4 F 14-25 107-147/57-75 94-99 Intake and Output 04/29/20 04/30/20 04/30/20 21:59 05:59 13:59 Intake Total 100 540 Output Total 400 350 Balance 100 140 -350 Weight 121.608 kg alert oriented Nonlabored breathing A. fib on telemetry No anxiety Intake & Output: Intake & Output 04/29/20 04/30/20 04/30/20 21:59 05:59 13:59 Intake Total 100 540 Output Total 400 350 Balance 100 140 -350 Weight 121.608 kg Intake: Oral 100 540 Output: Void Amount 400 350 Other: Meal Dinner Percent of Meal Consumed 10 Feeding Ability Assist with Tray Set Up Urine Appearance Clear Urine Color Dark Trisha Light Trisha Dark Trisha OBJ DATA Labs CBC & Chem 7: 04/30/20 05:59 04/30/20 05:58 Labs: Abnormal Lab Results 04/30/20 04/30/20 04/29/20 05:59 05:58 04:36 WBC RBC 2.40 L Hgb 7.4 L Hct 23.4 L RDW 16.9 H Plt Count 89 L MPV 10.5 H Lymph % (Auto) 9.7 L [place] % (Auto) Lymph # (Auto) 0.57 L Anion Gap 7.0 L BUN 29 H Glucose Calcium 8.3 L Total Bilirubin AST Alkaline Phosphatase NT-Pro-B Natriuret Pep Albumin Globulin Albumin/Globulin Ratio Urine Appearance Hazy A Urine Urobilinogen 2.0 A 04/29/20 04/29/20 02:23 01:52 WBC 4.2 L RBC 2.61 L Hgb 8.1 L Hct 25.5 L RDW 16.9 H Plt Count 101 L MPV 11.7 H Lymph % (Auto) 8.8 L [place] % (Auto) 14.3 H Lymph # (Auto) 0.37 L Anion Gap BUN 27 H Glucose 133 H Calcium Total Bilirubin 1.4 H AST 40 H Alkaline Phosphatase 171 H NT-Pro-B Natriuret Pep 1252.0 H Albumin 2.8 L Globulin 4.7 H Albumin/Globulin Ratio 0.6 L Urine Appearance Urine Urobilinogen Meds: Medications Acetaminophen (Acetaminophen 325 Mg Tablet) 650 mg PO Q6HP PRN; Protocol PRN Reason: Per Pain Protocol/Fever > 101 Last Admin: 04/29/20 23:26 Dose: 650 mg Documented by: Hydrocodone Bitart/Acetaminophen (Hydrocodone/Apap 5/325mg Tablet) 0 tab PO Q4HP PRN; Protocol PRN Reason: Per Pain Protocol Last Admin: 04/30/20 08:35 Dose: 2 tab Documented by: Albuterol Sulfate (Albuterol Sulfate 2.5 Mg/3 Ml Nebulizer) 2.5 mg NEB Q4HP PRN PRN Reason: Wheezing Allopurinol (Allopurinol 100 Mg Tablet) 100 mg PO QDAY [facility] [place] Last Admin: 04/30/20 08:35 Dose: 100 mg Documented by: Cyclobenzaprine HCl (Cyclobenzaprine 10 Mg Tablet) 10 mg PO TID PRN PRN Reason: Muscle Spasm Last Admin: 04/30/20 06:12 Dose: 10 mg Documented by: Docusate Sodium (Docusate Sodium 100 Mg Capsule) 100 mg PO BID [facility] [place] Last Admin: 04/30/20 08:35 Dose: 100 mg Documented by: Enoxaparin Sodium (Enoxaparin 40 Mg/0.4 Ml Syringe) 40 mg SQ DAILY [facility] [place] Last Admin: 04/30/20 08:35 Dose: 40 mg Documented by: Escitalopram Oxalate (Escitalopram 20 Mg Tablet) 40 mg PO QDAY [facility] [place] Last Admin: 04/30/20 08:41 Dose: 40 mg Documented by: Famotidine (Famotidine 20 Mg Tablet) 20 mg PO BID [facility] [place] Last Admin: 04/30/20 08:41 Dose: 20 mg Documented by: Furosemide (Furosemide 20 Mg/2 Ml Vial) 20 mg IV BIDD [facility] [place] Last Admin: 04/30/20 07:59 Dose: 20 mg Documented by: Lactulose (Lactulose 20 Gm/30 Ml Oral.Leisa) 10 gm PO DAILYP PRN PRN Reason: Constipation Ondansetron HCl (Ondansetron 4 Mg/2 Ml Vial) 4 mg IV Q4HP PRN; Protocol PRN Reason: Nausea And Vomiting Pantoprazole Sodium (Pantoprazole 40 Mg Tablet) 40 mg PO BIDAC [facility] [place] Last Admin: 04/30/20 08:00 Dose: 40 mg Documented by: Senna (Sennosides 1 Tablet) 2 tab PO HSP PRN PRN Reason: Constipation Sodium Chloride (0.9 % Sodium Chloride 10 Ml Syringe) 10 ml IV Q8 [facility] [place] Last Admin: 04/30/20 06:06 Dose: 10 ml Documented by: Spironolactone (Spironolactone 25 Mg Tablet) 100 mg PO DAILY [facility] [place] Last Admin: 04/30/20 08:36 Dose: 100 mg Documented by: Sucralfate (Sucralfate 1 Gm Tablet) 1 gm PO BID [facility] [place] Last Admin: 04/30/20 08:35 Dose: 1 gm Documented by: A/P Narrative A/P Narrative: #Dyspnea, pulmonary edema, recurrent right pleural effusion -Recurrent right pleural effusion also contributing, history of several recent thoracenteses. Clinically improved with repeat thoracentesis. #Atrial fibrillation -New onset -Was noted to be in atrial fibrillation on 04/22 when she had a thoracentesis and on a EKG from 04/02/20 -In the interim was noted to be in a regular rhythm with ectopy at her PCPs -As far she knows she has not been diagnosed with atrial fibrillation before -Use of anticoagulants for stroke prophylaxis contraindicated at this time due to history of CAD/GI bleed associated anemia. Discussed this with patient. At this time she was not want to be started on anticoagulation. 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 Plan: * Continue diuresis * Low-dose extended-release metoprolol * Pain medications and muscle relaxers for shoulder pain and spasm * PT evaluation * Await echocardiogram Time Spent With Patient Time: Total time spent is greater than 50% in coordination of care (as documented) at patient's floor/unit and/or counseling patient: QUALITY VTE Deep Vein Thrombosis/Pulmonary Embolism Present on Admission: No
[2020-04-30] MEDS: METOPROLOL SUCCINATE 25 MG TAB.XL.24H PO SCH (12:01)
[2020-04-30] MEDS: ACETAMINOPHEN 325 MG TABLET PO PRN (23:44)
[2020-05-01] MEDS: 0.9 % SODIUM CHLORIDE 10 ML SYRINGE IV SCH ×3 (05:08→22:54)
[2020-05-01] MEDS: HYDROcodone/APAP 5/325MG TABLET PO PRN ×3 (05:50→21:19)
[2020-05-01 06:35] LABS: Basophils # (Auto) 0.03 K/mcL (0.00-0.20); Basophils % (Auto) 0.4 % (0.0-2.0); Eosinophils # (Auto) 0.08 K/mcL (0.00-0.70); Eosinophils % (Auto) 1.1 % (0.0-7.0); Hematocrit 22.9 % (36.0-48.0); Hemoglobin 7.3 g/dL (12.0-15.0); Lymphocytes # (Auto) 0.59 K/mcL (1.50-4.80); Lymphocytes % (Auto) 7.9 % (15.0-49.0); Mean Corpuscular HGB Conc 31.9 g/dL (31.0-36.0); Mean Platelet Volume 10.6 fL (7.4-10.4); Monocytes # (Auto) 1.16 K/mcL (0.10-0.90); Monocytes % (Auto) 15.6 % (1.0-12.0); Platelet Count 86 K/mcL (140-440); RBC 2.36 M/mcL (4.00-5.20); Red Cell Distribution Width 16.9 % (11.5-14.5); WBC 7.5 K/mcL (4.5-11.0)
[2020-05-01 07:09] LABS: ALT/SGPT 9 U/L (<40); AST/SGOT 28 U/L (<32); Albumin 2.1 gm/dL (3.2-5.2); Albumin/Globulin Ratio 0.5 (1.0-2.3); Alkaline Phosphatase 154 U/L (39-117); Bilirubin,Direct 0.9 mg/dL (<0.3); Bilirubin,Total 1.6 mg/dL (0.1-1.0); Blood Urea Nitrogen 35 mg/dL (8-23); Calcium 8.1 mg/dL (8.6-10.4); Carbon Dioxide 29 mmol/L (22-30); Chloride 100 mmol/L (96-108); Globulin 4.4 gm/dL (2.2-3.7); Glomerular Filtration Rate 35; Glucose 145 mg/dL (70-105); Lactate Dehydrogenase 203 U/L (135-225); Triglycerides 91 mg/dL (<150); Uric Acid 9.5 mg/dL (2.5-8.0)
[2020-05-01] MEDS: PANTOPRAZOLE 40 MG TABLET PO SCH ×2 (07:43→17:09)
[2020-05-01] MEDS ORDERED: 0.9 % SODIUM CHLORIDE 1,000 ML IV ONE (09:21)
[2020-05-01] MEDS: SPIRONOLACTONE 25 MG TABLET PO SCH (09:40)
[2020-05-01] MEDS: FUROSEMIDE 20 MG/2 ML VIAL IV SCH ×2 (09:40→14:08)
[2020-05-01] MEDS: METOPROLOL SUCCINATE 25 MG TAB.XL.24H PO SCH (09:41)
--- NOTE | 2020-05-01 10:30 | XRay Report ---
CLINICAL INFORMATION: SOB COMPARISON: 04/29/2020 FINDINGS: The heart is moderately enlarged, but unchanged. Right subclavian Port-A-Cath is stable, satisfactory position. Mediastinum is unremarkable. Pulmonary vessels are normal. Moderate right pleural effusion with mild patchy atelectasis or infiltrate right base has progressed. IMPRESSION: Moderate right pleural effusion with mild patchy infiltrate or atelectasis right base - progressing. Moderate cardiomegaly stable. No vascular congestion to support acute CHF Interpreted and Authenticated by: Reynaldo Mukherjee 05/01/20
[2020-05-01] MEDS: ENOXAPARIN 40 MG/0.4 ML SYRINGE SQ SCH (10:40)
[2020-05-01] MEDS: SUCRALFATE 1 GM TABLET PO SCH ×2 (10:40→21:18)
[2020-05-01] MEDS: ESCITALOPRAM 20 MG TABLET PO SCH (10:40)
[2020-05-01] MEDS: 0.9 % SODIUM CHLORIDE 1,000 ML IV SCH (10:42)
[2020-05-01] MEDS: FAMOTIDINE 20 MG TABLET PO SCH ×2 (10:42→22:54)
[2020-05-01] MEDS: DOCUSATE SODIUM 100 MG CAPSULE PO SCH ×2 (10:42→21:18)
[2020-05-01] MEDS: ALLOPURINOL 100 MG TABLET PO SCH (10:42)
[2020-05-01] MEDS: PIPERACILLIN SODIUM/TAZOBACTAM 3.375 GM in DEXTROSE 5% IN WATER 50 ML IV SCH ×3 (10:43→19:46)
[2020-05-01] MEDS: 0.9 % SODIUM CHLORIDE 250 ML IV SCH ×3 (10:44→17:11)
--- NOTE | 2020-05-01 11:46 | Internal Med Progress Note ---
SUBJECTIVE Subjective Patient information: Note initiated : 05/01/20 at 11:39 am Service Date, if different from initiated Date: [] Patient: Francia Souza a 69 y/o F admitted on 04/29/20 for Chills, Bilateral Shoulder Pain. Chief Complaint: [] Interval history: History of present illness: Ms. 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 Patient received her first Covid vaccine on 04/21. Subsequent to that she is developed bilateral shoulder pain, though really does not have pain in the left deltoid where she received the vaccine. She has had pain in her shoulders and down into her arms. 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 However in the last week these pains have persisted and have worsened. Because of her arms being painful she presents to the ED. She also has other symptoms, including feeling chilled 2 days in a row. She feels her chest hurts all across the front of her chest, which she feels is a bit of a tightness and worse with inspiration. Her albuterol does seem to help. She has had dyspnea with exertion which has worsened recently. She has chronic lower extremity edema which is about stable. She is also had some chronic intermittent nausea which is unchanged. She presents to the ED, found to have oxygen saturations 88% on room air. She had a temp of 99.7. Evaluation includes chest x-ray which shows recurrent right-sided effusion as well as vascular congestion consistent with congestive heart failure. She does have a history of significant volume overload, has been on spironolactone and furosemide, as is felt to be secondary to her cirrhosis. She has been admitted for treatment of pulmonary edema and recurrent effusion. Patient has felt chilled, has had low-grade temp here. She had a headache few days ago which is resolved. No vision changes. She had a mild sore throat a few days ago which is resolved. Pulmonary symptoms as above. Chest tightness as noted above, she has some orthopnea as well. Edema is stable. No current nausea or vomiting, no abdominal pain. No dysuria. She does have right knee pain which is chronic. She does complain of bruising easily, does have a port for access. 04/30-patient doing a lot better. No overnight events. Multiple degenerative changes on upper extremity imaging. However rate controlled and no overnight episodes of hypotension. Anticoagulation contraindicated at this time due to history of GI bleed and blood loss anemia. Continue rate control measures. An ticipate discharge 24 hours. Patient refusing SNF transfer. Would benefit from home health physical therapy. 05/01-patient feels lethargic and weak and febrile T-max 102. Systolics around 80s to 90s. Started on fluid. CRP 18.2 creatinine 1.5, hemoglobin 7.3, 2 units PRBC transfusion. Continue telemetry monitoring/hemodynamic support Constitutional Vitals: Vital Signs Temp Pulse Resp BP Pulse Ox 98.9 F 105 H 17 93/47 94 05/01/20 07:01 04/29/20 10:00 05/01/20 07:01 05/01/20 07:01 05/01/20 07:01 Period Temp Pulse Resp BP Sys/Anaya Pulse Ox Last 24 Hr 98.3 F-101.9 F 13-31 84-113/42-72 90-100 Intake and Output 04/30/20 05/01/20 05/01/20 21:59 05:59 13:59 Intake Total 746 312 1830 Output Total 0 Balance 894 958 5372 Weight 121.79 kg Feels lethargic fatigue. Slightly lightheaded. Telemetry atrial fibrillation Anxious Nonlabored breathing Intake & Output: Intake & Output 04/30/20 05/01/20 05/01/20 21:59 05:59 13:59 Intake Total 214 836 1740 Output Total 0 Balance 291 187 6150 Weight 121.79 kg Intake: Nourishment/Supplement quantity 240 (ml) IV 1000 Sodium Chloride 0.9% 1,000 ml @ 1000 Wide Open IV BOLUS ONE Rx#: [id number] Oral 180 240 Output: Void Amount 0 Other: Meal Dinner Breakfast Percent of Meal Consumed 75% 50% Feeding Ability Independent Nourishment/Supplement name ensure Urine Appearance Clear Urine Color Light Trisha Dark Yellow # Voids 1 OBJ DATA Labs CBC & Chem 7: 05/01/20 05:17 05/01/20 05:17 Labs: Abnormal Lab Results 05/01/20 05/01/20 05/01/20 05:32 05:32 05:17 WBC RBC Hgb Hct RDW Plt Count MPV Lymph % (Auto) [place] % (Auto) Lymph # (Auto) [place] # (Auto) Anion Gap 7.0 L BUN 35 H Creatinine 1.5 H Glucose 145 H Uric Acid 9.5 H Calcium 8.1 L Total Bilirubin 1.6 H Direct Bilirubin 0.9 H GGT 136 H AST Alkaline Phosphatase 154 H C-Reactive Protein 18.20 H NT-Pro-B Natriuret Pep Albumin 2.1 L Globulin 4.4 H Albumin/Globulin Ratio 0.5 L Procalcitonin 0.47 H Urine Appearance Urine Urobilinogen 05/01/20 04/30/20 04/30/20 05:17 05:59 05:58 WBC RBC 2.36 L 2.40 L Hgb 7.3 L 7.4 L Hct 22.9 L 23.4 L RDW 16.9 H 16.9 H Plt Count 86 L 89 L MPV 10.6 H 10.5 H Lymph % (Auto) 7.9 L 9.7 L [place] % (Auto) 15.6 H Lymph # (Auto) 0.59 L 0.57 L [place] # (Auto) 1.16 H Anion Gap 7.0 L BUN 29 H Creatinine Glucose Uric Acid Calcium 8.3 L Total Bilirubin Direct Bilirubin GGT AST Alkaline Phosphatase C-Reactive Protein NT-Pro-B Natriuret Pep Albumin Globulin Albumin/Globulin Ratio Procalcitonin Urine Appearance Urine Urobilinogen 04/29/20 04/29/20 04/29/20 04:36 02:23 01:52 WBC 4.2 L RBC 2.61 L Hgb 8.1 L Hct 25.5 L RDW 16.9 H Plt Count 101 L MPV 11.7 H Lymph % (Auto) 8.8 L [place] % (Auto) 14.3 H Lymph # (Auto) 0.37 L [place] # (Auto) Anion Gap BUN 27 H Creatinine Glucose 133 H Uric Acid Calcium Total Bilirubin 1.4 H Direct Bilirubin GGT AST 40 H Alkaline Phosphatase 171 H C-Reactive Protein NT-Pro-B Natriuret Pep 1252.0 H Albumin 2.8 L Globulin 4.7 H Albumin/Globulin Ratio 0.6 L Procalcitonin Urine Appearance Hazy A Urine Urobilinogen 2.0 A Meds: Medications Acetaminophen (Acetaminophen 325 Mg Tablet) 650 mg PO Q6HP PRN; Protocol PRN Reason: Per Pain Protocol/Fever > 101 Last Admin: 04/30/20 23:44 Dose: 650 mg Documented by: Hydrocodone Bitart/Acetaminophen (Hydrocodone/Apap 5/325mg Tablet) 0 tab PO Q4HP PRN; Protocol PRN Reason: Per Pain Protocol Last Admin: 05/01/20 10:40 Dose: 2 tab Documented by: Albuterol Sulfate (Albuterol Sulfate 2.5 Mg/3 Ml Nebulizer) 2.5 mg NEB Q4HP PRN PRN Reason: Wheezing Allopurinol (Allopurinol 100 Mg Tablet) 100 mg PO QDAY [facility] Last Admin: 05/01/20 10:42 Dose: 100 mg Documented by: Cyclobenzaprine HCl (Cyclobenzaprine 10 Mg Tablet) 10 mg PO TID PRN PRN Reason: Muscle Spasm Last Admin: 04/30/20 06:12 Dose: 10 mg Documented by: Docusate Sodium (Docusate Sodium 100 Mg Capsule) 100 mg PO BID [facility] Last Admin: 05/01/20 10:42 Dose: 100 mg Documented by: Enoxaparin Sodium (Enoxaparin 40 Mg/0.4 Ml Syringe) 40 mg SQ DAILY [facility] Last Admin: 05/01/20 10:40 Dose: 40 mg Documented by: Escitalopram Oxalate (Escitalopram 20 Mg Tablet) 40 mg PO QDAY [facility] Last Admin: 05/01/20 10:40 Dose: 40 mg Documented by: Famotidine (Famotidine 20 Mg Tablet) 20 mg PO BID [facility] Last Admin: 05/01/20 10:42 Dose: 20 mg Documented by: Furosemide (Furosemide 20 Mg/2 Ml Vial) 20 mg IV BIDD [facility] Last Admin: 05/01/20 09:40 Dose: Not Given Documented by: Sodium Chloride (Sodium Chloride 0.9%) 250 mls @ 20 mls/hr IV .[id number] [facility] Stop: 05/01/20 21:59 Last Admin: 05/01/20 10:44 Dose: Not Given Documented by: Piperacillin Sod/Tazobactam (Sod 3.375 gm/ Dextrose) 50 mls @ 100 mls/hr IV Q6H [facility]; Protocol Last Admin: 05/01/20 10:43 Dose: 100 mls/hr Documented by: Sodium Chloride (Sodium Chloride 0.9%) 1,000 mls @ 50 mls/hr IV .Q20H [facility] Last Admin: 05/01/20 10:42 Dose: 50 mls/hr Documented by: Lactulose (Lactulose 20 Gm/30 Ml Oral.Leisa) 10 gm PO DAILYP PRN PRN Reason: Constipation Metoprolol Succinate (Metoprolol Succinate 25 Mg Tab.Xl.24h) 12.5 mg PO DAILY [facility] Last Admin: 05/01/20 09:41 Dose: Not Given Documented by: Ondansetron HCl (Ondansetron 4 Mg/2 Ml Vial) 4 mg IV Q4HP PRN; Protocol PRN Reason: Nausea And Vomiting Pantoprazole Sodium (Pantoprazole 40 Mg Tablet) 40 mg PO BIDAC [facility] Last Admin: 05/01/20 07:43 Dose: 40 mg Documented by: Senna (Sennosides 1 Tablet) 2 tab PO HSP PRN PRN Reason: Constipation Sodium Chloride (0.9 % Sodium Chloride 10 Ml Syringe) 10 ml IV Q8 [facility] Last Admin: 05/01/20 05:08 Dose: 10 ml Documented by: Spironolactone (Spironolactone 25 Mg Tablet) 100 mg PO DAILY [facility] Last Admin: 05/01/20 09:40 Dose: Not Given Documented by: Sucralfate (Sucralfate 1 Gm Tablet) 1 gm PO BID [facility] Last Admin: 05/01/20 10:40 Dose: 1 gm Documented by: A/P Narrative A/P Narrative: #Sepsis with hypotension unclear source with fever. Await pancultures/empiric antibiotic coverage. Start crystalloid/hemodynamic support #Right-sided pneumonia-start antibiotic coverage #Dyspnea, pulmonary edema, recurrent right pleural effusion. Status post thoracentesis. #New onset atrial fibrillation-now rate controlled -Use of anticoagulants for stroke prophylaxis contraindicated at this time due to history of CAD/GI bleed associated anemia. Discussed this with patient. At this time she was not want to be started on anticoagulation. -Currently rate controlled -Echo LVEF 76% with bilateral dilated atrium. 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 Plan: * Sepsis work-up including pancultures/chest imaging/lactic acid/CRP/UA * Hold antihypertensives and diuretics * Pain medications and muscle relaxers for shoulder pain and spasm * PT OT * Discharge planning likely transfer to SNF advance health Time Spent With Patient Time: Total time spent is greater than 50% in coordination of care (as documented) at patient's floor/unit and/or counseling patient: QUALITY VTE Deep Vein Thrombosis/Pulmonary Embolism Present on Admission: No
[2020-05-01 13:25] LABS: Appearance,Urine CLOUDY (Clear); Bilirubin,Urine Negative (Negative); Color,Urine AMBER; Culture Indicated,Urine No; Glucose,Urine (UA) Negative (Negative); Ketones,Urine Negative (Negative); Leukocyte Esterase,Urine Negative /ug (Negative); Nitrate,Urine Negative (Negative); Protein,Urine Negative (Negative); Specific Gravity,Urine 1.019 (1.000-1.035); Urine Blood Negative (Negative)
[2020-05-01] MEDS ORDERED: MAGNESIUM SULFATE 2 GM/50 ML BAG IV ONE (16:28)
[2020-05-02] MEDS: PIPERACILLIN SODIUM/TAZOBACTAM 3.375 GM in DEXTROSE 5% IN WATER 50 ML IV SCH ×5 (01:44→23:26)
[2020-05-02] MEDS: 0.9 % SODIUM CHLORIDE 10 ML SYRINGE IV SCH ×3 (05:29→20:54)
[2020-05-02] MEDS: HYDROcodone/APAP 5/325MG TABLET PO PRN ×2 (05:30→21:45)
[2020-05-02] MEDS: 0.9 % SODIUM CHLORIDE 1,000 ML IV SCH ×2 (05:39→06:41)
[2020-05-02] MEDS: FUROSEMIDE 20 MG/2 ML VIAL IV SCH ×2 (07:46→16:05)
[2020-05-02] MEDS: PANTOPRAZOLE 40 MG TABLET PO SCH ×2 (07:46→17:26)
[2020-05-02] MEDS: ESCITALOPRAM 20 MG TABLET PO SCH (08:36)
[2020-05-02] MEDS: SPIRONOLACTONE 25 MG TABLET PO SCH (08:36)
[2020-05-02] MEDS: DOCUSATE SODIUM 100 MG CAPSULE PO SCH ×2 (08:36→20:54)
[2020-05-02] MEDS: SUCRALFATE 1 GM TABLET PO SCH ×2 (08:36→20:53)
[2020-05-02] MEDS: ALLOPURINOL 100 MG TABLET PO SCH (08:37)
[2020-05-02] MEDS: FAMOTIDINE 20 MG TABLET PO SCH ×2 (08:37→20:54)
[2020-05-02] MEDS: ENOXAPARIN 40 MG/0.4 ML SYRINGE SQ SCH (08:37)
[2020-05-02] MEDS: METOPROLOL SUCCINATE 25 MG TAB.XL.24H PO SCH (08:37)
[2020-05-02 09:10] LABS: ALT/SGPT 9 U/L (<40); AST/SGOT 27 U/L (<32); Albumin 2.2 gm/dL (3.2-5.2); Albumin/Globulin Ratio 0.5 (1.0-2.3); Alkaline Phosphatase 132 U/L (39-117); Bilirubin,Direct 1.8 mg/dL (<0.3); Bilirubin,Total 2.6 mg/dL (0.1-1.0); Blood Urea Nitrogen 42 mg/dL (8-23); Calcium 7.9 mg/dL (8.6-10.4); Carbon Dioxide 26 mmol/L (22-30); Chloride 99 mmol/L (96-108); Globulin 4.4 gm/dL (2.2-3.7); Glomerular Filtration Rate 35; Glucose 122 mg/dL (70-105); Lactate Dehydrogenase 207 U/L (135-225); Phosphorous 3.3 mg/dL (2.5-4.5); Triglycerides 101 mg/dL (<150); Uric Acid 8.6 mg/dL (2.5-8.0)
[2020-05-02 09:21] LABS: Basophils # (Auto) 0.03 K/mcL (0.00-0.20); Basophils % (Auto) 0.3 % (0.0-2.0); Eosinophils # (Auto) 0.12 K/mcL (0.00-0.70); Eosinophils % (Auto) 1.4 % (0.0-7.0); Hematocrit 26.6 % (36.0-48.0); Hemoglobin 8.6 g/dL (12.0-15.0); Lymphocytes # (Auto) 0.56 K/mcL (1.50-4.80); Lymphocytes % (Auto) 6.3 % (15.0-49.0); Mean Cell Volume 94.3 fL (80.0-100.0); Mean Corpuscular HGB Conc 32.3 g/dL (31.0-36.0); Monocytes # (Auto) 1.06 K/mcL (0.10-0.90); Platelet Count 82 K/mcL (140-440); RBC 2.82 M/mcL (4.00-5.20); WBC 8.9 K/mcL (4.5-11.0)
--- NOTE | 2020-05-02 14:08 | Internal Med Progress Note ---
SUBJECTIVE Subjective Patient information: Note initiated : 05/02/20 at 2:04 pm Service Date, if different from initiated Date: [] Patient: Francia Souza a 69 y/o F admitted on 04/29/20 for Chills, Bilateral Shoulder Pain. Chief Complaint: [] Interval history: History of present illness: Ms. 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 Patient received her first Covid vaccine on 04/21. Subsequent to that she is developed bilateral shoulder pain, though really does not have pain in the left deltoid where she received the vaccine. She has had pain in her shoulders and down into her arms. 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 However in the last week these pains have persisted and have worsened. Because of her arms being painful she presents to the ED. She also has other symptoms, including feeling chilled 2 days in a row. She feels her chest hurts all across the front of her chest, which she feels is a bit of a tightness and worse with inspiration. Her albuterol does seem to help. She has had dyspnea with exertion which has worsened recently. She has chronic lower extremity edema which is about stable. She is also had some chronic intermittent nausea which is unchanged. She presents to the ED, found to have oxygen saturations 88% on room air. She had a temp of 99.7. Evaluation includes chest x-ray which shows recurrent right-sided effusion as well as vascular congestion consistent with congestive heart failure. She does have a history of significant volume overload, has been on spironolactone and furosemide, as is felt to be secondary to her cirrhosis. She has been admitted for treatment of pulmonary edema and recurrent effusion. Patient has felt chilled, has had low-grade temp here. She had a headache few days ago which is resolved. No vision changes. She had a mild sore throat a few days ago which is resolved. Pulmonary symptoms as above. Chest tightness as noted above, she has some orthopnea as well. Edema is stable. No current nausea or vomiting, no abdominal pain. No dysuria. She does have right knee pain which is chronic. She does complain of bruising easily, does have a port for access. 04/30-patient doing a lot better. No overnight events. Multiple degenerative changes on upper extremity imaging. However rate controlled and no overnight episodes of hypotension. Anticoagulation contraindicated at this time due to history of GI bleed and blood loss anemia. Continue rate control measures. Ant icipate discharge 24 hours. Patient refusing SNF transfer. Would benefit from home health physical therapy. 05/01-patient feels lethargic and weak and febrile T-max 102. Systolics around 80s to 90s. Started on fluid. CRP 18.2 creatinine 1.5, hemoglobin 7.3, 2 units PRBC transfusion. Continue telemetry monitoring/hemodynamic support 05/02-patient feels a lot better this morning. Improved blood pressure. White count 8.9. Remains afebrile. Responding well to antibiotics. Platelets 82, he moglobin 8.6 following units PRBC transfusion. Creatinine 1.5, bilirubin 2.6. Chest imaging right-sided patchy infiltrates suspicious for pneumonia Constitutional Vitals: Vital Signs Temp Pulse Resp BP Pulse Ox 99.3 F H 104 H 14 94/56 96 05/02/20 12:01 05/02/20 07:55 05/02/20 12:34 05/02/20 12:01 05/02/20 12:34 Period Temp Pulse Resp BP Sys/Anaya Pulse Ox Last 24 Hr 97.6 F-99.4 F 91-108 12-28 92-115/47-86 90-100 Intake and Output 05/02/20 05/02/20 05/02/20 05:59 13:59 21:59 Intake Total 500 1640 Output Total 0 375 Balance 500 1265 Weight 124.919 kg Patient Weight 05/03/20 05:59 Weight 124.919 kg alert oriented Nonlabored breathing Minimal anxiety Irregular rhythm on telemetry Intake & Output: Intake & Output 05/02/20 05/02/20 05/02/20 05:59 13:59 21:59 Intake Total 500 1640 Output Total 0 375 Balance 500 1265 Weight 124.919 kg Intake: IV 100 1100 Sodium Chloride 0.9% 1,000 ml @ 1000 50 mls/hr IV .Q20H [facility] Rx#: [id number] Zosyn 3.375 gm In Dextrose 5% 100 50 in Water 50 ml @ 100 mls/hr IV Q6H [facility] Rx#:[id number] Oral 400 540 Output: Void Amount 0 375 Other: Meal Lunch Percent of Meal Consumed 75% Feeding Ability Independent Urine Appearance Cloudy Cloudy Urine Color Dark Trisha Dark Trisha Urine Odor Normal Normal OBJ DATA Labs CBC & Chem 7: 05/02/20 05:47 05/02/20 04:57 Labs: Abnormal Lab Results 05/02/20 05/02/20 05/02/20 05:47 04:57 04:57 RBC 2.82 L Hgb 8.6 L Hct 26.6 L RDW 17.0 H Plt Count 82 L MPV 12.0 H Neut % (Auto) 80.0 H Lymph % (Auto) 6.3 L [place] % (Auto) Lymph # (Auto) 0.56 L [place] # (Auto) 1.06 H Sodium 132 L Anion Gap 7.0 L BUN 42 H Creatinine 1.5 H Glucose 122 H Uric Acid 8.6 H Calcium 7.9 L Total Bilirubin 2.6 H Direct Bilirubin 1.8 H GGT 127 H Alkaline Phosphatase 132 H C-Reactive Protein Albumin 2.2 L Globulin 4.4 H Albumin/Globulin Ratio 0.5 L Procalcitonin 1.35 H Urine Appearance Urine Urobilinogen 05/01/20 05/01/20 05/01/20 11:00 05:32 05:32 RBC Hgb Hct RDW Plt Count MPV Neut % (Auto) Lymph % (Auto) [place] % (Auto) Lymph # (Auto) [place] # (Auto) Sodium Anion Gap BUN Creatinine Glucose Uric Acid Calcium Total Bilirubin Direct Bilirubin GGT Alkaline Phosphatase C-Reactive Protein 18.20 H Albumin Globulin Albumin/Globulin Ratio Procalcitonin 0.47 H Urine Appearance Cloudy A Urine Urobilinogen 4.0 A 05/01/20 05/01/20 04/30/20 05:17 05:17 05:59 RBC 2.36 L 2.40 L Hgb 7.3 L 7.4 L Hct 22.9 L 23.4 L RDW 16.9 H 16.9 H Plt Count 86 L 89 L MPV 10.6 H 10.5 H Neut % (Auto) Lymph % (Auto) 7.9 L 9.7 L [place] % (Auto) 15.6 H Lymph # (Auto) 0.59 L 0.57 L [place] # (Auto) 1.16 H Sodium Anion Gap 7.0 L BUN 35 H Creatinine 1.5 H Glucose 145 H Uric Acid 9.5 H Calcium 8.1 L Total Bilirubin 1.6 H Direct Bilirubin 0.9 H GGT 136 H Alkaline Phosphatase 154 H C-Reactive Protein Albumin 2.1 L Globulin 4.4 H Albumin/Globulin Ratio 0.5 L Procalcitonin Urine Appearance Urine Urobilinogen 04/30/20 05:58 RBC Hgb Hct RDW Plt Count MPV Neut % (Auto) Lymph % (Auto) [place] % (Auto) Lymph # (Auto) [place] # (Auto) Sodium Anion Gap 7.0 L BUN 29 H Creatinine Glucose Uric Acid Calcium 8.3 L Total Bilirubin Direct Bilirubin GGT Alkaline Phosphatase C-Reactive Protein Albumin Globulin Albumin/Globulin Ratio Procalcitonin Urine Appearance Urine Urobilinogen Meds: Medications Acetaminophen (Acetaminophen 325 Mg Tablet) 650 mg PO Q6HP PRN; Protocol PRN Reason: Per Pain Protocol/Fever > 101 Last Admin: 04/30/20 23:44 Dose: 650 mg Documented by: Hydrocodone Bitart/Acetaminophen (Hydrocodone/Apap 5/325mg Tablet) 0 tab PO Q4HP PRN; Protocol PRN Reason: Per Pain Protocol Last Admin: 05/02/20 05:30 Dose: 1 tab Documented by: Albuterol Sulfate (Albuterol Sulfate 2.5 Mg/3 Ml Nebulizer) 2.5 mg NEB Q4HP PRN PRN Reason: Wheezing Allopurinol (Allopurinol 100 Mg Tablet) 100 mg PO QDAY [facility] Last Admin: 05/02/20 08:37 Dose: 100 mg Documented by: Cyclobenzaprine HCl (Cyclobenzaprine 10 Mg Tablet) 10 mg PO TID PRN PRN Reason: Muscle Spasm Last Admin: 04/30/20 06:12 Dose: 10 mg Documented by: Docusate Sodium (Docusate Sodium 100 Mg Capsule) 100 mg PO BID [facility] Last Admin: 05/02/20 08:36 Dose: 100 mg Documented by: Enoxaparin Sodium (Enoxaparin 40 Mg/0.4 Ml Syringe) 40 mg SQ DAILY [facility] Last Admin: 05/02/20 08:37 Dose: 40 mg Documented by: Escitalopram Oxalate (Escitalopram 20 Mg Tablet) 40 mg PO QDAY [facility] Last Admin: 05/02/20 08:36 Dose: 40 mg Documented by: Famotidine (Famotidine 20 Mg Tablet) 20 mg PO BID [facility] Last Admin: 05/02/20 08:37 Dose: 20 mg Documented by: Furosemide (Furosemide 20 Mg/2 Ml Vial) 20 mg IV BIDD [facility] Last Admin: 05/02/20 07:46 Dose: 20 mg Documented by: Piperacillin Sod/Tazobactam (Sod 3.375 gm/ Dextrose) 50 mls @ 100 mls/hr IV Q6H [facility]; Protocol Last Infusion: 05/02/20 08:20 Dose: Infused Documented by: Sodium Chloride (Sodium Chloride 0.9%) 1,000 mls @ 50 mls/hr IV .Q20H [facility] Last Infusion: 05/02/20 06:42 Dose: Infused Documented by: Lactulose (Lactulose 20 Gm/30 Ml Oral.Leisa) 10 gm PO DAILYP PRN PRN Reason: Constipation Last Admin: 05/02/20 08:42 Dose: 10 gm Documented by: Metoprolol Succinate (Metoprolol Succinate 25 Mg Tab.Xl.24h) 12.5 mg PO DAILY [facility] Last Admin: 05/02/20 08:37 Dose: 12.5 mg Documented by: Ondansetron HCl (Ondansetron 4 Mg/2 Ml Vial) 4 mg IV Q4HP PRN; Protocol PRN Reason: Nausea And Vomiting Pantoprazole Sodium (Pantoprazole 40 Mg Tablet) 40 mg PO BIDAC [facility] Last Admin: 05/02/20 07:46 Dose: 40 mg Documented by: Senna (Sennosides 1 Tablet) 2 tab PO HSP PRN PRN Reason: Constipation Sodium Chloride (0.9 % Sodium Chloride 10 Ml Syringe) 10 ml IV Q8 [facility] Last Admin: 05/02/20 05:29 Dose: 10 ml Documented by: Spironolactone (Spironolactone 25 Mg Tablet) 100 mg PO DAILY [facility] Last Admin: 05/02/20 08:36 Dose: 100 mg Documented by: Sucralfate (Sucralfate 1 Gm Tablet) 1 gm PO BID [facility] Last Admin: 05/02/20 08:36 Dose: 1 gm Documented by: A/P Narrative A/P Narrative: #Sepsis with hypotension unclear source with fever. Clinical improvement noted. Negative cultures so far. Continue antibiotic coverage. Likely source right lower lobe pneumonia #Right-sided pneumonia-clinically improved on antibiotic coverage #Dyspnea, pulmonary edema, recurrent right pleural effusion. Status post thoracentesis. Improved hypoxia #New onset atrial fibrillation-now rate controlled -Use of anticoagulants for stroke prophylaxis contraindicated at this time due to history of CAD/GI bleed associated anemia. Discussed this with patient. At this time she was not want to be started on anticoagulation. -Currently rate controlled -Echo LVEF 76% with bilateral dilated atrium. 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 Plan: * Continue antibiotics * Restart diuretics * Pain medications and muscle relaxers for shoulder pain and spasm * PT OT * Discharge planning likely transfer to [facility] in 24 hours Time Spent With Patient Time: Total time spent is greater than 50% in coordination of care (as documented) at patient's floor/unit and/or counseling patient: QUALITY VTE Deep Vein Thrombosis/Pulmonary Embolism Present on Admission: No
[2020-05-02] MEDS ORDERED: ONDANSETRON 4 MG/2 ML VIAL IV PRN (15:20)
[2020-05-02] MEDS ORDERED: ALBUTEROL SULFATE 2.5 MG/3 ML NEBULIZER NEB PRN (15:20)
[2020-05-02] MEDS ORDERED: CYCLOBENZAPRINE 10 MG TABLET PO PRN (15:20)
[2020-05-02] MEDS ORDERED: SENNOSIDES 1 TABLET PO PRN (15:20)
[2020-05-02] MEDS ORDERED: ACETAMINOPHEN 325 MG TABLET PO PRN (15:20)
[2020-05-02] MEDS ORDERED: LACTULOSE 20 GM/30 ML ORAL.SOL PO PRN (15:20)
[2020-05-03] MEDS: 0.9 % SODIUM CHLORIDE 10 ML SYRINGE IV SCH ×3 (05:50→21:23)
[2020-05-03] MEDS: PIPERACILLIN SODIUM/TAZOBACTAM 3.375 GM in DEXTROSE 5% IN WATER 50 ML IV SCH ×4 (05:50→23:46)
[2020-05-03] MEDS: PANTOPRAZOLE 40 MG TABLET PO SCH ×2 (08:13→17:38)
[2020-05-03] MEDS: SPIRONOLACTONE 25 MG TABLET PO SCH (08:13)
[2020-05-03] MEDS: SUCRALFATE 1 GM TABLET PO SCH ×2 (08:13→21:05)
[2020-05-03] MEDS: ESCITALOPRAM 20 MG TABLET PO SCH (08:13)
[2020-05-03] MEDS: HYDROcodone/APAP 5/325MG TABLET PO PRN (08:14)
[2020-05-03] MEDS: FUROSEMIDE 20 MG/2 ML VIAL IV SCH ×2 (08:14→17:37)
[2020-05-03] MEDS: DOCUSATE SODIUM 100 MG CAPSULE PO SCH ×2 (08:14→21:06)
[2020-05-03] MEDS: FAMOTIDINE 20 MG TABLET PO SCH ×2 (08:14→21:06)
[2020-05-03] MEDS: ALLOPURINOL 100 MG TABLET PO SCH (08:36)
[2020-05-03] MEDS: METOPROLOL SUCCINATE 25 MG TAB.XL.24H PO SCH (08:36)
[2020-05-03] MEDS: ENOXAPARIN 40 MG/0.4 ML SYRINGE SQ SCH (08:36)
--- NOTE | 2020-05-03 09:51 | Internal Med Progress Note ---
SUBJECTIVE Subjective Patient information: Note initiated : 05/03/20 at 9:47 am Service Date, if different from initiated Date: [] Patient: Francia Souza a 69 y/o F admitted on 04/29/20 for Chills, Bilateral Shoulder Pain. Chief Complaint: [] Interval history: History of present illness: Ms. 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 Patient received her first Covid vaccine on 04/21. Subsequent to that she is developed bilateral shoulder pain, though really does not have pain in the left deltoid where she received the vaccine. She has had pain in her shoulders and down into her arms. 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 However in the last week these pains have persisted and have worsened. Because of her arms being painful she presents to the ED. She also has other symptoms, including feeling chilled 2 days in a row. She feels her chest hurts all across the front of her chest, which she feels is a bit of a tightness and worse with inspiration. Her albuterol does seem to help. She has had dyspnea with exertion which has worsened recently. She has chronic lower extremity edema which is about stable. She is also had some chronic intermittent nausea which is unchanged. She presents to the ED, found to have oxygen saturations 88% on room air. She had a temp of 99.7. Evaluation includes chest x-ray which shows recurrent right-sided effusion as well as vascular congestion consistent with congestive heart failure. She does have a history of significant volume overload, has been on spironolactone and furosemide, as is felt to be secondary to her cirrhosis. She has been admitted for treatment of pulmonary edema and recurrent effusion. Patient has felt chilled, has had low-grade temp here. She had a headache few days ago which is resolved. No vision changes. She had a mild sore throat a few days ago which is resolved. Pulmonary symptoms as above. Chest tightness as noted above, she has some orthopnea as well. Edema is stable. No current nausea or vomiting, no abdominal pain. No dysuria. She does have right knee pain which is chronic. She does complain of bruising easily, does have a port for access. 04/30-patient doing a lot better. No overnight events. Multiple degenerative changes on upper extremity imaging. However rate controlled and no overnight episodes of hypotension. Anticoagulation contraindicated at this time due to history of GI bleed and blood loss anemia. Continue rate control measures. Ant icipate discharge 24 hours. Patient refusing SNF transfer. Would benefit from home health physical therapy. 05/01-patient feels lethargic and weak and febrile T-max 102. Systolics around 80s to 90s. Started on fluid. CRP 18.2 creatinine 1.5, hemoglobin 7.3, 2 units PRBC transfusion. Continue telemetry monitoring/hemodynamic support 05/02-patient feels a lot better this morning. Improved blood pressure. White count 8.9. Remains afebrile. Responding well to antibiotics. Platelets 82, he moglobin 8.6 following units PRBC transfusion. Creatinine 1.5, bilirubin 2.6. Chest imaging right-sided patchy infiltrates suspicious for pneumonia 05/03-patient doing a lot better however complains of generalized body aches involving shoulder, back, lower extremities. She requests increasing dose of Tylenol which he normally does at home for breakthrough pain. [place] quite drowsy after [place] and the dose was reduced to 2.5 every 8 hours. On antibiotic coverage. Stable hemodynamics. White count 8.9. Blood pressure stable. Creatinine 1.5. No fever chills or concerns per staff. Constitutional Vitals: Vital Signs Temp Pulse Resp BP Pulse Ox 98.2 F 95 H 14 95/51 94 05/03/20 06:38 05/03/20 06:38 05/03/20 06:38 05/03/20 06:38 05/03/20 06:38 Period Temp Pulse Resp BP Sys/Anaya Pulse Ox Last 24 Hr 98.2 F-99.7 F 87-99 12-28 93-118/51-62 93-98 Intake and Output 05/02/20 05/03/20 05/03/20 21:59 05:59 13:59 Intake Total 340 370 290 Output Total 250 450 250 Balance 90 -80 40 Weight 122.152 kg 127.913 kg Alert oriented Nonlabored breathing Generalized body aches No lymphedema Intake & Output: Intake & Output 03/12/21 03/13/21 03/13/21 21:59 05:59 13:59 Intake Total 340 370 290 Output Total 250 450 250 Balance 90 -80 40 Weight 122.152 kg 127.913 kg Intake: Nourishment/Supplement quantity 240 (ml) IV 100 50 50 Zosyn 3.375 gm In Dextrose 5% 100 50 50 in Water 50 ml @ 100 mls/hr IV Q6H [facility] Rx#:[id number] Oral 320 240 Output: Void Amount 250 450 250 Other: Meal Breakfast Percent of Meal Consumed 25% Feeding Ability Independent Urine Appearance Clear Clear Clear Urine Color Dark Yellow Light Trisha Dark Yellow OBJ DATA Labs CBC & Chem 7: 05/02/20 05:47 05/02/20 04:57 Labs: Abnormal Lab Results 05/02/20 05/02/20 05/02/20 05:47 04:57 04:57 RBC 2.82 L Hgb 8.6 L Hct 26.6 L RDW 17.0 H Plt Count 82 L MPV 12.0 H Neut % (Auto) 80.0 H Lymph % (Auto) 6.3 L [place] % (Auto) Lymph # (Auto) 0.56 L [place] # (Auto) 1.06 H Sodium 132 L Anion Gap 7.0 L BUN 42 H Creatinine 1.5 H Glucose 122 H Uric Acid 8.6 H Calcium 7.9 L Total Bilirubin 2.6 H Direct Bilirubin 1.8 H GGT 127 H Alkaline Phosphatase 132 H C-Reactive Protein Albumin 2.2 L Globulin 4.4 H Albumin/Globulin Ratio 0.5 L Procalcitonin 1.35 H Urine Appearance Urine Urobilinogen 05/01/20 05/01/20 05/01/20 11:00 05:32 05:32 RBC Hgb Hct RDW Plt Count MPV Neut % (Auto) Lymph % (Auto) [place] % (Auto) Lymph # (Auto) [place] # (Auto) Sodium Anion Gap BUN Creatinine Glucose Uric Acid Calcium Total Bilirubin Direct Bilirubin GGT Alkaline Phosphatase C-Reactive Protein 18.20 H Albumin Globulin Albumin/Globulin Ratio Procalcitonin 0.47 H Urine Appearance Cloudy A Urine Urobilinogen 4.0 A 05/01/20 05/01/20 05:17 05:17 RBC 2.36 L Hgb 7.3 L Hct 22.9 L RDW 16.9 H Plt Count 86 L MPV 10.6 H Neut % (Auto) Lymph % (Auto) 7.9 L [place] % (Auto) 15.6 H Lymph # (Auto) 0.59 L [place] # (Auto) 1.16 H Sodium Anion Gap 7.0 L BUN 35 H Creatinine 1.5 H Glucose 145 H Uric Acid 9.5 H Calcium 8.1 L Total Bilirubin 1.6 H Direct Bilirubin 0.9 H GGT 136 H Alkaline Phosphatase 154 H C-Reactive Protein Albumin 2.1 L Globulin 4.4 H Albumin/Globulin Ratio 0.5 L Procalcitonin Urine Appearance Urine Urobilinogen Meds: Medications Acetaminophen (Acetaminophen 325 Mg Tablet) 650 mg PO Q6HP PRN; Protocol PRN Reason: Per Pain Protocol/Fever > 101 Hydrocodone Bitart/Acetaminophen (Hydrocodone/Apap 5/325mg Tablet) 0 tab PO Q4HP PRN; Protocol PRN Reason: Per Pain Protocol Last Admin: 05/03/20 08:14 Dose: 1 tab Documented by: Albuterol Sulfate (Albuterol Sulfate 2.5 Mg/3 Ml Nebulizer) 2.5 mg NEB Q4HP PRN PRN Reason: Wheezing Allopurinol (Allopurinol 100 Mg Tablet) 100 mg PO QDAY [facility] Last Admin: 05/03/20 08:36 Dose: Not Given Documented by: Cyclobenzaprine HCl (Cyclobenzaprine 10 Mg Tablet) 10 mg PO TIDP PRN PRN Reason: Muscle Spasm Docusate Sodium (Docusate Sodium 100 Mg Capsule) 100 mg PO BID [facility] Last Admin: 05/03/20 08:14 Dose: 100 mg Documented by: Enoxaparin Sodium (Enoxaparin 40 Mg/0.4 Ml Syringe) 40 mg SQ DAILY [facility] Last Admin: 05/03/20 08:36 Dose: 40 mg Documented by: Escitalopram Oxalate (Escitalopram 20 Mg Tablet) 40 mg PO QDAY [facility] Last Admin: 05/03/20 08:13 Dose: 40 mg Documented by: Famotidine (Famotidine 20 Mg Tablet) 20 mg PO BID [facility] Last Admin: 05/03/20 08:14 Dose: 20 mg Documented by: Furosemide (Furosemide 20 Mg/2 Ml Vial) 20 mg IV BIDD [facility] Last Admin: 05/03/20 08:14 Dose: 20 mg Documented by: Piperacillin Sod/Tazobactam (Sod 3.375 gm/ Dextrose) 50 mls @ 100 mls/hr IV Q6H [facility]; Protocol Last Infusion: 05/03/20 07:20 Dose: Infused Documented by: Lactulose (Lactulose 20 Gm/30 Ml Oral.Leisa) 10 gm PO DAILYP PRN PRN Reason: Constipation Metoprolol Succinate (Metoprolol Succinate 25 Mg Tab.Xl.24h) 12.5 mg PO DAILY [facility] Last Admin: 05/03/20 08:36 Dose: Not Given Documented by: Ondansetron HCl (Ondansetron 4 Mg/2 Ml Vial) 4 mg IV Q4HP PRN; Protocol PRN Reason: Nausea And Vomiting Pantoprazole Sodium (Pantoprazole 40 Mg Tablet) 40 mg PO BIDAC [facility] Last Admin: 05/03/20 08:13 Dose: 40 mg Documented by: Senna (Sennosides 1 Tablet) 2 tab PO HSP PRN PRN Reason: Constipation Sodium Chloride (0.9 % Sodium Chloride 10 Ml Syringe) 10 ml IV Q8 [facility] Last Admin: 05/03/20 05:50 Dose: 10 ml Documented by: Spironolactone (Spironolactone 25 Mg Tablet) 100 mg PO DAILY [facility] Last Admin: 05/03/20 08:13 Dose: 100 mg Documented by: Sucralfate (Sucralfate 1 Gm Tablet) 1 gm PO BID [facility] Last Admin: 05/03/20 08:13 Dose: 1 gm Documented by: A/P Narrative A/P Narrative: #Sepsis with hypotension unclear source with fever. Clinically resolved. Likely secondary to pneumonia. Continue antibiotic coverage. #Right-sided pneumonia-clinically improving on antibiotic coverage #Acute hypoxic respiratory failure secondary to pulmonary edema/recurrent pleural effusion/pneumonia clinically improving now on 1 L oxygen. #New onset atrial fibrillation-now rate controlled -Use of anticoagulants for stroke prophylaxis contraindicated at this time due to history of CAD/GI bleed associated anemia. Discussed this with patient. At this time she was not want to be started on anticoagulation. -Currently rate controlled -Echo LVEF 76% with bilateral dilated atrium. #Generalized pain including shoulder, arm lower extremity and back -On Tylenol/[place] as needed Imaging reveals multiple prior-fractures/degenerative joint changes but no acute process #Cirrhosis secondary to [place] -On spironolactone 100 mg daily/furosemide 40 mg daily -Has had paracenteses and thoracenteses for ascites and effusions associated with cirrhosis #Anemia with known GAVE -Has received multiple transfusions in the past -As above, at risk for systemic anticoagulation for atrial fibrillation #CKD-creatinine 1.5 baseline 1.1 monitor renal function #Type 2 diabetes: Noted in chart, not on medication. Plan: * Continue antibiotics * Continue diuretics * Pain medications and muscle relaxers for shoulder pain and spasm * Nutrition support/daily PT OT * Discharge to SNF on Tuesday Time Spent With Patient Time: Total time spent is greater than 50% in coordination of care (as documented) at patient's floor/unit and/or counseling patient: QUALITY VTE Deep Vein Thrombosis/Pulmonary Embolism Present on Admission: No
[2020-05-03 11:52] LABS: ALT/SGPT 9 U/L (<40); AST/SGOT 29 U/L (<32); Albumin/Globulin Ratio 0.4 (1.0-2.3); Alkaline Phosphatase 136 U/L (39-117); Bilirubin,Direct 2.1 mg/dL (<0.3); Bilirubin,Total 2.9 mg/dL (0.1-1.0); Blood Urea Nitrogen 47 mg/dL (8-23); Calcium 8.2 mg/dL (8.6-10.4); Carbon Dioxide 23 mmol/L (22-30); Chloride 97 mmol/L (96-108); Globulin 4.8 gm/dL (2.2-3.7); Glomerular Filtration Rate 28; Glucose 147 mg/dL (70-105); Lactate Dehydrogenase 187 U/L (135-225); Phosphorous 2.7 mg/dL (2.5-4.5); Triglycerides 104 mg/dL (<150); Uric Acid 8.2 mg/dL (2.5-8.0)
[2020-05-03] MEDS: ACETAMINOPHEN 325 MG TABLET PO SCH ×2 (13:57→21:06)
[2020-05-04] MEDS: HYDROcodone/APAP 5/325MG TABLET PO PRN ×2 (01:29→11:36)
[2020-05-04] MEDS: PIPERACILLIN SODIUM/TAZOBACTAM 3.375 GM in DEXTROSE 5% IN WATER 50 ML IV SCH ×4 (05:52→23:46)
[2020-05-04] MEDS: 0.9 % SODIUM CHLORIDE 10 ML SYRINGE IV SCH ×4 (05:53→23:47)
[2020-05-04 07:12] LABS: ALT/SGPT 10 U/L (<40); AST/SGOT 31 U/L (<32); Albumin 2.1 gm/dL (3.2-5.2); Albumin/Globulin Ratio 0.5 (1.0-2.3); Alkaline Phosphatase 140 U/L (39-117); Bilirubin,Direct 2.3 mg/dL (<0.3); Blood Urea Nitrogen 50 mg/dL (8-23); Calcium 8.5 mg/dL (8.6-10.4); Carbon Dioxide 26 mmol/L (22-30); Chloride 97 mmol/L (96-108); Globulin 4.6 gm/dL (2.2-3.7); Glomerular Filtration Rate 30; Glucose 108 mg/dL (70-105); Lactate Dehydrogenase 182 U/L (135-225); Phosphorous 2.5 mg/dL (2.5-4.5); Triglycerides 106 mg/dL (<150); Uric Acid 8.5 mg/dL (2.5-8.0)
[2020-05-04] MEDS: SPIRONOLACTONE 25 MG TABLET PO SCH (08:18)
[2020-05-04] MEDS: FUROSEMIDE 20 MG/2 ML VIAL IV SCH ×2 (08:18→16:30)
[2020-05-04] MEDS: ACETAMINOPHEN 325 MG TABLET PO SCH ×3 (08:18→20:12)
[2020-05-04] MEDS: ENOXAPARIN 40 MG/0.4 ML SYRINGE SQ SCH (08:18)
[2020-05-04] MEDS: DOCUSATE SODIUM 100 MG CAPSULE PO SCH ×2 (08:23→20:13)
[2020-05-04] MEDS: FAMOTIDINE 20 MG TABLET PO SCH ×2 (08:23→20:12)
[2020-05-04] MEDS: SUCRALFATE 1 GM TABLET PO SCH ×2 (08:23→20:12)
[2020-05-04] MEDS: PANTOPRAZOLE 40 MG TABLET PO SCH ×2 (08:23→16:29)
[2020-05-04] MEDS: ESCITALOPRAM 20 MG TABLET PO SCH (08:23)
[2020-05-04] MEDS: ALLOPURINOL 100 MG TABLET PO SCH (11:04)
[2020-05-04] MEDS: METOPROLOL SUCCINATE 25 MG TAB.XL.24H PO SCH (11:05)
--- NOTE | 2020-05-04 11:18 | Internal Med Progress Note ---
SUBJECTIVE Subjective Patient information: Note initiated : 05/04/20 at 11:15 am Service Date, if different from initiated Date: [] Patient: Francia Souza a 69 y/o F admitted on 04/29/20 for Chills, Bilateral Shoulder Pain. Chief Complaint: [] Interval history: History of present illness: Ms. 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 Patient received her first Covid vaccine on 04/21. Subsequent to that she is developed bilateral shoulder pain, though really does not have pain in the left deltoid where she received the vaccine. She has had pain in her shoulders and down into her arms. 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 However in the last week these pains have persisted and have worsened. Because of her arms being painful she presents to the ED. She also has other symptoms, including feeling chilled 2 days in a row. She feels her chest hurts all across the front of her chest, which she feels is a bit of a tightness and worse with inspiration. Her albuterol does seem to help. She has had dyspnea with exertion which has worsened recently. She has chronic lower extremity edema which is about stable. She is also had some chronic intermittent nausea which is unchanged. She presents to the ED, found to have oxygen saturations 88% on room air. She had a temp of 99.7. Evaluation includes chest x-ray which shows recurrent right-sided effusion as well as vascular congestion consistent with congestive heart failure. She does have a history of significant volume overload, has been on spironolactone and furosemide, as is felt to be secondary to her cirrhosis. She has been admitted for treatment of pulmonary edema and recurrent effusion. Patient has felt chilled, has had low-grade temp here. She had a headache few days ago which is resolved. No vision changes. She had a mild sore throat a few days ago which is resolved. Pulmonary symptoms as above. Chest tightness as noted above, she has some orthopnea as well. Edema is stable. No current nausea or vomiting, no abdominal pain. No dysuria. She does have right knee pain which is chronic. She does complain of bruising easily, does have a port for access. 04/30-patient doing a lot better. No overnight events. Multiple degenerative changes on upper extremity imaging. However rate controlled and no overnight episodes of hypotension. Anticoagulation contraindicated at this time due to history of GI bleed and blood loss anemia. Continue rate control measures. An ticipate discharge 24 hours. Patient refusing SNF transfer. Would benefit from home health physical therapy. 05/01-patient feels lethargic and weak and febrile T-max 102. Systolics around 80s to 90s. Started on fluid. CRP 18.2 creatinine 1.5, hemoglobin 7.3, 2 units PRBC transfusion. Continue telemetry monitoring/hemodynamic support 05/02-patient feels a lot better this morning. Improved blood pressure. White count 8.9. Remains afebrile. Responding well to antibiotics. Platelets 82, h emoglobin 8.6 following units PRBC transfusion. Creatinine 1.5, bilirubin 2.6. Chest imaging right-sided patchy infiltrates suspicious for pneumonia 05/03-patient doing a lot better however complains of generalized body aches involving shoulder, back, lower extremities. She requests increasing dose of Tylenol which he normally does at home for breakthrough pain. Lyman quite drowsy after Erskine and the dose was reduced to 2.5 every 8 hours. On antibiotic coverage. Stable hemodynamics. White count 8.9. Blood pressure stable. Creatinine 1.5. No fever chills or concerns per staff. 05/04-patient seen in room. Complains of constipation over the last 6 days. Systolic stable around 110. Held metoprolol. Pulse around 100. Afebrile. Negative Conor profile for acute changes. Calcium 8.5,, Creatinine downtrending at 1.7 from a peak of 1.8. Continue therapies. Anticipate discharge in 24 hours to SNF. Continue aggressive bowel protocol. Constitutional Vitals: Vital Signs Temp Pulse Resp BP Pulse Ox 99.2 F H 105 H 18 108/54 95 05/04/20 06:42 05/04/20 06:42 05/04/20 06:42 05/04/20 06:42 05/04/20 06:42 Period Temp Pulse Resp BP Sys/Anaya Pulse Ox Last 24 Hr 98.5 F-99.8 F 91-121 16-22 94-120/53-61 90-99 Intake and Output 05/03/20 05/04/20 05/04/20 20:59 05:59 13:59 Intake Total 170 Output Total 300 Balance -130 Weight Alert oriented Nonlabored breathing Nondistended abdomen Generalized aches. Irregular rhythm Intake & Output: Intake & Output 05/03/20 05/04/20 05/04/20 20:59 05:59 13:59 Intake Total 170 Output Total 300 Balance -130 Weight Intake: IV 50 Zosyn 3.375 gm In Dextrose 5% 50 in Water 50 ml @ 100 mls/hr IV Q6H [facility] Rx#:[id number] Oral 120 Output: Void Amount 300 Other: Meal Breakfast Percent of Meal Consumed 25% Feeding Ability Independent Urine Appearance Clear Urine Color Dark Yellow Urine Odor # Voids OBJ DATA Labs CBC & Chem 7: 05/02/20 05:47 05/04/20 05:25 Labs: Abnormal Lab Results 05/04/20 05/03/20 05/02/20 05:25 10:24 05:47 RBC 2.82 L Hgb 8.6 L Hct 26.6 L RDW 17.0 H Plt Count 82 L MPV 12.0 H Neut % (Auto) 80.0 H Lymph % (Auto) 6.3 L Lymph # (Auto) 0.56 L [place] # (Auto) 1.06 H Sodium 132 L Anion Gap BUN 50 H 47 H Creatinine 1.7 H 1.8 H Glucose 108 H 147 H Uric Acid 8.5 H 8.2 H Calcium 8.5 L 8.2 L Total Bilirubin 3.0 H 2.9 H Direct Bilirubin 2.3 H 2.1 H GGT 120 H 120 H Alkaline Phosphatase 140 H 136 H C-Reactive Protein Albumin 2.1 L 2.0 L Globulin 4.6 H 4.8 H Albumin/Globulin Ratio 0.5 L 0.4 L Procalcitonin Urine Appearance Urine Urobilinogen 05/02/20 05/02/20 05/01/20 04:57 04:57 11:00 RBC Hgb Hct RDW Plt Count MPV Neut % (Auto) Lymph % (Auto) Lymph # (Auto) [place] # (Auto) Sodium 132 L Anion Gap 7.0 L BUN 42 H Creatinine 1.5 H Glucose 122 H Uric Acid 8.6 H Calcium 7.9 L Total Bilirubin 2.6 H Direct Bilirubin 1.8 H GGT 127 H Alkaline Phosphatase 132 H C-Reactive Protein Albumin 2.2 L Globulin 4.4 H Albumin/Globulin Ratio 0.5 L Procalcitonin 1.35 H Urine Appearance Cloudy A Urine Urobilinogen 4.0 A 05/01/20 05/01/20 05:32 05:32 RBC Hgb Hct RDW Plt Count MPV Neut % (Auto) Lymph % (Auto) Lymph # (Auto) [place] # (Auto) Sodium Anion Gap BUN Creatinine Glucose Uric Acid Calcium Total Bilirubin Direct Bilirubin GGT Alkaline Phosphatase C-Reactive Protein 18.20 H Albumin Globulin Albumin/Globulin Ratio Procalcitonin 0.47 H Urine Appearance Urine Urobilinogen Meds: Medications Acetaminophen (Acetaminophen 325 Mg Tablet) 650 mg PO TID [facility]; Protocol Last Admin: 05/04/20 08:18 Dose: 650 mg Documented by: Hydrocodone Bitart/Acetaminophen (Hydrocodone/Apap 5/325mg Tablet) 0.5 tab PO Q8HP PRN; Protocol PRN Reason: Per Pain Protocol Last Admin: 05/04/20 01:29 Dose: 0.5 tab Documented by: Albuterol Sulfate (Albuterol Sulfate 2.5 Mg/3 Ml Nebulizer) 2.5 mg NEB Q4HP PRN PRN Reason: Wheezing Allopurinol (Allopurinol 100 Mg Tablet) 100 mg PO QDAY [facility] Last Admin: 05/04/20 11:04 Dose: 100 mg Documented by: Cyclobenzaprine HCl (Cyclobenzaprine 10 Mg Tablet) 10 mg PO TIDP PRN PRN Reason: Muscle Spasm Docusate Sodium (Docusate Sodium 100 Mg Capsule) 100 mg PO BID [facility] Last Admin: 05/04/20 08:23 Dose: 100 mg Documented by: Enoxaparin Sodium (Enoxaparin 40 Mg/0.4 Ml Syringe) 40 mg SQ DAILY [facility] Last Admin: 05/04/20 08:18 Dose: 40 mg Documented by: Escitalopram Oxalate (Escitalopram 20 Mg Tablet) 40 mg PO QDAY [facility] Last Admin: 05/04/20 08:23 Dose: 40 mg Documented by: Famotidine (Famotidine 20 Mg Tablet) 20 mg PO BID [facility] Last Admin: 05/04/20 08:23 Dose: 20 mg Documented by: Furosemide (Furosemide 20 Mg/2 Ml Vial) 20 mg IV BIDD [facility] Last Admin: 05/04/20 08:18 Dose: 20 mg Documented by: Piperacillin Sod/Tazobactam (Sod 3.375 gm/ Dextrose) 50 mls @ 100 mls/hr IV Q6H [facility]; Protocol Last Infusion: 05/04/20 06:40 Dose: Infused Documented by: Lactulose (Lactulose 20 Gm/30 Ml Oral.Leisa) 10 gm PO DAILYP PRN PRN Reason: Constipation Metoprolol Succinate (Metoprolol Succinate 25 Mg Tab.Xl.24h) 12.5 mg PO DAILY [facility] Last Admin: 05/04/20 11:05 Dose: Not Given Documented by: Ondansetron HCl (Ondansetron 4 Mg/2 Ml Vial) 4 mg IV Q4HP PRN; Protocol PRN Reason: Nausea And Vomiting Pantoprazole Sodium (Pantoprazole 40 Mg Tablet) 40 mg PO BIDAC [facility] Last Admin: 05/04/20 08:23 Dose: 40 mg Documented by: Senna (Sennosides 1 Tablet) 2 tab PO HSP PRN PRN Reason: Constipation Sodium Chloride (0.9 % Sodium Chloride 10 Ml Syringe) 10 ml IV Q8 [facility] Last Admin: 05/04/20 05:53 Dose: 10 ml Documented by: Spironolactone (Spironolactone 25 Mg Tablet) 100 mg PO DAILY [facility] Last Admin: 05/04/20 08:18 Dose: 100 mg Documented by: Sucralfate (Sucralfate 1 Gm Tablet) 1 gm PO BID [facility] Last Admin: 05/04/20 08:23 Dose: 1 gm Documented by: A/P Narrative A/P Narrative: #Sepsis with hypotension clinically resolved. Continue antibiotic coverage. #Right-sided pneumonia-clinically improved. De-escalate to oral antibiotics in 24 hours. #Acute hypoxic respiratory failure secondary to pulmonary edema/recurrent pleural effusion/pneumonia -now on 1 L oxygen. #New onset atrial fibrillation- rate controlled on B Nikko -Use of anticoagulants for stroke prophylaxis contraindicated at this time due to history of CAD/GI bleed associated anemia. Discussed this with patient. At this time she was not want to be started on anticoagulation. -Echo LVEF 76% with bilateral dilated atrium. #Generalized pain including shoulder, arm lower extremity and back -On Tylenol/Erskine 2.5 as needed Imaging reveals multiple prior-fractures/degenerative joint changes but no acute process #Cirrhosis secondary to [place] -On spironolactone 100 mg daily/furosemide 40 mg daily -Has had paracenteses and thoracenteses for ascites and effusions associated with cirrhosis #Anemia with known GAVE -Has received multiple transfusions in the past -As above, at risk for systemic anticoagulation for atrial fibrillation #CKD-creatinine 1.7 baseline 1.1 monitor renal function #Type 2 diabetes: diet controlled. Plan: * Continue antibiotics * Continue diuretics * bowel regimen for constipation * Nutrition support/daily PT OT * Discharge to SNF on Tuesday Time Spent With Patient Time: Total time spent is greater than 50% in coordination of care (as documented) at patient's floor/unit and/or counseling patient: QUALITY VTE Deep Vein Thrombosis/Pulmonary Embolism Present on Admission: No
[2020-05-05] MEDS: HYDROcodone/APAP 5/325MG TABLET PO PRN (03:29)
[2020-05-05] MEDS: 0.9 % SODIUM CHLORIDE 10 ML SYRINGE IV SCH (05:30)
[2020-05-05] MEDS: PIPERACILLIN SODIUM/TAZOBACTAM 3.375 GM in DEXTROSE 5% IN WATER 50 ML IV SCH ×2 (05:30→11:12)
[2020-05-05 06:57] LABS: ALT/SGPT 10 U/L (<40); AST/SGOT 34 U/L (<32); Albumin 1.8 gm/dL (3.2-5.2); Albumin/Globulin Ratio 0.4 (1.0-2.3); Alkaline Phosphatase 136 U/L (39-117); Bilirubin,Direct 2.3 mg/dL (<0.3); Bilirubin,Total 3.1 mg/dL (0.1-1.0); Blood Urea Nitrogen 51 mg/dL (8-23); Calcium 8.4 mg/dL (8.6-10.4); Carbon Dioxide 26 mmol/L (22-30); Chloride 99 mmol/L (96-108); Globulin 4.7 gm/dL (2.2-3.7); Glomerular Filtration Rate 30; Glucose 83 mg/dL (70-105); Lactate Dehydrogenase 169 U/L (135-225); Phosphorous 2.7 mg/dL (2.5-4.5); Triglycerides 116 mg/dL (<150); Uric Acid 8.5 mg/dL (2.5-8.0)
[2020-05-05] MEDS: ACETAMINOPHEN 325 MG TABLET PO SCH (08:30)
[2020-05-05] MEDS: ESCITALOPRAM 20 MG TABLET PO SCH (08:31)
[2020-05-05] MEDS: FAMOTIDINE 20 MG TABLET PO SCH (08:31)
[2020-05-05] MEDS: DOCUSATE SODIUM 100 MG CAPSULE PO SCH (08:31)
[2020-05-05] MEDS: ALLOPURINOL 100 MG TABLET PO SCH (08:31)
[2020-05-05] MEDS: SUCRALFATE 1 GM TABLET PO SCH (08:31)
[2020-05-05] MEDS: PANTOPRAZOLE 40 MG TABLET PO SCH (08:31)
[2020-05-05] MEDS: FUROSEMIDE 20 MG/2 ML VIAL IV SCH (08:32)
[2020-05-05] MEDS: ENOXAPARIN 40 MG/0.4 ML SYRINGE SQ SCH (08:32)
--- NOTE | 2020-05-05 10:32 | Discharge Summary ---
Discharge Provider Provider Patient information: Note initiated : 05/05/20 at 10:27 am Service Date, if different from initiated Date: [] Patient: Francia Souza a 69 y/o F admitted on 04/29/20 for Chills, Bilateral Shoulder Pain. Discharge diagnosis #Sepsis with hypotension clinically resolved. Continue antibiotic coverage for additional 3 days #Right-sided pneumonia-clinically improved. Continue oral antibiotic for additional 3 days #Acute hypoxic respiratory failure secondary to pulmonary edema/recurrent pleural effusion/pneumonia -now on 1 L oxygen. #New onset atrial fibrillation- rate controlled on B Nikko -Use of anticoagulants for stroke prophylaxis contraindicated at this time due to history of CAD/GI bleed associated anemia. Discussed this with patient. At this time she was not want to be started on anticoagulation. -Echo LVEF 76% with bilateral dilated atrium. #Generalized pain including shoulder, arm lower extremity and back -On Tylenol/[place] 2.5 as needed Imaging reveals multiple prior-fractures/degenerative joint changes but no acute process #Cirrhosis secondary to [place] -On spironolactone 100 mg daily/furosemide 40 mg daily -Has had paracenteses and thoracenteses for ascites and effusions associated with cirrhosis #Anemia with known GAVE -Has received multiple transfusions in the past -As above, at risk for systemic anticoagulation for atrial fibrillation #CKD-creatinine 1.7 baseline 1.1 monitor renal function #Type 2 diabetes: diet controlled. Brief hospital course History of present illness: Ms. 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 Patient received her first Covid vaccine on 04/21. Subsequent to that she is developed bilateral shoulder pain, though really does not have pain in the left deltoid where she received the vaccine. She has had pain in her shoulders and down into her arms. 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 However in the last week these pains have persisted and have worsened. Because of her arms being painful she presents to the ED. She also has other symptoms, including feeling chilled 2 days in a row. She feels her chest hurts all across the front of her chest, which she feels is a bit of a tightness and worse with inspiration. Her albuterol does seem to help. She has had dyspnea with exertion which has worsened recently. She has chronic lower extremity edema which is about stable. She is also had some chronic intermittent nausea which is unchanged. She presents to the ED, found to have oxygen saturations 88% on room air. She had a temp of 99.7. Evaluation includes chest x-ray which shows recurrent right-sided effusion as well as vascular congestion consistent with congestive heart failure. She does have a history of significant volume overload, has been on spironolactone and furosemide, as is felt to be secondary to her cirrhosis. She has been admitted for treatment of pulmonary edema and recurrent effusion. Patient has felt chilled, has had low-grade temp here. She had a headache few days ago which is resolved. No vision changes. She had a mild sore throat a few days ago which is resolved. Pulmonary symptoms as above. Chest tightness as noted above, she has some orthopnea as well. Edema is stable. No current nausea or vomiting, no abdominal pain. No dysuria. She does have right knee pain which is chronic. She does complain of bruising easily, does have a port for access. 04/30-patient doing a lot better. No overnight events. Multiple degenerative changes on upper extremity imaging. However rate controlled and no overnight episodes of hypotension. Anticoagulation contraindicated at this time due to history of GI bleed and blood loss anemia. Continue rate control measures. Anticipate discharge 24 hours. Patient refusing SNF transfer. Would benefit from home health physical therapy. 05/01-patient feels lethargic and weak and febrile T-max 102. Systolics around 80s to 90s. Started on fluid. CRP 18.2 creatinine 1.5, hemoglobin 7.3, 2 units PRBC transfusion. Continue telemetry monitoring/hemodynamic support 05/02-patient feels a lot better this morning. Improved blood pressure. White count 8.9. Remains afebrile. Responding well to antibiotics. Platelets 82, hemoglobin 8.6 following units PRBC transfusion. Creatinine 1.5, bilirubin 2.6. Chest imaging right-sided patchy infiltrates suspicious for pneumonia 05/03-patient doing a lot better however complains of generalized body aches involving shoulder, back, lower extremities. She requests increasing dose of Tylenol which he normally does at home for breakthrough pain. Dudley quite drowsy after [place] and the dose was reduced to 2.5 every 8 hours. On antibiotic coverage. Stable hemodynamics. White count 8.9. Blood pressure stable. Creatinine 1.5. No fever chills or concerns per staff. 05/04-patient seen in room. Complains of constipation over the last 6 days. Systolic stable around 110. Held metoprolol. Pulse around 100. Afebrile. Negative Conor profile for acute changes. Calcium 8.5,, Creatinine downtrending at 1.7 from a peak of 1.8. Continue therapies. Anticipate discharge in 24 hours to SNF. Continue aggressive bowel protocol. 05/05-patient had a large bowel movement today. Doing well. Blood pressure stable. No shortness of breath. Stable hemodynamics. Discharging to SNF. No fever chills nausea vomiting. Continue additional 3 days antibiotic. Date of admission: 04/29/20 10:06 Discharge date: 05/05/20 Primary care physician: Serge Jeffries M.D., F.A.A.F.P. Consults: 04/29/20 07:40 Consult to Physician [CONS] Stat Comment: Consulting Provider: Gisela Carrillo Reason For Exam: Physician to Consult Discharge Meds Discharge Medications Home Medications acetaminophen 500 mg capsule 1,000 mg PO TID cap 05/19/18 [History Confirmed 04/29/20 Last Taken 12/11/19] alum-mag hydroxide-simeth [Maalox Maximum Strength] 5 ml PO QID PRN 08/13/19 [History Confirmed 04/29/20 Last Taken 12/11/19] pantoprazole 40 mg tablet,delayed release 40 mg PO BID #90 tab 02/06/20 [Rx Confirmed 04/29/20 Last Taken Unknown] famotidine 20 mg tablet 20 mg PO BID #90 tab 02/28/20 [Rx Confirmed 04/29/20 Last Taken Unknown] allopurinol 100 mg tablet 100 mg PO QDAY #90 tab 04/02/20 [Rx Confirmed 04/29/20 Last Taken Unknown] spironolactone 100 mg tablet 100 mg PO QAM #30 tab 04/03/20 [Rx Confirmed 04/29/20 Last Taken Unknown] sucralfate 1 gram tablet 1 g PO BID #30 tab 04/22/20 [Rx Confirmed 04/29/20 Last Taken Unknown] escitalopram oxalate 20 mg tablet 40 mg PO QDAY 04/25/20 [History Confirmed 04/29/20 Last Taken Unknown] albuterol sulfate 2 puff INHALATION Q6HP PRN 04/29/20 [History Confirmed 11/11 Last Taken Unknown] furosemide 40 mg PO DAILY 04/29/20 [History Confirmed 04/29/20 Last Taken Unknown] ondansetron 4 mg PO Q6H PRN 04/29/20 [History Confirmed 04/29/20 Last Taken Unknown] amoxicillin-pot clavulanate 1 tab PO BID #6 tab 05/05/20 [Rx Last Taken Unknown] metoprolol succinate 12.5 mg PO DAILY #30 tab 05/05/20 [Rx Last Taken Unknown] COURSE Hospital Course Hospital course: . Discharge diagnosis: Right lower lobe pneumonia, sepsis Time Spent with Patient Time attestation: Total time spent providing and/or coordinating discharge services: EXAM Constitutional Vitals: Temp Pulse Resp BP Pulse Ox 98.1 F 105 H 22 100/57 93 05/05/20 07:52 05/05/20 07:52 05/05/20 07:52 05/05/20 07:52 05/05/20 07:52 Discharge Data Data Completed and Pending Labs on day of discharge: Labs from last 24 hours 05/05/20 05:28 Sodium 133 Potassium 4.0 Chloride 99 Carbon Dioxide 26 Anion Gap 8.0 BUN 51 H Creatinine 1.7 H GFR Calculation 30 Glucose 83 Uric Acid 8.5 H Calcium 8.4 L Phosphorus 2.7 Magnesium 2.2 Total Bilirubin 3.1 H Direct Bilirubin 2.3 H GGT 111 H AST 34 H ALT 10 Alkaline Phosphatase 136 H Lactate Dehydrogenase 169 Total Protein 6.5 Albumin 1.8 L Globulin 4.7 H Albumin/Globulin Ratio 0.4 L Triglycerides 116 Preliminary micro results at discharge 05/01/20 10:01 Blood Culture - Preliminary Blood 05/01/20 09:48 Blood Culture - Preliminary Blood Discharge Plan Patient/Caregiver Discharge Instructions Activity: increase activity as tolerated Diet: Low Sodium (2gm) Activity Restrictions/Additional Instructions: Continue antibiotic for additional 3 days Aggressive bowel regimen PT OT/nutrition support Beta-nikko for atrial fibrillation, CVA prophylaxisat this time is held due to recent GI bleed and anemia requiring transfusion. However will need reassessed by primary care physician for initiation of either anticoagulation or antiplatelet for CVA prophylaxis Prescriptions: New metoprolol succinate 25 mg Tablet Extended Release 24 Hr 12.5 mg PO DAILY Qty: 30 RF: 0 amoxicillin-pot clavulanate 875-125 mg Tablet 1 tab PO BID Qty: 6 RF: 0 Continued pantoprazole [Protonix] 40 mg tablet,delayed release (DR/EC) 40 mg PO BID Qty: 90 RF: 3 famotidine [Pepcid] 20 mg tablet 20 mg PO BID Qty: 90 RF: 3 allopurinol [Zyloprim] 100 mg tablet 100 mg PO QDAY Qty: 90 RF: 1 sucralfate [Carafate] 1 gram tablet 1 g PO BID Qty: 30 RF: 0 acetaminophen 500 mg capsule 1,000 mg PO TID RF: 0 spironolactone 100 mg tablet 100 mg PO QAM Qty: 30 RF: 8 escitalopram oxalate 20 mg tablet 40 mg PO QDAY RF: 0 alum-mag hydroxide-simeth [Maalox Maximum Strength] 400-400-40 mg/5 mL Suspension 5 ml PO QID PRN (Reason: Acid Reflux) RF: 0 furosemide 40 mg tablet 40 mg PO DAILY RF: 0 ondansetron 4 mg Tablet,Disintegrating 4 mg PO Q6H PRN (Reason: Nausea) RF: 0 albuterol sulfate 90 mcg/actuation HFA aerosol inhaler 2 puff INHALATION Q6HP PRN (Reason: shortness of breath or wheezing) RF: 0 Follow Up Plan [facility]: [facility]Primary [facility] - Patient Disposition: Xfer SNF Prognosis: Fair Rehab Potential: Fair I certify that the patient requires SNF services: Yes Overall status at discharge: patient is progressing back to baseline Discharge Orders: Discharge Order (Routine); Ordered 05/05/20 Ordered By: Ramin JEONG VTE Deep Vein Thrombosis/Pulmonary Embolism Present on Admission: No
[2020-05-05] MEDS: METOPROLOL SUCCINATE 25 MG TAB.XL.24H PO SCH (10:38)
[2020-05-05] MEDS: SPIRONOLACTONE 25 MG TABLET PO SCH (10:39)
[2020-05-05] MEDS ORDERED: HEPARIN SODIUM,PORCINE/PF 500 UNIT/5 ML SYRINGE IV ONE (12:11)
== END 2020-05-05 11:35 | DRG 871 ==
LOC: ED 01:22 → ICU 10:06 → MEDSUR 05-02 16:01
PROVIDERS: ADMIT Internal Medicine; ATTEND Internal Medicine